=== PATIENT | male | born 1955 | race Caucasian/White ===

== ENCOUNTER 2023-06-18 13:38 | Outpatient (AMB) | payer BC, SELFPAY ==
--- NOTE | 2023-06-18 14:28 | A.SPINEOV_ITS ---
Intake Intake Visit Reasons: cervical myelopathy Intake Note: Mr. Carranza is here today c/o neck pain. MRI done @ [facility]/brought disc. Lamp Cleaner Required: No Assessment & Plan Assessment & Plan (1) Cervical myelopathy: Code(s): G95.9 - Disease of spinal cord, unspecified Plan Dear colleague, Thank you for referring Ciro to our office today. He is a pleasant 68-year-old male with a chief complaint of bilateral foot and ankle pain. He additionally reports numbness and paresthesia in his bilateral feet. He describes the pain as dull, 4/10, and constant. He states that this began 1 year ago and has worsened in the last few months. He states he has been to outpatient neurology, physical therapy, and has tried gabapentin and [id number] medications with minimal relief. He states that walking and moving exacerbate his symptoms, and sitting and resting alleviates his symptoms. PMH: Asthma, GERD, Right shoulder repair in 2019. Social hx: Nonsmoker, no disclosed substance use. Medications: Albuterol, gabapentin. Allergies: NKDA Physical exam: The patient was examined with Dr. Monroe. He presents as A&0X4, is in no acute distress. He has 5/5 strength in his bilateral lower extremities. He has reduced sensation in his bilateral feet, on both the dorsal and ventral surfaces. He has grade 0 patellar reflexes, grade 1+ Achilles reflexes, and has nonsustained clonus in bilateral ankles when engaging gastrocnemius. He has a weakly positive Babinski's bilaterally. Negative Odell's. Antalgic gait when ambulating. Imaging review: The patient's MRI imaging from [facility] was reviewed with Dr. Monroe. The patient has severe spinal cord stenosis worst at the levels of C3, C4, C5, C6, predominantly anterior. Impression: The patient is a 68-year-old male with 1 year bilateral foot and ankle pain. He reports numbness and paresthesias in his bilateral feet. 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 He is likely suffering from an upper motor neuron deficit, secondary to cervical spinal stenosis. This would explain his lower extremity symptoms, his weakly positive Babinski sign, and his non- sustained clonus. Thank you for allowing us to care for your patient. The total time spent with this visit with this patient was 65 minutes reviewing history, physical exam, MRI imaging review, and implementation of treatment plan or further diagnostic testing Aditya Monroe MD,PhD [facility] Orders: Orders CT cervical spine wo IV con Today G95.9 - Disease of spinal cord, unspecified Coding Level of Care Code New Pt Level 5 (26722) Diagnoses Cervical myelopathy G95.9 Time Spent (min) 65
== END 2023-06-18 15:31 | disposition home or self-care (01) ==
PROVIDERS: Referring Provider Psychiatry & Neurology Neurology; Visit Provider Physician Assistant
DX: G95.9 Disease of spinal cord, unspecified (principal)
CPT/HCPCS: 99205

== ENCOUNTER → 2023-06-18 13:38 | Outpatient (BNVA) | payer BC, SELFPAY | PROVIDERS: Visit Provider Physician Assistant ==

== ENCOUNTER 2023-07-02 13:09 | Outpatient (REF) | payer BC, SELFPAY ==
--- NOTE | ~2023-07-02 | CT_ITS ---
EXAMINATION: CT CERVICAL SPINE WITHOUT CONTRAST CLINICAL INFORMATION: Disease of the spinal cord. COMPARISON: No relevant prior imaging. TECHNIQUE: Grain Inspector images were obtained. CT imaging of the cervical spinal was performed without contrast. Data was reformatted into multiplanar images at the acquisition workstation. This CT examination was performed using dose optimization techniques as appropriate, including one or more of the following: Automated exposure control, iterative reconstruction, and adjustment of technique factors (mA and/or kVp) according to patient size (this includes techniques or standardized protocols for targeted exams where dose is matched to indication/reason for exam). Fleischner Society criteria for the followup of incidental pulmonary nodules was implemented if appropriate. DLP: 485 mGy-cm. FINDINGS: There is slight anterolisthesis of C2 on C3 that appears related to facet degenerative changes at this level. Alignment is otherwise normal. There are a few chronic Schmorl's nodes involving the upper and lower endplates at multiple levels within the cervical spine. Vertebral heights are grossly maintained. There is loss of intervertebral disc height with associated sclerotic degenerative endplate changes and hypertrophic disc osteophyte spurring at multiple levels. No patency is not well assessed on this examination due to inherent limitations of CT without intrathecal contrast. There is at least moderate canal stenosis at the levels of C4-C5 and C5-C6. Uncovertebral joint spurring and facet degenerative change causes moderate to severe neuroforaminal encroachment at multiple levels. Visualized soft tissues of the neck are normal. Lung apices are clear. Limited visualization of the posterior fossa reveals no abnormal finding. CT/CT cervical spine wo IV con IMPRESSION: There is multilevel degenerative spondylosis of the cervical spine with slight anterolisthesis of C2 on C3 related to facet degenerative changes at this level. There is at least moderate canal stenosis at levels of C4-C5 and C5-C6. If there are clinical symptoms of compressive myelopathy then a dedicated cervical spine MRI can be obtained for better anatomic characterization of the cord and canal. Uncovertebral joint spurring and facet degenerative change causes moderate to severe neuroforaminal encroachment at multiple levels.
== END 2023-07-02 13:10 | disposition home or self-care (01) ==
LOC: HO.CT 13:09
PROVIDERS: Visit Provider Physician Assistant
DX: G95.9 Disease of spinal cord, unspecified (principal)
CPT/HCPCS: 72125

== ENCOUNTER 2023-08-12 05:56 | Inpatient (IN) | payer BC, SELFPAY ==
--- NOTE | 2023-07-24 | ECG_ITS ---
Test Reason : PREOP Blood Pressure : / mmHG Vent. Rate : 065 BPM Atrial Rate : 065 BPM P-R Int : 162 ms QRS Dur : 092 ms QT Int : 404 ms P-R-T Axes : 072 040 010 degrees QTc Int : 420 ms Normal sinus rhythm Normal ECG No previous ECGs available Referred By: Atiya Cordero Electronically Signed By:FRANCO PETIT
[2023-07-24 13:38] VITALS: BP 166/88; PULSE 73; RESP 18; O2SAT 95; BMI 28.0
[2023-07-24 14:56] LABS: MANUAL DIFF FLAG NO
[2023-07-24 15:27] LABS: Basophils Absolute Auto 0.1 X10*3/uL (0.0-0.2); Basophils Percent Auto 0.9 % (0-2); Eosinophils Absolute Auto 0.2 X10*3/uL (0.0-0.4); Eosinophils Percent Auto 1.8 % (0-4); Hematocrit 48.7 % (42.0-52.0); Hemoglobin 16.3 g/dl (14.0-18.0); Imm Gran Abs Auto 0.02 X10*3/uL (0.00-0.03); Imm Gran Pct Auto 0.2 % (0.0-0.4); Lymphocytes Absolute Auto 1.5 X10*3/uL (1.2-4.9); Lymphocytes Percent Auto 18.1 % (20-40); Mean Corpuscular HGB Conc 33.5 g/dl (31.0-36.0); Mean Corpuscular Hemoglobin 30.6 pg (27.0-33.0); Mean Corpuscular Volume 91.4 fL (80.0-98.0); Monocytes Absolute Auto 0.6 X10*3/uL (0.1-1.2); Monocytes Percent Auto 7.5 % (2-11); Neutrophils Absolute Auto 6.1 x10*3/uL (2.0-8.3); Neutrophils Percent Auto 71.5 % (45-73); Platelet Count 189 X10*3/uL (160-400); Red Blood Count 5.33 X10*6/uL (4.60-5.80); Red Cell Distribution Width 13.3 % (11.0-16.0); White Blood Count 8.5 X10*3/uL (4.8-10.8)
[2023-07-24 15:28] LABS: Hematocrit 49.4 % (42.0-52.0); Hemoglobin 16.5 g/dl (14.0-18.0); Mean Corpuscular HGB Conc 33.4 g/dl (31.0-36.0); Mean Corpuscular Hemoglobin 30.1 pg (27.0-33.0); Mean Platelet Volume 9.8 fL (9.4-12.4); Platelet Count 189 X10*3/uL (160-400); Red Blood Count 5.49 X10*6/uL (4.60-5.80); Red Cell Distribution Width 13.3 % (11.0-16.0); White Blood Count 8.6 X10*3/uL (4.8-10.8)
[2023-07-24 16:04] LABS: Anion Gap 13 (12-20); Carbon Dioxide 23 mmol/L (22-29); Chloride 106 mmol/L (96-108); Potassium 3.8 mmol/L (3.3-5.1); Sodium 138 mmol/L (135-145)
[2023-07-24 16:11] LABS: Anion Gap 14 (12-20); Blood Urea Nitrogen 19 mg/dL (9-16); Calcium 9.6 mg/dL (8.4-10.2); Carbon Dioxide 22 mmol/L (22-29); Chloride 106 mmol/L (96-108); Creatinine Clr Calc Pharmacy 96.7; Estimated Glomerular Filt Rate > 60; Glucose Random 86 mg/dL (60-115); Potassium 3.8 mmol/L (3.3-5.1); Sodium 138 mmol/L (135-145)
--- NOTE | 2023-08-11 08:29 | HO.ANESPROP2 ---
Documented by User: Candi Landaverde NP 08/11/23 10:47 HPI - Anesthesia Eval Consult details Narrative: 68yo M for C 3-4,4-5,5-6 Ant Cerv Discectomy w/ fusion,poss Corpectomy, Seen in PAT 07/24/[address] Cordero [facility] Active Problems Active Problems: All Active Problems (Updated 07/24/23 @ 13:22 by Amy Todd RN) Cervical myelopathy (Acute) Past Medical History Medical History (Updated 07/24/23 @ 13:22 by Amy Todd RN) Dizziness Bursitis and tendinitis of shoulder region Numbness and tingling of both legs below knees Rotator cuff arthropathy Spinal stenosis Hyperlipidemia Inguinal hernia Sleep apnea GERD (gastroesophageal reflux disease) Asthma Surgical History Surgical History (Updated 07/24/23 @ 13:15 by Amy Todd RN) Hx of appendectomy Hx of repair of right rotator cuff Social History Social History Are you a primary urgent care nurse practitioner to a significant other at home: No Do you presently have visiting nurse or other home services: No Patient Tobacco Use Status: Never used Tobacco Use of substances other than those prescribed or required for medical reasons: No Have you been hit, kicked, punched, or otherwise hurt by someone within the past year? If so, by whom?: No Advance Directives: No Advance Directives Information Provided: No Advance Directives on File: No Recently lost weight without trying: No Eating poorly because of decreased appetite: No Nutrition Risks: No Nutritional Risk Poor oral hygiene: Yes (left upper bridge) Meds Allergies Allergy/AdvReac Type Severity Reaction Status Date / Time pseudoephedrine Allergy Shortness Verified 07/23/23 09:44 of Breath triprolidine Allergy Shortness Verified 07/23/23 09:43 of Breath Home Medications Medication Instructions Recorded Confirmed Last Taken Type albuterol sulfate 90 mcg/actuation 2 puff inhalation Q4-6H PRN 07/23/23 07/23/23 Unknown History aerosol inhaler Shortness Of Breath Or Wheezing fluorouracil 0.5 % topical cream 1 appl topical DAILY PRN Skin 07/23/23 07/23/23 Unknown History (Carac) Irritation fluticasone furoate 100 1 ea inhalation DAILY 07/23/23 07/23/23 Unknown History mcg-vilanterol 25 mcg/dose inhalation powder (Breo Ellipta) hydrocodone 5 mg-acetaminophen 325 1 tab PO TID PRN Pain 07/23/23 07/23/23 Unknown History mg tablet ibuprofen 600 mg tablet 600 mg PO BID PRN Pain 07/23/23 07/23/23 Unknown History metaxalone 800 mg tablet 800 mg PO BID PRN muscle spasm 07/23/23 07/23/23 Unknown History multivitamin 1 tab PO DAILY 07/23/23 07/23/23 Unknown History omega-3 acid ethyl esters 1 gram 1 cap PO DAILY 07/23/23 07/23/23 Unknown History capsule (Lovaza) ondansetron 4 mg disintegrating 4 mg PO Q6-8H PRN nausea/vomiting 07/23/23 07/23/23 Unknown History tablet triamcinolone acetonide 0.1 % 1 appl topical DAILY PRN Skin 07/23/23 07/23/23 Unknown History topical cream Irritation Exam Exam Date and Time: August 11, 2023 0829 Height,Weight and Vital Signs: Height 6 ft 3 in Weight 101.605 kg Last Vital Signs Pulse 73 07/24/23 13:38 Resp 18 07/24/23 13:38 BP 166/88 H 07/24/23 13:38 Pulse Ox 95 07/24/23 13:38 O2 Del Method Room Air 07/24/23 13:38 Pertinent Lab Results Pertinent Lab Results: Laboratory Tests 07/24/23 07/24/23 07/24/23 14:54 14:54 14:54 WBC 8.6 8.5 RBC 5.49 5.33 Hgb 16.5 Hct MCV MCH MCHC RDW Plt Count MPV Immature Gran % (Auto) Neut % (Auto) Lymph % (Auto) Mcmullen % (Auto) Eos % (Auto) Baso % (Auto) Lymph # (Auto) Mcmullen # (Auto) Eos # (Auto) Baso # (Auto) Abs Immat Gran (auto) Absolute Neuts (auto) Absolute Nucleated RBC Nucleated RBC % (auto) Sodium Potassium Chloride Carbon Dioxide Anion Gap BUN Creatinine Estim Creat Clear Calc Estimated GFR Random Glucose Calcium 07/24/23 07/24/23 07/24/23 14:54 14:54 14:54 WBC RBC Hgb 16.3 Hct 49.4 48.7 MCV 90.0 91.4 MCH 30.1 MCHC RDW Plt Count MPV Immature Gran % (Auto) Neut % (Auto) Lymph % (Auto) Mcmullen % (Auto) Eos % (Auto) Baso % (Auto) Lymph # (Auto) Mcmullen # (Auto) Eos # (Auto) Baso # (Auto) Abs Immat Gran (auto) Absolute Neuts (auto) Absolute Nucleated RBC Nucleated RBC % (auto) Sodium Potassium Chloride Carbon Dioxide Anion Gap BUN Creatinine Estim Creat Clear Calc Estimated GFR Random Glucose Calcium 07/24/23 07/24/23 07/24/23 14:54 14:54 14:54 WBC RBC Hgb Hct MCV MCH 30.6 MCHC 33.4 33.5 RDW 13.3 13.3 Plt Count 189 MPV Immature Gran % (Auto) Neut % (Auto) Lymph % (Auto) Mcmullen % (Auto) Eos % (Auto) Baso % (Auto) Lymph # (Auto) Mcmullen # (Auto) Eos # (Auto) Baso # (Auto) Abs Immat Gran (auto) Absolute Neuts (auto) Absolute Nucleated RBC Nucleated RBC % (auto) Sodium Potassium Chloride Carbon Dioxide Anion Gap BUN Creatinine Estim Creat Clear Calc Estimated GFR Random Glucose Calcium 07/24/23 07/24/23 07/24/23 14:54 14:54 14:54 WBC RBC Hgb Hct MCV MCH MCHC RDW Plt Count 189 MPV 9.8 10.0 Immature Gran % (Auto) 0.2 Neut % (Auto) 71.5 Lymph % (Auto) 18.1 L Mcmullen % (Auto) 7.5 Eos % (Auto) 1.8 Baso % (Auto) 0.9 Lymph # (Auto) 1.5 Mcmullen # (Auto) 0.6 Eos # (Auto) 0.2 Baso # (Auto) 0.1 Abs Immat Gran (auto) 0.02 Absolute Neuts (auto) 6.1 Absolute Nucleated RBC 0.000 0.000 Nucleated RBC % (auto) 0.0 Sodium Potassium Chloride Carbon Dioxide Anion Gap BUN Creatinine Estim Creat Clear Calc Estimated GFR Random Glucose Calcium 07/24/23 07/24/23 07/24/23 14:54 14:54 14:54 WBC RBC Hgb Hct MCV MCH MCHC RDW Plt Count MPV Immature Gran % (Auto) Neut % (Auto) Lymph % (Auto) Mcmullen % (Auto) Eos % (Auto) Baso % (Auto) Lymph # (Auto) Mcmullen # (Auto) Eos # (Auto) Baso # (Auto) Abs Immat Gran (auto) Absolute Neuts (auto) Absolute Nucleated RBC Nucleated RBC % (auto) 0.0 Sodium 138 138 Potassium 3.8 3.8 Chloride 106 Carbon Dioxide Anion Gap BUN Creatinine Estim Creat Clear Calc Estimated GFR Random Glucose Calcium 07/24/23 07/24/23 07/24/23 14:54 14:54 14:54 WBC RBC Hgb Hct MCV MCH MCHC RDW Plt Count MPV Immature Gran % (Auto) Neut % (Auto) Lymph % (Auto) Mcmullen % (Auto) Eos % (Auto) Baso % (Auto) Lymph # (Auto) Mcmullen # (Auto) Eos # (Auto) Baso # (Auto) Abs Immat Gran (auto) Absolute Neuts (auto) Absolute Nucleated RBC Nucleated RBC % (auto) Sodium Potassium Chloride 106 Carbon Dioxide 22 23 Anion Gap 14 13 BUN 19 H Creatinine 0.97 Estim Creat Clear Calc 96.7 Estimated GFR > 60 Random Glucose 86 Calcium 9.6 Narrative Narrative: EKG 06/2023 Vent. Rate : 065 BPM Atrial Rate : 065 BPM P-R Int : 162 ms QRS Dur : 092 ms QT Int : 404 ms P-R-T Axes : 072 040 010 degrees QTc Int : 420 ms Normal sinus rhythm Normal ECG No previous ECGs available Assessment and Plan Assessment Anesthesia Assessment: Chart Reviewed Documented by User: Greyson Baca MD 08/12/23 06:07 [facility] Past Medical History Medical History (Updated 07/24/23 @ 13:22 by Amy Todd RN) Dizziness Bursitis and tendinitis of shoulder region Numbness and tingling of both legs below knees Rotator cuff arthropathy Spinal stenosis Hyperlipidemia Inguinal hernia Sleep apnea GERD (gastroesophageal reflux disease) Asthma Family History Family history of problems with anesthesia: No Surgical History Surgical History (Updated 07/24/23 @ 13:15 by Amy Todd RN) Hx of appendectomy Hx of repair of right rotator cuff History of Problems with Anesthesia: No Social History Social History Are you a primary urgent care nurse practitioner to a significant other at home: No Do you presently have visiting nurse or other home services: No Patient Tobacco Use Status: Never used Tobacco Use of substances other than those prescribed or required for medical reasons: No Have you been hit, kicked, punched, or otherwise hurt by someone within the past year? If so, by whom?: No Advance Directives: No Advance Directives Information Provided: No Advance Directives on File: No Recently lost weight without trying: No Eating poorly because of decreased appetite: No Nutrition Risks: No Nutritional Risk Poor oral hygiene: Yes (left upper bridge) Meds Allergies Allergy/AdvReac Type Severity Reaction Status Date / Time pseudoephedrine Allergy Shortness Verified 07/23/23 09:44 of Breath triprolidine Allergy Shortness Verified 07/23/23 09:43 of Breath Home Medications Medication Instructions Recorded Confirmed Last Taken Type albuterol sulfate 90 mcg/actuation 2 puff inhalation Q4-6H PRN 07/23/23 07/23/23 Unknown History aerosol inhaler Shortness Of Breath Or Wheezing fluorouracil 0.5 % topical cream 1 appl topical DAILY PRN Skin 07/23/23 07/23/23 Unknown History (Carac) Irritation fluticasone furoate 100 1 ea inhalation DAILY 07/23/23 07/23/23 Unknown History mcg-vilanterol 25 mcg/dose inhalation powder (Breo Ellipta) hydrocodone 5 mg-acetaminophen 325 1 tab PO TID PRN Pain 07/23/23 07/23/23 Unknown History mg tablet ibuprofen 600 mg tablet 600 mg PO BID PRN Pain 07/23/23 07/23/23 Unknown History metaxalone 800 mg tablet 800 mg PO BID PRN muscle spasm 07/23/23 07/23/23 Unknown History multivitamin 1 tab PO DAILY 07/23/23 07/23/23 Unknown History omega-3 acid ethyl esters 1 gram 1 cap PO DAILY 07/23/23 07/23/23 Unknown History capsule (Lovaza) ondansetron 4 mg disintegrating 4 mg PO Q6-8H PRN nausea/vomiting 07/23/23 07/23/23 Unknown History tablet triamcinolone acetonide 0.1 % 1 appl topical DAILY PRN Skin 07/23/23 07/23/23 Unknown History topical cream Irritation Exam Airway Mallampati Class: III TM Dist: >3cm Neck ROM: Limited Heart: rrr Lungs: cta Assessment and Plan Final Anesthetic Review Family History of Problems with Anesthesia: No History of Problems with Anesthesia: No NPO: Yes ASA Class: II Final Preanesthetic Review: Meds/Allgs Chart Reviewed, Consent Obtained/Reviewed and Anes Risks/Benef Reviewed Patient Risk: Intermediate Procedure Risk: Intermediate Anesthetic Plan Anesthetic Plan: GA and Agree w/ Assess. and Plan
[2023-08-12] VITALS (27 sets, daily range): BP systolic 117–173; BP diastolic 62–99; PULSE 75–103; RESP 10–20; TEMP 36.5–37; O2SAT 90–97
--- NOTE | ~2023-08-12 | FL_ITS ---
EXAMINATION: XR FL WITH IMAGES CLINICAL INFORMATION: Anterior cervical discectomy and fusion. COMPARISON: Previous cervical spine CT 07/02/2023. TECHNIQUE: Fluoroscopy guidance with images provided to Dr. Monreo. DOSE: 1.78 mGy DAP: 0.300 Gycm2 FLUOROSCOPY TIME: 0.0 minute. IMAGES: 3 images. FINDINGS: Images demonstrate anterior cervical discectomy and fusion new hardware at C3-C4, C4-C5 and C5-C6. FL/FL guidance in OR IMPRESSION: Fluoroscopy guidance for cervical spine surgery.
[2023-08-12] MEDS: Lactated Ringers 1,000 ML 100 ML IVCONT (06:34)
[2023-08-12] MEDS: Gabapentin 300 MG CAPSULE PO (06:38)
[2023-08-12] MEDS: methocarbamoL 750 MG TABLET PO (06:38)
--- NOTE | 2023-08-12 07:01 | MHC.SHP ---
Pre-Procedural Eval Section A Date of Service: 08/12/23 Section B Chief Complaint: S/p 3 level ACDF Allergies: Allergies Allergy/AdvReac Type Severity Reaction Status Date / Time pseudoephedrine Allergy Shortness Verified 07/23/23 09:44 of Breath triprolidine Allergy Shortness Verified 07/23/23 09:43 of Breath Review of Systems Sugical H&P ROS: Negative: Constitution, Cardiovascular, Respiratory, Neurological, Psychiatric, Hem-Onc, Allergic/Immunologic, Gastrointestinal, Genitourinary, Musculoskeletal, Integumentary, Endocrine and Eyes/Ears/Nose/Throat Exam Surgical H&P Exam: Not Evaluated: HEENT, Not Evaluated: Heart, Not Evaluated: Lungs, Not Evaluated: Extremities, Not Evaluated: Abdomen, Not Evaluated: Skin and Not Evaluated: Neurological Plan Diagnosis/Plan: Unchanged I have reviewed the history and physical and performed a pertinent physical examination on my patient. No changes have occurred unless specified. Plan remains the same, C3-C6 ACDF with possible corpectomy Time Spent With Patient Time: Total time managing care of this patient today __10__ minutes.
[2023-08-12] MEDS: Acetaminophen 1,000 MG/100 ML PIGGYBACK 400 MG IV ×3 (10:30→23:13)
--- NOTE | 2023-08-12 10:33 | P.OP_ITS ---
Operative Note Operative Note Date of Service: 08/12/23 Narrative: Preoperative Diagnosis: Cervical myelopathy Procedure: C3-C4, C4-C5, C5-C6 Anterior discectomy, arthrodesis and implantation cage ; C3-C6 anterior instrumentation ; local autograft; microscope Informed Consent was obtained for this operation. I have explained the nature, purpose and benefits of the operation. I have discussed the risks and benefit of the operation including possible complications or adverse events with patient/family. Alternative(s) were discussed with the patient with their relative benefits and risks as well as the consequences of not accepting the operation were included in obtaining consent. Surgeon: EPHRAIM SMYTH MD, PHD Procedure Assisted By: jaya Sears Description of Procedure: at this 68-year-old male is suffer from progressive cervical myelopathy. An MRI and CT scan cervical spine shows severe degenerative disc disease C3-C4 C4- C5 C5-C6 with large osteophytes compressing the spinal cord. He was offered a decompression And fusionof the above-mentioned levels. The procedure and complications were explained. The patient was consented. The patient was brought to the operating room and endotracheally intubated. The patient was put in supine position with slight extension of the neck. Prep and drape was done followed by timeout. A mid cervical incision was made followed by opening of the platysma. The prevertebral fascia was reached following the natural planes while the physician assistant men's soccer coach provided manual retraction. The prevertebral fascia was opened to expose the C3-4, C4-5 and C5-C6 disc spaces. A spinal needle was placed in the C3-4 discspace and C5-C6 disc spaceto confirm the correct levels with xray. The longus colli muscles were released bilaterally and a self retaining retractor was inserted. and initial diskectomy was done of C4-5 and C5-C6 towards the posterior annulus.Two [place] pins were placed in the C3 and C4 vertebral bodies and distraction was give over the interspace. The discectomy was completed toward the posterior annulus of the disc. The microscope was brought in. The remainder of the discectomy was completed. The hypertrophied posterior longitudinal ligament was opened and resected to expose the underlying dura. large osteophytes were resected from the body of C3 and C4 to decompress the spinal cord and saved for autograft. Bilateral foraminotomies were done. The endplates were prepared after which a 6 mm cage filled with autograft was inserted into the disc space. A separate attached plate was locked down with 2 x 14 mm screws as anterior instrumentation. The steps were repeated for at the C4-5 and C5-C6 levels. At both levels severe spinal stenosis was encountered due to large posterior osteophytes which were resected. Two 6 mm cages were inserted in the C4-C5 and C5-6 levels, where again separate attached plates were locked down with a total 4 x 14 mm screws as anterior instrumentation. Final x-rays in AP and lateral projection showed a satisfactory position of the implants And anterior instrumentation. The physician assistant men's soccer coach took over. The [place] pin was removed. Hemostasis was done. He closed the incision in 2 layers with a 3-0 Vicryl. Steri-Strips used to approximate inc ision. An OpSite with Tegaderm was used to cover the incision. All sponge and needle counts were correct. Patient was extubated and transported in stable is to recovery room. Anesthesia: General Estimated Blood Loss (ml): 50 mL Duration of Surgery: 2 hours and 30 minutes Postoperative Plan: admit to inpatient for observation Complications: None
[2023-08-12] MEDS: HYDROmorphone HCl 0.5 MG/0.5 ML SYRINGE 0.25 MG IVPUSH ×4 (11:10→11:30)
[2023-08-12] MEDS: oxyCODONE HCl Immed Release 5 MG TABLET 10 MG PO (11:12)
--- NOTE | 2023-08-12 11:32 | PHA.MEDREC ---
Pharmacy Consult ? Medication Reconciliation Pharmacy has completed the medication reconciliation Reviewed med rec done by nursing.
[2023-08-12] MEDS: fentaNYL citrate/PF 100 MCG/2 ML VIAL 50 MCG IVPUSH (12:20)
[2023-08-12] MEDS: 0.9 % Sodium Chloride 1,000 ML 75 ML IVCONT (13:28)
[2023-08-12] MEDS: HYDROmorphone HCl 1 MG/ML SYRINGE IVPUSH ×3 (13:42→20:51)
[2023-08-12] MEDS: ceFAZolin Sodium/Dextrose,Iso 2 GM/50 ML PIGGYBACK IV ×2 (14:46→20:51)
--- NOTE | 2023-08-12 15:43 | PM.CCHP ---
History of Present Illness Date of Service: 08/12/23 Chief Complaint: Status post elective anterior diskectomy 68-year-old gentleman with underlying history of asthma and progressive cervical myelopathy, now postop day 0 after an elective anterior cervical multilevel diskectomy and cage placement being monitored in the intensive care unit in the postop period Review of Systems Constitutional: Constitutional: Denies daytime sleepiness, Denies excessive sweating, Denies fatigue, Denies fever(s), Denies lethargy, Denies malaise, Denies night sweats, Denies snoring and Denies weight loss Eyes: Eyes: Denies blurry vision and Denies itchy eyes ENT: Denies nasal congestion, Denies post nasal drip, Denies sinus pain, Denies sinus pressure and Denies other ( Thrush) Cardiovascular: Cardiovascular: Denies chest pain, Denies pedal edema, Denies dyspnea, Denies orthopnea and Denies paroxysmal nocturnal dyspnea Respiratory: Respiratory: Denies cough, Denies hemoptysis, Denies excessive phlegm production, Denies dyspnea, Denies snoring and Denies wheezing Gastrointestinal: Gastrointestinal: Denies abdominal pain and Denies heartburn Musculoskeletal: Musculoskeletal: Denies myalgias, Denies arthralgias and Denies joint swelling Integumentary/Breasts: Skin/Breast: Denies rash Neurologic: Denies memory loss and Denies seizure-like activity Psychiatric: Psychiatric: Denies abnormal sleep pattern, Denies anxiety and Denies memory loss Endocrine: Endocrine: Denies excessive sweating, Denies fatigue and Denies heat intolerance Hematologic/Lymphatic: Hematologic/Lymphatic: Denies easy bruising Allergic/Immunologic: Allergic/Immunologic: Denies itchy eyes, Denies seasonal rhinorrhea and Denies wheezing PMFSH Past Medical History Medical History (Updated 08/12/23 @ 15:45 by Ranjith Gomez MD) Dizziness Bursitis and tendinitis of shoulder region Numbness and tingling of both legs below knees Rotator cuff arthropathy Spinal stenosis Hyperlipidemia Inguinal hernia Sleep apnea GERD (gastroesophageal reflux disease) Asthma Surgical History Surgical History Hx of appendectomy Hx of repair of right rotator cuff Social History Social History Household Members: Spouse Housing: House Are you a primary care process manager to a significant other at home: No Do you presently have visiting nurse or other home services: No Patient Tobacco Use Status: Never used Tobacco Use of substances other than those prescribed or required for medical reasons: No Have you been hit, kicked, punched, or otherwise hurt by someone within the past year? If so, by whom?: No Do you feel safe in your current relationship?: Yes Is there a partner from a previous relationship who is making you feel unsafe now?: No Are you made to feel afraid or neglected: No Advance Directives: No Advance Directives Information Provided: No Advance Directives on File: No Do you have thoughts of harming others: None Do you have a plan to hurt others: No Plan Recently lost weight without trying: No Eating poorly because of decreased appetite: No Nutrition Risks: No Nutritional Risk Poor oral hygiene: No Meds Allergies Allergy/AdvReac Type Severity Reaction Status Date / Time pseudoephedrine Allergy Shortness Verified 08/12/23 13:47 of Breath triprolidine Allergy Shortness Verified 08/12/23 13:47 of Breath Active Medications: Current Medications Albuterol Sulfate (Albuterol Sulfate 90 Mcg 8 Gm Inhaler) 2 puff INHALE Q4H PRN PRN Reason: Shortness Of Breath Or Wheezing Carisoprodol (Carisoprodol 350 Mg Tablet) 350 mg PO BID PRN PRN Reason: muscle spasm Docusate Sodium (Docusate Sodium 100 Mg Capsule) 100 mg PO BID JANETTE Fluticasone/Vilanterol (Fluticasone/Vilanterol 100/25 Blst.W.Dev) 1 puff INHALE RDAILY [facility] Hydromorphone HCl (Hydromorphone Hcl 1 Mg/Ml Syringe) 1 mg IVPUSH Q3H PRN; Protocol PRN Reason: Pain, Severe (Pain Scale 7-10) Last Admin: 08/12/23 13:42 Dose: 1 mg Sodium Chloride (Ns) 1,000 mls @ 75 mls/hr IVCONT .[id number] [facility] Last Admin: 08/12/23 13:28 Dose: 75 mls/hr Cefazolin Sodium/Dextrose (Ancef) 2 gm in 50 mls @ 100 mls/hr IV Q6H [facility] Stop: 08/13/23 02:59 Last Admin: 08/12/23 14:46 Dose: 100 mls/hr Acetaminophen (Ofirmev) 1,000 mg in 100 mls @ 400 mls/hr IV Q6H JANETTE Last Infusion: 08/12/23 13:42 Dose: Infused Multivitamins/Vitamin C (Multivitamin Tablet) 1 tab PO DAILY JANETTE Ondansetron HCl (Ondansetron Hcl 4 Mg/2 Ml Vial) 4 mg IVPUSH Q6H PRN PRN Reason: Nausea and Vomiting Oxycodone HCl (Oxycodone Hcl Immed Release 5 Mg Tablet) 5 mg PO Q4H PRN PRN Reason: Pain, Moderate(Pain Scale 4-6) Oxycodone HCl (Oxycodone Hcl Immed Release 5 Mg Tablet) 10 mg PO Q4H PRN PRN Reason: Pain, Severe (Pain Scale 7-10) Last Admin: 08/12/23 11:12 Dose: 10 mg Home Medications Medication Instructions Recorded Confirmed Last Taken Type albuterol sulfate 90 mcg/actuation 2 puff inhalation Q4-6H PRN 07/23/23 07/23/23 08/12/23 History aerosol inhaler Shortness Of Breath Or Wheezing fluorouracil 0.5 % topical cream 1 appl topical DAILY PRN Skin 07/23/23 07/23/23 Unknown History (Carac) Irritation fluticasone furoate 100 1 ea inhalation DAILY 07/23/23 07/23/23 08/12/23 History mcg-vilanterol 25 mcg/dose inhalation powder (Breo Ellipta) hydrocodone 5 mg-acetaminophen 325 1 tab PO TID PRN Pain 07/23/23 07/23/23 08/05/23 History mg tablet ibuprofen 600 mg tablet 600 mg PO BID PRN Pain 07/23/23 07/23/23 08/05/23 History metaxalone 800 mg tablet 800 mg PO BID PRN muscle spasm 07/23/23 07/23/23 08/05/23 History multivitamin 1 tab PO DAILY 07/23/23 07/23/23 08/05/23 History ondansetron 4 mg disintegrating 4 mg PO Q6-8H PRN nausea/vomiting 07/23/23 07/23/23 Unknown History tablet Physical Exam Vital Signs: Vital Signs: Last Vital Signs Temp 98.3 F 08/12/23 12:40 Pulse 98 08/12/23 15:00 Resp 13 08/12/23 15:00 BP 142/81 H 08/12/23 15:00 Pulse Ox 92 08/12/23 15:00 O2 Del Method Nasal Cannula 08/12/23 15:00 O2 Flow Rate 3 08/12/23 15:00 BMI result Body Mass Index 28.0 Const: General: no acute distress and alert Nutritional Appearance: not obese Orientation/consciousness: Other orientation findings ( oriented) HEENT: Head: Yes atraumatic Eyes: General: appearance normal, both eyes and all related structures Sclerae: sclerae normal EOM: EOMs intact bilaterally Neck: Other: surgical access site with no hematoma Neck: Yes supple Lymphatic: no lymphadenopathy noted Resp: Effort & Inspection: normal respiratory effort and no use of accessory muscles Auscultation: clear to auscultation bilaterally Cardio: Rate: regular rate Rhythm: regular rhythm Heart sounds: no gallops, no murmurs and no rubs Skin: General skin exam: other ( warm) Extrem: General: No clubbing, No cyanosis and No edema Results Labs 07/24/23 14:54 07/24/23 14:54 Labs: Laboratory Results - last 24 hr 08/12/23 06:08 Blood Type A Positive Antibody Screen NEGATIVE Assessment and Plan (1) Cervical myelopathy: Status: Acute (2) Asthma: Status: Acute Plan Assessment: 68-year-old gentleman now postop day 0 after an elective anterior cervical multilevel diskectomy and cage placement being monitored postop in the intensive care unit Plan: Neuro: status post elective anterior multilevel cervical diskectomy. Continue routine postop care. Neurosurgery service care appreciated. Cardiac: No acute issues. Pulmonary: No acute issues. underlying history of asthma. Renal: No acute issues. Endo: No acute issues. GI: No acute issues. Underlying GERD. ID: No acute issues Heme/Onc: No acute issues. Psych: No acute issues. Miscellaneous: No acute issues. Prophylaxis: per neurosurgery Diet: per neurosurgery Time Spent With Patient Time: Total time managing care of this patient today ____ minutes.
[2023-08-12] MEDS: Docusate Sodium 100 MG CAPSULE PO (20:50)
[2023-08-12] MEDS: oxyCODONE HCl Immed Release 5 MG TABLET PO (23:43)
[2023-08-12] MEDS: carisoprodoL 350 MG TABLET PO (23:43)
[2023-08-13] VITALS (16 sets, daily range): BP systolic 116–167; BP diastolic 61–97; PULSE 65–100; RESP 11–19; TEMP 36.6–37; O2SAT 90–96
[2023-08-13] MEDS: ceFAZolin Sodium/Dextrose,Iso 2 GM/50 ML PIGGYBACK IV (02:28)
[2023-08-13] MEDS: HYDROmorphone HCl 1 MG/ML SYRINGE IVPUSH (03:23)
[2023-08-13 05:11] LABS: MANUAL DIFF FLAG NO
[2023-08-13 05:14] LABS: Basophils Percent Auto 0.2 % (0-2); Hematocrit 46.1 % (42.0-52.0); Hemoglobin 15.4 g/dl (14.0-18.0); Imm Gran Abs Auto 0.04 X10*3/uL (0.00-0.03); Imm Gran Pct Auto 0.3 % (0.0-0.4); Lymphocytes Percent Auto 8.2 % (20-40); Mean Corpuscular HGB Conc 33.4 g/dl (31.0-36.0); Mean Corpuscular Hemoglobin 30.8 pg (27.0-33.0); Mean Corpuscular Volume 92.2 fL (80.0-98.0); Mean Platelet Volume 9.9 fL (9.4-12.4); Monocytes Absolute Auto 1.3 X10*3/uL (0.1-1.2); Monocytes Percent Auto 11.1 % (2-11); Neutrophils Absolute Auto 9.5 x10*3/uL (2.0-8.3); Neutrophils Percent Auto 80.2 % (45-73); Platelet Count 189 X10*3/uL (160-400); Red Cell Distribution Width 13.3 % (11.0-16.0); White Blood Count 11.9 X10*3/uL (4.8-10.8)
[2023-08-13] MEDS: Acetaminophen 1,000 MG/100 ML PIGGYBACK 400 MG IV ×2 (05:33→11:09)
[2023-08-13 05:34] LABS: Anion Gap 15 (12-20); Blood Urea Nitrogen 13 mg/dL (9-16); Carbon Dioxide 21 mmol/L (22-29); Chloride 106 mmol/L (96-108); Creatinine Clr Calc Pharmacy 80.2; Estimated Glomerular Filt Rate > 60; Glucose Random 116 mg/dL (60-115); Magnesium 2.1 mg/dL (1.6-2.6); Sodium 137 mmol/L (135-145)
[2023-08-13] MEDS: oxyCODONE HCl Immed Release 5 MG TABLET 10 MG PO ×2 (07:41→12:03)
[2023-08-13] MEDS: Docusate Sodium 100 MG CAPSULE PO (08:46)
[2023-08-13] MEDS: Multivitamin TABLET 1 TAB PO (08:46)
--- NOTE | 2023-08-13 09:19 | HO.NEUROPN_ITS ---
Neurosurgery Operative Note Date of Service: 08/13/23 Narrative: POD: 1 Procedure: C3-6 ACDF Patient reports he is up walking around is otherwise doing well. He feels his symptoms are much better than pre-operatively. He still reports mild pain in the posterior neck, with good relief with pain medication. He is voiding well, tolerating diet, and is able to stand / ambulate. Afebrile, vital signs stable. Full strength 5/5 UE / LE. Neck dressings are C/D/I. No active sanguineous dr gamble. Area is dry. Plan: Patient meets criteria to be medically discharged home. He was also evaluated by Dr. Monroe. After discussion is was determined the patient can be discharged without PT evaluation. His medications will be sent to [facility] in [place], [place].
[2023-08-13] MEDS: Fluticasone/Vilanterol 100/25 BLST.W.DEV 1 PUFF INHALE (09:24)
--- NOTE | 2023-08-13 09:29 | P.DS_ITS ---
DS: Providers Provider Date of Service: 08/13/23 Date of admission: 08/12/23 05:56 Primary care physician: Norris Tidwell MD DS: Diagnosis Discharge Diagnosis (1) Cervical myelopathy: Status: Acute (2) Asthma: Status: Acute DS: Summary Time Spent with Patient Time attestation: Total time managing care of this patient today ____ minutes. Discharge coordination time: Less than 30 minutes Quality: Safe Use of Opioids Does Pt have an Active Cancer Diagnosis on the Problem List?: No Quality: Stroke Does the patient have a stroke diagnosis?: No Physical Exam Vital Signs: Vital Signs: Last Vital Signs Temp 97.8 F 08/13/23 08:00 Pulse 99 08/13/23 09:28 Resp 18 08/13/23 09:28 BP 156/92 H 08/13/23 09:00 Pulse Ox 90 L 08/13/23 09:00 O2 Del Method Nasal Cannula 08/13/23 09:00 O2 Flow Rate 3 08/13/23 09:00 BMI result Body Mass Index 28.0 DS: Data Data Completed and Pending Labs on day of discharge: Laboratory Results - last 24 hr 08/13/23 04:33 WBC 11.9 H RBC 5.00 Hgb 15.4 Hct 46.1 MCV 92.2 MCH 30.8 MCHC 33.4 RDW 13.3 Plt Count 189 MPV 9.9 Immature Gran % (Auto) 0.3 Neut % (Auto) 80.2 H Lymph % (Auto) 8.2 L [place] % (Auto) 11.1 H Eos % (Auto) 0.0 Baso % (Auto) 0.2 Lymph # (Auto) 1.0 L [place] # (Auto) 1.3 H Eos # (Auto) 0.0 Baso # (Auto) 0.0 Abs Immat Gran (auto) 0.04 H Absolute Neuts (auto) 9.5 H Absolute Nucleated RBC 0.000 Nucleated RBC % (auto) 0.0 Sodium 137 Potassium 5.0 D Chloride 106 Carbon Dioxide 21 L Anion Gap 15 BUN 13 Creatinine 1.17 Estim Creat Clear Calc 80.2 Estimated GFR > 60 Random Glucose 116 H Calcium 9.0 D Phosphorus 3.0 Magnesium 2.1 Discharge Plan Discharge Anticipated Discharge Date/Time: 08/13/23 09:30 Patient Disposition: Home, Self-Care Discharge Diagnosis: s/p c3-6 ACDF Referrals: Norris Tidwell MD [Primary Care Provider] - 1 Week Discharge Medications: New oxycodone 5 mg tablet 5 mg PO TID PRN (Reason: moderate-severe pain) Qty: 30 0RF Rx Instructions: Partial Fill upon patient request. acetaminophen 500 mg tablet 1,000 mg PO Q8H PRN (Reason: mild-moderate pain) Qty: 42 0RF docusate sodium 100 mg capsule 100 mg PO BID Qty: 28 0RF Continued fluorouracil [Carac] 0.5 % Cream 1 appl TOPICAL DAILY PRN (Reason: Skin Irritation) albuterol sulfate 90 mcg/actuation HFA aerosol inhaler 2 puff inhalation Q4-6H PRN (Reason: Shortness Of Breath Or Wheezing) multivitamin Tablet 1 tab PO DAILY ibuprofen 600 mg tablet 600 mg PO BID PRN (Reason: Pain) ondansetron 4 mg tablet,disintegrating 4 mg PO Q6-8H PRN (Reason: nausea/vomiting) metaxalone 800 mg tablet 800 mg PO BID PRN (Reason: muscle spasm) fluticasone furoate-vilanterol [Breo Ellipta] 100-25 mcg/dose blister with device 1 ea inhalation DAILY Held hydrocodone-acetaminophen 5-325 mg tablet 1 tab PO TID PRN (Reason: Pain) Hold Instructions: Resume on 08/20/23. Do not resume until Oxycodone Rx is complete Discharge Orders: Discharge Order (Routine); Ordered 08/13/23 Ordered By: Aditya Marie Diet: Advance to usual diet Activity on Discharge: As tolerated Stand Alone Forms: Patient Portal Discharge page Care Plan Goals: Return to activity as tolerated Health Concerns: None Plan of Treatment: Follow-up in clinic in 2 weeks Assessment: Stable
--- NOTE | 2023-08-13 09:40 | MHC.CM.PN ---
This junior technical writer met with patient for CM assessment. From home no services prior to surgery. Independent and currently working. No concerns surrounding SDOH. Plan for d/c home today no services. CM will attempt to arrange transport for pt after being seen by PT. Otherwise daughter will pick pt up @ 5PM.
--- NOTE | 2023-08-13 10:47 | HO.POSTANES ---
Post Anesthesia Evaluation Post Anesthesia Evaluation Date of Service: 08/13/23 Vital Signs: Vital Signs Temp Pulse Resp BP Pulse Ox O2 Del Method O2 Flow Rate 08/13/23 10:00 89 19 145/61 H 92 Nasal Cannula 3 08/13/23 09:28 99 18 08/13/23 09:00 96 16 156/92 H 90 L Nasal Cannula 3 08/13/23 08:00 97.8 F 70 13 149/96 H 96 Nasal Cannula 3 08/13/23 07:00 65 15 146/88 H 95 Nasal Cannula 3 08/13/23 06:00 72 11 L 135/75 94 Nasal Cannula 2 08/13/23 05:00 76 14 147/91 H 94 Nasal Cannula 2 08/13/23 04:00 98.5 F 74 13 149/89 H 93 Nasal Cannula 2 08/13/23 03:00 83 14 136/64 95 Nasal Cannula 08/13/23 02:00 91 13 116/70 93 Nasal Cannula 2 08/13/23 01:00 89 14 122/72 93 Nasal Cannula 2 08/13/23 00:00 98.6 F 84 13 124/75 94 Nasal Cannula 2 08/12/23 23:00 88 12 133/77 93 Nasal Cannula 2 Anesthesia: General Endotracheal-GETA Mental Status: Awake Pain Control: Satisfactory Nausea/Vomiting: None Hydration: Adequate Anesthesia-Related Issues: No Anes. Related Issues
== END 2023-08-13 15:14 | disposition home or self-care (01) | DRG 23 ==
LOC: HO.SSSA 05:59 → HO.ICU 11:31
PROVIDERS: Anesthesiology; Admitting Provider Neurological Surgery; PCP Radiology Vascular & Interventional Radiology; Visit Provider Internal Medicine Pulmonary Disease
PROC: 0RG20A0 Fusion of 2 or more Cervical Vertebral Joints with Interbody Fusion Device, Anterior Approach, Anterior Column, Open Approach (ICD-10-PCS; principal; 2023-08-12 07:30)
DX: G95.9 Disease of spinal cord, unspecified (principal); J45.909 Unspecified asthma, uncomplicated; K21.9 Gastro-esophageal reflux disease without esophagitis; Z79.51 Long term (current) use of inhaled steroids; Z79.899 Other long term (current) drug therapy
CPT/HCPCS: 36415; 80048; 80051; 83735; 84100; 85025; 85027; 86850; 86900; 86901; 93005; 94640; C1713; J0131; J0690; J1100; J1170; J2371; J2405; J3010

== ENCOUNTER → 2023-08-12 05:56 | Outpatient (BNV) | payer BC, SELFPAY | PROVIDERS: Admitting Provider Neurological Surgery; PCP Radiology Vascular & Interventional Radiology; Visit Provider Internal Medicine Pulmonary Disease | DX: G95.9 Disease of spinal cord, unspecified (principal); J45.909 Unspecified asthma, uncomplicated | CPT/HCPCS: 99232 ==

== ENCOUNTER → 2023-08-12 05:56 | Outpatient (BNV) | payer BC, SELFPAY | PROVIDERS: Admitting Provider Neurological Surgery; PCP Radiology Vascular & Interventional Radiology; Visit Provider Neurological Surgery | DX: G95.9 Disease of spinal cord, unspecified (principal); J45.909 Unspecified asthma, uncomplicated; Z48.89 Encounter for other specified surgical aftercare | CPT/HCPCS: 20936; 22551; 22552; 22842; 22853; 99499 ==

== ENCOUNTER 2023-09-02 13:12 | Outpatient (AMB) | payer BC, SELFPAY ==
--- NOTE | 2023-09-02 13:23 | HO.SPINEOV ---
Intake Intake Visit Reasons: 1st Post-op Intake Note: Mr. Carranza is here today for his 1st post-op visit. Food Scientist Required: No Allergies pseudoephedrine Allergy (Verified 08/12/23 13:47) Shortness of Breath triprolidine Allergy (Verified 08/12/23 13:47) Shortness of Breath Assessment & Plan Assessment & Plan (1) H/O cervical spine surgery: Code(s): Z98.890 - Other specified postprocedural states Plan Procedure: C3-5 ACDF 08/12/23 Ciro comes in today for his1st postoperative visit. Ciro reports that his bilateral leg weakness has persisted since surgery. He reports that his legs continue to feel heavy, and he feels as though he has continued difficulty with ambulation. He does state that his symptoms in his hands have resolved and does not feel that he has any hand numbness as he previously had mentioned. He has stopped taking his pain medication and has been only utilizing [id number]-plmzkcy remedies. He does also continue to endorse some posterior neck pain, but reports good relief of pain with qnsz-hpg-mpnwhty medications. We discussed the possibility of adding gabapentin to his medication regimen, which he denied at this time reporting that he does not want to take any unnecessary medications if he can avoid it. He inquired about activities to engage in order to strengthen his lower extremities, such as stationary biking and walking, both of which were strongly recommended to him. Strength remains the same as previous exams, full in upper and lower extremities. Mobility is intact. Sensation grossly intact. Patient is able to ambulate well, rises from a seated position with the assistance of his chair. Incision site is closed, well healing, with no signs of drainage. We will follow-up with the patient in 6 weeks for his 2nd postoperative visit. At that time we will get x-rays to review with the patient. Aditya Monroe MD,PhD [facility] Coding Level of Care Code Tele Est Pt Level 2 (39227) Global (38248) Diagnoses H/O cervical spine surgery Z98.890
== END 2023-09-02 13:55 | disposition home or self-care (01) ==
PROVIDERS: Visit Provider Physician Assistant
DX: Z98.890 Other specified postprocedural states (principal)
CPT/HCPCS: 99024

== ENCOUNTER 2023-09-02 13:12 | Outpatient (REF) | payer BC, SELFPAY | END 2023-09-02 13:13 | disposition home or self-care (01) | LOC: HO.HOSX 13:12 | PROVIDERS: Visit Provider Physician Assistant | DX: Z13.89 Encounter for screening for other disorder (principal) ==

== ENCOUNTER 2023-09-23 12:48 | Outpatient (AMB) | payer BC, SELFPAY ==
--- NOTE | 2023-09-23 13:07 | HO.SPINEOV ---
Intake Intake Visit Reasons: neck pain Intake Note: Mr. Carranza is here today c/o neck pain. Allergies pseudoephedrine Allergy (Verified 08/12/23 13:47) Shortness of Breath triprolidine Allergy (Verified 08/12/23 13:47) Shortness of Breath Assessment & Plan Assessment & Plan (1) H/O cervical spine surgery: Code(s): Z98.890 - Other specified postprocedural states Plan: Dear colleague, On 09/23/2023, I saw for early follow-up your patient Ciro Carranza. He status post C3 to C6 anterior cervical diskectomy and fusion for cervical myelopathy on 08 12 2023. He returns as he is experiencing left-sided neck pain that radiates to his left upper arm. These symptoms started several weeks postoperatively. Otherwise, he notices an improvement in his walking pattern and a decrease in left hip and thigh pains. He still has a concrete feeling from the knee down with paresthesias when he touches the area. On exam, the hyperreflexia and clonus have disappeared. Spurling test is negative. No motor deficits. An x-ray of the cervical spine shows stable hardware from C3-C6. In summary, is recovering slowly. He developed a left cervical radiculopathy several weeks postoperatively. I would like to monitor the symptoms. He will follow-up in 6 weeks. Sang Monroe MD, PhD Spine Fellowship Trained Neurosurgeon Director, [facility] Orders: Orders XR cervical spine 2V Today Z98.890 - Other specified postprocedural states Coding Level of Care Code Global (89374) Diagnoses H/O cervical spine surgery Z98.890
== END 2023-09-23 13:42 | disposition home or self-care (01) ==
PROVIDERS: Visit Provider Neurological Surgery
DX: Z98.890 Other specified postprocedural states (principal)
CPT/HCPCS: 99024

== ENCOUNTER 2023-09-23 12:48 | Outpatient (REF) | payer BC, SELFPAY ==
--- NOTE | ~2023-09-23 | XR_ITS ---
EXAMINATION: XR CERVICAL SPINE CLINICAL INFORMATION: Postprocedural COMPARISON: CT cervical spine from 07/02/2023 TECHNIQUE: 2 views of the cervical spine were obtained. FINDINGS: Status post anterior cervical fusion of C3-C4 C4-C5 C5-C6. Spinal hardware grossly intact. No acute visible fracture or dislocation. Straightening of normal cervical curvature which may be secondary to patient positioning versus muscle spasm. Mild multilevel degenerative changes. Vertebral bodies and spaces are otherwise maintained. Prevertebral soft tissue prominence anterior to fusion sites. Posterior elements are intact. Paraspinal soft tissues are unremarkable. Visualized portions of the upper chest are unremarkable. XR/XR cervical spine 2V IMPRESSION: 1. Status post anterior cervical fusion of C3-C4 C4-C5 C5-C6. Spinal hardware grossly intact. 2. No acute visible fracture or dislocation. 3. Straightening of normal cervical curvature which may be secondary to patient positioning versus muscle spasm. 4. Mild multilevel degenerative changes. 5. Prevertebral soft tissue prominence anterior to fusion sites.
== END 2023-09-23 12:49 | disposition home or self-care (01) ==
LOC: HO.HOSX 12:48
PROVIDERS: Visit Provider Neurological Surgery
DX: Z98.890 Other specified postprocedural states (principal)
CPT/HCPCS: 72040

== ENCOUNTER 2023-10-15 13:47 | Outpatient (AMB) | payer BC, SELFPAY ==
--- NOTE | 2023-10-15 13:59 | HO.SPINEOV ---
Intake Intake Visit Reasons: discuss FMLA papers Intake Note: Mr. Carranza is here today to discuss FMLA paperwork. Commercial Maintenance Technician Required: No Allergies pseudoephedrine Allergy (Verified 08/12/23 13:47) Shortness of Breath triprolidine Allergy (Verified 08/12/23 13:47) Shortness of Breath Assessment & Plan Assessment & Plan (1) H/O cervical spine surgery: Code(s): Z98.890 - Other specified postprocedural states Plan Procedure: C3-5 ACDF 08/12/23 Mr. Carranza comes in today for another follow-up postoperative visit. He wished to discuss his FMLA paperwork and further inquire about the symptoms he has been having. He remains out of work due to weakness and spasticity. Unfortunately Mr. Carranza continues to have some posterior neck pain and some bilateral arm weakness, however his most concerning symptom is his continued spastic gait, which he reports is significantly affecting his ability to walk and be productive in a work type setting. He states that the symptoms are constant, and are not improving, despite attempts to do at-home stretching/exercise and the utilization of ifjk-sos-ofctkmf pain medications/remedies including Tylenol, ibuprofen, ice, heat, rest, dcgv-xps-efklpxa pain patches. Of note he continues to have a (-) Odell's and (-) clonus on exam. Mr. Mcdonnell was encouraged to continue walking/practicing light exercise and would keep himself mobile. He was encouraged to refrain from weightlifting and other weight-bearing exercise for the time being until his condition becomes more stable. Due to his continued myelopathic symptoms it is reasonable to have her repeat MRI completed to ensure no continued or recurrent central cord impingement despite his lack of myelopathic reflexes at this time. I have placed the order for his MRI which can be completed at [facility] in [place]. Our surgical coordinator will be faxing his MRI order over to [facility]. He will be scheduled for another follow-up appointment after his MRI is reviewed by Dr. Monroe. Aditya Monroe MD,PhD [facility] Orders: Orders MR cervical spine wo con Today Z98.890 - Other specified postprocedural states Coding Level of Care Code Global (46194) Diagnoses H/O cervical spine surgery Z98.890
== END 2023-10-15 14:11 | disposition home or self-care (01) ==
PROVIDERS: Visit Provider Physician Assistant
DX: Z98.890 Other specified postprocedural states (principal)
CPT/HCPCS: 99024

== ENCOUNTER → 2023-10-15 13:47 | Outpatient (BNVA) | payer BC, SELFPAY | PROVIDERS: Visit Provider Physician Assistant ==

== ENCOUNTER 2023-10-30 12:59 | Outpatient (AMB) | payer BC, SELFPAY ==
--- NOTE | 2023-10-30 13:30 | HO.SPINEOV ---
Intake Intake Visit Reasons: 2nd post op with xrays Intake Note: Mr. Carranza is here today for his 2nd post-visit. Stripper Apprentice Required: No Allergies pseudoephedrine Allergy (Verified 08/12/23 13:47) Shortness of Breath triprolidine Allergy (Verified 08/12/23 13:47) Shortness of Breath Assessment & Plan Assessment & Plan (1) Thoracic myelopathy: Code(s): M47.14 - Other spondylosis with myelopathy, thoracic region Plan Mr Carranza the office today for follow-up. He underwent a 3 level anterior cervical fusion for progressive weakness, gait imbalance and numbness of his legs. Unfortunately he has not seen any significant improvement in his symptoms since surgery, in fact he has only progressed and continued to get worse. He is very off balance, spastic and has started to fall more frequently. He is worried that the surgery did not have any desired effect. I re-examined him again today, he has full strength of bilateral upper extremities with normal reflexes. In his lower extremities however he continues to have spasticity with proximal leg weakness, left greater than right. He has sensory changes from about the L1 level down. I reviewed his MRIs at length again. He has imaging done at [facility] of his cervical thoracic and lumbar. It was clear at the time of the initial office visit that he has enough cervical stenosis to warrant surgery in the setting of myelopathic symptoms. The thoracic MRI radiology interpretation did not reflect any significant spinal cord abnormalities, however Dr. Monroe and I reviewed it, and it clearly shows that there is a severe stenosis at T11-12 with significant cord signal change. We believe that this could definitely be the source of his symptoms, so we have booked him urgently for a T11-12 midline sparing decompression. The patient understands that he has had significant spinal cord compression now for least 6 months in the lower thoracic region and that there is no guarantees that he will improve after surgery, so the goal of the surgery is going to be to arrest his symptoms. Pt was given risk and benefits of surgery including but not limited to infection, hematoma , nerve injury,durotomy, weakness,bowel/bladder injury, persistent pain, failure to improve neurological function as well as the option to continue with conservative treatment and patient wishes to proceed with surgery. Pt is aware they should stop their motrin, aspirin 7 days prior to surgery. All questions were answered to the best of our ability. If there is anything about this patients medical history that we have overlooked or concerns you have about us proceeding with surgery we would appreciate any input you can offer. Total amount of time spent in this visit was 20 minutes in discussion of symptoms, thoracic imaging results and subsequent plan of care Tony Monroe MD,PhD [facility] Coding Level of Care Code Est Pt Level 3 (71169) Diagnoses Thoracic myelopathy M47.14
== END 2023-10-30 14:12 | disposition home or self-care (01) ==
PROVIDERS: Visit Provider Physician Assistant
DX: M47.14 Other spondylosis with myelopathy, thoracic region (principal)
CPT/HCPCS: 99213

== ENCOUNTER → 2023-10-30 12:59 | Outpatient (BNVA) | payer BC, SELFPAY | PROVIDERS: Visit Provider Physician Assistant ==

== ENCOUNTER 2023-10-30 13:01 | Outpatient (REF) | payer BC, SELFPAY ==
--- NOTE | ~2023-10-30 | XR_ITS ---
EXAMINATION: XR CERVICAL SPINE CLINICAL INFORMATION: Post procedure status. COMPARISON: Previous cervical spine x-ray August [address] of the cervical spine June 2023 TECHNIQUE: 4 views of the cervical spine including flexion and extension were obtained. FINDINGS: Postsurgical change from ACDF at C3-4, C4-5 and C5-6. Surgical hardware appears unchanged. No fracture or dislocation. No evidence of instability on flexion-extension views. Degenerative spondylosis at C3-4 C4-5 and C5-6. Degenerative spondylosis and degenerative disc disease at C6-7. Prevertebral soft tissues are normal. XR/XR cervical spine 4V IMPRESSION: Stable postsurgical changes. No instability on flexion-extension views.
== END 2023-10-30 13:02 | disposition home or self-care (01) ==
LOC: HO.HOSX 13:01
PROVIDERS: Visit Provider Physician Assistant
DX: M47.14 Other spondylosis with myelopathy, thoracic region (principal); Z98.890 Other specified postprocedural states
CPT/HCPCS: 72050

== ENCOUNTER 2023-11-06 11:18 | Day surgery (SDC) | payer BC, SELFPAY ==
[2023-11-04 10:57] VITALS: BMI 27.9
--- NOTE | 2023-11-05 08:24 | P.CONAN_ITS ---
Documented by User: Candi Landaverde NP 11/05/23 08:26 HPI - Anesthesia Eval Consult details Narrative: 68yo M for T11-T12 Midline Sparing Thoracic Spine Decompression s/p C 3-4,4-5,5-6 Ant Cerv Discectomy w/ fusion,poss Corpectomy, 07/2023 with GA- ETT 7.5 PMFSH Active Problems Active Problems: All Active Problems (Updated 10/30/23 @ 14:15 by LITZY Buck) Thoracic myelopathy (Acute) H/O cervical spine surgery (Acute) Cervical myelopathy (Acute) Asthma (Acute) Past Medical History Medical History Dizziness Bursitis and tendinitis of shoulder region Numbness and tingling of both legs below knees Rotator cuff arthropathy Spinal stenosis Hyperlipidemia Inguinal hernia Sleep apnea GERD (gastroesophageal reflux disease) Asthma Family History Family history of problems with anesthesia: No Surgical History Surgical History (Updated 11/04/23 @ 10:37 by Amy Todd RN) Hx of neck surgery Hx of appendectomy Hx of repair of right rotator cuff History of Problems with Anesthesia: No Social History Social History Household Members: Spouse Housing: House Are you a primary intensive care anaesthetist to a significant other at home: No Do you presently have visiting nurse or other home services: No Patient Tobacco Use Status: Never used Tobacco Use of substances other than those prescribed or required for medical reasons: No Have you been hit, kicked, punched, or otherwise hurt by someone within the past year? If so, by whom?: No Advance Directives: No Advance Directives Information Provided: Yes Advance Directives on File: No Recently lost weight without trying: No Eating poorly because of decreased appetite: No Nutrition Risks: No Nutritional Risk Poor oral hygiene: Yes (missing teeth) service: No Meds Allergies Allergy/AdvReac Type Severity Reaction Status Date / Time pseudoephedrine Allergy Shortness Verified 08/12/23 13:47 of Breath triprolidine Allergy Shortness Verified 08/12/23 13:47 of Breath Home Medications Medication Instructions Recorded Confirmed Last Taken Type albuterol sulfate 90 mcg/actuation 2 puff inhalation Q4-6H PRN 07/23/23 11/04/23 08/12/23 History aerosol inhaler Shortness Of Breath Or Wheezing fluorouracil 0.5 % topical cream 1 appl topical DAILY PRN Skin 07/23/23 11/04/23 Unknown History (Carac) Irritation fluticasone furoate 100 1 ea inhalation DAILY 07/23/23 11/04/23 08/12/23 History mcg-vilanterol 25 mcg/dose inhalation powder (Breo Ellipta) hydrocodone 5 mg-acetaminophen 325 1 tab PO TID PRN Pain 07/23/23 11/04/23 08/05/23 History mg tablet ondansetron 4 mg disintegrating 4 mg PO Q6-8H PRN nausea/vomiting 07/23/23 11/04/23 Unknown History tablet Exam Height,Weight and Vital Signs: Height 6 ft 3 in Weight 101.151 kg Pertinent Lab Results Pertinent Lab Results: Laboratory Tests 07/24/23 07/24/23 07/24/23 14:54 14:54 14:54 WBC 8.6 8.5 RBC 5.49 5.33 Hgb 16.5 Hct MCV MCH MCHC RDW Plt Count MPV Immature Gran % (Auto) Neut % (Auto) Lymph % (Auto) [place] % (Auto) Eos % (Auto) Baso % (Auto) Lymph # (Auto) [place] # (Auto) Eos # (Auto) Baso # (Auto) Abs Immat Gran (auto) Absolute Neuts (auto) Absolute Nucleated RBC Nucleated RBC % (auto) Sodium Potassium Chloride Carbon Dioxide Anion Gap BUN Creatinine Estim Creat Clear Calc Estimated GFR Random Glucose Calcium 07/24/23 07/24/23 07/24/23 14:54 14:54 14:54 WBC RBC Hgb 16.3 Hct 49.4 48.7 MCV 90.0 91.4 MCH 30.1 MCHC RDW Plt Count MPV Immature Gran % (Auto) Neut % (Auto) Lymph % (Auto) [place] % (Auto) Eos % (Auto) Baso % (Auto) Lymph # (Auto) [place] # (Auto) Eos # (Auto) Baso # (Auto) Abs Immat Gran (auto) Absolute Neuts (auto) Absolute Nucleated RBC Nucleated RBC % (auto) Sodium Potassium Chloride Carbon Dioxide Anion Gap BUN Creatinine Estim Creat Clear Calc Estimated GFR Random Glucose Calcium 07/24/23 07/24/23 07/24/23 14:54 14:54 14:54 WBC RBC Hgb Hct MCV MCH 30.6 MCHC 33.4 33.5 RDW 13.3 13.3 Plt Count 189 MPV Immature Gran % (Auto) Neut % (Auto) Lymph % (Auto) [place] % (Auto) Eos % (Auto) Baso % (Auto) Lymph # (Auto) [place] # (Auto) Eos # (Auto) Baso # (Auto) Abs Immat Gran (auto) Absolute Neuts (auto) Absolute Nucleated RBC Nucleated RBC % (auto) Sodium Potassium Chloride Carbon Dioxide Anion Gap BUN Creatinine Estim Creat Clear Calc Estimated GFR Random Glucose Calcium 07/24/23 07/24/23 07/24/23 14:54 14:54 14:54 WBC RBC Hgb Hct MCV MCH MCHC RDW Plt Count 189 MPV 9.8 10.0 Immature Gran % (Auto) 0.2 Neut % (Auto) 71.5 Lymph % (Auto) 18.1 L [place] % (Auto) 7.5 Eos % (Auto) 1.8 Baso % (Auto) 0.9 Lymph # (Auto) 1.5 [place] # (Auto) 0.6 Eos # (Auto) 0.2 Baso # (Auto) 0.1 Abs Immat Gran (auto) 0.02 Absolute Neuts (auto) 6.1 Absolute Nucleated RBC 0.000 0.000 Nucleated RBC % (auto) 0.0 Sodium Potassium Chloride Carbon Dioxide Anion Gap BUN Creatinine Estim Creat Clear Calc Estimated GFR Random Glucose Calcium 07/24/23 07/24/23 07/24/23 14:54 14:54 14:54 WBC RBC Hgb Hct MCV MCH MCHC RDW Plt Count MPV Immature Gran % (Auto) Neut % (Auto) Lymph % (Auto) [place] % (Auto) Eos % (Auto) Baso % (Auto) Lymph # (Auto) [place] # (Auto) Eos # (Auto) Baso # (Auto) Abs Immat Gran (auto) Absolute Neuts (auto) Absolute Nucleated RBC Nucleated RBC % (auto) 0.0 Sodium 138 138 Potassium 3.8 3.8 Chloride 106 Carbon Dioxide Anion Gap BUN Creatinine Estim Creat Clear Calc Estimated GFR Random Glucose Calcium 07/24/23 07/24/23 07/24/23 14:54 14:54 14:54 WBC RBC Hgb Hct MCV MCH MCHC RDW Plt Count MPV Immature Gran % (Auto) Neut % (Auto) Lymph % (Auto) [place] % (Auto) Eos % (Auto) Baso % (Auto) Lymph # (Auto) [place] # (Auto) Eos # (Auto) Baso # (Auto) Abs Immat Gran (auto) Absolute Neuts (auto) Absolute Nucleated RBC Nucleated RBC % (auto) Sodium Potassium Chloride 106 Carbon Dioxide 22 23 Anion Gap 14 13 BUN 19 H Creatinine 0.97 Estim Creat Clear Calc 96.7 Estimated GFR > 60 Random Glucose 86 Calcium 9.6 Narrative Narrative: EKG 06/2023 Vent. Rate : 065 BPM Atrial Rate : 065 BPM P-R Int : 162 ms QRS Dur : 092 ms QT Int : 404 ms P-R-T Axes : 072 040 010 degrees QTc Int : 420 ms Normal sinus rhythm Normal ECG No previous ECGs available Assessment and Plan Assessment Anesthesia Assessment: Chart Reviewed Final Anesthetic Review Family History of Problems with Anesthesia: No History of Problems with Anesthesia: No Documented by User: Garfield Snowden MD 11/06/23 15:07 [facility] Past Medical History Medical History Dizziness Bursitis and tendinitis of shoulder region Numbness and tingling of both legs below knees Rotator cuff arthropathy Spinal stenosis Hyperlipidemia Inguinal hernia Sleep apnea GERD (gastroesophageal reflux disease) Asthma Surgical History Surgical History (Updated 11/04/23 @ 10:37 by Amy Todd RN) Hx of neck surgery Hx of appendectomy Hx of repair of right rotator cuff Social History Social History Household Members: Spouse Housing: House Are you a primary intensive care anaesthetist to a significant other at home: No Do you presently have visiting nurse or other home services: No Patient Tobacco Use Status: Never used Tobacco Use of substances other than those prescribed or required for medical reasons: No Have you been hit, kicked, punched, or otherwise hurt by someone within the past year? If so, by whom?: No Advance Directives: No Advance Directives Information Provided: Yes Advance Directives on File: No Recently lost weight without trying: No Eating poorly because of decreased appetite: No Nutrition Risks: No Nutritional Risk Poor oral hygiene: Yes (missing teeth) service: No Meds Allergies Allergy/AdvReac Type Severity Reaction Status Date / Time pseudoephedrine Allergy Shortness Verified 08/12/23 13:47 of Breath triprolidine Allergy Shortness Verified 08/12/23 13:47 of Breath Home Medications Medication Instructions Recorded Confirmed Last Taken Type albuterol sulfate 90 mcg/actuation 2 puff inhalation Q4-6H PRN 07/23/23 11/04/23 08/12/23 History aerosol inhaler Shortness Of Breath Or Wheezing fluorouracil 0.5 % topical cream 1 appl topical DAILY PRN Skin 07/23/23 11/04/23 Unknown History (Carac) Irritation fluticasone furoate 100 1 ea inhalation DAILY 07/23/23 11/04/23 08/12/23 History mcg-vilanterol 25 mcg/dose inhalation powder (Breo Ellipta) hydrocodone 5 mg-acetaminophen 325 1 tab PO TID PRN Pain 07/23/23 11/04/23 08/05/23 History mg tablet ondansetron 4 mg disintegrating 4 mg PO Q6-8H PRN nausea/vomiting 07/23/23 11/04/23 Unknown History tablet Exam Airway Mallampati Class: II TM Dist: >3cm Neck ROM: Full Loose/Missing/Broken Teeth: No Assessment and Plan Assessment Anesthesia Assessment: Anesthesia Plan Discussed Final Anesthetic Review NPO: Yes ASA Class: II Final Preanesthetic Review: No Changes in Pt Med Stat, Meds/Allgs Chart Reviewed, Consent Obtained/Reviewed and Anes Risks/Benef Reviewed Patient Risk: Low Procedure Risk: Intermediate Anesthetic Plan Anesthetic Plan: GA Disposition: Standard PACU
[2023-11-06] VITALS (8 sets, daily range): BP systolic 135–155; BP diastolic 76–91; PULSE 70–84; RESP 16–18; TEMP 36.3–36.8; O2SAT 93–97
--- NOTE | ~2023-11-06 | FL_ITS ---
EXAMINATION: XR FLUOROSCOPY WITH IMAGES CLINICAL INFORMATION: T11-T12 decompression. COMPARISON: None available. TECHNIQUE: Fluoroscopy Supervised By: Dr. Sang Monroe. Fluoroscopy Time: 0.2 minutes. Cumulative Dose: 15.0 mGy. DAP: 3.67 Gycm2. Images: 4. FINDINGS: Lateral images demonstrate surgical instruments projecting posterior to the spine FL/FL guidance in OR IMPRESSION: Fluoroscopic guidance for spinal surgery.
--- NOTE | 2023-11-06 10:03 | MHC.SHP ---
Pre-Procedural Eval Section A Date of Service: 11/06/23 The patient is an INPATIENT: No Changes since office visit: No Cold of Flu in the past 2 weeks, No New Medical Problems, No Changes in Medication and No Patient answered all questions The History & Physical has been completed within 30 days and I have reviewed it.: No Section B Chief Complaint: Other spondylosis with myelopathy, thoracic region Allergies: Allergies Allergy/AdvReac Type Severity Reaction Status Date / Time pseudoephedrine Allergy Shortness Verified 08/12/23 13:47 of Breath triprolidine Allergy Shortness Verified 08/12/23 13:47 of Breath Review of Systems Sugical H&P ROS: Negative: Constitution, Cardiovascular, Respiratory, Neurological, Psychiatric, Hem-Onc, Allergic/Immunologic, Gastrointestinal, Genitourinary, Musculoskeletal, Integumentary, Endocrine and Eyes/Ears/Nose/Throat Exam Surgical H&P Exam: Not Evaluated: HEENT, Not Evaluated: Heart, Not Evaluated: Lungs, Not Evaluated: Extremities, Not Evaluated: Abdomen, Not Evaluated: Skin and Not Evaluated: Neurological Plan Diagnosis/Plan: Unchanged I have reviewed the history and physical and performed a pertinent physical examination on my patient. No changes have occurred unless specified. T11-12 midline sparing bilat decompression Time Spent With Patient Time: Total time managing care of this patient today __11__ minutes.
[2023-11-06] MEDS: Lactated Ringers 1,000 ML 100 ML IVCONT (12:41)
[2023-11-06] MEDS: Gabapentin 300 MG CAPSULE PO (12:41)
[2023-11-06] MEDS: methocarbamoL 750 MG TABLET PO (12:42)
--- NOTE | 2023-11-06 16:22 | W.PM.OPN ---
Operative Note Operative Note Date of Service: 11/06/23 Narrative: Preop diagnosis: thoracic myelopathy due to T11 T12 spinal cord compression Postop diagnosis: thoracic spinal cord compression due to scar tissue Procedure: T11-T12 laminotomy, partial facetectomy to decompress the spinal cord with microscope Surgeon: Sang Monroe MD Assist: LITZY Calderon Description of procedure: This 68-year-old male previously underwent a 3 level anterior cervical diskectomy and fusion for cervical myelopathy. He continued to complain of spastic gait and balance problems. A review of the previous imaging showed spinal cord compression at T11-T12 with myelomalacia, which was not previously seen. He was offered a decompression of this area. The procedure complications were explained. He was consented. He was brought to the operating room and endotracheally intubated. He was turned in a prone position the Wilfr[place] spine table. Prepping and draping was done followed by time-out. Level 3 localizing needles were placed and with lateral imaging we localized the correct levels from the sacral area to thoracic area and vice versa. A midthoracic incision was made at the marked level. The lamina of T11-T12 were exposed on the left side. Another intraoperative x-ray was obtained to confirm the correct level. The microscope was brought in. A left T11-T12 laminotomy was done and partial facetectomy. The flavum ligament was opened and resected. To my surprise I was unable to find the dura. Therefore I extended the laminotomy caudally away from the diseased area in attempt to find normal dura. I was successful and then worked my way back. We found that the dura was completely scarred in with fibrous tissue. I gently try to create plane between the dura and the scar tissue and was successful in peeling away several layers but the spinal cord remained compressed as it was unable to fully release the dura from scar tissue. In my opinion this patient had a previous injury at this level that caused the scar tissue formation with compression of the spinal cord. I removed as much as the scar tissue that I thought was safe and decided to not further pursue as I put the patient at significant risk of additional spinal cord injury. Hemostasis was done. Incision was closed by the physician construction administrative assistant. Steri-Strips were used to approximate the incision. A tegaderm was used to cover the incision. all sponge and needle counts were correct. The patient was extubated and transported in a stable condition to recovery room. Anesthesia: general Estimated blood loss: 20 mL Specimen: none Disposition: Home
--- NOTE | 2023-11-06 16:32 | P.DS_ITS ---
DS: Providers Provider Date of Service: 11/06/23 Primary care physician: Norris Tidwell MD DS: Summary Time Attestation Discharge coordination time: Less than 30 minutes Quality: Safe Use of Opioids Does Pt have an Active Cancer Diagnosis on the Problem List?: No Quality: Stroke Does the patient have a stroke diagnosis?: No Physical Exam Vital Signs: Vital Signs: Last Vital Signs Temp 98.2 F 11/06/23 12:32 Pulse 70 11/06/23 12:32 Resp 16 11/06/23 12:32 BP 135/91 H 11/06/23 12:32 Pulse Ox 94 11/06/23 12:32 O2 Del Method Room Air 11/06/23 12:32 BMI result Body Mass Index 27.9 DS: Data Data Completed and Pending Completed studies during hospitalization [Text1]: Procedures Fusion of 2 or more Cervical Vertebral Joints with Interbody Fusion Device, Anterior Approach, Anterior Column, Open Approach (08/12/23) Insertion of Interspinous Process Spinal Stabilization Device into Cervical Vertebral Joint, Open Approach (08/12/23) Resection of Cervical Vertebral Disc, Open Approach (08/12/23) Discharge Plan Discharge Patient Disposition: Home, Self-Care Referrals: Norris Tidwell MD [Primary Care Provider] - 1 Week Discharge Medications: New oxycodone 5 mg tablet 5 mg PO Q6H PRN (Reason: severe pain (scale score 7-10)) Qty: 21 0RF Rx Instructions: Partial Fill upon patient request. Continued fluorouracil [Carac] 0.5 % Cream 1 appl TOPICAL DAILY PRN (Reason: Skin Irritation) albuterol sulfate 90 mcg/actuation HFA aerosol inhaler 2 puff inhalation Q4-6H PRN (Reason: Shortness Of Breath Or Wheezing) hydrocodone-acetaminophen 5-325 mg tablet 1 tab PO TID PRN (Reason: Pain) Hold Instructions: Resume on 08/20/23. Do not resume until Oxycodone Rx is complete ondansetron 4 mg tablet,disintegrating 4 mg PO Q6-8H PRN (Reason: nausea/vomiting) fluticasone furoate-vilanterol [Breo Ellipta] 100-25 mcg/dose blister with device 1 ea inhalation DAILY Discharge Orders: Discharge Order (Routine); Ordered 11/06/23 Ordered By: Aditya Marie Diet: Advance to usual diet Activity on Discharge: As tolerated Activity Restrictions/Additional Instructions: After your spinal surgery we ask you to observe the following restrictions/guidelines: Activity: It is normal to feel some discomfort as you increase your activity, but that will improve with time. We ask you avoid heavy lifting or acitivities that cause pain. As a general rule, 8lbs is a safe limit for lifting right after surgery. Walk as much as you feel comfortable but not to exhaustion. You will feel extra tired the first few days after surgery. Stay well hydrated. It is OK to walk up and down stairs You may return to driving when you are off narcotics (such as vicodin, oxycodone, dilaudid, etc), and you are back to normal functional capacity. If you have any concerns please check with office before driving. Return to work is specific to each patient and each surgery, so please speak with your doctor/PA at first follow up. Please bring paperwork such as FMLA at that time if you need it filled out. Medications: We will give you a short supply of narcotics after surgery (usually one weeks worth). If you need more please call the office but do not use more than prescribed. You will need to give our office 48 hours notice if you need narcotics refilled and we do not fill narcotics on weekends or evenings. If you are on a narcotic, it is a good idea to take a stool softener such as colace or senna to avoid constipation If you take blood thinner such as aspirin, Plavix, Coumadin, Effient, Eliquis etc for conditions such as Afib, DVT, Pulmonary embolus, coronary disease, stent s etc please speak with your surgeon about specific details as to when you can resume these medications. You can resume NSAIDs on post op day 1 (eg: Motrin, Naproxen, etc). Follow up: Please call the office, , after surgery to arrange a 3 week follow up for wound check. Wound Care: You may remove your dressing on the first day after surgery. You may leave open to air. Please do not remove the steri strips underneath. they will fall off on their own in one week. IT IS NORMAL FOR THE WOUND TO OOZE OR BE BLOODY FOR A FEW DAYS AFTER SURGERY. IF THIS HAPPENS JUST PLACE NEW DRESSING OVER IT TO AVOID STAINING CLOTHES. You may shower on post op day # 1 We ask that you do not let the water soak the wound. If it does get wet, just towel dry lightly. Please do not scrub your incision or place any type of chemical/ointment on the wound. No tub baths, pools or jacuzzis for one month. If you have any leaking or redness from your wound, or fevers, please call the office.
--- NOTE | 2023-11-06 16:56 | PC.NURSE ---
spine pa, dayne chapin, at bedside evaluating patient. no new numbness/tinglin, conley. meeting with patient to review procedure plan of care.
[2023-11-06] MEDS: oxyCODONE HCl Immed Release 5 MG TABLET PO (17:10)
== END 2023-11-06 18:03 | disposition home or self-care (01) ==
PROVIDERS: PCP Radiology Vascular & Interventional Radiology; Visit Provider Neurological Surgery
PROC: (CPT 63046; principal; 2023-11-06 15:10)
DX: M47.14 Other spondylosis with myelopathy, thoracic region (principal); M48.04 Spinal stenosis, thoracic region; R26.89 Other abnormalities of gait and mobility; R26.1 Paralytic gait; R29.6 Repeated falls; Z98.1 Arthrodesis status; Z88.8 Allergy status to other drugs, medicaments and biological substances
CPT/HCPCS: 63046; J0131; J0690; J1100; J1170; J2405; J2704; J3010

== ENCOUNTER → 2023-11-06 11:18 | Outpatient (BNV) | payer BC, SELFPAY | PROVIDERS: PCP Radiology Vascular & Interventional Radiology; Visit Provider Neurological Surgery | DX: M47.14 Other spondylosis with myelopathy, thoracic region (principal) | CPT/HCPCS: 63046; 99499 ==

== ENCOUNTER 2023-11-27 10:47 | Outpatient (AMB) | payer BC, SELFPAY ==
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
== END 2023-11-27 11:14 | disposition home or self-care (01) ==
PROVIDERS: PCP Radiology Vascular & Interventional Radiology; Visit Provider Physician Assistant
DX: M47.14 Other spondylosis with myelopathy, thoracic region (principal)
CPT/HCPCS: 99024

== ENCOUNTER → 2023-11-27 10:47 | Outpatient (BNVA) | payer BC, SELFPAY | PROVIDERS: PCP Radiology Vascular & Interventional Radiology; Visit Provider Physician Assistant ==

== ENCOUNTER 2023-12-10 14:53 | Outpatient (AMB) | payer BC, SELFPAY ==
--- NOTE | 2023-12-10 14:54 | A.OFFVIS_ITS ---
Intake Intake Visit Reasons: fill out FMLA paperwork Intake Note: Pt here to fill out a form Claims Service Adjustor Required: No Allergies pseudoephedrine Allergy (Verified 08/12/23 13:47) Shortness of Breath triprolidine Allergy (Verified 08/12/23 13:47) Shortness of Breath PFSH Medical History Dizziness Bursitis and tendinitis of shoulder region Numbness and tingling of both legs below knees Rotator cuff arthropathy Spinal stenosis Hyperlipidemia Inguinal hernia Sleep apnea GERD (gastroesophageal reflux disease) Asthma Surgical History (Updated 11/04/23 @ 10:37 by Amy Todd RN) Hx of neck surgery Hx of appendectomy Hx of repair of right rotator cuff Social History Household Members: Spouse Housing: House Are you a primary career services officer to a significant other at home: No Do you presently have visiting nurse or other home services: No Patient Tobacco Use Status: Never used Tobacco service: No Assessment & Plan Assessment & Plan (1) Thoracic myelopathy: Code(s): M47.14 - Other spondylosis with myelopathy, thoracic region Plan Plan Procedure: T11-T12 laminotomy, partial facetectomy Ciro comes in today for a subsequent post-surgical follow up. He reports that his symptoms remain the same as his previous [facility] the [facility]. Please refer back to my previous note for further details. He brought in care home disability paperwork to be filled out. I completed this paperwork to the best of my ability given Ciro's current condition. He is suffering from severe spinal cord compression that has likely been longstanding for decades given the amount of scarification I directly observed on his spinal cord when assisting Dr. Monroe during his last surgery. He is likely to have a complicated and protracted healing course. I would not reccomend he return to work at this time. We will continue to follow-up with Ciro as needed. Aditya Monroe MD,PhD [facility] Coding Level of Care Code Global (02793) Diagnoses Thoracic myelopathy M47.14
== END 2023-12-10 15:06 | disposition home or self-care (01) ==
PROVIDERS: PCP Radiology Vascular & Interventional Radiology; Visit Provider Physician Assistant
DX: M47.14 Other spondylosis with myelopathy, thoracic region (principal)
CPT/HCPCS: 99024

== ENCOUNTER → 2023-12-10 14:53 | Outpatient (BNVA) | payer BC, SELFPAY | PROVIDERS: PCP Radiology Vascular & Interventional Radiology; Visit Provider Physician Assistant ==

== ENCOUNTER 2024-01-14 08:49 | Outpatient (AMB) | payer BC, SELFPAY ==
--- NOTE | 2024-01-14 09:13 | A.SPINEOV_ITS ---
Intake Intake Visit Reasons: 2nd post op Intake Note: Mr. Carranza is here today for his 2nd post-op visit. Career Coordinator Required: No Allergies pseudoephedrine Allergy (Verified 08/12/23 13:47) Shortness of Breath triprolidine Allergy (Verified 08/12/23 13:47) Shortness of Breath Assessment & Plan Assessment & Plan (1) Thoracic myelopathy: Code(s): M47.14 - Other spondylosis with myelopathy, thoracic region Plan Ciro comes in today as a follow-up after his T11-T12 laminotomy /partial fa cetectomy to decompress the spinal cord completed in 10/2023. He reports he does feel as though he is getting somewhat better, but reports his progress is very slow. He still gets episodes of dizziness during ambulation and still feels as though his walking is somewhat spastic. He also reports some continued tingling in his bilateral knees. He reports that he has been looking into alternative therapies for postoperative healing, and had many questions regarding clinical trials, stem cells, and hormone supplementation. I answered his questions to the best of my ability, but recommended he discuss this further with Dr. Monroe if he has sincere interest in pursuing clinical trials. On examination today, Ciro has what appears to be an improved gait. He is able to rise from a seated position without difficulty. He continues to have 3- 4 beats of clonus bilaterally. Odell's is negative bilaterally. His reflexes remain hyperactive. Ciro requested a repeat thoracic MRI to compared to his preoperative MRI to evaluate for any improvement. I think this is reasonable given his extensive spinal cord compression and residual post-operative symptoms. I did have a long conversation with Ciro about the scar tissue found when attempting to decompress his thoracic spine, informed him that the MRI will likely still show compression at the surgical site. He would still like to continue forward with additional imaging. Aditya Monroe MD,PhD [facility] Coding Level of Care Code Global (01770) Diagnoses Thoracic myelopathy M47.14
== END 2024-01-14 09:40 | disposition home or self-care (01) ==
PROVIDERS: PCP Radiology Vascular & Interventional Radiology; Visit Provider Physician Assistant
DX: M47.14 Other spondylosis with myelopathy, thoracic region (principal)
CPT/HCPCS: 99024

== ENCOUNTER → 2024-01-14 08:49 | Outpatient (BNVA) | payer BC, SELFPAY | PROVIDERS: PCP Radiology Vascular & Interventional Radiology; Visit Provider Physician Assistant ==

== ENCOUNTER 2024-02-25 15:00 | Outpatient (AMB) | payer BC, SELFPAY ==
--- NOTE | 2024-02-25 15:10 | HO.SPINEOV ---
Intake Intake Visit Reasons: MRI f/u Intake Note: Mr. Carranza is here to F/u MRI Report Straw Hat Plunger Operator Required: No Allergies pseudoephedrine Allergy (Verified 08/12/23 13:47) Shortness of Breath triprolidine Allergy (Verified 08/12/23 13:47) Shortness of Breath Assessment & Plan Assessment & Plan (1) Thoracic myelopathy: Code(s): M47.14 - Other spondylosis with myelopathy, thoracic region Plan Dear colleague, On 02/25/2024, I saw for follow-up Ciro Carranza. As you know he underwent a cervical spinal cord decompression followed by a thoracic spinal cord decompression after no improvement in his spastic gait was observed. His neurological symptoms have stabilized. He still has a mild spastic gait. The main problem is dizziness where the world spinning. The vertigo can be of such an intensity that he falls to the ground. He feels like he is losing consciousness. He has not been evaluated for this symptom. Going to see Dr. Selby neurologist tomorrow and I advised him to mentioned this symptom and hopefully the symptoms will be further investigated. I will follow-up with him in the beginning of April to assess if he is able to return to work. We compared the preoperative MRI with the postoperative MRI of the thoracic spine and imaging shows a significant increase in diameter for the spinal cord at the thoracic level with ongoing myelomalacia. In other words there is permanent damage to the spinal cord. I hope that he will continue to recover neurologically. Thank you for letting me take care of your patient. Sang Monroe MD, PhD Spine Fellowship Trained Neurosurgeon Director, [facility] [place] [facility] Coding Level of Care Code Est Pt Level 3 (25393) Diagnoses Thoracic myelopathy M47.14
== END 2024-02-25 15:41 | disposition home or self-care (01) ==
PROVIDERS: PCP Radiology Vascular & Interventional Radiology; Visit Provider Neurological Surgery
DX: M47.14 Other spondylosis with myelopathy, thoracic region (principal)
CPT/HCPCS: 99213

== ENCOUNTER → 2024-02-25 15:00 | Outpatient (BNVA) | payer BC, SELFPAY | PROVIDERS: PCP Radiology Vascular & Interventional Radiology; Visit Provider Neurological Surgery ==

== ENCOUNTER 2024-04-28 14:22 | Outpatient (AMB) | payer BC, SELFPAY ==
--- NOTE | 2024-04-28 14:35 | A.SPINEOV_ITS ---
Intake Visit Reasons: follow up Intake Note: Mr. Carranza is here for a f/u. Hydrostatic Tester Required: No Allergies pseudoephedrine Allergy (Verified 08/12/23 13:47) Shortness of Breath triprolidine Allergy (Verified 08/12/23 13:47) Shortness of Breath Assessment & Plan Assessment & Plan (1) Thoracic myelopathy: Code(s): M47.14 - Other spondylosis with myelopathy, thoracic region Category: Medical (2) Cervical myelopathy: Code(s): G95.9 - Disease of spinal cord, unspecified Category: Medical (3) H/O cervical spine surgery: Code(s): Z98.890 - Other specified postprocedural states Category: Surgical Plan Dear colleague, On 04/28/2024 I saw for follow-up Ciro Carranza to discuss his neurological status and possibility for returning to work. As you know, he underwent a cervical and thoracic decompression for spinal cord compression. Unfortunately, there is permanent damage of the spinal cord at the thoracic level. He is still suffering from neurological deficits in the form of spasticity and balance balance issues. To best describe his last symptom is that going forward down the stairs is impossible but backwards goes better with better visual control. He is currently in physical therapy that has improved his neurological status. The plan will be to continue physical therapy till the end of May and then make a final decision about return to work. Currently, he is not able to exercise his job duties. We will re-evaluate him in the beginning of June. Sang Monroe MD, PhD Spine Fellowship Trained Neurosurgeon Director, [facility] [place] [facility] Coding Level of Care Code Est Pt Level 2 (16704) Diagnoses Thoracic myelopathy M47.14 Cervical myelopathy G95.9 H/O cervical spine surgery Z98.890
== END 2024-04-28 14:47 | disposition home or self-care (01) ==
PROVIDERS: PCP Radiology Vascular & Interventional Radiology; Visit Provider Neurological Surgery
DX: M47.14 Other spondylosis with myelopathy, thoracic region (principal); G95.9 Disease of spinal cord, unspecified; Z98.890 Other specified postprocedural states
CPT/HCPCS: 99212

== ENCOUNTER → 2024-04-28 14:22 | Outpatient (BNVA) | payer BC, SELFPAY | PROVIDERS: PCP Radiology Vascular & Interventional Radiology; Visit Provider Neurological Surgery ==

== ENCOUNTER 2024-06-23 13:48 | Outpatient (AMB) | payer BC, SELFPAY ==
--- NOTE | 2024-06-23 14:24 | A.SPINEOV_ITS ---
Intake Visit Reasons: follow up Intake Note: Mr. Carranza is here today for a F/u. Fly Rail Operator Required: No Allergies pseudoephedrine Allergy (Verified 08/12/23 13:47) Shortness of Breath triprolidine Allergy (Verified 08/12/23 13:47) Shortness of Breath Assessment & Plan Assessment & Plan (1) Thoracic myelopathy: Code(s): M47.14 - Other spondylosis with myelopathy, thoracic region Category: Medical (2) H/O cervical spine surgery: Code(s): Z98.890 - Other specified postprocedural states Category: Medical Plan Dear colleague, On 06/23/2024, I saw for final follow-up Ciro Carranza. As you know, he suffering from thoracic myelopathy originating from the thoracic and cervical spine due to permanent spinal cord damage. The last time I saw him he had a significant spastic gait and could only go down the stairs backwards. He still an intensive physical therapy and went back to the gym. His balance have much improved and is able to walk down the stairs forward without falling. He wants to return to work. On exam, the spastic gait is still present but much improved compared to the last visit. He still is hyperreflexia. I agree with the patient that he should at least try to return to work and based on what I am seeing today I am optimistic that this will actually happened. I wrote him a return to work note to start part-time initially and then advanced to full-time employment in 4 weeks. He will visit me on a p.r.n. basis. Thank you for letting me take care of your patient. Sang Monroe MD, PhD Spine Fellowship Trained Neurosurgeon Director, [facility] [place] [facility]ally Invasive Sp[facility] Coding Level of Care Code Est Pt Level 3 (80363) Diagnoses Thoracic myelopathy M47.14 H/O cervical spine surgery Z98.890
== END 2024-06-23 15:04 | disposition home or self-care (01) ==
PROVIDERS: PCP Radiology Vascular & Interventional Radiology; Visit Provider Neurological Surgery
DX: M47.14 Other spondylosis with myelopathy, thoracic region (principal); Z98.890 Other specified postprocedural states
CPT/HCPCS: 99213

== ENCOUNTER → 2024-06-23 13:48 | Outpatient (BNVA) | payer BC, SELFPAY | PROVIDERS: PCP Radiology Vascular & Interventional Radiology; Visit Provider Neurological Surgery ==

== ENCOUNTER 2025-03-11 13:13 | Outpatient (AMB) | payer MEDICARE, SELFPAY ==
--- NOTE | 2025-03-11 13:36 | A.SPINEOV_ITS ---
Intake Visit Reasons: MRI F/U possible sx discussion Intake Note: Mr. Carranza is here today to F/u on the results of his MRI and to Discuss surgery. A R Collections Rep Required: No Allergies pseudoephedrine Allergy (Verified 03/11/25 13:40) Shortness of Breath triprolidine Allergy (Verified 03/11/25 13:40) Shortness of Breath Assessment & Plan Assessment & Plan (1) Thoracic myelopathy: Code(s): M47.14 - Other spondylosis with myelopathy, thoracic region Category: Medical Plan Dear colleague, On 03/11/2025 I saw for re-evaluation Ciro Carranza. He continues to significant disability due to thoracic myelopathy. He describes his symptoms as dizziness but on further questioning it is more that he has no control over his legs that makes him feel unsteady. The symptoms are stable. He ambulates with a slightly wide-based gait. Mild ankle clonus bilaterally. Motor exam is 5/5 throughout. He has mild paresthesias of the feet.Propicepsis is intact. We reviewed the latest MRI of the thoracic spine in [place]. It continues to show the myelomalacia at T11-12 with moderate spinal cord compression. The overall diameter of the spinal canal has significant improved compared to preoperatively. This patient is stable symptoms of thoracic myelopathy. Perioperatively, I ran into epidural scar tissue limiting my ability to further decompress the spinal cord. The patient has a history of severe trauma in that area from football. I would not recommend another intervention unless his symptoms are deteriorating based on the fact that his symptoms have improved postoperatively and are currently stable. In addition, the chance that that further neurological improvement occurs from another surgery are slim in my opinion. I spent 30 minutes in his consult to review imaging and discussing plan of care. Sang Monroe MD, PhD Spine Fellowship Trained Neurosurgeon Director, [facility] [place] [facility] Coding Level of Care Code Est Pt Level 4 (60188) Diagnoses Thoracic myelopathy M47.14
--- OUTSIDE RECORDS SUMMARY | 2025-03-11 13:41 | XMS_ITS | Encounter Summary ---
Author Organization [facility] Address [address] [place] [address] Care Team Providers Care Film Cleaner Name Role Phone Ludwig Tidwell MD Primary Care Provider [phone] Encounter Details Date Type Department Care Team (Late st Contact Info) Description 01/31/2025 Orders Only [facility] [address] [place] [phone] Ludwig Tidwell MD [address] [place] [address] Social History Tobacco Use Types Packs/Day Years Used Date Smoking Tobacco: Never Smokeless Tobacco: Never Alcohol Use Standard Drinks/Week Comments No 0 (1 standard drink = 0.6 oz pur e alcohol) PHQ-2 Answer Date Recorded Patient Health Questionnaire-2 Score 0 08/25/2024 PHQ-9 Answer Date Recorded [facility] PHQ-9 SEVERITY SCORE (Range 0-27) 0 08/25/2023 Intimate Partner Violence Answer Date R ecorded Fear of Current or Ex-Partner Not on file Emotionally Abused Not on file 07/03/2023 Physically Abused Not on file 07/03/2023 Sexually Abused Not on file 07/03/2023 Feel Safe at Home Not on file 07/03/2023 Sex and Gender Information Value Date Recorded Sex Assigned at Not on file Legal Sex Male 2:13 PM EDT Gender Identity Not on file Sexual Orientation Not on file 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 [address] [place] [address] Filiberto Leos MD [address] [place] [address] Return in about 6 months (around 08/11/2025) for labs prior. 09/22/2025 12:45 PM EDT CPE - Comprehensive Physical Exam [address] [phone] Ludwig Tidwell MD [address] [place] [id number] documented as of this encounter Visit Diagnoses Diagnosis Stage 3a chronic kidney disease (HCC) documented in this encounter Care Teams Film Cleaner Relationship Specialty Start Date End Date Ludwig Tidwell MD [address] [place] [id number] PCP - General Internal Medicine 11/12/22 documented as of this encounter
--- OUTSIDE RECORDS SUMMARY | 2025-03-11 13:41 | XMS_ITS | Encounter Summary ---
Author Organization [facility] Address [address] [place] [address] Care Team Providers Care Contribution Solicitor Name Role Phone Gabriella Mackenzie MD Primary Care Provider [phone] Reason for Visit * Reason Onset Date Comments Refill Request 03/08/2025 Encounter Details Date Type Department Care Team (Late st Contact Info) Description 03/08/2025 Refill [facility] [address] [place] [phone] Gabriella Mackenzie MD [address] [place] [address] Refill Request Social History Tobacco Use Types Packs/Day Years Used Date Smoking Tobacco: Never Smokeless Tobacco: Never Alcohol Use Standard Drinks/Week Comments No 0 (1 standard drink = 0.6 oz pur e alcohol) PHQ-2 Answer Date Recorded Patient Health Questionnaire-2 Score 0 08/25/2024 PHQ-9 Answer Date Recorded [facility] PHQ-9 SEVERITY SCORE (Range 0-27) 0 08/25/2023 [...] on file documented as of this encounter Miscellaneous Notes * Telephone Encounter - Kiana Rawls, Pharmacy Navigator - 03/08/2025 9:47 AM EDT -CONCERN FOR PROVIDER REVIEW- ADVICE NURSE/MassPAT review was completed and the following concerns were found. Please review ADVICE NURSE/MassPAT data to determine if refill pattern is acceptable before signing. Testosterone Cyp 200 Mg/ml sold date 02/26/2025 Filiberto Leos MD [address] [place] [address] [facility] Lorazepam 1 Mg Tablet sold date 01/24/2025 Last Sold Date 02/08/2025 Provider Adjust prescription start date if desired. If pill count or other monitoring is indicated, please route to your Care Team Pharmacy Confirmed? The most recent pharmacy on file was used. When is the medication needed? within 48 hours, will send routine message Past and Future Appointments: Recent Visits Date Type Provider Dept 01/21/25 Office Visit Gabriella Mackenzie MD [facility] Adult Medicine 12/24/24 Office Visit Gabriella Mackenzie MD [facility] 09/22/24 Office Visit Gabriella Mackenzie MD [facility] 08/26/24 CPE - Comprehensive Physical Exam Gabriella Mackenzie MD [facility] 05/28/24 Office Visit Gabriella Mackenzie MD [facility] 08/25/23 CPE - Comprehensive Physical Exam Gabriella Mackenzie MD [facility] 08/18/23 Office Visit Gabriella Mackenzie MD [facility] 07/08/23 Office Visit Gabriella Mackenzie MD [facility] 04/25/23 Office Visit Gabriella Mackenzie MD [facility] Adult [facility] Showing recent visits within past 720 days in an active department and meeting all other requirements Future Appointments Date Type Provider Dept 09/22/25 Appointment Gabriella Mackenzie MD [facility] Adult [facility] Showing future appointments within next 450 days in an active department and meeting all other requirements Last Visit in Primary Care: Date: 01/21/2025 Department: [facility] Provider: GABRIELLA MACKENZIE Visit Type: Office Visit Next Scheduled Visit in Primary Care Date: 09/22/2025 Department: [facility] Provider: GABRIELLA MACKENZIE Visit Type: Physical Exam Requested Medication Details Requested Opioids: HYDROcodone-Acetaminophen (NORCO) 5-325 MG per tablet, Take one tablet by mouth 2 (two) times a dayif needed for moderate pain or severe pain. ADVICE NURSE: [facility] website checked this encounter? Yes Pain Contract: Patient has an up to date pain contract on file. Date of Last Pain Contract: 01/21/2025 Daily Morphine Equivalents: (Active on Med List ONLY, excludes pending or meds) Prescribed MEDD: 10 Link to Morphine Equivalent Calculator Fill Guidance: PRN Medications: Prescription should be prepared as previously filled (No Changes). Scheduled Medications: Prescription should be prepared for 28 Days. Visit Needs: None CPE Needs: None. Patient is not overdue for CPE based on age group or has a upcoming, scheduled CPE. Last Billed CPE Details: Date: 08/26/2024 Department: [facility] Provider: GABRIELLA MACKENZIE Visit Type: Physical Exam Next Scheduled CPE Details: Date: 09/22/2025 Department: [facility] Provider: GABRIELLA MACKENZIE Visit Type: Physical Exam Lab Needs: None Pertinent Lab Results and Recommendations Pended medication order(s) and sent to provider. Patient expects medication renewal unless notifiedotherwise. documented in this encounter Plan of Treatment Upcoming Encounters Date Type Department Care Team (Latest Contact Info) Description 08/12/2025 8:30 AM EDT Office Visit [facility] Urology [address] [facility] [address] [place] [address] Filiberto Leos MD [address] [place] [address] Return in about 6 months (around 08/11/2025) for labs prior. 09/22/2025 12:45 PM EDT CPE - Comprehensive Physical Exam [address] [phone] Gabriella Mackenzie MD [address] [place] [phone] documented as of this encounter Visit Diagnoses Diagnosis Chronic right shoulder pain Pain in joint, shoulder region documented in this encounter Care Teams Contribution Solicitor Relationship Specialty Start Date End Date Gabriella Mackenzie MD [address] [place] [id number] PCP - General Internal Medicine 11/12/22 documented as of this encounter
--- OUTSIDE RECORDS SUMMARY | 2025-03-11 13:41 | XMS_ITS | Referral Summary ---
Author Organization [facility] Address [address] [place] [address] Care Team Providers Care Cash Manager Name Role Phone Ludwig Tidwell MD Primary Care Provider [phone] Encounters Date Type Department Care Team Description 02/21/2025 Results Follow-Up [facility] [address] [place] [phone] Shy Selby MD 02/20/2025 Orders Only [facility] [address] [address] Shy Selby MD Disease of spinal cord, unspecified 2025 myChart Message [facility] [address] [place] [phone] Shy Selby MD MRI study 2025 Telephone [facility] [address] [place] [phone] Shy Selby MD 01/06/2025 10:00 AM EST Office Visit [facility] [address] [place] [phone] Shy Selby MD Myelopathy (Primary Dx) 12/14/2024 Documentation [facility] at [address] [place] [phone] Small Parts Assembler: Cale Brooks, PT PT Discharge from Last 3 Months Allergies Active Allergy Reactions Criticality Noted Date Comments Other Swelling High 05/25/2021 Any fruit with the skin . Can eat without the skin Triprolidine-Pseudoephedri ne Dyspnea High 04/24/2023 Medications omeprazole (PriLOSEC) 20 mg capsule TAKE 1 CAPSULE DAILY 30 capsule 5 8 1:22 PM EST 02/19/20 18 Active albuterol (PROAIR HFA,VENTOLIN HFA) 90 mcg inhaler Inhale 2 puffs every 4-6 hours as needed for wheezing or shortness of breath 8.5 g 3 8 6:33 PM EDT 04/22/20 18 Active omeprazole (PriLOSEC) 20 mg capsule Take 1 capsule by mouth 2 times a day. 84 capsule 11 8 1:57 PM EDT 08/24/20 18 Active Additional Information Patient not taking.Reported on 02/27/2023 methylPREDNISolone (MEDROL DOSEPACK) 4 mg tablet Use as directed 21 tablet 9 4:13 PM EST 01/30/20 19 Active Additional Information Patient not taking.Reported on 02/27/2023 predniSONE (DELTASONE) 20 mg tablet Take 2 tablet days 1 thru 3, Then take 1 tablet days 4 thru 6, Then take 1/2 tablet days 7 thru 10. 11 tablet 9 5:00 PM EDT 04/20/20 19 Active Additional Information Patient not taking.Reported on 04/24/2023 rOPINIRole (REQUIP) 1 mg tablet Take 1 tablet (1 mg total) by mouth at bedtime for leg cramps 90 tablet 2 9 1:31 PM EDT 05/10/20 19 Active albuterol (PROAIR HFA,VENTOLIN HFA) 90 mcg inhalerIndications :Mild intermittent asthma, uncomplicated (HCC) Inhale 2 puffs by mouth every 4-6 hours as needed for wheezing or shortness of breath 8.5 g 3 9 1:27 PM EDT 09/14/20 19 Active ibuprofen (MOTRIN) 600 mg tablet Take 1 tablet (600 mg total) by mouth every 12 hours as needed for mild pain or moderate pain (shoulder pain). 60 tablet 2 1 11:20 AM EDT 03/30/20 21 Active ibuprofen (MOTRIN) 600 mg tablet Take one tablet (600 mg total) by mouth every 12 (twelve) hours if needed for mild pain or moderate pain (shoulder pain) 60 tablet 2 1 3:26 PM EDT 06/26/20 21 Active HYDROcodone-acetam inophen (NORCO) 5-325 mg tablet Take 1 - 2 tablets by mouth every 6 (six) hours if needed for moderate or severe Shoulder pain 50 tablet 2 6:22 PM EDT 03/25/20 22 Active ondansetron (ZOFRAN ODT) 4 mg disintegrating tablet Dissolve 1 tablet (4 mg total) in the mouth every 8 hours as needed for nausea or vomiting 30 tablet 2 6:26 PM EDT 03/25/20 22 Active HYDROcodone-acetam inophen (NORCO) 5-325 mg tablet Take 1-2 tablets by mouth every 6 hours as needed for moderate pain or severe pain in the shoulder. 50 tablet 3 9:38 AM EST 12/24/19 23 Active ibuprofen (MOTRIN) 600 mg tablet Take 1 tablet (600 mg total) by mouth every 12 hours as needed for mild or moderate pain (shoulder pain), take with food. 180 tablet 3 3 9:38 AM EST 12/24/19 23 Active Additional Information Patient not taking.Reported on 01/06/2025 metaxalone (SKELAXIN) 800 mg tablet Take 1 tablet (800 mg total) by mouth 2 times a day as needed for muscle spasms. 30 tablet 1 12/24/19 23 Active Additional Information Patient not taking.Reported on 01/06/2025 multivitamin (THERAGRAN) tablet Multi-Vitamin Oral Tablet TAKE 1 TABLET DAILY. Refills: 0 Started 26-Oct-2013 Active 10/26/20 13 Active fluoruracil (CARAC) 0.5 % cream as needed 01/16/20 23 Active omega-3 acid ethyl esters (LOVAZA) 1 gram capsule Fish Oil 1000 MG Oral Capsule TAKE 1 CAPSULE DAILY. Refills: 0 Started 26-Oct-2013 Active 10/26/20 13 Active triamcinolone acetonide (KENALOG) 0.1% cream SMARTSIG:Topica l PRN 01/16/20 23 Active gabapentin (NEURONTIN) 100 mg capsuleIndications :Neuropathic pain Take 1 capsule (100 mg total) by mouth 3 times a day. 90 capsule 5 04/24/20 23 Active LORazepam (ATIVAN) 0.5 mg tablet Take 1 to 2 tablets (0.5-1 mg total) by mouth daily as needed for anxiety (for MRI/CT scan). 4 tablet 3 9:26 AM EDT 04/25/20 23 Active albuterol (PROAIR HFA,VENTOLIN HFA) 90 mcg inhaler Inhale 2 puffs (180 mcg total) by mouth every 4 to 6 hours as needed for wheezing or shortness of breath. 8.5 g 3 5:16 PM EDT 07/07/20 23 Active HYDROcodone-acetam inophen (NORCO) 5-325 mg tablet Take 1 tablet by mouth every 8 hours as needed for moderate or severe pain. 30 tablet 3 5:16 PM EDT 07/07/20 23 Active fluticasone furoate-vilanteroL (BREO ELLIPTA) 100-25 mcg/dose blister with device Inhale 1 puff by mouth once a day. 180 each 1 4 9:57 AM EST 01/05/20 24 Active fluticasone furoate-vilanteroL (BREO ELLIPTA) 100-25 mcg/dose blister with device Inhale 1 puff by mouth once a day. 180 each 1 4 9:56 AM EDT 04/28/20 24 Active HYDROcodone-acetam inophen (NORCO) 5-325 mg tablet Take 1 tablet by mouth 2 times a day as needed for moderate or severe pain. okay to refill on 07/10/24 60 tablet 4 8:02 AM EDT 07/08/20 24 Active aspirin 81 mg EC tablet Take 81 mg by mouth daily. 09/22/20 24 026 Active furosemide (LASIX) 20 mg tabletIndications: Localized edema Take 1 tablet (20 mg total) by mouth daily as needed for edema. 20 tablet 1 9:21 AM EST 10/02/20 21 021 Discontin ued(Exter nal source cancellat ion) Active Problems Problem Noted Date Diagnosed Date Thoracic myelopathy 12/05/2023 Lumbar radiculopathy 12/05/2023 Neuropathy 12/05/2023 Cervical stenosis of spinal canal 04/24/2023 Myelopathy 04/24/2023 Numbness 03/04/2023 Lumbosacral radiculopathy 03/04/2023 Varicose Veins With Pain 10/26/2013 Social History Tobacco Use Types Packs/Day Years Used Date Smoking Tobacco: Never Smokeless Tobacco: Never Tobacco Cessation:Counseling Given: Not Answered Comments:: Alcohol Use Standard Drinks/Week Comments Not Currently 0 (1 standard drink = 0.6 oz pur e alcohol) Sex and Gender Information Value Date Recorded Sex Assigned at Male 02/27/2023 9:17 AM EDT Legal Sex Male 7:03 AM EDT Gender Identity Male 02/27/2023 9:17 AM EDT Sexual Orientation Straight 02/27/2023 9: 17 AM EDT Last Filed Vital Signs Vital Sign Reading Time Taken Comments Blood Pressure 150/95 01/06/2025 11:23 AM EST Pulse 88 01/06/2025 11:23 AM EST Temperature 36.9 ??C (98.4 ??F) 01/06/2025 9:30 AM ES T Respiratory Rate 18 01/06/2025 9:30 AM EST Oxygen Saturation 96% 01/06/2025 9:30 AM EST Inhaled Oxygen Concentration - - Weight 101.2 kg (223 lb) 01/06/2025 9:30 AM EST Height 190.5 cm (6' 3 ) 01/06/2025 9:30 AM EST Body Mass Index 27.87 01/06/2025 9:30 AM EST Plan of Treatment Not on file Procedures * Due to [place] state law, this organization might not be sharing negative HIV tests. Procedure Name Priority Date/Time Associated Diagnosis Comments MRI THORACIC SPINE W WO CONTRAST Routine 02/20/2025 11:30 AM EDT Disease of spinal cord, unspecified (HCC) MRI CERVICAL SPINE W WO CONTRAST Routine 02/18/2025 12:30 PM EDT Myelopathy COMPREHENSIVE METABOLIC PANEL Routine 01/06/2025 11:34 AM EST Myelopathy from Last 3 Months Results * Due to [place] state law, this organization might not be sharing negative HIV tests. * MRI Thoracic Spine W WO Contrast (02/20/2025 11:30 AM EDT) Anatomical Region Laterality Modality Spine, T-spine Magnetic Resonan ce 02/21/2025 1:16 PM EDT Impressions 02/21/2025 1:42 PM EDT Spondylosis/degenerative listhesis with severe T11-T12 thoracic canal/foraminal stenosis with cord compression/edema and likely faint cord enhancement, recommend neurosurgical evaluation ([place] alert). Dorsal column T2 hyperintensities extending from T11 T12 cranially towards T6 level; chronic cord compression/myelopathy changes at T11-T12 level with developing Wallerian degeneration, posttraumatic changes, vitamin B12 deficiency, sequela of prior inflammation/infection, exposure to unusual chemicals to be considered, advise appropriate clinical/laboratory correlation and attention to these findings in the follow-up imaging (yellow alert). Additional areas of thoracic canal and foraminal stenosis detailed above. Likely prior laminectomy changes at T11-T12 level, please correlate clinically. Known, 17 mm in T6 vertebral body hemangioma. Appropriate clinical, laboratory, imaging correlation and follow-up advised. COMMUNICATION: A(n) [place] actionable finding has been communicated to the ordering or responsible provider via the [facility] system on 02/21/2025 1:42 PM. ??Receipt of this communication by the responsible provider will be documented in [facility]) Findings upon receiving acknowledgement if applicable, Message ID [id number]. A(n) [place] actionable finding has been communicated to the ordering or responsible provider via the [facility] system on 02/21/2025 1:42 PM. ??Receipt of this communication by the responsible provider will be documented in [facility]) Findings upon receiving acknowledgement if applicable, Message ID [id number]. If this radiology report contains a blank impression section, it is an incomplete radiology report. ??Please contact the interpreting radiologist or applicable radiology division as soon as possible to obtain the completed interpretation. ? Workstation ID: [id number] Narrative 02/21/2025 1:42 PM EDT EXAMINATION: THORACIC SPINE MRI WITHOUT AND WITH IV CONTRAST PHARMACEUTICAL: 0.1 mmol/kg Doteram administered intravenously after obtaining precontrast images. TECHNIQUE: Multiplanar and multisequence MR imaging of thoracic spine performed without and with intravenous contrast administration. COMPARISON: Prior comparable studies most recent of which is a thoracic spine MRI dated 02/21/2024. CLINICAL INFORMATION: Chronic myelopathy, FINDINGS: Multilevel degenerative listhesis is again visualized, most conspicuously involving T11-T12 level. There is no compression deformity, obvious prevertebral edema or swelling. ??Subtle bony/laminectomy defects are again suggested at T11-T12 level. ??17 mm T6 vertebral body hemangioma is again noted. ??Multilevel degenerative vertebral endplate changes and developing Schmorl's nodes are noted. Multilevel degenerative disc disease and accompanying asymmetric disc bulges are present. ??Flaval thickening and facet arthrosis are present. ??Dorsal epidural lipomatosis is noted at T9-10 and T10-11 levels. ??T11 anterolisthesis and diffuse uncovering of T11-T12 disc with superimposed left paracentral disc herniation are again noted. ??There is mild T1-2, mild to moderate T2-3, T3-4, moderate T7-8, T9, T10-11 and severe T11-T12 central canal/foraminal stenosis. ??There is persistent cord compression at T11-T12 level. T2-T3 central disc herniation is gently remodeling the ventral cord margin. ??Left paracentral T3-4 disc protrusion is noted in the lateral recess. The thoracic cord again has intramedullary T2 hyperintensity at T11-T12 level which can be related to chronic cord compression with developing myelomalacia and/or residual edema. ??Faint enhancement is suggested in this area. ??Neurosurgical evaluation is recommended. ??Linear, intramedullary T2 hyperintensities are extending from this region cranially to T6 level as in the last study. ??These can be related to chronic cord compression/myelopathic changes at T11-T12 level with associated Wallerian degeneration although posttraumatic changes, vitamin B12 deficiency, sequela of prior inflammation/infection, exposure to unusual chemicals may also contribute to this finding. ??Appropriate clinical and laboratory correlation can therefore be helpful. ?? Heterogeneous posterior paraspinal signal is again visualized at the thoracolumbar junction, please correlate with prior posttreatment changes. ??There is no large paraspinal/epidural drainable collection. ?? Resulting Agency Comment [id number] Shy Selby MD IMG MRI PROCEDURES Edited Result - Final * MRI Cervical Spine with and without Contrast (02/18/2025 12:30 PM EDT) Anatomical Region Laterality Modality Spine, C-spine Magnetic Resonan ce 02/18/2025 11:4 0 AM EDT Impressions 02/21/2025 1:15 PM EDT No compression deformity, abnormal enhancement or large paraspinal/epidural collection in the cervical spine. Interval, remote C3-4, C4-5 and C5-6 interbody fusion changes. Degenerative changes above and below the fulcrum. Moderate to severe left C6 foraminal stenosis. Chronic C5-6 central disc protrusion gently remodeling the cord. Appropriate clinical, imaging correlation and follow-up advised. If this radiology report contains a blank impression section, it is an incomplete radiology report. ??Please contact the interpreting radiologist or applicable radiology division as soon as possible to obtain the completed interpretation. ? Workstation ID: [id number] Narrative 02/21/2025 1:15 PM EDT EXAMINATION: CERVICAL SPINE MRI WITHOUT AND WITH IV CONTRAST PHARMACEUTICAL: 0.1 mmol/kg of Dotarem administered intravenously. TECHNIQUE: Multiplanar and multisequence MR imaging of cervical spine performed prior to and following intravenous administration of Dotarem. COMPARISON: Cervical spine MRI dated 04/22/2023. CLINICAL INFORMATION: Chronic myelopathy, prior surgery, FINDINGS: Straightening of cervical lordosis is noted. There is interval, remote C3-4 through C5-6 interbody fusion changes. Metallic artifact is slightly obscuring adjacent tissues. ??Degenerative changes are visualized above and below the fulcrum. ?? Individual levels: C2-C3: Degenerative disc disease, asymmetric disc osteophyte complex and facet arthrosis are again contributing to moderate left foraminal stenosis. ??Central canal and right neural foramina remain better preserved C3-C4: Posttreatment changes, residual, asymmetric disc osteophyte complex and facet arthrosis are crowding left neural foramina. ??Central canal and right neural foramina are normally visualized. C4-C5: Posttreatment changes, small disc osteophyte and facet arthrosis are noted. ??Canal components are otherwise preserved. C5-C6: Posttreatment changes, residual disc osteophyte complex and facet arthrosis are noted. ??Chronic central disc protrusion is again gently remodeling the cord. ??Canal components are otherwise preserved. C6-C7: Severe degenerative disc space narrowing, asymmetric disc osteophyte complex and facet arthrosis are and contributing to moderate to severe left foraminal stenosis. ??Central canal and right neural foramina remain better preserved. C7-T1: Intervertebral disc space and canal components are normally visualized. ??Facet arthrosis is noted. The cervical cord maintains normal signal. No abnormal enhancement is seen in the cervical canal. There is no large paraspinal/epidural drainable collection. ?? The craniocervical junction is normal. ?? Resulting Agency Comment [id number] Procedure Note Brent Fuentes MD - 02/21/2025 EXAMINATION: CERVICAL SPINE MRI WITHOUT AND WITH IV CONTRAST PHARMACEUTICAL: 0.1 mmol/kg of Dotarem administered intravenously. TECHNIQUE: Multiplanar and multisequence MR imaging of cervical spine performed priorto and following intravenous administration of Dotarem. COMPARISON: Cervical spine MRI dated 04/22/2023. CLINICAL INFORMATION: Chronic myelopathy, prior surgery, FINDINGS: Straightening of cervical lordosis is noted. There is interval, remote C3-4 through C5-6 interbody fusion changes.Metallic artifact is slightly obscuring adjacent tissues. Degenerativechanges are visualized above and below the fulcrum. Individual levels: C2-C3: Degenerative disc disease, asymmetric disc osteophyte complex andfacet arthrosis are again contributing to moderate left foraminalstenosis. Central canal and right neural foramina remain betterpreserved C3-C4: Posttreatment changes, residual, asymmetric disc osteophyte complexand facet arthrosis are crowding left neural foramina. Central canal andright neural foramina are normally visualized. C4-C5: Posttreatment changes, small disc osteophyte and facet arthrosisare noted. Canal components are otherwise preserved. C5-C6: Posttreatment changes, residual disc osteophyte complex and facetarthrosis are noted. Chronic central disc protrusion is again gentlyremodeling the cord. Canal components are otherwise preserved. C6-C7: Severe degenerative disc space narrowing, asymmetric discosteophyte complex and facet arthrosis are and contributing to moderate tosevere left foraminal stenosis. Central canal and right neural foraminaremain better preserved. C7-T1: Intervertebral disc space and canal components are normallyvisualized. Facet arthrosis is noted. The cervical cord maintains normal signal. No abnormal enhancement is seenin the cervical canal. There is no large paraspinal/epidural drainable collection. The craniocervical junction is normal. IMPRESSION: No compression deformity, abnormal enhancement or largeparaspinal/epidural collection in the cervical spine. Interval, remote C3-4, C4-5 and C5-6 interbody fusion changes. Degenerative changes above and below the fulcrum. Moderate to severe left C6 foraminal stenosis. Chronic C5-6 central disc protrusion gently remodeling the cord. Appropriate clinical, imaging correlation and follow-up advised. If this radiology report contains a blank impression section, it is anincomplete radiology report. Please contact the interpreting radiologistor applicable radiology division as soon as possible to obtain thecompleted interpretation. Workstation ID: [id number] Shy Selby MD IMG MRI PROCEDURES Final R esult * (ABNORMAL) Comprehensive Metabolic Panel (01/06/2025 11:34 AM EST) NA 142 135 - 145 mmol/L 01/06/2025 12:36 PM EST [facility] K 4.4 3.5 - 5.3 mmol/L 01/06/2025 12:36 PM EST [facility] Cl 104 98 - 107 mmol/L 01/06/2025 12:36 PM EST [facility] CO2 27 22 - 32 mmol/L 01/06/2025 12:36 PM EST [facility] Anion Gap 11 5 - 15 01/06/2025 12:36 PM EST [facility] Glucose 87 65 - 99 mg/dL 01/06/2025 12:36 PM EST [facility] Creatinine 1.48(H) 0.60 - 1.30 mg/dL 01/06/2025 12:36 PM EST [facility] Calcium 10.1 8.6 - 10.5 mg/dL 01/06/2025 12:36 PM EST [facility] Total Protein 7.0 6.0 - 8.0 g/dL 01/06/2025 12:36 PM EST [facility] Albumin 4.3 3.5 - 5.2 g/dL 01/06/2025 12:36 PM EST [facility] Bilirubin, Total 0.5 0.2 - 1.2 mg/dL 01/06/2025 12:36 PM EST [facility] Alkaline Phosphatase 62 35 - 129 U/L 01/06/2025 12:36 PM EST [facility] AST 42(H) 10 - 40 U/L 01/06/2025 12:36 PM EST [facility] ALT 39 10 - 40 U/L 01/06/2025 12:36 PM EST [facility] BUN 21 7 - 23 mg/dL 01/06/2025 12:36 PM EST [facility] eGFR 52(L) >=60 mL/min/1 .73m2 01/06/2025 12:36 PM EST [facility] Comment:The estimated glomer ular filtration rate (eGFR) is calculated using a new formula developed by the NKF-ASN task force to eliminate race-based correction factors. The new formula uses serum/plasma creatinine, age, and gender to determine eGFR. A value below 60mls/min might indicate kidney disease and will be flagged. For additional information, see Sharif austin al, Am J Kidney Dis. 2021;79(2):268- 288, A Unifying Approach for GFR estimation: Recommendations of the NKF-ASN Task Force on Reassessing the Inclusion of Race in Diagnosing Kidney Disease . Globulin, Total 2.7 2.1 - 4.2 g/dL 01/06/2025 12:36 PM EST [facility] A/G Ratio 1.6 1.5 - 3.0 01/06/2025 12:36 PM EST [facility] Blood Structure of peripheral vein / Unknown Venipuncture / Unknown 01/06/2025 11:34 AM EST 01/06/2025 12:05 PM EST us Shy Selby MD LAB BLOOD ORDERABLES Final Result [facility] [address] [place] [address], from Last 3 Months Insurance BS MCR REPLACE PPO Care Teams Cash Manager Relationship Specialty Start Date End Date Ludwig Tidwell MD PCP - General Internal Medicine 01/28/23
--- OUTSIDE RECORDS SUMMARY | 2025-03-11 13:41 | XMS_ITS | Encounter Summary ---
Author Organization [facility] Address [address] [place] [address] Care Team Providers Care Walnut Dehydrator Operator Name Role Phone Ludwig Tidwell MD Primary Care Provider [phone] Encounter Details Date Type Department Care Team ([facility] st Contact Info) Description 08/02/2024 Orders Only [facility] [address] [facility] [address] [place] [address] Filiberto Leos MD [address] [place] [address] Social History Tobacco Use Types Packs/Day Years Used Date Smoking Tobacco: Never Smokeless Tobacco: Never Alcohol Use Standard Drinks/Week Comments No 0 (1 standard drink = 0.6 oz pur e alcohol) PHQ-2 Answer Date Recorded PHQ-2 Score 0 08/25/2023 PHQ-9 Answer Date [facility] (Range 0-27) 0 08/25/2023 [...] Description 08/12/2025 8:30 AM EDT Office Visit [facility] [address] [facility] [address] [place] [address] Filiberto Leos MD [address] [place] [address] Return in about 6 months (around 08/11/2025) for labs prior. 09/22/2025 12:45 PM EDT CPE - Comprehensive Physical Exam [facility] [address] [place] [phone] Ludwig Tidwell MD [address] [place] [phone] documented as of this encounter Procedures * Due to [place] RVX law, this organization might not be sharing negative HIV tests. Procedure Name Priority Date/Time Associated Diagnosis Comments TESTOSTERONE, TOTAL,(ADULT MALE) IMMUNOASSAY Routine 08/02/2024 6:48 AM EDT Low testosterone in male documented in this encounter Results * Due to [place] RVX law, this organization might not be sharing negative HIV tests. * (ABNORMAL) TESTOSTERONE, TOTAL,(ADULT MALE) IMMUNOASSAY (08/02/2024 6:48 AM EDT) Testosterone 1251(H) 250 - 827 ng/dL [facility] 08/02/2024 6:48 AM EDT 08/03/2024 1:29 AM EDT Narrative Resulting Agency Comment [id number] Filiberto Leos MD LABORATORY Final Result [facility] [address] [place] [address] documented in this encounter Visit Diagnoses Diagnosis Low testosterone in male documented in this encounter Care Teams Walnut Dehydrator Operator Relationship Specialty Start Date End Date Ludwig Tidwell MD [address] [place] [phone] PCP - General Internal Medicine 11/12/22 documented as of this encounter
--- OUTSIDE RECORDS SUMMARY | 2025-03-11 13:41 | XMS_ITS | Encounter Summary ---
Author Organization [facility] Address [address] [place] [address] Care Team Providers Care Engineering Research Manager Name Role Phone Ludwig Tidwell MD Primary Care Provider [phone] Encounter Details Date Type Department Care Team ([facility] st Contact Info) Description 08/24/2024 Orders Only [facility] Urology [address] [facility] [address] [place] [address] Filiberto Leos MD [address] [place] [address] Social History Tobacco Use Types Packs/Day Years Used Date Smoking Tobacco: Never Smokeless Tobacco: Never Alcohol Use Standard Drinks/Week Comments No 0 (1 standard drink = 0.6 oz pur e alcohol) PHQ-2 Answer Date Recorded Patient Health Questionnaire-2 Score 0 08/25/2024 PHQ-9 Answer Date Recorded [facility]9 SEVERITY SCORE (Range 0-27) [...] Description 08/12/2025 8:30 AM EDT Office Visit [facility] Urology [address] [facility] [address] [place] [address] Filiberto Leos MD [address] [place] [address] Return in about 6 months (around 08/11/2025) for labs prior. 09/22/2025 12:45 PM EDT CPE - Comprehensive Physical Exam [facility] Medicine [address] [place] [phone] Ludwgi Tidwell MD [address] [place] [address] documented as of this encounter Procedures * Due to [place] [employer] law, this organization might not be sharing negative HIV tests. Procedure Name Priority Date/Time Associated Diagnosis Comments HEMATOCRIT, BLOOD Routine 08/24/2024 6:4 9 AM EDT Low testosterone in male documented in this encounter Results * Due to [place] [employer] law, this organization might not be sharing negative HIV tests. * (ABNORMAL) HEMATOCRIT, BLOOD (08/24/2024 6:49 AM EDT) Hematocrit 52.7(H) 38.5 - 50.0 % [facility] 08/24/2024 6:49 AM EDT 08/25/2024 1:17 AM EDT Narrative Resulting Agency Comment [id number] Filiberto Leos MD LAB SAME DAY RESULT Final Resul t [facility] [address] [place] [address] documented in this encounter Visit Diagnoses Diagnosis Low testosterone in male documented in this encounter Care Teams Engineering Research Manager Relationship Specialty Start Date End Date Ludwig Tidwell MD [address] [place] [address] PCP - General Internal Medicine 11/12/22 documented as of this encounter
--- OUTSIDE RECORDS SUMMARY | 2025-03-11 13:41 | XMS_ITS | Encounter Summary ---
Author Organization [facility] Address [address] [place] [address] Care Team Providers Care Manager Of Global Name Role Phone Gabriella Mackenzie MD Primary Care Provider [phone] Reason for Visit * Reason Comments Endoscopy Request (lower And/or Upper) Encounter Details Date Type Department Care Team (Late st Contact Info) Description 08/30/2024 Telephone [facility] [address] [place] [phone] Tony Harris MD [address] [place] [address] Endoscopy Request (lower And/or Upper) Social History Tobacco Use Types Packs/Day Years Used Date Smoking Tobacco: Never Smokeless Tobacco: Never Alcohol Use Standard Drinks/Week Comments No 0 (1 standard drink = 0.6 oz pur e alcohol) PHQ-2 Answer Date Recorded Patient Health Questionnaire-2 Score 0 08/25/2024 PHQ-9 Answer Date [facility]ed [facility] PHQ-9 SEVERITY SCORE (Range 0-27) 0 08/25/2023 [...] encounter Miscellaneous Notes * Telephone Encounter - Elmira Das - 12/06/2024 6:07 PM EST 12/06/2023 procedure was completed 10/31/2021. With 5 your procedure time frame it is too soon to book next procedure. dew * Telephone Encounter - Alfredo Elkins - 08/30/2024 4:27 PM EDT Priority: Routine Class: Internal Scheduling Instructions: Colon Cancer Screening due date listed in Health Maintenance: 10/31/2026 Associated Diagnoses Z12.11 Screen for colon cancer Track Order? -> Yes Is an anticoagulant/antiplatelet on the medication list? -> No Timeframe for procedure? -> L3 (3 YEARS FROM LAST) Cmt: patient prefers to have it done q3 years Patient: FRANCO WELLS ([id number]) Sex: Male : 1955 Address: [address] [place], [place] [id number] Payor:[facility] FEE FOR SERVICE MEDICARE Group Number:[id number] Plan:[facility] CAP MEDICARE ADVANTAGE PPO Plan Number:[id number] Patient Order Date:08/26/2024 Ordering User:GABRIELLA MACKENZIE [[id number]] Encounter Provider:Gabriella Mackenzie MD [[id number]] Authorizing Provider: Gabriella Mackenzie MD [[id number]] Department:[facility][[id number]] Primary Care Physician: GABRIELLA MACKENZIE Department: [facility] documented in this encounter Plan of Treatment Upcoming Encounters Date Type Department Care Team (Latest Contact Info) Description 08/12/2025 8:30 AM EDT Office Visit [facility] Urology [address] [place] [phone] Filiberto Leos MD [address] [place] [address] Return in about 6 months (around 08/11/2025) for labs prior. 09/22/2025 12:45 PM EDT CPE - Comprehensive Physical Exam [address] [phone] Gabriella Mackenzie MD [address] [place] [phone] documented as of this encounter Visit Diagnoses Not on filedocumented in this encounter Care Teams Manager Of Global Relationship Specialty Start Date End Date Gabriella Mackenzie MD [address] [place] [address] PCP - General Internal Medicine 11/12/22 documented as of this encounter
--- OUTSIDE RECORDS SUMMARY | 2025-03-11 13:41 | XMS_ITS | Encounter Summary ---
Author Organization [facility] Address [address] [place] [address] Care Team Providers Care Uniform Force Captain Name Role Phone Ludwig Tidwell MD Primary Care Provider [phone] Encounter Details Date Type Department Care Team ([facility] st Contact Info) Description 06/03/2024 Orders Only [facility] Urology [address] [facility] [address] [place] [address] Filiberto Leos MD [address] [place] [address] Social History Tobacco Use Types Packs/Day Years Used Date Smoking Tobacco: Never Smokeless Tobacco: Never Alcohol Use Standard Drinks/Week Comments No 0 (1 standard drink = 0.6 oz pur e alcohol) PHQ-2 Answer Date Recorded PHQ-2 Score 0 08/25/2023 PHQ-9 Answer Date Recorded [facility] PHQ-9 SEVERITY SCORE (Range 0-27) [...] Description 08/12/2025 8:30 AM EDT Office Visit [facility] Urology [address] [facility] [address] [place] [address] Filiberto Leos MD [address] [place] [address] Return in about 6 months (around 08/11/2025) for labs prior. 09/22/2025 12:45 PM EDT CPE - Comprehensive Physical Exam [facility] [address] [place] [phone] Ludwig Tidwell MD [address] [place] [address] documented as of this encounter Procedures * Due to [facility] law, this organization might not be sharing negative HIV tests. Procedure Name Priority Date/Time Associated Diagnosis Comments ESTRADIOL, RAPID Routine 06/03/2024 6:47 AM EDT Low testosterone in male documented in this encounter Results * Due to [place] [employer] law, this organization might not be sharing negative HIV tests. * (ABNORMAL) ESTRADIOL, RAPID (06/03/2024 6:47 AM EDT) Estradiol 49(H) < OR = 39 pg/mL [facility] Comment: Reference range established on post-pubertal patient population. No pre-pubertal reference range established using this assay. For any patients for whom low Estradiol levels are anticipated (e.g. males, pre-pubertal children and hypogonadal/post-menopausal females), the [facility] Estradiol, Ultrasensitive, LCMSMS assay is recommended (order code [id number]). Please note: patients being treated with the drug fulvestrant (Faslodex(R)) have demonstrated significant interference in immunoassay methods for estradiol measurement. The cross reactivity could lead to falsely elevated estradiol test results leading to an inappropriate clinical assessment of estrogen status. [employer] order code [id number], Ultrasensitive LC/MS/MS demonstrates negligible cross reactivity with fulvestrant. 06/03/2024 6:47 AM EDT 06/04/2024 12:43 AM EDT Narrative Resulting Agency Comment [id number] us Filiberto Leos MD LAB SAME DAY RESULT Final Resul t [facility] [address] [place] [address] documented in this encounter Visit Diagnoses Diagnosis Low testosterone in male documented in this encounter Care Teams Uniform Force Captain Relationship Specialty Start Date End Date Ludwig Tidwell MD [address] [place] [address] PCP - General Internal Medicine 11/12/22 documented as of this encounter
--- OUTSIDE RECORDS SUMMARY | 2025-03-11 13:41 | XMS_ITS | Encounter Summary ---
Author Organization [facility] Address [address] [place] [address] Care Team Providers Care Staff Forester Name Role Phone Ludwig Tidwell MD Primary Care Provider [phone] Encounter Details Date Type Department Care Team (Late st Contact Info) Description 08/24/2024 Orders Only [facility] [address] [place] [phone] Ludwig Tidwell MD [address] [place] [address] Social History Tobacco Use Types Packs/Day Years Used Date Smoking Tobacco: Never Smokeless Tobacco: Never Alcohol Use Standard Drinks/Week Comments No 0 (1 standard drink = 0.6 oz pur e alcohol) PHQ-2 Answer Date Recorded Patient Health Questionnaire-2 Score 0 08/25/2024 PHQ-9 Answer Date Recorded [facility] PHQ-9 SEVERITY SCORE (Range 0-27) 0 [...] as of this encounter Miscellaneous Notes * Result Encounter Note - Ludwig Tidwell MD - 08/24/2024 6:49 AM EDT Please see [employer] message. documented in this encounter Plan of Treatment Upcoming Encounters Date Type Department Care Team (Latest Contact Info) Description 08/12/2025 8:30 AM EDT Office Visit [facility] Urology [address] [facility] [address] [place] [address] Filiberto Leos MD [address] [place] [address] Return in about 6 months (around 08/11/2025) for labs prior. 09/22/2025 12:45 PM EDT CPE - Comprehensive Physical Exam [facility] [address] [place] [address] Ludwig Tidwell MD [address] [place] [address] documented as of this encounter Procedures * Due to [place] [employer] law, this organization might not be sharing negative HIV tests. Procedure Name Priority Date/Time Associated Diagnosis Comments HEMOGLOBIN A1C Routine 08/24/2024 6:49 AM EDT Screening for endocrine disorder LIPID PANEL WITH REFLEX TO DIRECT LDL Routine 08/24/2024 6:49 AM EDT Screening, lipid documented in this encounter Results * Due to [place] [employer] law, this organization might not be sharing negative HIV tests. * (ABNORMAL) LIPID PANEL WITH REFLEX TO DIRECT LDL (08/24/2024 6:49 AM EDT) Cholesterol 203(H) <200 mg/dL [facility] HDL Cholesterol 56 > OR = 40 mg/dL [facility] Triglyceride 90 <150 mg/dL [facility] LDL Cholesterol 128(H) mg/dL (calc) [facility] Comment: Reference range: <100 Desirable range <100 mg/dL for primary prevention; ?? <70 mg/dL for patients with CHD or diabetic patients with > or = 2 CHD risk factors. LDL-C is now calculated using the Tamica calculation, which is a validated novel method providing better accuracy than the Friedewald equation in the estimation of LDL-C. Naveen LUCAS et al. JOHN. 2013;310(19): 7672-1732 (http://education.Shared Spectrum/faq/DJJ250) CHOL/HDL Ratio 3.6 <5.0 (calc) [facility] Cholesterol Non-HDL 147(H) <130 mg/dL (calc) [facility] Comment: For patients with diabetes plus 1 major ASCVD risk factor, treating to a non-HDL-C goal of <100 mg/dL (LDL-C of <70 mg/dL) is considered a therapeutic option. 08/24/2024 6:49 AM EDT 08/25/2024 1:17 AM EDT Narrative Resulting Agency Comment [id number] Luwdig Tidwell MD LABORATORY Final Result [facility] [address] [place] [address] * (ABNORMAL) HEMOGLOBIN A1C (08/24/2024 6:49 AM EDT) Hemoglobin A1C 5.7(H) <5.7 % of total Hgb [facility] Comment: For someone without known diabetes, a hemoglobin A1c value between 5.7% and 6.4% is consistent with prediabetes and should be confirmed with a follow-up test. For someone with known diabetes, a value <7% indicates that their diabetes is well controlled. A1c targets should be individualized based on duration of diabetes, age, comorbid conditions, and other considerations. This assay result is consistent with an increased risk of diabetes. Currently, no consensus exists regarding use of hemoglobin A1c for diagnosis of diabetes for children. Estimated Average Glucose 126 mg/dL (calc) [facility] 08/24/2024 6:49 AM EDT 08/25/2024 1:17 AM EDT Narrative Resulting Agency Comment [id number] us Ludwig Tidwell MD LABORATORY Final Result [facility] [address] [place] [address] documented in this encounter Visit Diagnoses Diagnosis Screening for endocrine disorder Screening, lipid Screening for lipoid disorders documented in this encounter Care Teams Staff Forester Relationship Specialty Start Date End Date Ludwig Tidwell MD [address] [place] [address] PCP - General Internal Medicine 11/12/22 documented as of this encounter
--- OUTSIDE RECORDS SUMMARY | 2025-03-11 13:41 | XMS_ITS | Encounter Summary ---
Author Organization [facility] Address [address] [place] [address] Care Team Providers Care Fire Prevention Forester Name Role Phone Ludwig Tidwell MD Primary Care Provider [phone] Encounter Details Date Type Department Care Team (Late st Contact Info) Description 06/03/2024 Orders Only [facility] [address] [place] [address] Ludwig Tidwell MD [address] [place] [address] Social History Tobacco Use Types Packs/Day Years [...] Miscellaneous Notes * Result Encounter Note - Megha Thomas NP - 06/03/2024 6:47 AM EDT C/w meds documented in this encounter Plan of Treatment Upcoming Encounters Date Type Department Care Team (Latest Contact Info) Description 08/12/2025 8:30 AM EDT Office Visit [facility] [address] [facility] [address] [place] [address] Filiberto Leos MD [address] [place] [address] Return in about 6 months (around 08/11/2025) for labs prior. 09/22/2025 12:45 PM EDT CPE - Comprehensive Physical Exam [facility] [address] [place] [address] Ludwig Tidwell MD [address] [place] [address] documented as of this encounter Procedures * Due to [place] [employer] law, this organization might not be sharing negative HIV tests. Procedure Name Priority Date/Time Associated Diagnosis Comments PAIN MANAGEMENT PROFILE WITH FENTANYL, URINE (PAINM2+) Routine 06/03/2024 6:47 AM EDT Encounter for drug therapy Chronic right shoulder pain BASIC METABOLIC PANEL WITH (GFR) Routine 06/03/2024 6:47 AM EDT Stage 3a chronic kidney disease documented in this encounter Results * Due to [place] [employer] law, this organization might not be sharing negative HIV tests. * (ABNORMAL) BASIC METABOLIC PANEL WITH (GFR) (06/03/2024 6:47 AM EDT) Glucose 93 65 - 99 mg/dL [facility] Comment:Fasting reference in terval Urea Nitrogen Blood (BUN) 20 7 - 25 mg/dL [facility] Creatinine 1.32 0.70 - 1.35 mg/dL [facility] EGFR 59(L) > OR = 60 mL/min/1. 73m2 [facility] BUN/Creatinine Ratio SEE NOTE: 6 - 22 (calc) [facility] Comment: ?? Not Reported: BUN and Creatinine are within ?? reference range. Sodium 137 135 - 146 mmol/L [facility] Potassium 4.1 3.5 - 5.3 mmol/L [facility] Chloride 104 98 - 110 mmol/L [facility] Carbon dioxide 26 20 - 32 mmol/L [facility] Calcium 9.7 8.6 - 10.3 mg/dL [facility] 06/03/2024 6:47 AM EDT 06/03/2024 10:28 PM EDT Narrative [facility] - 06/04/2024 4:04 AM EDT Please note that this estimated GFR does not include an adjustment for the patient's height or weight, and can therefore, be viewed as reliable only for patients with heights between 60 and 72 . More precise quantification using a 24-hour urine sample or height-based algorithm is recommended for patients outside of this range of height and for those individuals with more precise needs for GFR calculation. Resulting Agency Comment [id number] Ludwig Tidwell MD LABORATORY Final Result Performing Organization Address City/State/[facility] Co de Phone Number [facility] [address] [place] [address] * (ABNORMAL) PAIN MANAGEMENT PROFILE WITH FENTANYL, URINE (PAINM2+) (06/03/2024 6:47 AM EDT) Fentanyl Screen (Urine) NEGATIVE <0.5 ng/mL [facility] Comment:See Note 1 COMMENT SEE NOTE [facility] Comment:See Note 2 Creatinine (Urine) 258.6 > or = 20.0 mg/dL [facility] pH (Urine) 5.3 4.5 - 9.0 [facility] OXIDANT NEGATIVE <200 mcg/mL [facility] Amphetamines (Screen) NEGATIVE <500 ng/mL [facility] Barbiturates (Urine) NEGATIVE <300 ng/mL [facility] Benzodiazepine And Metabolites, Urine NEGATIVE <100 ng/mL [facility] Buprenorphine (Suboxone) (Urine) NEGATIVE <5 ng/mL [facility] Benzoylecgonine (Cocaine Metabolite) (Urine) NEGATIVE <150 ng/mL [facility] 6-Monoacetylmorphine (Heroin Metabolite) (Urine) NEGATIVE <10 ng/mL [facility] Tetrahydrocannabinol (Urine) NEGATIVE <20 ng/mL [facility] MDMA/MDA NEGATIVE <500 ng/mL [facility] EDDP ( Methadone Metabolite) NEGATIVE <100 ng/mL [facility] Opiates (Urine) POSITIVE(A) <100 ng/mL [facility] Codeine (Urine) NEGATIVE <50 ng/mL [facility] Comment:See Note 1 Hydrocodone (Urine) 1633(H) <50 ng/mL [facility] Comment:See Note 1 Hydromorphone (Urine) 418(H) <50 ng/mL [facility] Comment:See Note 1 Morphine (Urine) NEGATIVE <50 ng/mL [facility] Comment:See Note 1 Norhydrocodone (Urine) 1262(H) <50 ng/mL [facility] Comment:See Note 1 Oxycodone (Urine) NEGATIVE <100 ng/mL [facility] Phencyclidine (Urine) NEGATIVE <25 ng/mL [facility] COMMENT SEE NOTE [facility] Comment: See Note 2 Note 1 This test was developed and its analytical performance characteristics have been determined by [facility]. It has not been cleared or approved by the FDA. This assay has been validated pursuant to the CLIA regulations and is used for clinical purposes. Note 2 This drug testing is for medical treatment only. ?? Analysis was performed as non-forensic testing and these results should be used only by healthcare providers to render diagnosis or treatment, or to monitor progress of medical conditions. For assistance with interpreting these drug results, please contact a [facility] Toxicology Specialist: [phone] ( ), M-F, 8am-6pm EST. 06/03/2024 6:4 7 AM EDT 06/03/2024 10:28 PM EDT Narrative Resulting Agency Comment [id number] Ludwig Tidwell MD LABORATORY Final Result [facility] [address] [place] [address] documented in this encounter Visit Diagnoses Diagnosis Encounter for drug therapy Encounter for long-term (current) use of other medications Chronic right shoulder pain Pain in joint, shoulder region Stage 3a chronic kidney disease (HCC) documented in this encounter Care Teams Fire Prevention Forester Relationship Specialty Start Date End Date Ludwig Tidwell MD [address] [place] [address] PCP - General Internal Medicine 11/12/22 documented as of this encounter
--- OUTSIDE RECORDS SUMMARY | 2025-03-11 13:42 | XMS_ITS | Continuity of Care Document ---
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 Name Role Phone Ludwig Tidwell MD Primary Care Provider [phone] Encounters Date Type Department Care Team Description 02/21/2025 Results Follow-Up [facility] [address] [place] [address] [id number] Shy Selby MD 02/20/2025 Orders Only [facility] [address] [address] Shy Selby MD Disease of spinal cord, unspecified 2025 myChart Message [facility] [address] [place] [address] 10083 Shy Selby MD MRI study 2025 Telephone [facility] [address] [place] [address] 59238 Shy Selby MD 01/06/2025 10:00 AM EST Office Visit [facility] [address] [place] [address] 08051 Shy Selby MD Myelopathy (Primary Dx) 12/14/2024 Documentation [facility] at [address] [place] [address] [phone] Rod Straightener: Cale Brooks, PT PT Discharge 11/10/2024 4:30 PM EST Evaluation [facility] at [address] [place] [address] [phone] Rod Straightener: Cale Brooks, PT Benign paroxysmal positional vertigo of left ear (Primary Dx) 11/03/2024 4:30 PM EST Evaluation [facility] at [address] [place] [address] [phone] Rod Straightener: Cale Brooks, PT Benign paroxysmal positional vertigo of left ear (Primary Dx) 10/14/2024 4:00 PM EST Evaluation [facility] at [address] [place] [address] 10210 Rod Straightener: Cale Brooks, PT Benign paroxysmal positional vertigo of left ear (Primary Dx) 10/07/2024 4:30 PM EST Evaluation [facility] at [address] [place] [address] 50413 Rod Straightener: Cale Brooks, PT Benign paroxysmal positional vertigo of left ear (Primary Dx) 09/30/2024 4:00 PM EST Evaluation [facility] at [address] [place] [address] [phone] Rod Straightener: Cale Brooks, PT Benign paroxysmal positional vertigo of left ear (Primary Dx) 09/12/2024 Orders Only [facility] [address] [address] Provider, Bower Dizziness and giddiness 07/22/2024 9:00 AM EDT Evaluation [facility] at [address] [place] [address] [place] [address] Rod Straightener: Cale Brooks, PT Gait difficulty (Primary Dx); Balance problem 07/20/2024 12:00 PM EDT Treatment [facility] at [address] [place] [address] [phone] Rod Straightener: Cale Brooks, PT Gait difficulty (Primary Dx); Balance problem; Thoracic myelopathy 07/16/2024 9:30 AM EDT Treatment [facility] at [address] [place] [address] [phone] Rod Straightener: Ludwig Perez LICENSED ACUPUNCTURIST Gait difficulty (Primary Dx) 07/14/2024 9:00 AM EDT Treatment [facility] at [address] [place] [address] [phone] Rod Straightener: Ludwig Perez LICENSED ACUPUNCTURIST Gait difficulty (Primary Dx) 07/07/2024 9:30 AM EDT Treatment [facility] at [address] [place] [address] [phone] Rod Straightener: Ludwig Perez LICENSED ACUPUNCTURIST Gait difficulty (Primary Dx) 07/02/2024 9:30 AM EDT Treatment [facility] at [address] [place] [address] 31057 Rod Straightener: Ludwig Perez LICENSED ACUPUNCTURIST Gait difficulty (Primary Dx) 06/30/2024 10:00 AM EDT Treatment [facility] at [address] [place] [address] [phone] Rod Straightener: Ludwig Perez LICENSED ACUPUNCTURIST Gait difficulty (Primary Dx) 06/24/2024 10:00 AM EDT Office Visit [facility] [place] [phone] Shy Selby MD Myelopathy (Primary Dx) 06/22/2024 10:30 AM EDT Evaluation [facility] at [address] [place] [address] [phone] Rod Straightener: Cale Brooks, PT Gait difficulty (Primary Dx); Balance problem 06/17/2024 9:00 AM EDT Treatment [facility] at [address] [place] [address] [phone] Rod Straightener: Ludwig Perez PTA Gait difficulty (Primary Dx) 06/15/2024 11:00 AM EDT Treatment [facility] at [address] [place] [address] 18997 Rod Straightener: Ludwig Perez PTA Gait difficulty (Primary Dx) 06/10/2024 9:00 AM EDT Treatment [facility] at [address] [place] [address] [phone] Rod Straightener: Cale Brooks, PT Gait difficulty (Primary Dx); Balance problem; Thoracic myelopathy 06/03/2024 9:30 AM EDT Treatment [facility] at [address] [place] [address] [phone] Rod Straightener: Ludwig Perez LICENSED ACUPUNCTURIST Gait difficulty (Primary Dx) 06/01/2024 1:00 PM EDT Treatment [facility] at [address] [place] [address] [phone] Rod Straightener: Ludwig Perez PTA Gait difficulty (Primary Dx) 05/28/2024 9:00 AM EDT Treatment [facility] at [address] [place] [address] [phone] Rod Straightener: Ludwig Perez PTA Balance problem (Primary Dx) 05/25/2024 10:30 AM EDT Evaluation [facility] at [address] [place] [address] 14535 Rod Straightener: Cale Brooks PT Gait difficulty (Primary Dx); Balance problem; Thoracic myelopathy 05/20/2024 9:00 AM EDT Treatment [facility] at [address] [place] [address] [phone] Rod Straightener: Ludwig Perez PTA Gait difficulty (Primary Dx) 05/13/2024 9:00 AM EDT Treatment [facility] at [address] [place] [address] [phone] Rod Straightener: Ludwig Perez PTA Gait difficulty (Primary Dx) 05/10/2024 11:00 AM EDT Treatment [facility] at [address] [place] [address] [phone] Rod Straightener: Ludwig Perez PTA Gait difficulty (Primary Dx) 05/06/2024 11:30 AM EDT Treatment [facility] at [address] [place] [address] 14395 Rod Straightener: Ludwig Perez PTA Gait difficulty (Primary Dx) 05/03/2024 9:00 AM EDT Treatment [facility] at [address] [place] [address] [phone] Rod Straightener: Ludwig Perez PTA Balance problem (Primary Dx) 04/29/2024 10:30 AM EDT Treatment [facility] at [address] [place] [address] [phone] Rod Straightener: Abelardo Terrell, LICENSED ACUPUNCTURIST Gait difficulty (Primary Dx) 04/27/2024 11:00 AM EDT Evaluation [facility] at [address] [place] [address] [phone] Rod Straightener: Cale Brooks, PT Gait difficulty (Primary Dx); Balance problem; Thoracic myelopathy 04/22/2024 11:30 AM EDT Treatment [facility] at [address] [place] [address] [phone] Rod Straightener: Cristela Murray, TRINITY Gait difficulty (Primary Dx); Balance problem 04/21/2024 Telephone [facility] - Actionable Findings [address] [facility] [address] [place] [address] Joe Marquis RN Actionable Finding 04/20/2024 12:30 PM EDT Treatment [facility] at [address] [place] [address] 03240 Rod Straightener: Ludwig Perez PTA Gait difficulty (Primary Dx) 04/16/2024 11:00 AM EDT Treatment [facility] at [address] [place] [address] [phone] Rod Straightener: Ludwig Perez PTA Gait difficulty (Primary Dx) 04/14/2024 12:00 PM EDT Treatment [facility] at [address] [place] [address] 15185 Rod Straightener: Cale Brooks, PT Gait difficulty (Primary Dx); Balance problem; Thoracic myelopathy 04/07/2024 11:00 AM EDT Treatment [facility] at [address] [place] [address] [phone] Rod Straightener: Abelardo Terrell PTA Gait difficulty (Primary Dx) 04/05/2024 11:00 AM EDT Treatment [facility] Physical [facility] at [address] [place] [address] [phone] Rod Straightener: Ludwig Perez PTA Gait difficulty (Primary Dx) 04/01/2024 10:00 AM EDT Treatment [facility] at [address] [place] [address] [phone] Rod Straightener: Ludwig Perez PTA Gait difficulty (Primary Dx) 03/30/2024 12:00 PM EDT Evaluation [facility] [place] [facility] at [address] [place] [address] [phone] Rod Straightener: Cale Brooks, PT Balance problem (Primary Dx); Gait difficulty; Thoracic myelopathy 02/26/2024 Orders Only [facility] [address] [place] [address] 16610 ProviderLisette MD 02/26/2024 10:30 AM EDT Office Visit [facility] [address] [place] [address] 76931 Shy Selby MD Myelopathy (Primary Dx) 02/21/2024 Orders Only [facility] [address] [address] Sang Monroe MD Other spondylosis with myelopathy, thoracic region 12/16/2023 Orders Only [facility] [address] [place] [address] 17908 Shy Selby MD Neuropathy (Primary Dx) 12/04/2023 10:00 AM EST Office Visit [facility] [address] [place] [address] 41011 Shy Selby MD Neuropathy (Primary Dx); Cervical myelopathy; Thoracic myelopathy; Lumbar radiculopathy 11/22/2023 Orders Only [facility] [address] [address] Sang Monroe MD 07/31/2023 11:30 AM EDT Office Visit [facility] [address] [place] [address] 83783 Shy Selby MD Cervical myelopathy (Primary Dx); Lumbosacral radiculopathy 07/01/2023 Telephone [facility] [address] [place] [address] 92309 Shy Selby MD 06/23/2023 Telephone [facility] [address] [place] [address] 21982 Sherine العلي, CHIKIS 06/20/2023 Telephone [facility] [address] [place] [address] 74254 Telephone Intake, Staff questioning mri 06/03/2023 Telephone [facility] [address] [place] [address] 14350 Shy Selby MD 06/03/2023 myChart Message [facility] [address] [place] [address] thoracic spine results 05/26/2023 4:37 PM EDT - 05/26/2023 11:59 PM EDT Hospital Encounter [facility] CT Scan [address] [place] [address] Shy Selby MD Lesion of bone of thoracic spine Discharge Disposition: Home or Self Care () 05/01/2023 Orders Only [facility] [address] [place] [address] Shy Selby MD Cervical myelopathy (Primary Dx) 04/28/2023 Telephone [facility] [address] [place] [address] 68601 Telephone Intake, Staff 04/24/2023 10:00 AM EDT Office Visit [facility] [address] [place] [address] Shy Selby MD Neuroforaminal stenosis of spine (Primary Dx); Cervical stenosis of spinal canal; Neuroforaminal stenosis of lumbar spine; Lesion of bone of thoracic spine; Neuropathic pain; Cervical myelopathy; Lumbosacral radiculopathy; Numbness 03/17/2023 Orders Only [facility] [address] [place] [address] 55782 Cody Galloway MD Claustrophobia (Primary Dx); Pre-procedure lab exam 03/17/2023 Telephone [facility] [address] [place] [address] 29653 Sarkis Gonzales LPN medication prior to MRI's 03/13/2023 Telephone [facility] [address] [place] [address] 71540 Sherine العلي, CHIKIS 03/11/2023 Orders Only [facility] [address] [place] [address] 12885 Cody Galloway MD Lumbar polyradiculopathy (Primary Dx); Pre-procedure lab exam; Pre-diabetes; Gait disorder; Transverse myelopathy syndrome 03/07/2023 Telephone [facility] [address] [place] [address] 90189 Telephone Intake, Staff Would like to change providers 03/06/2023 Orders Only [facility] [address] [place] [address] 87321 Laura Cheney MD 03/05/2023 Telephone [facility] [address] [place] [address] 82295 Telephone Intake, Staff Return call for test results; Return call for testing 03/04/2023 12:48 PM EDT - 03/04/2023 11:59 PM EDT Hospital Encounter [facility] [address] [place] [address] 10989 Cody Galloway MD Bella, Isabelita R., MD Kurtishaj, Zen Numbness Discharge Disposition: Home or Self Care (01) 03/03/2023 Telephone [facility] [address] [place] [address] 18579 Telephone Intake, Staff Medication 02/27/2023 1:45 PM EDT Office Visit [facility] [address] [place] [address] 01305 Laura Cheney MD Gait disorder (Primary Dx); Numbness 01/16/2023 Orders Only [address] [address] Mateo Andrade MD Diabetic polyneuropathy associated with type 2 diabetes mellitus (Primary Dx) 02/23/2019 12:04 PM EDT - 02/23/2019 11:59 PM EDT Hospital Encounter [facility] [address] [place] [address] Other synovitis and tenosynovitis, left ankle and foot Discharge Disposition: Home or Self Care (01) 08/15/2017 Orders Only [facility] [address] [place] [address] Lupoli, Fran 03/19/2017 Orders Only [facility] [address] [place] [address] Lupoli, Fran 02/06/2017 Orders Only [facility] [address] [place] [address] Alyssia Layne Allergies Active Allergy Reactions Criticality Noted Date [...] daily as needed for edema. 20 tablet 9:21 AM EST 10/02/20 21 021 Discontin ued(Exter nal source cancellat ion) Active Problems Problem Noted Date Diagnosed Date Thoracic myelopathy 12/05/2023 Lumbar radiculopathy 12/05/2023 Neuropathy 12/05/2023 Cervical stenosis of spinal canal 04/24/2023 Myelopathy 04/24/2023 Numbness 03/04/2023 Lumbosacral radiculopathy 03/04/2023 Varicose Veins With Pain 10/26/2013 Social History Smoking Status as of 03/11/2025 Tobacco Use Types Packs/Day Years Used Date Smoking Tobacco: Never Assessed Sex and Gender Information Value Date Recorded [...] Not on file Procedures * Due to [place] state law, this organization might not be sharing negative HIV tests. Procedure Name Priority Date/Time Associated Diagnosis Comments MRI THORACIC SPINE W WO CONTRAST Routine 02/20/2025 11:30 AM EDT Disease of spinal cord, unspecified (HCC) MRI CERVICAL SPINE W WO CONTRAST Routine 02/18/2025 12:30 PM EDT Myelopathy COMPREHENSIVE METABOLIC PANEL Routine 01/06/2025 11:34 AM EST Myelopathy MRI BRAIN WO CONTRAST Routine 09/12/2024 7:55 PM EDT Dizziness and giddiness AMB EXTERNAL MRI THORACIC AND LUMBAR SPINE, OUTSIDE RESULT Routine 02/23/2024 10:58 AM EDT MRI THORACIC SPINE WO CONTRAST Routine 02/21/2024 8:50 PM EDT Other spondylosis with myelopathy, thoracic region IMMUNOFIXATION, URINE Routine 12/30/2023 1:20 PM EST Neuropathy IMMUNOFIXATION, SERUM Routine 12/30/2023 1:13 PM EST Neuropathy KAPPA & LAMBDA, FREE W/RATIO Routine 12/30/2023 1:13 PM EST Neuropathy PROTEIN ELECTROPHORESIS W/REFLEX TO IMMUNOFIXATION, SERUM Routine 12/11/2023 7:43 AM EST Neuropathy PROTEIN ELECTROPHORESIS W/REFLEX TO IMMUNOFIXATION, RANDOM URINE Routine 12/11/2023 7:[address] THORACIC SPINE WO CONTRAST Routine 05/26/2023 4:49 PM EDT Lesion of bone of thoracic spine VITAMIN B12 Routine 04/24/2023 12:24 PM EDT Neuropathic pain METHYLMALONIC ACID, SERUM Routine 04/24/2023 12:24 PM EDT Neuropathic pain COPPER, SERUM Routine 04/24/2023 12:24 PM EDT Neuropathic pain ZINC, [id number] Routine 04/24/2023 12:24 PM EDT Neuropathic pain VITAMIN E (TOCOPHEROL) Routine 12:24 PM EDT Neuropathic pain TSH REFLEX FREE T4 Routine 04/24/2023 12 :24 PM EDT Neuropathic pain HTLV I/II ANTIBODIES W/REFLEX CONFIRMATION Routine 04/24/2023 12:24 PM EDT Neuropathic pain MRI THORACIC SPINE W WO CONTRAST Routine 04/22/2023 4:10 PM EDT Gait disorder Transverse myelopathy syndrome MRI LUMBAR SPINE W WO CONTRAST Routine 04/22/2023 2:30 PM EDT Lumbar polyradiculopathy Pre-diabetes Gait disorder MRI CERVICAL SPINE W WO CONTRAST Routine 04/22/2023 2:30 PM EDT Gait disorder Transverse myelopathy syndrome BUN Routine 04/17/2023 3:28 PM EDT Pre-procedure lab exam CREATININE Routine 04/17/2023 3:28 PM EDT Pre-procedure lab exam EMG/ NCS/ NEUROMUSCULAR ULTRASOUND Routine 03/04/2023 12:48 PM EDT Numbness LYME ANTIBODY SCREEN W/REFLEX TO BLOT Routine 02/27/2023 2:44 PM EDT Numbness RPR (MONITOR) W/REFLEX TO TITER Routine 02/27/2023 2:44 PM EDT Numbness SEDIMENTATION RATE, AUTOMATED Routine 02/27/2023 2:44 PM EDT Numbness XR TIBIA FIBULA 2 VW LEFT Routine 02/23/2019 1:35 PM EDT Other synovitis and tenosynovitis, left ankle and foot XR SHOULDERS Routine 02/10/2015 9:03 AM EDT LOWER LIMB VENOUS DUPLEX: UNILATERAL, LEFT Routine 10/26/2013 7:55 AM EST US DUPLEX SCAN Routine 08/27/2013 1:23 PM EDT US DUPLEX SCAN Routine 07/31/2012 4:38 PM EDT MRI CERVICAL SPINE WO CONTRAST Routine 10/10/2011 8:56 AM EST MRI UPPER EXTREMITY JOINT WO CONTRAST Routine 10/10/2011 8:56 AM EST Results * Due to [place] state law, this organization might not be sharing negative HIV tests. * MRI Thoracic Spine W WO Contrast (02/20/2025 11:30 AM EDT) Only the most recent of2 resultswithin the time period is included. Anatomical Region Laterality Modality Spine, T-spine Magnetic Resonan ce 02/21/2025 1:16 PM EDT Impressions 02/21/2025 1:42 PM EDT Spondylosis/degenerative listhesis with severe T11-T12 thoracic canal/foraminal stenosis with cord compression/edema and likely faint cord enhancement, recommend neurosurgical evaluation ([place] alert). Dorsal column T2 hyperintensities extending from [...] imaging correlation and follow-up advised. COMMUNICATION: A(n) [place] actionable finding has been communicated to the ordering or responsible provider via the [employer] system on 02/21/2025 1:42 PM. ??Receipt of this communication by the responsible provider will be documented in [employer] Findings upon receiving acknowledgement if applicable, Message ID [id number]. A(n) Yellow actionable finding has been communicated to the ordering or responsible provider via the [employer] system on 02/21/2025 1:42 PM. ??Receipt of this communication by the responsible provider will be documented in [employer] Findings upon receiving acknowledgement if applicable, Message ID [id number]. If this radiology report contains a blank impression section, it is an incomplete radiology report. ??Please contact the interpreting radiologist or applicable radiology division as soon as possible to obtain the completed interpretation. ? Workstation ID: [id number] Narrative 02/21/2025 1:42 PM EDT EXAMINATION: THORACIC [...] paraspinal/epidural drainable collection. ?? Resulting Agency Comment [id number] Shy Selby MD IMG MRI PROCEDURES Edited Result - Final * MRI Cervical Spine with and without Contrast (02/18/2025 12:30 PM EDT) Only the most recent of2 resultswithin the time period is included. Anatomical Region Laterality Modality Spine, C-spine Magnetic [...] obtain the completed interpretation. ? Workstation ID: [id number] Narrative 02/21/2025 1:15 PM EDT EXAMINATION: CERVICAL [...] junction is normal. ?? Resulting Agency Comment [id number] Procedure Note Brent Fuentes MD - 02/21/2025 [...] possible to obtain thecompleted interpretation. Workstation ID: [id number] Shy Selby MD IMG MRI PROCEDURES Final R esult * (ABNORMAL) Comprehensive Metabolic Panel (01/06/2025 11:34 AM EST) NA 142 135 - 145 mmol/L 01/06/2025 12:36 PM EST [facility] K 4.4 3.5 - 5.3 mmol/L 01/06/2025 12:36 PM EST [facility] Cl 104 98 - 107 mmol/L 01/06/2025 12:36 PM EST [facility] CO2 27 22 - 32 mmol/L 01/06/2025 12:36 PM EST [facility] Anion Gap 11 5 - 15 01/06/2025 12:36 PM EST [facility] Glucose 87 65 - 99 mg/dL 01/06/2025 12:36 PM EST [facility] Creatinine 1.48(H) 0.60 - 1.30 mg/dL 01/06/2025 12:36 PM EST [facility] Calcium 10.1 8.6 - 10.5 mg/dL 01/06/2025 12:36 PM EST [facility] Total Protein 7.0 6.0 - 8.0 g/dL 01/06/2025 12:36 PM EST [facility] Albumin 4.3 3.5 - 5.2 g/dL 01/06/2025 12:36 PM EST [facility] Bilirubin, Total 0.5 0.2 - 1.2 mg/dL 01/06/2025 12:36 PM EST [facility] Alkaline Phosphatase 62 35 - 129 U/L 01/06/2025 12:36 PM EST [facility] AST 42(H) 10 - 40 U/L 01/06/2025 12:36 PM EST [facility] ALT 39 10 - 40 U/L 01/06/2025 12:36 PM EST [facility] BUN 21 7 - 23 mg/dL 01/06/2025 12:36 PM EST [facility] eGFR 52(L) >=60 mL/min/1 .73m2 01/06/2025 12:36 PM EST [facility] Comment:The estimated glomer ular filtration rate (eGFR) is calculated using a new formula developed by the NKF-ASN task force to eliminate race-based correction factors. The new formula uses serum/plasma creatinine, age, and gender to determine eGFR. A value below 60mls/min might indicate kidney disease and will be flagged. For additional information, see Olguin et al, Am J Kidney Dis. 2021;79(2):268- 288, A Unifying Approach for GFR estimation: Recommendations of the NKF-ASN Task Force on Reassessing the Inclusion of Race in Diagnosing Kidney Disease . Globulin, Total 2.7 2.1 - 4.2 g/dL 01/06/2025 12:36 PM EST [facility] A/G Ratio 1.6 1.5 - 3.0 01/06/2025 12:36 PM EST [facility] Blood Structure of peripheral vein / Unknown Venipuncture / Unknown 01/06/2025 11:34 AM EST 01/06/2025 12:05 PM EST us Shy Selby MD LAB BLOOD ORDERABLES Final Result [facility] [address] [place] [address], [place] * MRI Brain WO Contrast (09/12/2024 7:55 PM EDT) Anatomical Region Laterality Modality Head and Neck Magnetic Resonan ce 09/16/2024 12:3 6 PM EDT Impressions 09/17/2024 9:58 AM EDT Normal bilateral internal auditory canals. Subtle nonspecific white matter change. This may be compatible with mild chronic small vessel ischemic change. Tiny old lacunar infarct or prominent perivascular space along the left cerebral peduncle. If this radiology report contains a blank impression section, it is an incomplete radiology report. ??Please contact the interpreting radiologist or applicable radiology division as soon as possible to obtain the completed interpretation. ? Workstation ID: [id number] Narrative 09/17/2024 9:58 AM EDT EXAMINATION: MRI brain without contrast TECHNIQUE: Multiplanar multisequence MR imaging of brain performed without intravenous contrast administration. Sequences obtained include - Axial: T2 with fat suppression, FLAIR, DWI with ADC mapping, T1 and GRE/susceptibility images. Sagittal: T1 3-D steady state sequence through IAC region CLINICAL INFORMATION: Dizziness and giddiness. COMPARISON: None. FINDINGS: The bilateral 7th and 8th cranial nerve complexes are maintained within the IACs and cerebellar pontine angle cisterns. Configuration of the inner ear structures and their signal characteristics are maintained A tiny old lacunar infarct or prominent perivascular space is present along the anterior aspect of the left cerebral peduncle. No acute infarct is identified. A few small scattered patchy and punctate foci of increased T2/FLAIR hyperintense are present in white matter of both cerebral hemispheres and within the kika. These are in a nonspecific distribution. Given the patient's age, this may be compatible with mild chronic small vessel ischemic change. There is no intracranial mass lesion. No intracranial hemorrhage. No shift of midline structures. The ventricles and extra-axial CSF spaces are normal for age. No hydrocephalus. The cerebellar tonsils are normal in position. The major intracranial vascular flow voids are maintained. The orbits, sellar/parasellar structures, and craniocervical junction are maintained. Resulting Agency Comment [id number] Procedure Note Delio Griffin MD - 09/17/2024 EXAMINATION: MRI brain without contrast TECHNIQUE: Multiplanar multisequence MR imaging of brain performed withoutintravenous contrast administration. Sequences obtained include - Axial: T2 with fat suppression, FLAIR, DWI with ADC mapping, T1 andGRE/susceptibility images. Sagittal: T1 3-D steady state sequence through IAC region CLINICAL INFORMATION: Dizziness and giddiness. COMPARISON: None. FINDINGS: The bilateral 7th and 8th cranial nerve complexes are maintained withinthe IACs and cerebellar pontine angle cisterns. Configuration of the innerear structures and their signal characteristics are maintained A tiny old lacunar infarct or prominent perivascular space is presentalong the anterior aspect of the left cerebral peduncle. No acute infarctis identified. A few small scattered patchy and punctate foci of increasedT2/FLAIR hyperintense are present in white matter of both cerebralhemispheres and within the kika. These are in a nonspecific distribution.Given the patient's age, this may be compatible with mild chronic smallvessel ischemic change. There is no intracranial mass lesion. No intracranial hemorrhage. No shiftof midline structures. The ventricles and extra-axial CSF spaces arenormal for age. No hydrocephalus. The cerebellar tonsils are normal inposition. The major intracranial vascular flow voids are maintained. Theorbits, sellar/parasellar structures, and craniocervical junction aremaintained. IMPRESSION: Normal bilateral internal auditory canals. Subtle nonspecific white matter change. This may be compatible with mildchronic small vessel ischemic change. Tiny old lacunar infarct or prominent perivascular space along the leftcerebral peduncle. If this radiology report contains a blank impression section, it is anincomplete radiology report. Please contact the interpreting radiologistor applicable radiology division as soon as possible to obtain thecompleted interpretation. Workstation ID: [id number] us Bower Provider IMG MRI PROCEDURES Final Result * MRI Thoracic and Lumbar Spine, Outside Result (02/23/2024 10:58 AM EDT) Anatomical Region Laterality Modality Other us Unknown Provider MD VILLAGRAN EXTERNAL RESULT PROCEDUR ES Final Result * MRI Thoracic Spine WO Contrast (02/21/2024 8:50 PM EDT) Anatomical Region Laterality Modality Spine, T-spine Magnetic Resonan ce 02/23/2024 10:4 6 AM EDT Impressions 02/23/2024 11:15 AM EDT Spondylosis and degenerative listhesis with; Severe to T11-T12 central canal/bilateral foraminal stenosis with cord compression and possible cord edema ([place] alert), advise neurosurgical evaluation. Overlying lower thoracic heterogeneous posterior paraspinal signal with possible left-sided T11-T12 bony defect, please correlate for recent trauma, prior surgical manipulation, superimposed inflammation/infection, advise appropriate clinical/laboratory correlation and additional/follow-up imaging (yellow alert). Mild to moderate, additional multilevel central canal/foraminal stenosis as detailed above. 2.1 cm T6 vertebral body hemangioma, as before. Partially visualized, remote, C3-6 ACDF. Appropriate clinical, laboratory, imaging correlation and follow-up advised. COMMUNICATION: A(n) [place] actionable finding has been communicated to the ordering or responsible provider via the [employer] system on 02/23/2024 11:15 AM. ??Receipt of this communication by the responsible provider will be documented in IPWireless Findings upon receiving acknowledgement if applicable, Message ID [id number]. A(n) Yellow actionable finding has been communicated to the ordering or responsible provider via the [employer] system on 02/23/2024 11:15 AM. ??Receipt of this communication by the responsible provider will be documented in [employer] upon receiving acknowledgement if applicable, Message ID [id number]. If this radiology report contains a blank impression section, it is an incomplete radiology report. ??Please contact the interpreting radiologist or applicable radiology division as soon as possible to obtain the completed interpretation. ? Workstation ID: [id number] Narrative 02/23/2024 11:15 AM EDT EXAMINATION: THORACIC SPINE MRI WITHOUT IV CONTRAST TECHNIQUE: Multiplanar and multisequence MR imaging of thoracic spine performed without intravenous contrast administration. Sequences obtained include, Sagittal plane: T1, T2 and STIR Axial plane: T2. COMPARISON: Prior comparable studies most recent of which is a CT thoracic spine dated 05/26/2023. CLINICAL INFORMATION: Spondylosis, myelopathy, thoracic region, FINDINGS: Mild degenerative listhesis and accompanying degenerative vertebral endplate changes/developing Schmorl's nodes are present. Remote C3-6 ACDF is noted in the forestry extension specialist images. ??Metallic artifact is obscuring lower cervical spine. ??There is no compression deformity, obvious prevertebral edema or swelling. ??2.1 cm T6 vertebral body hemangioma is comparable to prior studies. Multilevel degenerative disc and facet disease is again noted. ??Asymmetric disc bulges are superimposed on posterior hypertrophic buildup. ??There is mild to moderate C3-4 central canal, mild left and moderate right foraminal stenosis. ??Central disc protrusion of T2-3 level is gently indenting the thoracic cord. Flaval thickening and facet arthrosis are more conspicuous in the lower thoracic spine. ??There is mild to moderate T9-T10 and moderate T10-11 central canal/bilateral foraminal stenosis. ??Severe degenerative disc space narrowing, anterolisthesis, diffuse disc uncovering, superimposed left paracentral disc herniation, flaval thickening and facet arthrosis are contributing to severe central canal and bilateral foraminal stenosis. ??There is effacement of thecal sac and CSF signal. ??Associated cord compression is noted at this level. ??There is intramedullary T2 hyperintensities concerning for cord edema. ??Neurosurgical evaluation is therefore recommended. Overlying, lower thoracic heterogeneous posterior paraspinal signal is extending towards the skin margin. ??There may be subtle bony defect at T11-T12 level on the left side. ??Please correlate with recent trauma, surgical manipulation. ??Superimposed inflammation/infection is possible in the appropriate clinical and laboratory setting. ??There is no large epidural/paraspinal drainable collection. ??Short-term follow-up MRI with contrast can be helpful to assess interval changes if there are no known contraindications. ??CT can be helpful to better delineate fine bone detail. Resulting Agency Comment [id number] Procedure Note Brent Fuentes MD - 02/23/2024 EXAMINATION: THORACIC SPINE MRI WITHOUT IV CONTRAST TECHNIQUE: Multiplanar and multisequence MR imaging of thoracic spine performedwithout intravenous contrast administration. Sequences obtained include, Sagittal plane: T1, T2 and STIR Axial plane: T2. COMPARISON: Prior comparable studies most recent of which is a CT thoracic spine dated05/26/2023. CLINICAL INFORMATION: Spondylosis, myelopathy, thoracic region, FINDINGS: Mild degenerative listhesis and accompanying degenerative vertebralendplate changes/developing Schmorl's nodes are present. Remote C3-6 ACDF is noted in the forestry extension specialist images. Metallic artifact isobscuring lower cervical spine. There is no compression deformity,obvious prevertebral edema or swelling. 2.1 cm T6 vertebral bodyhemangioma is comparable to prior studies. Multilevel degenerative disc and facet disease is again noted. Asymmetricdisc bulges are superimposed on posterior hypertrophic buildup. There ismild to moderate C3- 4 central canal, mild left and moderate rightforaminal stenosis. Central disc protrusion of T2-3 level is gentlyindenting the thoracic cord. Flaval thickening and facet arthrosis aremore conspicuous in the lower thoracic spine. There is mild to moderateT9-T10 and moderate T10-11 central canal/bilateral foraminal stenosis.Severe degenerative disc space narrowing, anterolisthesis, diffuse discuncovering, superimposed left paracentral disc herniation, flavalthickening and facet arthrosis are contributing to severe central [place] bilateral foraminal stenosis. There is effacement of thecal sac andCSF signal. Associated cord compression is noted at this level. There isintramedullary T2 hyperintensities concerning for cord edema.Neurosurgical evaluation is therefore recommended. Overlying, lower thoracic heterogeneous posterior paraspinal signal isextending towards the skin margin. There may be subtle bony defect [id number] level on the left side. Please correlate with recent trauma,surgical manipulation. Superimposed inflammation/infection is possible inthe appropriate clinical and laboratory setting. There is no largeepidural/paraspinal drainable collection. Short-term follow-up MRI withcontrast can be helpful to assess interval changes if there are no knowncontraindications. CT can be helpful to better delineate fine bonedetail. IMPRESSION: Spondylosis and degenerative listhesis with; Severe to T11-T12 central canal/bilateral foraminal stenosis with cordcompression and possible cord edema ([place] alert), advise neurosurgicalevaluation. Overlying lower thoracic heterogeneous posterior paraspinal signal withpossible left-sided T11-T12 bony defect, please correlate for recenttrauma, prior surgical manipulation, superimposed inflammation/infection,advise appropriate clinical/laboratory correlation andadditional/follow-up imaging (yellow alert). Mild to moderate, additional multilevel central canal/foraminal stenosisas detailed above. 2.1 cm T6 vertebral body hemangioma, as before. Partially visualized, remote, C3-6 ACDF. Appropriate clinical, laboratory, imaging correlation and follow-upadvised. COMMUNICATION: A(n) [place] actionable finding has been communicated to the ordering orresponsible provider via the [employer] system on02/23/2024 11:15 AM. Receipt of this communication by the responsibleprovider will be documented in [employer] Actionable Findings uponreceiving acknowledgement if applicable, Message ID [id number]. A(n) Yellow actionable finding has been communicated to the ordering orresponsible provider via the [employer] Findings system on02/23/2024 11:15 AM. Receipt of this communication by the responsibleprovider will be documented in [employer] Actionable Findings uponreceiving acknowledgement if applicable, Message ID [id number]. If this radiology report contains a blank impression section, it is anincomplete radiology report. Please contact the interpreting radiologistor applicable radiology division as soon as possible to obtain thecompleted interpretation. Workstation ID: [id number] Sang Monroe MD IMG MRI PROCEDURES Final Result * Immunofixation, Urine (12/30/2023 1:20 PM EST) Immunofixation, Urine, Interpretation See Comments 01/01/2024 2:22 PM EST [facility] Comment: Normal pattern. No monoclonal proteins detected. Urine Voided urine specimen / Unknown Non-Blood Collection / Unknown 12/30/2023 1:20 PM EST 12/30/2023 3:01 PM EST Narrative [facility] - 01/01/2024 2:22 PM EST [facility] Received Date: Shy Selby MD LAB URINE ORDERABLES Final Result DANE RM [address] [place] [address] [address]rd Floor, [place] [address], [place] [phone] * Immunofixation, Serum (12/30/2023 1:13 PM EST) Pathologist [facility] Immunofixation, Serum, Interpretation See Comments 01/02/2024 8:42 AM EST [facility] Comment: Normal pattern. No monoclonal proteins detected. Blood Structure of peripheral vein / Unknown Venipuncture / Unknown 12/30/2023 1:13 PM EST 12/30/2023 3:01 PM EST Narrative DANE RM - 01/02/2024 8:42 AM EST [facility] Received Date: Shy Selby MD LAB BLOOD ORDERABLES Final Result DANE [facility] [address], [place] [address], [place] [phone] * [place] & Lambda, Free w/Ratio (12/30/2023 1:13 PM EST) Pathologist [facility] [place] Light Chain, Free, Serum 11.1 3.3 - 19.4 mg/L 01/01/2024 5:29 PM EST [facility] Lambda Light Chain, Free, Serum 9.4 5.7 - 26.3 mg/L 01/01/2024 5:29 PM EST [facility] [place]/Lambda Light Chains Free With Ratio 1.18 0.26 - 1.65 01/01/2024 5:29 PM EST [facility] Comment: Free kappa/lambda ratio in serum of normal individuals is 0.26-1.65. Excess production of free kappa or lambda chains can alter this ratio. Monoclonal free light chains are found in serum of patients with multiple myeloma, Waldenstrom's macroglobulinemia, mu-heavy chain disease, primary amyloidosis, light chain deposition disease, monoclonal gammopathy of undetermined significance, and lymphoproliferative disorders. Measurement of free light chain concentration in serum is useful for diagnosis, prognosis, monitoring disease activity and following response to therapy of these disorders. Blood Structure of peripheral vein / Unknown Venipuncture / Unknown 12/30/2023 1:13 PM EST 12/30/2023 3:01 PM EST Narrative [facility]ANE [facility] - 01/01/2024 5:29 PM EST [facility] Received Date: Shy Selby MD LAB BLOOD ORDERABLES Final Result Performing Organization Address City/[facility]/ZIP Co de Phone Number DANE RM [address] [facility] [address], [place] [address], * Protein Electrophoresis w/Reflex to Immunofixation, Random Urine (12/11/2023 7:43 AM EST) Creatinine, Random Urine 196 20 - 320 mg/dL 12/16/2023 9:40 AM EST [employer] [facility] Protein/Creatinin e Ratio, Random Urine 92 25 - 148 mg/g creat 12/16/2023 9:40 AM EST [employer] [facility] Protein/Creatinin e Ratio, mg/mg 0.092 0.025 - 0.148 mg/mg creat 12/16/2023 9:40 AM EST [employer] [facility] Protein, Total, Random Ur 18 5 - 25 mg/dL 12/16/2023 9:40 AM EST [employer] [facility] Albumin, Urine 100 % 12/16/2023 9:40 AM EST [employer] [facility] [id number] 0 % 024 9:40 AM EST [employer] [facility] Dyszj-[id number]-Fjkclytlq 0 % 024 9:40 AM EST [employer] [facility] Beta Globulins 0 % 12/16/2023 9:40 AM EST [employer] [facility] Gamma Globulins 0 % 9:40 AM EST [employer] [facility] Interpretation See Comments 12/16/2023 9:40 AM EST [employer] [facility] Comment: Normal Pattern Urine Voided urine specimen / Unknown Non-Blood Collection / Unknown 12/11/2023 7:43 AM EST 12/11/2023 8:46 AM EST [facility] [place] - 12/16/2023 9:40 AM EST [facility] Received Date: us Shy Selby MD LAB URINE ORDERABLES Final Result DANE RM [address] [facility] 3rd Floor, [place] [address], [place] [phone] [employer] [facility] [address] [facility] 3rd Floor, [place] [address], [place] [phone] * (ABNORMAL) Protein Electrophoresis w/Reflex to Immunofixation, Serum (12/11/2023 7:43 AM EST) Protein, Total 6.6 6.1 - 8.1 g/dL 12/12/2023 11:12 AM EST [employer] [facility] Albumin 4.2 3.8 - 4.8 g/dL 12/12/2023 11:12 AM EST [employer] [facility] Alpha 1 Globulin 0.3 0.2 - 0.3 g/dL 12/12/2023 11:12 AM EST [employer] [facility] Alpha 2 Globulin 0.7 0.5 - 0.9 g/dL 12/12/2023 11:12 AM EST [employer] [email or web address] [email or web address] Beta 1 Globulin 0.4 0.4 - 0.6 g/dL 12/12/2023 11:12 AM EST [employer] [facility] Beta 2 Globulin 0.4 0.2 - 0.5 g/dL 12/12/2023 11:12 AM EST [employer] [facility] Gamma Globulin 0.7(L) 0.8 - 1.7 g/dL 12/12/2023 11:12 AM EST [employer] [facility] Interpretation See Comments 12/12/2023 11:12 AM EST [employer] [facility] Comment: Consistent with hypogammaglobulinemia. Serum free light chains or urine immunofixation should be considered if plasma cell dyscrasias are a possible clinical diagnosis. Blood Structure of peripheral vein / Unknown Venipuncture / Unknown 12/11/2023 7:43 AM EST 12/11/2023 8:44 AM EST [facility] [place] - 12/12/2023 11:12 AM EST [facility] Received Date: us Shy Selby MD LAB BLOOD ORDERABLES Final Result DANE [facility] [address] [facility] 3rd Floor, [place] [address], [place] [phone] [facility] [employer] [facility] [address], [place] [address], [place] [phone] * CT Thoracic Spine WO Contrast (05/26/2023 4:49 PM EDT) Anatomical Region Laterality Modality Spine, T-spine Computed Tomogra phy 05/26/2023 5:51 PM EDT Impressions 05/28/2023 9:09 AM EDT T6 vertebral body hemangioma corresponding to lesion described on recent MRI thoracic spine 04/22/2023. ??No suspicious lesion by CT. If this radiology report contains a blank impression section, it is an incomplete radiology report. ??Please contact the interpreting radiologist or applicable radiology division as soon as possible to obtain the completed interpretation. ? Workstation ID: [id number] Up-to-date CT equipment and radiation dose reduction techniques were employed. CTDIvol: 25.8 mGy. DLP: 939 mGy-cm. Narrative 05/28/2023 9:09 AM EDT INDICATION: Bone mass or bone pain, thoracic spine, aggressive features on xray M89.9 - I10 - Disorder of bone, unspecified - Abnormal MRI T spine T6 vertebral body - metastasis vs hemangioma TECHNIQUE: Volumetrically acquired CT images of the thoracic spine were obtained on 05/26/2023 4:42 PM ??without contrast.. Axial reformatted images utilizing bone and soft tissue reconstruction algorithm were obtained. Coronal and sagittal reformatted images utilizing bone reconstruction algorithm were obtained. COMPARISON: ??04/22/2023 MRI thoracic spine ?? FINDINGS: ?? Diffuse osteopenia. ??Mild dextroscoliosis of the thoracic spine apex at T7. ??No evidence of acute fracture. ??There is mild anterior wedging T7 and T8 vertebral bodies. ??T6-T12 Schmorl's nodes. ??Multilevel vertebral osteophytosis throughout the lumbar spine consistent with underlying degenerative disc disease as detailed on previous recent MRI. ??Mild osseous narrowing of the lower thoracic neuroforamina right greater than left. ??Lower lumbar facet degenerative arthropathy. 1.8 cm T6 vertebral body lesion with focal fat and corduroy appearance internally consistent with hemangioma. ??No osseous destruction or soft tissue mass. Resulting Agency Comment [id number] Procedure Note Kang Klein, DO - 05/28/2023 INDICATION: Bone mass or bone pain, thoracic spine, aggressive features onxray M89.9 - I10 - Disorder of bone, unspecified - Abnormal MRI T spine [id number] body - metastasis vs hemangioma TECHNIQUE: Volumetrically acquired CT images of the thoracic spine wereobtained on 05/26/2023 4:42 PM without contrast.. Axial reformatted imagesutilizing bone and soft tissue reconstruction algorithm were obtained.Coronal and sagittal reformatted images utilizing bone reconstructionalgorithm were obtained. COMPARISON: 04/22/2023 MRI thoracic spine FINDINGS: Diffuse osteopenia. Mild dextroscoliosis of the thoracic spine apex atT7. No evidence of acute fracture. There is mild anterior wedging T7 andT8 vertebral bodies. T6- T12 Schmorl's nodes. Multilevel vertebralosteophytosis throughout the lumbar spine consistent with underlyingdegenerative disc disease as detailed on previous recent MRI. Mildosseous narrowing of the lower thoracic neuroforamina right greater thanleft. Lower lumbar facet degenerative arthropathy. 1.8 cm T6 vertebral body lesion with focal fat and corduroy appearanceinternally consistent with hemangioma. No osseous destruction or softtissue mass. IMPRESSION: T6 vertebral body hemangioma corresponding to lesion described on recentMRI thoracic spine 04/22/2023. No suspicious lesion by CT. If this radiology report contains a blank impression section, it is anincomplete radiology report. Please contact the interpreting radiologistor applicable radiology division as soon as possible to obtain thecompleted interpretation. Workstation ID: [id number] Up-to-date CT equipment and radiation dose reduction techniques wereemployed. CTDIvol: 25.8 mGy. DLP: 939 mGy-cm. us Shy Selby MD IM CT PROCEDURES Final Re sult * HTLV I/II Antibodies w/Reflex Confirmation (04/24/2023 12:24 PM EDT) HTLV I/II Antibody Nonreactive Nonreactive 04/27/2023 5:56 PM EDT [facility] Blood Structure of peripheral vein / Unknown Venipuncture / Unknown 04/24/2023 12:24 PM EDT 04/24/2023 12:51 PM EDT Narrative DANE ESQUIVEL) - 04/27/2023 5:56 PM EDT [facility] Received Date: Shy Selby MD LAB BLOOD ORDERABLES Final Result DANE NATHALYINDU (DAIANA) [id number] [place], [place] , [place] * TSH Reflex Free T4 (04/24/2023 12:24 PM EDT) TSH 1.776 0.280 - 3.890 uIU/mL MARTIN DXI 04/24/2023 1:46 PM EDT [facility] Blood Structure of peripheral vein / Unknown Venipuncture / Unknown 04/24/2023 12:24 PM EDT 04/24/2023 12:50 PM EDT Shy Selby MD LAB BLOOD ORDERABLES Final Result Performing Organization Address City/[facility]/ZIP Co de Phone Number [facility] [address] [place] [address], * Methylmalonic Acid, Serum (04/24/2023 12:24 PM EDT) Methylmalonic Acid 120 87 - 318 nmol/L 04/27/2023 11:33 PM EDT DANE ESQUIVEL) Comment: This test was developed and its analytical performance characteristics have been determined by [facility] [place]. It has not been cleared or approved by the U.S. Food and Drug Administration. This assay has been validated pursuant to the CLIA regulations and is used for clinical purposes. Blood Structure of peripheral vein / Unknown Venipuncture / Unknown 04/24/2023 12:24 PM EDT 04/24/2023 12:49 PM EDT Narrative DANE AVALOSOUGH - 04/27/2023 11:33 PM EDT [facility] Received Date:[id number] Shy Selby MD LAB BLOOD ORDERABLES Final Result DANE [facility] [address] [place] [address] [address]rd Floor, [place] [address], [place] [phone] DANE JACKSON ([place]) [address] [place], [place] , [place] * Copper, serum (04/24/2023 12:24 PM EDT) Copper 101 70 - 175 mcg/dL 04/27/2023 4:24 PM EDT DANE KARINACarlos ([place]) Comment: This test was developed and its analytical performance characteristics have been determined by [employer] [place], [place]. It has not been cleared or approved by the U.S. Food and Drug Administration. This assay has been validated pursuant to the CLIA regulations and is used for clinical purposes. Blood Structure of peripheral vein / Unknown Venipuncture / Unknown 04/24/2023 12:24 PM EDT 04/24/2023 12:49 PM EDT Narrative DANE JACKSON ([place]) - 04/27/2023 4:24 PM EDT [facility] Received Date:[id number] Shy Selby MD LAB BLOOD ORDERABLES Final Result Performing Organization Address City/[facility]/ZIP Co de Phone Number DANE JACKSON ([place]) [id number] [place], [place] , [place] * Zinc (04/24/2023 12:24 PM EDT) Zinc 60 60 - 130 mcg/dL 04/27/2023 4:24 PM EDT DANE JACKSON (DAIANA) Comment: This test was developed and its analytical performance characteristics have been determined by [employer] [place], [place]. It has not been cleared or approved by the U.S. Food and Drug Administration. This assay has been validated pursuant to the CLIA regulations and is used for clinical purposes. Blood Structure of peripheral vein / Unknown Venipuncture / Unknown 04/24/2023 12:24 PM EDT 04/24/2023 12:49 PM EDT Francesco ESQUIVEL) - 04/27/2023 4:24 PM EDT [facility] Received Date:[id number] Shy Selby MD LAB BLOOD ORDERABLES Final Result Performing Organization Address [facility] Co de Phone Number DANE ESQUIVEL) [phone] [place], [place] , [place] * Vitamin E (Tocopherol) (04/24/2023 12:24 PM EDT) Vitamin E, Alpha Tocopherol 16.1 5.7 - 19.9 mg/L 04/29/2023 3:55 AM EDT DANE JACKSON (STUART) Comment: Levels of alpha-tocopherol <5 mg/L are consistent with Vitamin E deficiency in adults. Vitamin E, Beta Gamma Tocopherol <1.0 <=4.3 mg/L 04/29/2023 3:55 AM EDT DANE JACKSON (STUART) Comment: Vitamin supplementation within 24 hours prior to blood draw may affect the accuracy of the results. This test was developed and its analytical performance characteristics have been determined by [employer] [place]. It has not been cleared or approved by the U.S. Food and Drug Administration. This assay has been validated pursuant to the CLIA regulations and is used for clinical purposes. Blood Structure of peripheral vein / Unknown Venipuncture / Unknown 04/24/2023 12:24 PM EDT 04/24/2023 12:51 PM EDT Francesco JACKSON (DAIANA) - 04/29/2023 3:55 AM EDT [facility] Received Date:[id number] Shy Selby MD LAB BLOOD ORDERABLES Final Result Performing Organization Address City/[facility]/ZIP Co de Phone Number DANE ESQUIVEL) [phone] [place], [place] , [place] * Vitamin B12 (04/24/2023 12:24 PM EDT) Vitamin B12 487 182 - 803 pg/mL MARTIN DXI 04/24/2023 1:48 PM EDT [facility] Comment: Normal: ? 182-803 pg/mL Indeterminate: ??145-182 pg/mL Deficient: ? <145 pg/mL Blood Structure of peripheral vein / Unknown Venipuncture / Unknown 04/24/2023 12:24 PM EDT 04/24/2023 12:50 PM EDT us Shy Selby MD LAB BLOOD ORDERABLES Final Result [facility] [address] [place] [address], [place] * MRI lumbar spine with and without contrast (04/22/2023 2:30 PM EDT) Anatomical Region Laterality Modality Spine, L-spine Magnetic Resonan ce 04/22/2023 2:30 PM EDT Impressions 04/24/2023 8:28 AM EDT 1. ??Multilevel multifactorial degenerative disease of the lumbar spine, most pronounced at L3-L4 with severe right, moderate to severe left neural foramen narrowing and mild spinal canal stenosis and L2-L3 with moderate to severe bilateral neural foramen narrowing and mild spinal canal stenosis. 2. ??Mild bilateral neural foramen narrowing at L1-L2 and mild to moderate bilateral neural foramen narrowing at L4-L5. 3. ??Modic type I changes with associated enhancement at L2-L3 and L3-L4, likely degenerative in etiology. No additional areas of abnormal enhancement seen. If this radiology report contains a blank impression section, it is an incomplete radiology report. ??Please contact the interpreting radiologist or applicable radiology division as soon as possible to obtain the completed interpretation. ? Workstation ID: [id number] Narrative 04/24/2023 8:28 AM EDT EXAMINATION: MRI of lumbar spine without and with contrast PHARMACEUTICAL: 0.1 mmol/kg of Gadolinium administered intravenously. TECHNIQUE: Multiplanar and multisequence MR imaging of lumbar spine performed prior to and following intravenous administration of Gadolinium. Sequences obtained include, Sagittal plane:T1, T2 and STIR Axial plane: T1 and T2 at selected levels. Post gadolinium sequences: T1 in sagittal and axial plane. CLINICAL INFORMATION: Back pain, cauda equina syndrome COMPARISON: None. FINDINGS: For the purposes of numbering, the last well-formed intervertebral disc space is numbered as L5-S1. There is 4 mm anterolisthesis of L5 on S1, 4 mm retrolisthesis of L2 on L3. Alignment of lumbar spine is otherwise preserved. Vertebral body heights are preserved. Modic type I changes at L2-L3, L3-L4 with associated enhancement on postcontrast images, likely degenerative in etiology. Combination of Modic type I and type II changes along the inferior aspect of L1 vertebral body. Prominent Schmorl's nodes at multiple levels. The marrow signal is otherwise unremarkable. No focal suspicious marrow lesion identified. The visualized lower spinal cord appears unremarkable with the conus terminating at T12-L1. Loss of intervertebral disc height and signal at multiple levels in keeping with disc degeneration. Parapelvic cysts are visualized in the left kidney. Bilateral sacroiliac joints, prevertebral, paravertebral and paraspinal soft tissues are otherwise unremarkable. At T12-L1, no neural foramen or spinal canal stenosis. At L1-L2, mild diffuse disc bulge with bilateral facet arthropathy and ligamentum flavum thickening resulting in mild bilateral neural foramen narrowing. No spinal canal stenosis. At L2-L3, endplate osteophytes secondary to retrolisthesis with mild diffuse disc bulge, bilateral facet arthropathy, facet joint effusions and prominent epidural fat resulting in moderate to severe bilateral neural foramen narrowing and mild spinal canal stenosis. At L3-L4, mild diffuse disc bulge with bilateral facet arthropathy, prominent epidural fat resulting in severe right and moderate to severe left neural foramen narrowing and mild spinal canal stenosis. At L4-L5, mild diffuse disc bulge with bilateral facet arthropathy and ligamentum flavum thickening resulting in iobq-lt-qouboant bilateral neural foramen narrowing. No spinal canal stenosis. At L5-S1, uncovering of the disc secondary to anterolisthesis. No neural foramen or spinal canal stenosis. No abnormal enhancement is seen on post contrast images. Resulting Agency Comment [id number] Procedure Note Maggie Barrett MD - 04/24/2023 EXAMINATION: MRI of lumbar spine without and with contrast PHARMACEUTICAL: 0.1 mmol/kg of Gadolinium administered intravenously. TECHNIQUE: Multiplanar and multisequence MR imaging of lumbar spine performed priorto and following intravenous administration of Gadolinium. Sequences obtained include, Sagittal plane:T1, T2 and STIR Axial plane: T1 and T2 at selected levels. Post gadolinium sequences: T1 in sagittal and axial plane. CLINICAL INFORMATION: Back pain, cauda equina syndrome COMPARISON: None. FINDINGS: For the purposes of numbering, the last well-formed intervertebral discspace is numbered as L5-S1. There is 4 mm anterolisthesis of L5 on S1, 4 mm retrolisthesis of L2 onL3. Alignment of lumbar spine is otherwise preserved. Vertebral body heights are preserved. Modic type I changes at L2-L3,L3-L4 with associated enhancement on postcontrast images, likelydegenerative in etiology. Combination of Modic type I and type II changesalong the inferior aspect of L1 vertebral body. Prominent Schmorl's nodesat multiple levels. The marrow signal is otherwise unremarkable. No focalsuspicious marrow lesion identified. The visualized lower spinal cord appears unremarkable with the conusterminating at T12-L1. Loss of intervertebral disc height and signal at multiple levels inkeeping with disc degeneration. Parapelvic cysts are visualized in the left kidney. Bilateral sacroiliacjoints, prevertebral, paravertebral and paraspinal soft tissues areotherwise unremarkable. At T12-L1, no neural foramen or spinal canal stenosis. At L1-L2, mild diffuse disc bulge with bilateral facet arthropathy andligamentum flavum thickening resulting in mild bilateral neural foramennarrowing. No spinal canal stenosis. At L2-L3, endplate osteophytes secondary to retrolisthesis with milddiffuse disc bulge, bilateral facet arthropathy, facet joint effusions andprominent epidural fat resulting in moderate to severe bilateral neuralforamen narrowing and mild spinal canal stenosis. At L3-L4, mild diffuse disc bulge with bilateral facet arthropathy,prominent epidural fat resulting in severe right and moderate to severeleft neural foramen narrowing and mild spinal canal stenosis. At L4-L5, mild diffuse disc bulge with bilateral facet arthropathy andligamentum flavum thickening resulting in avjn-bj-zsgswzyr bilateralneural foramen narrowing. No spinal canal stenosis. At L5-S1, uncovering of the disc secondary to anterolisthesis. No neuralforamen or spinal canal stenosis. No abnormal enhancement is seen on post contrast images. IMPRESSION: 1. 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 2. Mild bilateral neural foramen narrowing at L1-L2 and mild to moderatebilateral neural foramen narrowing at L4-L5. 3. Modic type I changes with associated enhancement at L2-L3 and L3-L4,likely degenerative in etiology. No additional areas of abnormalenhancement seen. If this radiology report contains a blank impression section, it is anincomplete radiology report. Please contact the interpreting radiologistor applicable radiology division as soon as possible to obtain thecompleted interpretation. Workstation ID: [id number] us Cody Galloway MD IMG MRI PROCEDURES Final Result * (ABNORMAL) BUN (04/17/2023 3:28 PM EDT) BUN 27(H) 7 - 23 mg/dL 04/17/2023 4:28 PM EDT [facility] Blood Structure of peripheral vein / Unknown Venipuncture / Unknown 04/17/2023 3:28 PM EDT 04/17/2023 3:46 PM EDT us Cody Galloway MD LAB BLOOD ORDERABLES Final Resul t [facility] [address] [place] [address], * (ABNORMAL) Creatinine, serum (04/17/2023 3:28 PM EDT) Creatinine 1.54(H) 0.60 - 1.30 mg/dL 04/17/2023 4:28 PM EDT [facility] eGFR 49(L) >=90 mL/min/1. 73m2 04/17/2023 4:28 PM EDT [facility] Comment: Estimated Glomerular Filtration Rate (GFR) calculated using the CKD-EPI refit equation. The different stages of CKD form a continuum. The stages of CKD are classified as follows : Stage 1: Normal or increased GFR (>90 mL/min/1.73 m2) Stage 2: Mild reduction in GFR (60-89 mL/min/1.73 m2) Stage 3a: Moderate reduction in GFR (45-59 mL/min/1.73 m2) Stage 3b: Moderate reduction in GFR (30-44 mL/min/1.73 m2) Stage 4: Severe reduction in GFR (15-29 mL/min/1.73 m2) Stage 5: Kidney failure (GFR < 15 mL/min/1.73 m2 or dialysis) Blood Structure of peripheral vein / Unknown Venipuncture / Unknown 04/17/2023 3:28 PM EDT 04/17/2023 3:46 PM EDT Cody Galloway MD LAB BLOOD ORDERABLES Final Resul t [facility] [address] [place] [id number], [place] * EMG AUTO ADVANCE (03/04/2023 12:48 PM EDT) Impressions [facility] - 03/04/2023 4:46 PM EDT There are neurogenic changes seen most prominently in the bilateral L4 and bilateral L5 myotomes and to a milder extent the right S1 myotomes with normal sensory nerve conduction studies; these findings may be due to abnormalities of the motor nerve roots (radiculopathies) or anterior horn cells at those levels. ??There does not appear to be a generalized disorder of motor neurons and/or their axons on today's study as thoracic paraspinal muscles and a limited needle examination of the right upper extremity are normal. ??If the ??patient's symptoms progress, consider EMG study of his bilateral upper extremities. Shy Selby MD Nerve Conduction Studies Stim Site NR Peak (ms) O-P Amp (??V) Dist (cm) Mario (m/s) Left Sural Anti Sensory (Lat Mall) ??32.5??C CalfB ?4.3 5.8 14.0 ?? CalfA ?3.5 9.1 11.0 55 CalfC ?5.7 4.0 ?? Left Sup Peroneal Anti Sensory (Ankle) ??31.6??C Lat Leg B ?4.4 6.6 14.0 ?? Right Sural Anti Sensory (Lat Mall) ??31.7??C CalfB ?4.4 7.8 14.0 ?? Right Sup Peroneal Anti Sensory (Ankle) ??30.8??C Lat Leg B ?4.3 6.0 14.0 ?? Stim Site NR Onset (ms) O-P Amp (mV) Dist (cm) Mario (m/s) Left Peroneal Motor (Ext Dig Brev) ??31.2??C Ankle ?3.8 3.1 7.0 ?? Knee ?15.0 2.0 47.0 42 Left Tibial Motor (Abd Nieto Brev) ??31.2??C Ankle ?4.1 8.3 6.5 ?? Knee ?15.7 6.8 47.5 41 Right Peroneal Motor (Ext Dig Brev) ??30.6??C Ankle ?4.2 4.1 7.0 ?? Knee ?15.4 3.4 48.0 43 Right Tibial Motor (Abd Nieto Brev) ??30.6??C Ankle ?3.3 4.5 0.0 ?? Right H-Reflex Motor (Soleus) ??30.5??C Knee H ?36.2 3.8 ?? Left H-Reflex Motor (Soleus) ??28.6??C Knee H ?37.7 2.7 ?? Electromyography Side Muscle Ins Act Fibs/Psw Fasc Misc Amp Dur Poly # MUs Rate Effort Comment Left AntTibialis Incr 3+ None None high Long Nml Sev Red Rapid Full ?? Left Med Gastroc Nml None None None Nml Nml Nml Nml Nml Full ?? Left VastusMed Nml None None None high Long Nml Sev Red Rapid Full ?? Left AdductorLong Nml None None None high Long Nml Mod Red Rapid Full ?? Left Iliopsoas Nml None None None Nml Nml Nml Nml Nml Full ?? Left BicepsFemL Nml None None None high Long Inc % Mild Red Rapid Full ?? Left GluteusMed Nml None None None Nml Nml Nml Nml Nml Full ?? Left Lumbo Parasp Low Nml None None None ? Left Thoracic Parasp Mid Nml None None None ? Left PostTibialis Incr 2+ None None high Nml Nml Mod Red Rapid Full getting cramp; brief look Right AntTibialis Incr 3+ None None high Long Inc % Sev Red Rapid Full ?? Right Med Gastroc irritability None 2+ None high Long Nml Mild Red Rapid Full ?? Right VastusMed Nml None None None high Long Nml Mod Red Rapid Full ?? Right AdductorLong Nml None None None high Long Nml Mild Red Rapid Full ?? Right Iliopsoas Nml None None None Nml Nml Nml Nml Nml Full ?? Right GluteusMed Nml None None None high Long Nml Mild Red Rapid Full ?? Right BicepsFemL Nml None None None Nml Nml Nml Nml Nml Full ?? Right Lumbo Parasp Low Nml None None None ? Right 1stDorInt Nml None None None Nml Nml Nml Nml Nml Full ?? Right FlexCarRad Nml None None None Nml Nml Nml Nml Nml Full ?? Right Biceps Nml None None None Nml Nml Nml Nml Nml Full ?? Waveforms: ? Narrative [facility] - 03/04/2023 4:46 PM EDT Table formatting from the original result was not included. Images from the original result were not included. Patient: FRANCO WELLS ID#: [id number] Sex: Male Height: 6' 3 : 1955 Age: 68 years Physician: Shy Selby MD Airport Operations Coordinator: Quin AngEEG/EPT/R.NCST Ref Phys: LAN, CODY ?? Test Date: ??03/04/2023 EMG CLINICAL HISTORY: 68-year-old man with progressive pain and numbness of his bilateral lower extremities involving his feet up to his thighs. ??He complains of unsteadiness of gait. 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 SUMMARY: The left sural sensory amplitude, peak latency and conduction velocity are normal. ??The right sural sensory and bilateral superficial peroneal sensory amplitudes and peak latencies are normal. The bilateral peroneal-EDB motor and left tibial-AH motor amplitudes, distal latencies and conduction velocities are normal. ??The right tibial-AH motor amplitude is 54% of that on the left side with a normal distal latency. ??H reflex responses are symmetric bilaterally. Needle examination discloses marked fibrillation potential activity/positive sharp wave activity in the bilateral tibialis anterior and left posterior tibialis. ??Mild to moderate fasciculation potential activity is seen in the right medial gastrocnemius. ??Reduced recruitment of increased amplitude, increased duration, and/or increased polyphasic motor unit potentials are seen most prominently in the bilateral L4 and bilateral L5 myotomes and to a milder extent the right S1 myotomes; these changes are seen in the bilateral tibialis anterior, right medial gastrocnemius, bilateral vastus medialis, bilateral abductor longus, left long head of the biceps femoris, right gluteus medius, and left posterior tibialis. ??Needle examination of the left medial gastrocnemius, left gluteus medius, bilateral iliopsoas right long head of the biceps femoris is normal. ??Needle examination of the bilateral lower lumbar paraspinal muscle and left mid thoracic paraspinal muscle discloses no active denervation. Needle examination of the right first dorsal interossei, right flexor carpi radialis and right biceps is normal. us Cody Galloway MD NEUROLOGY ORDERABLES Final Resul t [facility] * RPR (Monitor) w/Reflex to Titer (02/27/2023 2:44 PM EDT) RPR W/Refl Titer NON-REACT DANA NON-REACT DAAN 02/28/2023 5:46 PM EDT [facility] Blood Structure of peripheral vein / Unknown Venipuncture / Unknown 02/27/2023 2:44 PM EDT 02/27/2023 3:03 PM EDT Narrative DANE RM - 02/28/2023 5:46 PM EDT [facility] Received Date: us Cody Galloway MD LAB BLOOD ORDERABLES Final Resul t DANE RM [address] [facility] [address], [place] [address], [facility] [address] [facility] [address], [place] [address], * Lyme Antibody Screen w/Reflex to Blot (02/27/2023 2:44 PM EDT) Lyme Ab Screen <0.90 index 02/28/2023 5:02 AM EDT [facility] Comment: ? Index ?Interpretation ? ----- ? < 0.90 ? Negative ? 0.90-1.09 ?Equivocal ? > 1.09 ? Positive ?? As recommended by the Food and Drug Administration (FDA), all samples with positive or equivocal results in a Borrelia burgdorferi antibody screen will be tested using a blot method. Positive or equivocal screening test results should not be interpreted as truly positive until verified as such using a supplemental assay (e.g., B. burgdorferi blot). The screening test and/or blot for B. burgdorferi antibodies may be falsely negative in early stages of Lyme disease, including the period when erythema migrans is apparent. Blood Structure of peripheral vein / Unknown Venipuncture / Unknown 02/27/2023 2:44 PM EDT 02/27/2023 3:03 PM EDT Narrative [facility] - 02/28/2023 5:02 AM EDT [facility] Received Date: us Cody Galloway MD LAB BLOOD ORDERABLES Final Resul t [facility] [address] [facility] [address], [place] [address], [place] [phone] [employer] [address], [place] [address], [place] [phone] * (ABNORMAL) Sedimentation Rate (02/27/2023 2:44 PM EDT) Pathologist [facility] Sed Rate 20(H) <20 mm/Hr mm/Hr 02/27/2023 3:26 PM EDT [facility] Blood Structure of peripheral vein / Unknown Venipuncture / Unknown 02/27/2023 2:44 PM EDT 02/27/2023 3:03 PM EDT us Cody Galloway MD LAB BLOOD ORDERABLES Final Resul t [facility] [address] [place] [address], [place] * X-Ray Tibia Fibula Left 2 Views (02/23/2019 1:35 PM EDT) Anatomical Region Laterality Modality Lower Extremities, Lower Leg Left Com puted Radiography 02/24/2019 10:3 5 AM EDT Impressions 02/24/2019 10:36 AM EDT Left tib-fib. No acute fractures dislocations or stress related changes Visualized joints are normal. Minimal vascular calcification [id number] Narrative 02/24/2019 10:36 AM EDT COMPARISON: ??There are no prior studies available for comparison at this time. ?? FINDINGS AND Procedure Note Reva Clemente MD - 02/24/2019 COMPARISON: There are no prior studies available for comparison at thistime. FINDINGS AND IMPRESSION: Left tib-fib. No acute fractures dislocations or stress related changes Visualized joints are normal. Minimal vascular calcification [id number] Franco Zuñiga DPM IMG XR PROCEDURES Final Result * XR Shoulders (02/10/2015 9:03 AM EDT) Anatomical Region Laterality Modality Computed Radiogr aphy 02/10/2015 3:55 PM EDT Narrative 02/10/2015 3:59 PM EDT ? DEPARTMENT OF RADIOLOGY Patient: FRANCO WELLS JR ? Unit #: [id number] Ordering MD: BERNARDO MARINELLI PLANT ATTENDANT OR ASSISTANT OPERATOR ?: 1955 Procedure: Shoulder 2 Or More Films ? Age: 60 Location: XRAY ?Exam Date: 02/10/15 Status: REG CLI ? Room/Bed: Primary MD: JENNIFER GALAN DO ? Patient ?Order: [id number] Additional Copy: ??JENNIFER GALAN JOAN M NP - History: Right shoulder trauma Comparison: None Cortices are intact. Mineralization is normal. There is no evidence of dislocation. The position of the humeral head appears slightly high relative to the glenoid fossa. The glenohumeral joint is surrounded by small marginal osteophytes. There is calcification in the region of the rotator cuff. Soft tissues are otherwise unremarkable. Impression: Mild degenerative arthritic change. Soft tissue calcification suggestive of calcific tendinitis or bursitis. Slight cephalad displacement of the humeral head may indicate rotator cuff injury. Krystian ELECTRONICALLY SIGNED BY: ??JASON KEYES 02/10/2015 3:56 PM Procedure Note Provider, Historical Conversion - 08/22/2023 DEPARTMENTOF RADIOLOGY Lorne t: FRANCO WELLS JR Unit #:[id number] Ordering MD: BERNARDO MARINELLI NP :1955 Procedure: Shoulder 2 Or More Films Age:60 Location: XRAY ExamDate: 02/10/15 Status: REG CLIRoom/Bed: Primary MD: JENNIFER GALAN DO PatientAcct #: [id number] Order:[id number] Additional Copy: JENNIFER GALAN JOAN M NP - History: Right shoulder trauma Comparison: None Cortices are intact. Mineralization is normal. There is no evidence ofdislocation. The position of the humeral head appears slightly high relative to the glenoid fossa. The glenohumeral joint issurrounded by small marginal osteophytes. There is calcification in the region of the rotator cuff. Soft tissues areotherwise unremarkable. Impression: Mild degenerative arthritic change. Soft tissue calcificationsuggestive of calcific tendinitis or bursitis. Slight cephalad displacement of the humeral head may indicate rotator cuffinjury. Hazel ELECTRONICALLY SIGNED BY: JASON KEYES 02/10/2015 3:56 PM Bernardo Marinelli IMG XR PROCEDURES Final Result * Lower Limb Venous Duplex: Unilateral, Left (10/26/2013 7:55 AM EST) Anatomical Region Laterality Modality Ultrasound 10/26/2013 7:55 AM EST Narrative 10/26/2013 1:31 PM EST ?? Department: [facility] Patient: [id number] (FRANCO WELLS) CPT Code: 62768 ICD-9: 454.8; V67.00+ Referring Physician: Patt Robertson MD A venous duplex scan, consisting of color Doppler imaging, B-mode imaging with compression, and spectral Doppler recordings was performed in the Vascular Laboratory to rule out thrombosis of the left lower extremity veins. Indications Left Follow-up Exam Following Surgery Unspec [V67.00+]. Varicose Veins w/other complications [454.8]. Clinical Information: s/p evlt Findings ?? Right ??Phasicity Common Femoral Vein ??Phasic Left ??Impression ??Phasicity ??Compression ??Thrombus Common Femoral Vein ??Normal (Patent) ??Phasic ??Complete ?? Proximal Deep Femoral Vein ??Normal (Patent) ? Proximal Femoral Vein ??Normal (Patent) ?Complete ?? Mid Femoral Vein ??Normal (Patent) ?Complete ?? Distal Femoral Vein ??Normal (Patent) ?Complete ?? Popliteal Vein ??Normal (Patent) ?Complete ?? Posterior Tibial Veins ??Normal (Patent) ?Complete ?? Peroneal Veins ??Normal (Patent) ?Complete ?? Great Saphenous at Femoral Junction ??Normal (Patent) ?Complete ?? Great Saphenous Proximal Thigh ??Thrombus ?None ??Acute Great Saphenous Mid Thigh ??Thrombus ?None ??Acute Great Saphenous Distal Thigh ??Thrombus ?None ??Acute Great Saphenous Knee ??Thrombus ?None ??Acute Great Saphenous Proximal Calf ??Patent ?complete ?? Small Saphenous Proximal ??Normal (Patent) ?Complete ? Conclusion: The left common femoral vein, femoral vein, popliteal vein, posterior tibial veins, peroneal veins and proximal great saphenous vein were patent and without thrombosis. ?? Technologist-Signed by Vaibhav Lee RVT on 2013-10-26 08:14:07 AM Electronically Signed by: OSIRIS ALBERTS MD on 2013-10-26 01:31:21 PM Procedure Note 07/14/2017 Department: [facility] Patient: [id number] (FRANCO WELLS) CPT Code: 37000 ICD-9: 454.8; V67.00+ Referring Physician: Patt Robertson MD A venous duplex scan, consisting of color Doppler imaging, B-mode imagingwith compression, and spectral Doppler recordings was performed in the[facility]ascular [facility] to rule out thrombosis of the left lower extremityveins. Indications Left Follow-up Exam Following Surgery Unspec [V67.00+]. Varicose Veinsw/other complications [454.8]. Clinical Information: s/p evlt Findings Right Phasicity Common Femoral Vein Phasic Left Impression Phasicity Compression Thrombus Common Femoral Vein Normal (Patent) Phasic Complete Proximal Deep Femoral Vein Normal (Patent) Proximal Femoral Vein Normal (Patent) Complete Mid Femoral Vein Normal (Patent) Complete Distal Femoral Vein Normal (Patent) Complete Popliteal Vein Normal (Patent) Complete Posterior Tibial Veins Normal (Patent) Complete Peroneal Veins Normal (Patent) Complete Great Saphenous at Femoral Junction Normal (Patent) Complete Great Saphenous Proximal Thigh Thrombus None Acute Great Saphenous Mid Thigh Thrombus None Acute Great Saphenous Distal Thigh Thrombus None Acute Great Saphenous Knee Thrombus None Acute Great Saphenous Proximal Calf Patent complete Small Saphenous Proximal Normal (Patent) Complete Conclusion: The left common femoral vein, femoral vein, popliteal vein, posteriortibial veins, peroneal veins and proximal great saphenous vein were patentand without thrombosis. Technologist-Signed by Vaibhav Lee RVT on 2013-10-26 08:14:07 AM Electronically Signed by: OSIRIS ALBERTS MD on 2013-10-26 01:31:21 PM Patt Robertson KRAFT MILL OPERATOR CV VASCULAR PROCEDURES Nieves l Result * US DUPLEX SCAN (08/27/2013 1:23 PM EDT) Only the most recent of2 resultswithin the time period is included. Anatomical Region Laterality Modality Ultrasound 08/27/2013 11:3 1 AM EDT Narrative 08/27/2013 2:09 PM EDT ? DEPARTMENT OF RADIOLOGY Patient: FRANCO WELLS ? Unit #: [id number] Ordering MD: PATT ROBERTSON MD ? : 1955 Procedure: Duplex Scan Venous Limited ? Age: 58 Location: C.[facility] ? Exam Date: 08/27/13 Status: REG CLI ? Room/Bed: Primary MD: JENNIFER GALAN DO ? Patient ?Order: [id number] Additional Copy: ??JENNIFER GALAN WILLIAM MD - ?[facility] ?PERIPHERAL VASCULAR LABORATORY NAME: FRANCO WELLS ?STATUS: F ?LOCATION: C.[facility] Acct: [id number] : 1955 SEX : Male ?DATE OF EXAM: 08/27/2013 ATTENDING: REFERRING: Patt Robertson Venous duplex ultrasound of the left leg to assess for reflux was performed in the Vascular Laboratory. 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 Clinical Information: painful varicosities in the left thigh and proximal calf Findings: Segment Common Femoral Vein ? Reflux: Reflux ? Ref Time (sec): 1.50 ? Compression: complete Proximal Femoral Vein ? Compression: complete Mid Femoral Vein ? Reflux: Reflux ? Ref Time (sec): 3.50 ? Compression: complete Distal Femoral Vein ? Compression: complete Popliteal Vein ? Reflux: Competent ? Ref Time (sec): 0.30 ? Compression: complete Great Saphenous at Femoral Junction ? Reflux: Reflux ? Ref Time (sec): 8.10 ? Diam AP(cm): 0.79 ? Depth(cm): 1.15 ? Compression: complete Great Saphenous Proximal Thigh ? Reflux: Reflux ? Ref Time (sec): 6.50 ? Diam AP(cm): 0.66 ? Depth(cm): 0.85 ? Compression: complete Great Saphenous Mid Thigh ? Reflux: Reflux ? Ref Time (sec): 6.80 ? Diam AP(cm): 0.57 ? Depth(cm): 0.58 ? Compression: complete Great Saphenous Distal Thigh ? Reflux: Reflux ? Ref Time (sec): 3.90 ? Diam AP(cm): 0.50 ? Depth(cm): 0.60 ? Compression: complete Great Saphenous Knee ? Reflux: Reflux ? Ref Time (sec): 5.90 ? Diam AP(cm): 0.49 ? Depth(cm): 0.51 ? Compression: complete Great Saphenous Proximal Calf ? Reflux: Competent ? Ref Time (sec): 0.40 ? Diam AP(cm): 0.38 ? Compression: complete Great Saphenous Mid Calf ? Reflux: Competent ? Ref Time (sec): 0.20 ? Diam AP(cm): 0.27 ? Compression: complete Great Saphenous Distal Calf ? Reflux: Competent ? Ref Time (sec): 0.10 ? Diam AP(cm): 0.39 ? Compression: complete Small Saphenous Proximal ? Reflux: Competent ? Ref Time (sec): 0.20 ? Diam AP(cm): 0.56 ? Compression: complete Small Saphenous Mid ? Reflux: Reflux ? Ref Time (sec): 1.60 ? Diam AP(cm): 0.54 ? Compression: complete Small Saphenous Distal ? Reflux: Competent ? Ref Time (sec): 0.20 ? Diam AP(cm): 0.27 ? Compression: complete Conclusion: Color Doppler and spectral waveforms demonstrated reflux in the left common femoral and femoral veins. Reflux was seen in the left great saphenous vein. Varicosities are visualized draining into the left great saphenous vein at the distal thigh and proximal calf. Reflux was seen in the left small saphenous vein. A varicosity is visualized draining into the left small saphenous vein at the mid calf. Signed by Patt Robertson MD on 2013-08-27 02:05:32 PM Procedure Note Patt Robertson RRT - 08/23/2023 DEPARTMENTOF RADIOLOGY Lorne t: FRANCO WELLS Unit #:[id number] Ordering MD: PATT ROBERTSON MD :1955 Procedure: Duplex Scan Venous Limited Age:58 Location: [facility] ExamDate: 08/27/13 Status: [facility]/Bed: Primary MD: JENNIFER GALAN DO PatientAcct #: [id number] Order:[facility] Additional Copy: JENNIFER GALAN WILLIAM MD - [facility] PERIPHERAL VASCULAR LABORATORY NAME: FRANCO WELLS STATUS: F LOCATION: [facility] Acct: [id number] : 1955 SEX : Male DATE OF EXAM: 08/27/2013 ATTENDING: REFERRING: Patt Robertson Venous duplex ultrasound of the left leg to assess for reflux wasperformed in the Vascular Laboratory. 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 Clinical Information: painful varicosities in the left thigh and proximal calf Findings: Segment Common Femoral Vein Reflux: Reflux Ref Time (sec): 1.50 Compression: complete Proximal Femoral Vein Compression: complete Mid Femoral Vein Reflux: Reflux Ref Time (sec): 3.50 Compression: complete Distal Femoral Vein Compression: complete Popliteal Vein Reflux: Competent Ref Time (sec): 0.30 Compression: complete Great Saphenous at Femoral Junction Reflux: Reflux Ref Time (sec): 8.10 Diam AP(cm): 0.79 Depth(cm): 1.15 Compression: complete Great Saphenous Proximal Thigh Reflux: Reflux Ref Time (sec): 6.50 Diam AP(cm): 0.66 Depth(cm): 0.85 Compression: complete Great Saphenous Mid Thigh Reflux: Reflux Ref Time (sec): 6.80 Diam AP(cm): 0.57 Depth(cm): 0.58 Compression: complete Great Saphenous Distal Thigh Reflux: Reflux Ref Time (sec): 3.90 Diam AP(cm): 0.50 Depth(cm): 0.60 Compression: complete Great Saphenous Knee Reflux: Reflux Ref Time (sec): 5.90 Diam AP(cm): 0.49 Depth(cm): 0.51 Compression: complete Great Saphenous Proximal Calf Reflux: Competent Ref Time (sec): 0.40 Diam AP(cm): 0.38 Compression: complete Great Saphenous Mid Calf Reflux: Competent Ref Time (sec): 0.20 Diam AP(cm): 0.27 Compression: complete Great Saphenous Distal Calf Reflux: Competent Ref Time (sec): 0.10 Diam AP(cm): 0.39 Compression: complete Small Saphenous Proximal Reflux: Competent Ref Time (sec): 0.20 Diam AP(cm): 0.56 Compression: complete Small Saphenous Mid Reflux: Reflux Ref Time (sec): 1.60 Diam AP(cm): 0.54 Compression: complete Small Saphenous Distal Reflux: Competent Ref Time (sec): 0.20 Diam AP(cm): 0.27 Compression: complete Conclusion: Color Doppler and spectral waveforms demonstrated reflux in the leftcommon femoral and femoral veins. Reflux was seen in the left great saphenousvein. Varicosities are visualized draining into the left great saphenous veinat the distal thigh and proximal calf. Reflux was seen in the left smallsaphenous vein. A varicosity is visualized draining into the left small saphenousvein at the mid calf. Signed by Patt Robertson MD on 2013-08-27 02:05:32 PM us Patt Robertson KRAFT MILL OPERATOR IMG US PROCEDURES Final Res ult * MRI UPPER EXTREMITY JOINT WO CONTRAST (10/10/2011 8:56 AM EST) Anatomical Region Laterality Modality Magnetic Resonan ce 10/10/2011 9:41 AM EST Narrative 10/10/2011 11:42 AM EST ? DEPARTMENT OF RADIOLOGY Patient: FRANCO WELLS ?Unit #: [id number] Ordering MD: JENNIFER GALAN DO ?: 1955 Procedure: MRI Upper Extremity Joint W/O ?Age: 56 Location: MRI ? Exam Date: 10/10/11 Status: REG CLI ? Room/Bed: Primary MD: JENNIFER GALAN DO ? Patient ?Order: [id number] Additional Copy: ??JENNIFER GALAN DO - MRI OF THE RIGHT SHOULDER WITHOUT GADOLINIUM HISTORY: ??Pain in the right shoulder. TECHNIQUE: ??MRI of the right shoulder performed on a 1.5 Nory system without gadolinium, per departmental protocol. COMPARISON FILMS: ??There is no prior study for comparison. FINDINGS: ??There is abnormal bone marrow signal in the humeral head. ??There is T2 signal abnormality in the vicinity of the physeal scar with low signal intensity foci within. ??This finding could represent an enchondroma. ??The structure measures 2.5 cm craniocaudad x 1.8 cm transverse x 2.4 cm AP. ??Correlation with radiograph would be helpful. ??In addition, there is degenerative resorptive cystic change at the greater tuberosity. Evaluation of the rotator cuff demonstrates moderately abnormal signal in the supraspinatus, consistent with tendinosis. ??In addition, there is a partial undersurface tear, best seen on series 5, image 5, at the posterior margin of the supraspinatus, at the junction of the infraspinatus. ??This is also well seen on series 7, image 12. There is mild tendinosis of the infraspinatus with an interstitial tear seen on series 7, image 14. ??The teres minor is normal. ??The subscapularis is normal. Long head bicipital tendon is seated within the bicipital groove. ??It demonstrates normal signal and morphology within the rotator interval. There is a small amount of fluid in the subacromial/subdeltoid bursa. Evaluation of the superior labrum demonstrates abnormal signal and morphology, consistent with a tear of the superior labrum [id number] to the biceps-labral complex. ??Inferior labrum appears intact. ??The anterior labrum is also torn, extending to below the equator. ??Posterior labrum is intact. There is marked fraying and signal abnormality within the glenoid cartilage. ??There is osteoarthritis of the glenohumeral joint. ??Small osteophytes arise from the humeral aspect of the joint, as well as the inferior margin of the glenoid. ??There is marked thinning of the humeral aspect of the cartilage, as well. There is moderate acromioclavicular osteoarthritis. Muscle signal and muscle bulk are maintained. CONCLUSION: 1. ?? MODERATE TENDINOSIS SUPRASPINATUS WITH PARTIAL ARTICULAR SURFACE TEAR, ?ABOVE. 2. ?? MILD INFRASPINATUS TENDINOSIS WITH SMALL INTERSTITIAL TEAR. 3. ?? SUBACROMIAL/SUBDELTOID BURSAL FLUID. 4. ?? PROBABLE ENCHONDROMA OF HUMERAL HEAD. ??CORRELATE WITH RADIOGRAPH. 5. ?? SUPERIOR LABRAL TEAR [id number] TO THE BICEPS-LABRAL COMPLEX. ??TEAR ?EXTENDS INTO THE ANTERIOR LABRUM, ABOVE. 6. ?? MODERATE ACROMIOCLAVICULAR AND GLENOHUMERAL OSTEOARTHRITIS. POI: ??[place], [place]. ELECTRONICALLY SIGNED BY Elaine Hernandez M.D. ON 10/10/2011 11:41 DD: ??10/10/2011 at 09:41 / DT: ??[id number]//10/10/2011 at 10:43 Job: [id number] Procedure Note Elaine Hernandez - 08/23/2023 DEPARTMENTOF RADIOLOGY Lorne t: FRANCO WELLS Unit #:[id number] Ordering MD: JENNIFER GALAN DO :1955 Procedure: MRI Upper Extremity Joint W/O Age:56 Location: MRI ExamDate: 10/10/11 Status: REG CLIRoom/Bed: Primary MD: JENNIFER GALAN DO PatientAcct #: [id number] Order:[id number] Additional Copy: JENNIFER GALAN DO - MRI OF THE RIGHT SHOULDER WITHOUT GADOLINIUM HISTORY: Pain in the right shoulder. TECHNIQUE: MRI of the right shoulder performed on a 1.5 Nory systemwithout gadolinium, per departmental protocol. COMPARISON FILMS: There is no prior study for comparison. FINDINGS: There is abnormal bone marrow signal in the humeral head.There is T2 signal abnormality in the vicinity of the physeal scar with low signalintensity foci within. This finding could represent an enchondroma. The structuremeasures 2.5 cm craniocaudad x 1.8 cm transverse x 2.4 cm AP. Correlation withradiograph would be helpful. In addition, there is degenerative resorptive cysticchange at the greater tuberosity. Evaluation of the rotator cuff demonstrates moderately abnormal signal inthe supraspinatus, consistent with tendinosis. In addition, there is apartial undersurface tear, best seen on series 5, image 5, at the posteriormargin of the supraspinatus, at the junction of the infraspinatus. This is also wellseen on series 7, image 12. There is mild tendinosis of the infraspinatus with an interstitial tearseen on series 7, image 14. The teres minor is normal. The subscapularis isnormal. Long head bicipital tendon is seated within the bicipital groove. Itdemonstrates normal signal and morphology within the rotator interval. There is a small amount of fluid in the subacromial/subdeltoid bursa. Evaluation of the superior labrum demonstrates abnormal signal andmorphology, consistent with a tear of the superior labrum [id number] tothe biceps-labral complex. Inferior labrum appears intact. The anteriorlabrum is also torn, extending to below the equator. Posterior labrum is intact. There is marked fraying and signal abnormality within the glenoidcartilage. There is osteoarthritis of the glenohumeral joint. Small osteophytes arisefrom the humeral aspect of the joint, as well as the inferior margin of theglenoid. There is marked thinning of the humeral aspect of the cartilage, as well. There is moderate acromioclavicular osteoarthritis. Muscle signal and muscle bulk are maintained. CONCLUSION: 1. MODERATE TENDINOSIS SUPRASPINATUS WITH PARTIAL ARTICULAR SURFACETEAR, ABOVE. 2. MILD INFRASPINATUS TENDINOSIS WITH SMALL INTERSTITIAL TEAR. 3. SUBACROMIAL/SUBDELTOID BURSAL FLUID. 4. PROBABLE ENCHONDROMA OF HUMERAL HEAD. CORRELATE WITH RADIOGRAPH. 5. SUPERIOR LABRAL TEAR [id number] TO THE BICEPS-LABRALCOMPLEX. TEAR EXTENDS INTO THE ANTERIOR LABRUM, ABOVE. 6. MODERATE ACROMIOCLAVICULAR AND GLENOHUMERAL OSTEOARTHRITIS. POI: [place], [place]. ELECTRONICALLY SIGNED BY Elaine Hernandez M.D. ON 10/10/2011 11:41 at 09:41 / DT: [id number]//10/10/2011 at 10:43 Job:[id number] Jennifer Galan [facility] MRI PROCEDURES Final Result * MRI Cervical Spine WO Contrast (10/10/2011 8:56 AM EST) Anatomical Region Laterality Modality Spine, C-spine Magnetic Resonan ce 10/10/2011 9:32 AM EST Narrative 10/10/2011 9:41 AM EST ? DEPARTMENT OF RADIOLOGY Patient: WELLSFRANCO NOYOLA Marci ?Unit #: [id number] [facility] MD: JENNIFER GALAN DO ?: 1955 Procedure: MRI Cervical W/O Contrast ?Age: 56 Location: MRI ? Exam Date: 10/10/11 Status: REG CLI ? Room/Bed: Primary MD: JENNIFER GALAN DO ? Patient ?Order: [id number] Additional Copy: ??JENNIFER GALAN DO - History: Intractable pain in the right shoulder. ??Question of right sided cervical disk at C7. Technique: Sagittal T1 and T2 weighted cervical spine images were obtained, as well as axial T2 and gradient echo scans of the C2-3 through T2-3 interspaces. Comparison studies on PACS archive: None. Findings: Unfortunately, nearly all of the images are moderately to severely degraded by patient motion. ??Perhaps with premedication, the study could be repeated, with superior diagnostic results. ??Within the interpretive limitations, noted above, the following abnormalities are seen: At C3-4, there is a probable moderate left paracentral posterior spondylitic ridge, causing mild deformity of the left ventrolateral aspect of the spinal cord, and likely mild, left-sided foraminal stenosis. At C4-5, there is probable moderately prominent bilateral foraminal stenosis due to uncovertebral spurring and mild left-sided facet joint degeneration. At C5-6, there is a mild posterior spondylitic ridge contacting the ventral cord margin, as well as probable moderate bilateral foraminal stenosis due to uncovertebral spurring. At T3-4, there is a suggestion of a moderate posterior disk protrusion causing mild cord compression. Limited imaging of the cervical spinal cord signal pattern, foramen magnum and its contents and paraspinal soft tissues do not reveal additional, overt abnormalities. Conclusion: Technically limited study. ??Please see above report for discussion. ??A repeat examination is recommended. POI: [place], [place]. ELECTRONICALLY SIGNED BY: ??BRADEN WAKEFIELD MD 10/10/2011 9:37 AM Procedure Note Provider, Historical Conversion - 08/23/2023 DEPARTMENTOF RADIOLOGY Lorne t: FRANCO WELLS Unit #:[id number] Jaqueline MD: JENNIFER GALAN DO :1955 Procedure: MRI Cervical W/O Contrast Age:56 Location: MRI ExamDate: 10/10/11 Status: REG CLIRoom/Bed: Primary MD: JENNIFER GALAN DO PatientAcct #: [id number] Order:[id number] Additional Copy: JENNIFER GALAN DO - History: Intractable pain in the right shoulder. Question of right sidedcervical disk at C7. Technique: Sagittal T1 and T2 weighted cervical spine images wereobtained, as well as axial T2 and gradient echo scans of the C2-3 through T2-3 interspaces. Comparison studies on PACS archive: None. Findings: Unfortunately, nearly all of the images are moderately toseverely degraded by patient motion. Perhaps with premedication, the study could be repeated, with superior diagnosticresults. Within the interpretive limitations, noted above, the following abnormalities are seen: At C3-4, there is a probable moderate left paracentral posteriorspondylitic ridge, causing mild deformity of the left ventrolateral aspect of the spinal cord, and likely mild, left-sidedforaminal stenosis. At C4-5, there is probable moderately prominent bilateral foraminalstenosis due to uncovertebral spurring and mild left-sided facet joint degeneration. At C5-6, there is a mild posterior spondylitic ridge contacting theventral cord margin, as well as probable moderate bilateral foraminal stenosis due to uncovertebral spurring. At T3-4, there is a suggestion of a moderate posterior disk protrusioncausing mild cord compression. Limited imaging of the cervical spinal cord signal pattern, foramenmagnum and its contents and paraspinal soft tissues do not reveal additional, overt abnormalities. Conclusion: Technically limited study. Please see above report fordiscussion. A repeat examination is recommended. POI: [place], [place]. ELECTRONICALLY SIGNED BY: BRADEN WAKEFIELD MD 10/10/2011 9:37 AM Jennifer Galan [facility] MRI PROCEDURES Final Result Visit Diagnoses Diagnosis Start Date Other synovitis and tenosynovitis, left ankle and foot 02/23/2019 Diabetic polyneuropathy associated with type 2 diabetes mellitus (HCC) 01/16/2023 Numbness Disturbance of skin sensation 02/27/2023 Gait disorder Abnormality of gait 02/27/2023 Numbness Disturbance of skin sensation 03/04/2023 Pre-procedure lab exam Pre-procedural laboratory examination 03/11/2023 Lumbar polyradiculopathy 03/11/2023 Pre-diabetes Other abnormal glucose 03/11/2023 Gait disorder Abnormality of gait 03/11/2023 Transverse myelopathy syndrome (HCC) Other causes of myelitis 03/11/2023 Pre-procedure lab exam Pre-procedural laboratory examination 03/17/2023 Claustrophobia Other isolated or specific phobias 03/17/2023 Neuroforaminal stenosis of spine 04/24/2023 Cervical stenosis of spinal canal Spinal stenosis in cervical region 04/24/2023 Neuroforaminal stenosis of lumbar spine 04/24/2023 Lesion of bone of thoracic spine 04/24/2023 Neuropathic pain 04/24/2023 Cervical myelopathy (HCC) Cervical spondylosis with myelopathy 04/24/2023 Lumbosacral radiculopathy Thoracic or lumbosacral neuritis or radiculitis, unspecified 04/24/2023 Numbness Disturbance of skin sensation 04/24/2023 Cervical myelopathy (HCC) Cervical spondylosis with myelopathy 05/01/2023 Lesion of bone of thoracic spine 05/26/2023 Cervical myelopathy (HCC) Cervical spondylosis with myelopathy 07/31/2023 Lumbosacral radiculopathy Thoracic or lumbosacral neuritis or radiculitis, unspecified 07/31/2023 Neuropathy Mononeuritis of unspecified site 12/04/2023 Cervical myelopathy (HCC) Cervical spondylosis with myelopathy 12/04/2023 Thoracic myelopathy 12/04/2023 Lumbar radiculopathy Thoracic or lumbosacral neuritis or radiculitis, unspecified 12/04/2023 Neuropathy Mononeuritis of unspecified site 12/16/2023 Other spondylosis with myelopathy, thoracic region 02/21/2024 Myelopathy (HCC) Unspecified disease of spinal cord 02/26/2024 Balance problem Abnormality of gait 03/30/2024 Gait difficulty Abnormality of gait 03/30/2024 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 Gait difficulty Abnormality of gait 04/01/2024 Gait difficulty Abnormality of gait 04/05/2024 Gait difficulty Abnormality of gait 04/07/2024 Gait difficulty Abnormality of gait 04/14/2024 Balance problem Abnormality of gait 04/14/2024 Thoracic myelopathy 04/14/2024 Gait difficulty Abnormality of gait 04/16/2024 Gait difficulty Abnormality of gait 04/20/2024 Gait difficulty Abnormality of gait 04/22/2024 Balance problem Abnormality of gait 04/22/2024 Gait difficulty Abnormality of gait 04/27/2024 Balance problem Abnormality of gait 04/27/2024 Thoracic myelopathy 04/27/2024 Gait difficulty Abnormality of gait 04/29/2024 Balance problem Abnormality of gait 05/03/2024 Gait difficulty Abnormality of gait 05/06/2024 Gait difficulty Abnormality of gait 05/10/2024 Gait difficulty Abnormality of gait 05/13/2024 Gait difficulty Abnormality of gait 05/20/2024 Gait difficulty Abnormality of gait 05/25/2024 Balance problem Abnormality of gait 05/25/2024 Thoracic myelopathy 05/25/2024 Balance problem Abnormality of gait 05/28/2024 Gait difficulty Abnormality of gait 06/01/2024 Gait difficulty Abnormality of gait 06/03/2024 Gait difficulty Abnormality of gait 06/10/2024 Balance problem Abnormality of gait 06/10/2024 Thoracic myelopathy 06/10/2024 Gait difficulty Abnormality of gait 06/15/2024 Gait difficulty Abnormality of gait 06/17/2024 Gait difficulty Abnormality of gait 06/22/2024 Balance problem Abnormality of gait 06/22/2024 Myelopathy (HCC) Unspecified disease of spinal cord 06/24/2024 Gait difficulty Abnormality of gait 06/30/2024 Gait difficulty Abnormality of gait 07/02/2024 Gait difficulty Abnormality of gait 07/07/2024 Gait difficulty Abnormality of gait 07/14/2024 Gait difficulty Abnormality of gait 07/16/2024 Gait difficulty Abnormality of gait 07/20/2024 Balance problem Abnormality of gait 07/20/2024 Thoracic myelopathy 07/20/2024 Gait difficulty Abnormality of gait 07/22/2024 Balance problem Abnormality of gait 07/22/2024 Dizziness and giddiness 09/12/2024 Benign paroxysmal positional vertigo of left ear 09/30/2024 Benign paroxysmal positional vertigo of left ear 10/07/2024 Benign paroxysmal positional vertigo of left ear 10/14/2024 Benign paroxysmal positional vertigo of left ear 11/03/2024 Benign paroxysmal positional vertigo of left ear 11/10/2024 Benign paroxysmal positional vertigo of left ear 12/14/2024 Balance problem Abnormality of gait 12/14/2024 Myelopathy (HCC) Unspecified disease of spinal cord 01/06/2025 Disease of spinal cord, unspecified (HCC) 02/20/2025 Care Teams Slitter And Rewinder Machine Operator Relationship Specialty Start Date End Date Ludwig Tidwell MD PCP - General Internal Medicine 01/28/23
--- OUTSIDE RECORDS SUMMARY | 2025-03-11 13:42 | XMS_ITS | Clinical Summary ---
Author Organization [facility] Address [address] [place] [address] Phone Care Team Providers Care Stretching Press Operator Name Role Phone Lupe SAHU, Mateo Unavailable Conditions or Problems Problem Name Problem Code Onset Date Status Entry Date Provider Comment Standard Description Annotate DIABETIC NEUROPATHY 636765209 (SNOMED CT) 01/16 Active 01/16 Mateo Andrade MD Neuropathy due to diabetes mellitus VARICOSE VEINS OF LEFT LOWER EXTREMITY WITH PAIN 55816993 (SNOMED CT) 01/16 Active 01/16 Mateo Andrade MD Varicose veins of lower extremity PAD (PERIPHERAL ARTERY DISEASE) 463413031 (SNOMED CT) 01/16 Active 01/16 Mateo Andrade MD Peripheral arterial disease STATUS POST APPENDECTOM Y Z90.89 (ICD-10-CM) 01/15 Active 01/15 Aphrodite Papoutsides Acquired absence of other organs PAIN IN LEFT LEG 90428381 (SNOMED CT) 01/15 Active 01/15 Aphrodite Papoutsides Pain in lower limb PAIN IN RIGHT LEG 54088316 (SNOMED CT) 01/15 Active 01/15 Aphrodite Papoutsides Pain in lower limb PREDIABETES 335535458 (SNOMED CT) 01/15 Active 01/15 Aphrodite Papoutsides Prediabetes STAGE 3 CHRONIC KIDNEY DISEASE 355167654 (SNOMED CT) 01/15 Active 01/15 Aphrodite Papoutsides Chronic kidney disease stage 3 MIXED HYPERLIPIDE QUINTON 345131345 (SNOMED CT) 01/15 Active 01/15 Aphrodite Papoutsides Mixed hyperlipidemia JAMAL (OBSTRUCTIV E SLEEP APNEA) 81240423 (SNOMED CT) 01/15 Active 01/15 Aphrodite Papoutsides Obstructive sleep apnea syndrome NOCTURNAL LEG CRAMPS 609809444 (SNOMED CT) 01/15 Active 01/15 Aphrodite Papoutsides Cramp in lower limb DAYTIME SOMNOLENCE 51652735877 0 (SNOMED CT) 01/15 Active 01/15 Aphrodite Papoutsides Daytime somnolence COLON POLYP 75461844 (SNOMED CT) 01/15 Active 01/15 Aphrodite Papoutsides Polyp of colon RIGHT INGUINAL HERNIA 340512980 (SNOMED CT) 01/15 Active 01/15 Aphrodite Papoutsides Right inguinal hernia RENAL INSUFFICIEN CY 425527249 (SNOMED CT) 01/15 Active 01/15 Aphrodite Papoutsides Renal impairment MODERATE ASTHMA 248033962 (SNOMED CT) 01/15 Active 01/15 Aphrodite Papoutsides Moderate asthma Medications Medication Instructions Start Date Stop Date Generic Name NDC Provider BREO ELLIPTA 100-25 MCG/ACT AEPB 1 puff as directed once a day fluticasone furoate-vilante rol [id number] Yazmin Ramos HYDROCODONE-ACET AMINOPHEN 5-325 MG TABS 1 tablet by mouth as needed hydrocodone-valeria taminophen 33837645724 Yazmin Ramos TRIAMCINOLONE ACETONIDE 0.1 % CREA as needed triamcinolone acetonide 12372153535 Yazmin Ramos FLUOROURACIL 0.5 % CREA as needed fluorouracil 66640348713 Yazmin Torr es METAXALONE 800 MG TABS TAKE ONE TABLET (800 MG TOTAL) BY MOUTH 2 (TWO) TIMES A DAY IF NEEDED FOR MUSCLE SPASMS metaxalone [id number] Aphrodite Papoutsides BREO ELLIPTA 100-25 MCG/ACT AEPB fluticasone furoate-vilante rol 14360081487 Aphrodite Papoutsides HYDROCODONE-ACET AMINOPHEN 5-325 MG TABS hydrocodone-valeria taminophen 57321804422 Aphrodite Papoutsides ONDANSETRON 4 MG TBDP Take 1 tablet by mouth every twelve hours ondansetron 51221388451 Aphrodite Papoutsides IBUPROFEN 600 MG TABS Take 1 tablet by mouth every twelve hours ibuprofen 24304912857 Aphrodite Papoutsides Medications Administered No information available. Allergies, Adverse Reactions, Alerts No information available. Results Date Name Value Unit Range Flag Description Office Visit: Vascular Surge ry LAB RESULTS 04/01/23 left lowe r extremity venous duplex today demonstrates main trunk of the AASV is patent, the cluster of varicosities in the distal anterior thigh are closed, consistent with the recent procedure.The great saphenous vein at the proximal calf and knee are occluded, consistent with distant procedure. lab results, general Plan of Care Type Date Detail Pending order Patient encounte r procedure Pending order Patient encounte r procedure Pending order Patient encounte r procedure Procedures Code Procedure Name Date Entry Date [id number] Varithena Vital Signs Date Name Value Unit Description BMI (Body Mass Index) 28.22 kg/m2 Bod y Mass Index (Ratio) BP Diastolic 92 mm[Hg] blood pressu re, diastolic, sitting, left arm BP Systolic 120 mm[Hg] blood pressur e, systolic, sitting, left arm Heart Rate 63 /min pulse rate Respiratory Rate 16 /min respirat ory rate E&M Weight Measured 225 [lb_av] weight E& M BP Diastolic 94 mm[Hg] blood pressu re, diastolic, right arm BP Systolic 160 mm[Hg] blood pressur e, systolic, right arm Body Temperature 98.7 [degF] temperat ure E&M Height 75 [in_us] height E&M Immunizations No information available. Advance Directives No information available.
--- OUTSIDE RECORDS SUMMARY | 2025-03-11 13:42 | XMS_ITS | Continuity of Care Document ---
Author Organization [facility] Address [address] [place] [address] Care Team Providers Care Esol Teacher Assistant Name Role Phone Ludwig Tidwell MD Primary Care Provider Encounters Date Type Department Care Team Description 03/08/2025 Refill [facility] [address] [place] [address] Ludwig Tidwell MD Refill Request 02/21/2025 Orders Only [facility] [address] [place] [address] [facility], Unknown Provider 02/17/2025 Refill [facility] [address] [facility] [address] [place] [address] Filiberto Leos MD Refill Request 02/08/2025 9:15 AM EDT Office Visit [facility] [address] [facility] [address] [place] [address] Filiberto Leos MD Low testosterone in male (Primary Dx) 02/07/2025 Refill [facility] [address] [place] [address] Ludwig Tidwell MD Refill Request 01/31/2025 Orders Only [facility] [address] [place] [address] Ludwig Tidwell MD 01/31/2025 Orders Only [facility] [address] [facility] [address] [place] [address] Filiberto Leos MD 01/28/[address] [address] Ludwig Tidwell MD E-prescribing Refill Request 01/27/[address] [address] Ludwig Tidwell MD Letter/form Request 01/26/2025 Refill [facility] [address] [place] [address] [address] [place] [address] Filiberto Leos MD E-prescribing Refill Request 01/21/2025 2:30 PM EST Office Visit [address] [address] Ludwig Tidwell MD Dizziness (Primary Dx); Anxiety; CKD stage 3a, GFR 45-59 ml/min [address], Unknown Provider 01/10/[address] [address] Ludwig Tidwell MD Refill Request 01/06/2025 Consult (Initial) [place] [address], Unknown Provider 01/06/2025 Minor Procedure/Test [address], Unknown Provider 01/03/2025 Letter/Form RADIOLOGY UNSPECIFIED Provider, Unknown 01/03/2025 10:20 AM EST Radiology [facility] [address] [place] [address] Dizziness; History of stroke 12/31/[address] [address] Ludwig Tidwell MD Prescription Assistance 12/28/[address] [address] Ludwig Tidwell MD Refill Request 12/24/2024 Orders Only [address] [address] Ludwig Tidwell MD 12/24/2024 10:30 AM EST Office Visit [address] [address] Ludwig Tidwell MD 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) (Primary Dx); Uncomplicated opioid dependence; Dizziness; History of stroke; Encounter for laboratory test; Stage 3 chronic kidney disease 12/21/[address] [address] Ludwig Tidwell MD Dizziness 12/14/2024 Consult (Initial) [address], Unknown Provider 12/07/[address] [address] Ludwig Tidwell MD Refill Request 12/03/[address] [address] Ludwig Tidwell MD Refill Request 11/30/2024 Orders Only [address] [address] Ludwig Tidwell MD 11/11/2024 Consult (Initial) [address], Unknown Provider 11/11/[address] [address] Ludwig Tidwell MD Other (PT progress report) 11/11/[address] [address] Ludwig Tidwell MD Drug Management Agreement (Due for Random Drug Screen) 11/10/2024 Minor Procedure/Test [address], Unknown Provider 11/08/[address] [address] Ludwig Tidwell MD Refill Request 11/05/[address] [address] Ludwig Tidwell MD Refill Request 11/03/2024 Consult (Initial) [facility] [address], Unknown Provider 11/03/2024 Minor Procedure/Test [facility] [address], Unknown Provider 10/14/2024 Consult (Initial) [facility] [address], Unknown Provider 10/14/2024 Minor Procedure/Test [facility] [address], Unknown Provider 10/08/[address] [address] Ludwig Tidwell MD Refill Request 10/07/2024 Consult (Initial) [facility] [address], Unknown Provider 10/07/2024 Minor Procedure/Test [facility] [address], Unknown Provider 09/30/2024 Consult (Initial) [facility] [address], Unknown Provider 09/30/2024 Minor Procedure/Test [facility] [address], Unknown Provider 09/28/[address] [address] Ludwig Tidwell MD Referral Request 09/22/2024 11:30 AM EDT Office Visit [address] [address] Ludwig Tidwell MD Dizziness (Primary Dx); History of stroke 09/17/[address] [address] Ludwig Tidwell MD Results 09/17/2024 Orders Only [facility] [address] [place] [address] [facility], Unknown Provider 09/12/2024 Minor Procedure/Test [address] [address] Ludwig Tidwell MD 09/07/[address] [address] Ludwig Tidwell MD Refill Request 08/30/2024 Telephone [facility] [address] [place] [phone] Tony Harris MD Endoscopy Request (lower And/or Upper) 08/26/2024 12:45 PM EDT CPE - Comprehensive Physical Exam [address] [address] Ludwig Tidwell MD Routine history and physical examination of adult (Primary Dx); Mild intermittent asthma, uncomplicated (HHS); Dizziness; Stage 3a chronic kidney disease; 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); Screening for endocrine disorder; Screen for colon cancer; Need for vaccination; Secondary hyperaldosteronism (HHS); Neuropathy; Moderate persistent asthma without complication (HHS); Mixed hyperlipidemia; Pain management contract agreement; Hypogonadism in male 08/24/2024 Orders Only [facility] [address] [facility] [address] [place] [address] Filiberto Leos MD 08/24/2024 Orders Only [address] [address] Ludwig Tidwell MD 08/12/2024 Telephone [facility] [address] [facility] [address] [place] [address] Filiberto Leos MD Prescription Assistance; Prior Authorization Request 08/10/2024 Erroneous Encounter [facility] [address] [facility] [address] [place] [address] Filiberto Leos MD 08/10/2024 11:00 AM EDT Office Visit [facility] [address] [facility] [address] [place] [address] Filiberto Leos MD Low testosterone in male (Primary Dx) 08/09/2024 Refill [facility] [address] [place] [address] Ludwig Tidwell MD Refill Request 08/02/2024 Refill [facility] [address] [place] [address] Ludwig Tidwell MD Refill Request 08/02/2024 Orders Only [facility] [address] [facility] [address] [place] [address] Filiberto Leos MD 07/28/2024 Refill [facility] [address] [place] [address] Ludwig Tidwell MD Patient Questions (Breo inhaler status) 07/22/2024 Telephone [facility] [address] [facility] [address] [place] [address] Filiberto Leos MD Medication Check; Prescription Assistance 07/22/2024 Consult (Initial) [facility] [address], Unknown Provider 07/22/2024 Minor Procedure/Test [facility] [address], Unknown Provider 07/20/2024 Consult (Initial) [facility] [address], Unknown Provider 07/20/2024 Minor Procedure/Test [facility] [address] [place], [place] [address] [place] [address], Unknown Provider 07/19/2024 Refill [facility] [address] [facility] [address] [place] [address] Filiberto Leos MD Refill Request 07/16/2024 Consult (Initial) [facility] [address], Unknown Provider 07/16/2024 Minor Procedure/Test [facility] [address], Unknown Provider 07/14/2024 Consult (Initial) [facility] [address], Unknown Provider 07/14/2024 Minor Procedure/Test [facility] [address], Unknown Provider 07/08/2024 Refill [facility] [address] [place] [address] Ludwig Tidwell MD Refill Request 07/07/2024 Consult (Initial) [facility] [address], Unknown Provider 07/07/2024 Minor Procedure/Test [facility] [address], Unknown Provider 07/02/2024 Consult (Initial) [facility] [address], Unknown Provider 07/02/2024 Minor Procedure/Test [facility] [address], Unknown Provider 06/30/2024 Consult (Initial) [facility] [address], Unknown Provider 06/30/2024 Minor Procedure/Test [facility] [address], Unknown Provider 06/24/2024 Consult (Initial) [facility] [address], Unknown Provider 06/24/2024 Minor Procedure/Test [facility] [address], Unknown Provider 06/22/2024 Consult (Initial) [facility] [address], Unknown Provider 06/22/2024 Minor Procedure/Test [facility] [address], Unknown Provider 06/17/2024 Consult (Initial) [facility] [address], Unknown Provider 06/17/2024 Minor Procedure/Test [facility] [address], Unknown Provider 06/15/2024 Consult (Initial) [facility] [address], Unknown Provider 06/15/2024 Minor Procedure/Test [facility] [address], Unknown Provider 06/10/2024 Consult (Initial) [facility] [address], Unknown Provider 06/10/2024 Minor Procedure/Test [facility] [address], Unknown Provider 06/07/2024 Refill [facility] [address] [place] [address] Ludwig Tidwell MD Refill Request 06/03/2024 Consult (Initial) [facility] [address], Unknown Provider 06/03/2024 Minor Procedure/Test [facility] [address], Unknown Provider 06/03/2024 Orders Only [facility] [address] [facility] [address] [place] [address] Filiberto Leos MD 06/03/2024 Orders Only [address] [address] Ludwig Tidwell MD 06/01/2024 Consult (Initial) [facility] [address], Unknown Provider 06/01/2024 Minor Procedure/Test [facility] [address], Unknown Provider 05/28/2024 Consult (Initial) [facility] [address], Unknown Provider 05/28/2024 Minor Procedure/Test [facility] [address], Unknown Provider 05/28/2024 3:00 PM EDT Office Visit [address] [address] Ludwig Tidwell MD Stage 3a chronic kidney disease (Primary Dx); Screening for endocrine disorder; Screening, lipid; Neuropathy; Secondary hyperaldosteronism; Mixed hyperlipidemia; Spinal stenosis; JAMAL (obstructive sleep apnea); Rotator cuff tear arthropathy of both shoulders; Moderate persistent asthma without complication; Stage 3 chronic kidney disease; 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 05/27/[address] [address] Ludwig Tidwell MD Drug Management Agreement (Due for Random Drug Screen) 05/26/[address] [address] Ludwig Tidwell MD Edema 05/25/2024 Consult (Initial) [facility] [address], Unknown Provider 05/25/2024 Minor Procedure/Test [address], Unknown Provider 05/24/2024 Patient Outreach [address] [address] Ludwig Tidwell MD Nodule/Incidental Finding Registry 05/21/2024 Telephone [facility] [address] [place] [address] [address] [place] [address] Filiberto Leos MD Prior Authorization Issue 05/20/2024 Consult (Initial) [facility] [address], Unknown Provider 05/20/2024 Minor Procedure/Test [facility] [address], Unknown Provider 05/18/[address] [address] Ludwig Tidwell MD Letter/form Request 05/13/2024 Consult (Initial) [facility] [address], Unknown Provider 05/13/2024 Minor Procedure/Test [address], Unknown Provider 05/10/2024 Consult (Initial) [facility] [address], Unknown Provider 05/10/2024 Minor Procedure/Test [facility] [address], Unknown Provider 05/10/2024 Refill [facility] [address] [place] [phone] Ludwig Tidwell MD Refill Request 05/06/2024 Consult (Initial) [facility] [address], Unknown Provider 05/06/2024 Minor Procedure/Test [facility] [address] [place], [place] [address] [place] [address], Unknown Provider 05/04/2024 8:15 AM EDT Consult (Initial) [facility] [address] [place] [address] [address] [place] [address] Filiberto Leos MD Low testosterone in male (Primary Dx) 05/03/2024 Consult (Initial) [facility] [address], Unknown Provider 05/03/2024 Minor Procedure/Test [facility] [address], Unknown Provider 04/29/2024 Consult (Initial) [facility] [address], Unknown Provider 04/29/2024 Minor Procedure/Test [facility] [address], Unknown Provider 04/28/2024 Refill [facility] [address] [place] [phone] Ludwig Tidwell MD Refill Request 04/27/2024 Consult (Initial) [facility] [address], Unknown Provider 04/27/2024 Minor Procedure/Test [facility] [address], Unknown Provider 04/22/2024 Consult (Initial) [facility] [address], Unknown Provider 04/22/2024 Minor Procedure/Test [facility] [address], Unknown Provider 04/21/2024 Telephone [facility] [address], Unknown Provider 04/20/2024 Consult (Initial) [facility] [address], Unknown Provider 04/20/2024 Minor Procedure/Test [facility] [address], Unknown Provider 04/16/2024 Consult (Initial) [facility] [address], Unknown Provider 04/16/2024 Minor Procedure/Test [facility] [address], Unknown Provider 04/14/2024 Consult (Initial) [facility] [address], Unknown Provider 04/14/2024 Minor Procedure/Test [facility] [address], Unknown Provider 04/07/2024 Refill [facility] [address] [place] [address] Ludwig Tidwell MD Refill Request 04/07/2024 Consult (Initial) [facility] [address], Unknown Provider 04/07/2024 Minor Procedure/Test [facility] [address], Unknown Provider 04/05/2024 Consult (Initial) [facility] [address], Unknown Provider 04/05/2024 Minor Procedure/Test [facility] [address], Unknown Provider 04/01/2024 Consult (Initial) [facility] [address], Unknown Provider 04/01/2024 Minor Procedure/Test [facility] [address], Unknown Provider 03/30/2024 Consult (Initial) [facility] [address], Unknown Provider 03/30/2024 Minor Procedure/Test [facility] [address], Unknown Provider 03/08/[address] [address] Ludwig Tidwell MD Refill Request 02/26/2024 Consult (Initial) [address], Unknown Provider 02/26/2024 Minor Procedure/Test [address], Unknown Provider 02/23/[address] [address] Ludwig Tidwell MD Med Change Request 02/23/2024 Orders Only [address], Unknown Provider 02/19/[address] [address] Ludwig Tidwell MD Med Change Request 01/29/[address] [address] Ludwig Tidwell MD Prior Authorization Request (Metaxalone) 01/28/[address] [address] Ludwig Tidwell MD Refill Request 01/05/[address] [address] Ludwig Tidwell MD Refill Request 01/01/[address] [address] Ludwig Tidwell MD Results (urine) 12/30/2023 Minor Procedure/Test [address], Unknown Provider 12/30/2023 Orders Only [address] [address] Ludwig Tidwell MD 12/28/[address] [address] Ludwig Tidwell MD Drug Management Agreement (Due for Random Drug Screen) 12/22/[address] [address] Ludwig Tidwell MD Covid 12/11/2023 Minor Procedure/Test [facility] [address], Unknown Provider 12/04/2023 Consult (Initial) [facility] [address], Unknown Provider 12/04/2023 Minor Procedure/Test [facility] [address], Unknown Provider 12/01/[address] [address] Ludwig Tidwell MD Refill Request 10/28/[address] [address] Ludwig Tidwell MD Vertigo 10/28/[address] [address] Ludwig Tidwell MD Refill Request 09/26/[address] [address] Ludwig Tidwell MD Refill Request 09/08/2023 7:20 AM EDT Office Visit [facility] [address] [place] [phone] Vaibhav Huerta, OD Encounter for ophthalmic examination and evaluation (Primary Dx); Dermatochalasis of both upper eyelids; Pinguecula of both eyes; Arcus senilis of both corneas; Nuclear sclerotic cataract of both eyes; Hyperopia with regular astigmatism and presbyopia, bilateral 08/25/2023 9:15 AM EDT CPE - Comprehensive Physical Exam [address] [address] Ludwig Tidwell MD Routine history and physical examination of adult (Primary Dx); Chronic right shoulder pain; Nausea; Spinal stenosis, unspecified spinal region; Moderate persistent asthma without complication; Pain management contract agreement; Rising PSA level; Stage 3a chronic kidney disease; Neuropathy; Need for vaccination 08/21/2023 Orders Only [address] [address] Ludwig Tidwell MD 08/18/2023 1:30 PM EDT Office Visit [address] [address] Ludwig Tidwell MD Mild intermittent asthma, uncomplicated (Primary Dx); Screening, lipid; Screening for endocrine disorder; Rising PSA level; Neuropathy 08/14/2023 Orders Only [address] [address] Arlene Hernandez, Pharmacy Navigator 08/14/[address] [address] Ludwig Tidwell MD Covid ; Prior Authorization Request (Paxlovid) 07/31/2023 Consult (Initial) [address], Unknown Provider 07/31/2023 Minor Procedure/Test [address], Unknown Provider 07/31/[address] [address] Ludwig Tidwell MD Letter/form Request 07/23/[address] [address] Ludwig Tidwell MD Records 07/08/2023 2:00 PM EDT Office Visit [address] [address] Ludwig Tidwell MD Spinal stenosis, unspecified spinal region (Primary Dx); Dizziness; Neuropathy 07/08/[address] [address] Ludwig Tidwell MD Dizziness 07/07/2023 Refill [facility] [address] [place] [address] Ludwig Tidwell MD Refill Request 07/01/[address], Unknown Provider 06/24/2023 Orders Only [facility] [address] [place] [address] Ludwig Tidwell MD 06/23/[address], Unknown Provider 06/21/[address] [address] Ludwig Tidwell MD Drug Management Agreement (Due for Random Drug Screen) 06/20/[address], Unknown Provider 06/10/2023 7:00 AM EDT Minor Procedure/Test [address] [address] Malcolm Jeffrey, PT Spinal stenosis, unspecified spinal region (Primary Dx); Neuropathy 06/03/[address], Unknown Provider 06/03/2023 7:00 AM EDT Minor Procedure/Test [facility] [address] [place] [address] Archie Edwards, MARILOU Spinal stenosis, unspecified spinal region (Primary Dx) 05/30/2023 8:00 AM EDT Minor Procedure/Test [facility] [address] [place] [address] Rajendra Caruso, COBOL DEVELOPER Spinal stenosis, unspecified spinal region (Primary Dx) 05/26/2023 Minor Procedure/Test [address], Unknown Provider 05/26/[address] [address] Ludwig Tidwell MD Letter/form Request 05/23/[address] [address] Ludwig Tidwell MD Patient Questions 05/20/2023 1:30 PM EDT Minor Procedure/Test [address] [address] Archie Edwards, COBOL DEVELOPER Spinal stenosis, unspecified spinal region (Primary Dx) 05/19/2023 Refill [facility] [address] [place] [address] Ludwig Tidwell MD Refill Request 05/15/2023 7:00 AM EDT Minor Procedure/Test [address] [address] Archie Edwards, COBOL DEVELOPER Spinal stenosis, unspecified spinal region (Primary Dx) 05/13/2023 7:00 AM EDT Minor Procedure/Test [address] [address] Malcolm Jeffrey, PT Spinal stenosis, unspecified spinal region (Primary Dx); Neuropathy 05/08/2023 7:00 AM EDT Minor Procedure/Test [address] [address] Archie Edwards, COBOL DEVELOPER Spinal stenosis, unspecified spinal region (Primary Dx) 05/07/[address] [address] Ludwig Tidwell MD Letter/form Request 05/06/2023 Orders Only [address] [address] Malcolm Jeffrey, PT 05/01/2023 Telephone [facility] [place] [address], Unknown Provider 05/01/2023 2:30 PM EDT Consult (Initial) [address] [address] Malcolm Jeffrey, PT Spinal stenosis, unspecified spinal region (Primary Dx); Neuropathy 04/28/2023 Telephone [facility] [address], Unknown Provider 04/25/2023 10:00 AM EDT Office Visit [address] [address] Ludwig Tidwell MD Anxiety (Primary Dx); Spinal stenosis, unspecified spinal region; Neuropathy 04/24/2023 Consult (Initial) [facility] [address], Unknown Provider 04/24/2023 Minor Procedure/Test [facility] [address], Unknown Provider 04/17/2023 Orders Only [facility] [address] [place] [address] Cody Galloway MD 04/17/2023 Minor Procedure/Test [place] [address], Unknown Provider 04/07/[address] [facility] [address] [place] [address] Ludwig Tidwell MD Refill Request 03/20/2023 Erroneous Encounter [address] [address] Ludwig Tidwell MD 03/17/2023 Telephone [facility] [address], Unknown Provider 03/14/[address] [address] Ludwig Tidwell MD Patient Questions (Billing issue) 03/13/2023 Telephone [facility] [facility] [address], Unknown Provider 03/12/2023 Telephone [facility] [address], Unknown Provider 03/12/2023 8:40 AM EDT Office Visit [address] [phone] Veronica Humphries PA Chronic right shoulder pain (Primary Dx); Neuropathy; Claustrophobia 03/11/2023 Consult (Initial) [facility] [address] [place] [address] Cody Galloway MD 03/11/2023 Telephone [facility] [address], Unknown Provider 03/10/2023 Telephone [facility] [address], Unknown Provider 03/10/[address] [phone] Ludwig Tidwell MD Dizziness 03/07/[address] [phone] Ludwig Tidwell MD Patient Questions ; Letter/form Request 03/07/2023 Telephone [facility] [address], Unknown Provider 03/05/2023 Telephone [facility] [address], Unknown Provider 03/04/2023 Minor Procedure/Test [facility] [address] [place] [address] Cody Galloway MD [facility], Unknown Provider 03/03/2023 Telephone [facility] [address], Unknown Provider 02/27/2023 Consult (Initial) [facility] [address] [place] [address] Cody Galloway MD 02/27/2023 Consult (Initial) [facility] [address], Unknown Provider 02/27/2023 Minor Procedure/Test [facility] [address], Unknown Provider 02/20/2023 Consult (Initial) GEN VAS UNSPECIFIED Mateo Andrade MD 02/11/2023 Orders Only [address] [phone] Ludwig Tidwell MD 02/01/[address] [phone] Ludwig Tidwell MD Drug Management Agreement (Due for Random Drug Screen- LMOM 02/10/23) 01/16/2023 Consult (Initial) GEN VAS UNSPECIFIED Mateo Andrade MD 01/16/2023 1:30 PM EST Office Visit [address] [phone] Ludwig Tidwell MD Rotator cuff tear arthropathy of both shoulders (Primary Dx); Neuropathy; Nausea; Pain management contract agreement; Polyp of colon, unspecified part of colon, unspecified type; Overweight (BMI 25.0-29.9); JAMAL (obstructive sleep apnea); Moderate persistent asthma without complication; Stage 3a chronic kidney disease; Stage 3 chronic kidney disease 01/08/[address] [phone] Amber Arrieta MD Med Change Request 01/08/[address] [phone] Amber Arrieta MD Med Change Request 01/08/[address] [phone] Ludwig Tidwell MD Med Change Request 01/07/[address] [address] Amber Arrieta MD Med Change Request 12/27/2022 Telephone [facility] [address] [place] [phone] Franco Zuñiga DPM Labs/orders 12/25/[address] [phone] Ludwig Tidwell MD Refill Request 12/23/[address] [address] Ludwig Tidwell MD Refill Request 12/05/2022 12:15 PM EST Radiology [facility] [address] [place] [phone] Left foot pain 12/05/2022 2:10 PM EST Office Visit [facility] [address] [place] [phone] Franco Zuñiga, DPM Pain in both lower extremities (Primary Dx) 11/22/2022 Orders Only [facility] [address] [place] [address] Franco Zuñiga, DPM 09/23/[address] [phone] Fran Johnson, DO Refill Request 09/19/2022 Refill [facility] [address] [place] [phone] Megan Elkins NP E-prescribing Refill Request 09/02/2022 8:00 AM EDT Office Visit [facility] [address] [place] [phone] Vaibhav Huerta, OD Encounter for ophthalmic examination and evaluation (Primary Dx); Dermatochalasis of both upper eyelids; Pinguecula of both eyes; Arcus senilis of both corneas; Nuclear sclerotic cataract of both eyes; Hyperopia with regular astigmatism and presbyopia, bilateral 08/28/2022 Refill [facility] [address] [place] [phone] Fran Johnson DO Med Change Request 08/27/2022 Orders Only [facility] [address] [place] [phone] Fran Johnson DO 08/27/2022 9:45 AM EDT CPE - Comprehensive Physical Exam [facility] [address] [place] [phone] Fran Johnson DO Routine history and physical examination of adult (Primary Dx); Need for vaccination; Screening for prostate cancer; Moderate persistent asthma without complication; Seasonal allergic rhinitis, unspecified trigger; Mixed hyperlipidemia; Nausea; Pre-diabetes; Overweight (BMI 25.0-29.9); Stage 3a chronic kidney disease; Rotator cuff tear arthropathy of both shoulders; Posterior tibial tendon dysfunction (PTTD) of both lower extremities; Non-recurrent unilateral inguinal hernia without obstruction or gangrene; Stage 3 chronic kidney disease 06/24/2022 Refill [facility] [address] [place] [phone] Fran Johnson, DO Refill Request 05/22/2022 8:30 AM EDT Office Visit [facility] [address] [place] [phone] Franco Zuñiga DPM Posterior tibialis tendinitis of both lower extremities (Primary Dx) 05/15/2022 9:45 AM EDT Radiology [facility] [address] [place] [phone] 05/14/2022 Telephone [facility] [address] [place] [phone] Fran Johnson, DO Back Pain 04/10/2022 Orders Only [facility] [address] [place] [phone] Franco Zuñiga DPM 04/10/2022 Orders Only [facility] [address] [place] [phone] Fran Johnson, DO 03/25/2022 Refill [facility] [address] [place] [phone] Fran Johnson, DO Refill Request 03/22/2022 Telephone [facility] [address] [place] [phone] Fran Johnson, DO Letter/form Request 12/26/2021 Refill [facility] [address] [place] [phone] Fran Johnson, DO Refill Request 12/26/2021 Refill [facility] [address] [place] [phone] Fran Johnson, DO E-prescribing Refill Request 12/25/2021 Refill [facility] [address] [place] [phone] Fran Johnson, DO Refill Request 11/08/2021 Refill [facility] [address] [phone] Fran Johnson, DO Refill Request 10/31/2021 8:30 AM EST Minor Procedure/Test [facility] [address] [place] [phone] Tony Harris MD Polyp of sigmoid colon, unspecified type (Primary Dx); History of colonic polyps 10/29/2021 Telephone [facility] [address] [place] [phone] Roney Pike MD Labs/orders 10/25/2021 Orders Only [facility] [address] [place] [phone] Roney Pike MD 10/25/2021 4:15 PM EST Consult (Initial) [facility] [address] [phone] Roney Pike MD MARLON (acute kidney injury) (Primary Dx) 10/22/2021 Telephone [facility] [address] [place] [phone] Fran Johnson, DO Results 10/15/2021 Orders Only [facility] [address] [place] [phone] Fran Johnson, DO 10/08/2021 Erroneous Encounter [facility] [address] [phone] Fran Johnson, DO 10/08/2021 Telephone [facility] [address] [place] [phone] Fran Johnson, Results 10/05/2021 Orders Only [facility] [address] [place] [phone] Fran Johnson, 10/02/2021 Telephone [facility] [address] [phone] Fran Johnson, DME (Need compression stockings; see note) 10/02/2021 Orders Only [facility] [address] [phone] Fran Johnson, 10/02/2021 3:00 PM EST Office Visit [facility] [address] [phone] Fran Johnson, Bilateral leg edema (Primary Dx); Need for vaccination 09/28/2021 Telephone [facility] [address] [phone] Fran Johnson, Rash 09/24/2021 Refill [facility] [address] [phone] Fran Johnson DO Refill Request 08/29/2021 7:50 AM EDT Office Visit [facility] [address] [place] [phone] Vaibhav Huerta, OD Encounter for ophthalmic examination and evaluation (Primary Dx); Dermatochalasis of both upper eyelids; Pinguecula of both eyes; Arcus senilis of both corneas; Hyperopia of both eyes with astigmatism and presbyopia 08/23/2021 Consult (Initial) DERMATOLOGY UNSPEC Flip Layne PA-C 08/09/2021 Telephone [facility] [address] [phone] Fran Johnson DO Letter/form Request 07/23/2021 Refill [facility] [address] [phone] Fran Johnson, DO Refill Request 07/10/2021 Orders Only [facility] [address] [phone] Fran Johnson, DO 07/05/2021 Telephone [facility] [address] [phone] Fran Johnson, DO Drug Management Agreement (Due for Random Drug Screen) 07/03/2021 Telephone [facility] [address] [phone] Fran Johnson, DO Colonoscopy/EGD 07/03/2021 8:15 AM EDT CPE - Comprehensive Physical Exam [facility] [address] [phone] Fran Johnson, DO Routine history and physical examination of adult (Primary Dx); Screening for prostate cancer; Abnormality of colon; Mixed hyperlipidemia; Polyp of colon, unspecified part of colon, unspecified type; JAMAL (obstructive sleep apnea); Chronic right shoulder pain; Rotator cuff tear arthropathy of both shoulders; Nocturnal leg cramps; Need for vaccination; Vision changes; Renal insufficiency; Nausea 06/26/[address] [phone] Fran Johnson, DO Refill Request 06/07/[address] [phone] Fran Johnson, DO Refill Request 06/04/2021 Telephone [facility] [address] [place] [phone] Tony Harris MD Endoscopy Request (lower And/or Upper) 05/30/2021 Telephone [facility] [address] [place] [phone] Tony Harris MD Endoscopy Request (lower And/or Upper) 05/20/[address] [phone] Fran Johnson, DO Drug Management Agreement (Due for Random Drug Screen) 05/09/2021 9:10 AM EDT Consult (Initial) [facility] [address] [place] [phone] Franco Zuñiga, DPM Pain of left foot (Primary Dx) 04/27/2021 Travel 04/25/2021 Telephone [facility] [address] [phone] Fran Johnson, DO Cancellation (04/16/21 ov) 04/25/2021 Erroneous Encounter [facility] [address] [phone] Fran Johnson, DO 04/04/2021 Telephone [facility] [address] [phone] Fran Johnson, DO Drug Management Agreement (Due for Random Drug Screen) 03/28/2021 Telephone [facility] [address] [place] [phone] Douglas Randle MD Cancellation 03/27/[address] [phone] Fran Johnson, DO E-prescribing Refill Request 03/26/[address] [phone] Fran Johnson, DO Medication Problem 03/26/2021 Refill [facility] [address] [phone] Fran Johnson, DO Refill Request 03/20/2021 Telephone [facility] [address] [phone] Fran Johnson, DO Letter/form Request 03/13/2021 Telephone [facility] [address] [phone] Fran Johnson DO Cancellation (Notice to Reschedule) 03/08/[address] [phone] Fran Johnson, Letter/form Request 03/02/2021 Orders Only [facility] [address] [phone] Fran Johnson, 03/02/2021 Travel 03/02/2021 11:30 AM EDT Office Visit [address] [phone] Fran Johnson, JAMAL (obstructive sleep apnea) (Primary Dx); Fatigue, unspecified type; Nausea; Moderate intermittent asthma without complication 03/01/2021 Travel 03/01/[address] [phone] Fran Johnson, Weight Loss ; Fatigue 02/17/[address] [phone] Fran Johnson, Drug Management Agreement (Due for Random Drug Screen) 02/15/2021 Travel 02/15/2021 8:30 AM EDT [facility]. [address] [phone] LDN CDE Pre-diabetes (Primary Dx); Mixed hyperlipidemia 02/07/2021 Travel 02/07/2021 8:00 AM EDT Office Visit [address] [phone] Fran Johnson, Pre-diabetes (Primary Dx); Mixed hyperlipidemia; Stage 3a chronic kidney disease; JAMAL (obstructive sleep apnea); Nocturnal leg cramps 02/05/2021 Telephone [facility] [address] [phone] Joel Gonzalez [facility] 01/25/2021 Minor Procedure/Test DERMATOLOGY UNSPEC Flip Layne PA-C 01/03/2021 Orders Only [facility] [address] [phone] Fran Johnson, DO 01/03/2021 Telephone [facility] [address] [phone] Fran Johnson, DO Drug Management Agreement (Patient did not provide a Drug Screen specimen) 01/01/2021 Refill [facility] [address] [phone] Fran Johnson, DO Refill Request 12/08/[address] [phone] Fran Johnson, DO Drug Management Agreement (Patient did not provide a Drug Screen specimen) 12/06/[address] [phone] Fran Johnson, DO Drug Management Agreement (Due for Random Drug Screen) 11/21/[address] [phone] Lazara Abreu, ANP BC E-prescribing Refill Request 10/21/[address] [phone] Fran Johnson, DO Drug Management Agreement (Due for Random Drug Screen) 10/09/2020 Travel 10/09/2020 8:00 AM EST Office Visit [facility] [address] [phone] Fran Johnson, DO Pre-diabetes (Primary Dx); JAMAL (obstructive sleep apnea); Mixed hyperlipidemia; Moderate intermittent asthma without complication; Nocturnal leg cramps 10/02/2020 Refill [facility] [address] [phone] Fran Johnson, DO E-prescribing Refill Request 10/02/2020 Telephone [facility] [address] [phone] Fran Johnson, DO CPAP Follow Up 09/28/2020 Telephone [facility] [address] [phone] Fran Johnson, DO Information ; FYI 09/28/2020 Refill [facility] [address] [phone] Fran Johnson, DO Refill Request 09/21/2020 Travel 09/04/2020 Telephone [facility] [address] [phone] Fran Johnson, DO Drug Management Agreement (Due for Random Drug Screen) 08/24/[address] [phone] Fran Johnson, DO Labs/orders 08/14/2020 Letter/Form [address] [phone] Fran Johnson, DO 08/11/[address] [phone] Fran Johnson, DO Letter/form Request 07/24/[address] [phone] Fran Johnson, DO Sleep Apnea 07/24/2020 Travel 07/24/2020 10:30 AM EDT Office Visit [address] [phone] Fran Johnson, DO JAMAL (obstructive sleep apnea) (Primary Dx); Daytime somnolence 07/20/2020 Travel 07/20/2020 Telephone [facility] [address] [phone] Fran Johnson, DO Drug Management Agreement (Due for Random Drug Screen) 07/13/[address] [phone] Fran Johnson, DO CPAP Follow Up 06/27/2020 Refill [facility] [address] [phone] Fran Johnson, DO Refill Request 06/27/2020 Telephone [facility] [address] [phone] Fran Johnson, DO Results 06/26/2020 Telephone [facility] [address] [phone] Fran Johnson, DO Other 06/26/2020 Telephone [facility] [address] [phone] Fran Johnson, DO Appointment 06/26/2020 Travel 06/24/2020 Telephone [facility] [address] [phone] Fran Johnson, DO Appointment 06/24/[address] [phone] Fran Johnson, DO Sleep Apnea 06/23/2020 Orders Only [facility] [address] [phone] Fran Johnson, DO 06/23/2020 Travel 06/23/2020 3:15 PM EDT CPE - Comprehensive Physical Exam [address] [phone] Fran Johnson, DO Routine history and physical examination of adult (Primary Dx); Screening for prostate cancer; Fatigue, unspecified type; Moderate intermittent asthma without complication; Seasonal allergic rhinitis, unspecified trigger; Nocturnal leg cramps; JAMAL (obstructive sleep apnea); Mixed hyperlipidemia; Gastroesophageal reflux disease, esophagitis presence not specified; Stage 3 chronic kidney disease 06/04/2020 Telephone [facility] [address] [phone] Fran Johnson, DO Drug Management Agreement (Due for Random Drug Screen) 05/05/2020 Telephone [facility] [address] [phone] Akshat Tilley [employer] [facility] 04/24/2020 Telephone [facility] [address] [place] [phone] Fran Johnson M, DO Results 04/20/2020 Orders Only [facility] [address] [phone] Fran Johnson M, DO 04/20/2020 Refill [facility] [address] [phone] Fran Johnson M, DO Refill Request 04/10/2020 Telephone [facility] [address] [phone] Fran Johnson, DO Drug Management Agreement (Due for Random Drug Screen) 03/23/2020 Letter/Form [facility] [address] [phone] Pilar Jacobson PA 03/22/2020 Refill [facility] [address] [phone] Fran Johnson M, DO Refill Request 03/21/2020 Telephone [facility] [address] [phone] Fran Johnson M, DO Letter/form Request 03/09/2020 Orders Only [facility] [address] [phone] Brooks Johnsonic M, DO 01/27/2020 Telephone [facility] [address] [place] [phone] Fran Johnson M, DO Results 01/25/2020 Refill [facility] [address] [phone] Fran Johnson M, DO Refill Request 12/27/2019 Refill [facility] [address] [phone] Fran Johnson M, DO Refill Request 12/15/2019 Refill [facility] [address] [place] [phone] Fran Johnson M, DO Refill Request 10/28/2019 8:00 AM EST Consult (Initial) [facility] [address] [place] [address] [place] [address] Lawrence Ordonez MD Muscle cramps (Primary Dx) 10/01/2019 Orders Only [facility] [address] [place] [phone] Fran Johnson M, DO 09/30/2019 Refill [facility] [address] [phone] Fran Johnson, DO Refill Request ; Refill Request 09/14/2019 Refill [facility] [address] [phone] Fran Johnson, DO Refill Request 08/18/2019 Telephone [facility] [address] [phone] Fran Johnson, DO Letter/form Request 08/12/2019 Refill [facility] [address] [phone] Fran Johnson M, DO Refill Request 07/20/2019 Orders Only [facility] [address] [phone] Lazara Abreu, ANP BC 07/20/2019 Orders Only [facility] [address] [place] [phone] Fran Johnson, DO 07/07/2019 Refill [facility] [address] [phone] Fran Johnson M, DO Refill Request 06/30/2019 Consult (Initial) DERMATOLOGY UNSPEC Terra Bob NP 06/29/2019 Letter/Form [facility] [address] [phone] Lazara Abreu, ANP BC 05/10/2019 11:00 AM EDT Office Visit [facility] [address] [place] [phone] Lazara Abreu, ANP Myalgia (Primary Dx); Skin lesion 05/10/2019 Telephone [facility] [address] [place] [phone] Fran Johnson, DO Cramps 04/16/2019 Telephone [facility] [address] [phone] Jose Antonio Handley, [facility] Program 03/30/2019 Refill [facility] [address] [phone] Fran Johnson, DO Refill Request 03/25/2019 Telephone [facility] [address] [place] [phone] Fran Johnson, DO Letter/form Request 03/16/2019 Letter/Form [facility] [address] [phone] Fran Johnson, DO 03/16/2019 Refill [facility] [address] [place] [phone] Fran Johnson, DO E-prescribing Refill Request 03/15/2019 Refill [facility] [address] [place] [phone] Fran Johnson, DO E-prescribing Refill Request 03/03/2019 Minor Procedure/Test NON FC [facility] [address] [place] [address] Malcolm Swann MD 02/27/2019 Minor Procedure/Test INTERNAL MED UNSPEC Fran Johnson, DO 02/23/2019 Minor Procedure/Test [facility] [address] [place] [address] [facility], Unknown Provider 01/22/2019 Telephone [facility] [address] [place] [phone] Fran Johnson, DO Polysomnogram 01/22/2019 8:00 AM EST Office Visit [facility] [address] [place] [phone] Fran Johnson, DO Chronic fatigue (Primary Dx); Gastroesophageal reflux disease with esophagitis; Daytime somnolence; Pain in both lower extremities; Renal insufficiency 01/18/2019 Orders Only [facility] [address] [place] [phone] Fran Johnson, DO 01/14/2019 Telephone [facility] [address] [place] [address] Fran Johnson, DO Fatigue 01/07/2019 Letter/Form [facility] [address] [place] [phone] Fran Johnson, DO 01/06/2019 Refill [facility] [address] [place] [phone] Fran Johnson, DO Refill Request 11/06/2018 Telephone [facility] [address] [place] [address] Fran Johnson, DO Letter/form Request 11/05/2018 Letter/Form INTERNAL MED UNSPEC Fran Johnson, DO 10/27/2018 Telephone [facility] [address] [place] [address] Fran Johnson, DO Hospital F/U 10/26/2018 9:15 AM EST Office Visit [facility] [address] [place] [phone] Fran Johnson, Moderate intermittent asthma without complication (Primary Dx); Chronic right shoulder pain; Gastroesophageal reflux disease, esophagitis presence not specified; Overweight (BMI 25.0-29.9); Fatigue, unspecified type 10/13/2018 Telephone [facility] [address] [place] [phone] Fran Johnson, DO Fatigue 10/12/2018 Refill [facility] [address] [place] [phone] Arlene Pagan MA Refill Request 09/18/2018 Refill [facility] [address] [place] [phone] Fran Johnson, E-prescribing Refill Request 09/16/2018 Office Visit URG CARE UNSPECIFIED Franco Davison MD 08/24/2018 4:00 PM EDT Office Visit [facility] [address] [place] [phone] Megan Elkins NP Nausea (Primary Dx); Leg cramps 08/18/2018 Telephone [facility] [address] [place] [phone] Fran Johnson, DO Nausea ; Leg Pain 07/10/2018 Refill [facility] [address] [place] [phone] rFan Johnson, Refill Request 05/19/2018 Letter/Form INTERNAL MED UNSPEC Denis Okeefe MD 05/15/2018 Telephone [facility] [address] [place] [phone] Fran Johnson, Letter/form Request (fmla) 05/07/2018 Telephone [facility] [address] [place] [phone] Fran Johnson, Results 05/01/2018 Consult (Initial) ORTHO SURG UNSPECIFIED Konrad Ulloa 04/23/2018 Telephone [facility] [address] [place] [phone] Fran Johnson, Viral Syndrome 04/23/2018 Telephone [facility] [address] [place] [phone] Fran Johnson, Imm/Inj (follow up) 04/22/2018 Orders Only [facility] [address] [place] [phone] Fran Johnson, 04/22/2018 8:30 AM EDT CPE - Comprehensive Physical Exam [facility] [address] [place] [phone] Fran Johnson, DO Routine history and physical examination of adult (Primary Dx); Screening for prostate cancer; Need for vaccination; Chronic right shoulder pain; Moderate intermittent asthma without complication; Polyp of colon, unspecified part of colon, unspecified type; Fatigue, unspecified type; Decreased libido 04/08/2018 7:30 AM EDT Minor Procedure/Test [facility] [address] [place] [address] [id number] Tony Harris MD Polyp of ascending colon, unspecified type (Primary Dx); Screen for colon cancer; Nausea 03/25/2018 Orders Only [facility] [address] [place] [phone] Fran Johnson, DO 03/20/2018 Refill [facility] [address] [place] [phone] Fran Johnson, DO Refill Request 03/20/2018 Refill [facility] [address] [place] [phone] Fran Johnson, DO Refill Request 02/20/2018 Telephone [facility] [address] [place] [phone] Fran Johnson, DO Letter/form Request (fmla) 02/18/2018 Orders Only [facility] [address] [place] [address] Daisy Woods NP 02/18/2018 8:00 AM EDT Consult (Initial) [facility] [address] [place] [phone] Daisy Woods NP Nausea (Primary Dx); Abdominal discomfort; Hx of colonic polyp; Family history of colon cancer 02/11/2018 Letter/Form INTERNAL MED UNSPEC Fran Johnson, DO 02/06/2018 Telephone [facility] [address] [place] [phone] Fran Johnson, DO Letter/form Request (fmla) 2018 Minor Procedure/Test INTERNAL MED UNSPEC Fran Johnson, DO 12/17/2017 3:30 PM EST Office Visit [facility] [address] [place] [phone] Fran Johnson, DO Chronic right shoulder pain (Primary Dx); Moderate intermittent asthma without complication; Chronic nausea 12/15/2017 Telephone [facility] [address] [place] [phone] Fran Johnson, DO Prior Authorization Request (hydrocodone optum ) 12/14/2017 Letter/Form [facility] [address] [place] [phone] Fran Johnson, DO 11/04/2017 Telephone [facility] [address] [place] [phone] Fran Johnson, Letter/form Request (fmla) 11/03/2017 Letter/Form INTERNAL MED UNSPEC Fran Johnson, DO 10/31/2017 Orders Only [facility] [address] [place] [phone] Fran Johnson, 10/31/2017 9:15 AM EST Office Visit [facility] [address] [place] [phone] Fran Johnson, DO Chronic nausea (Primary Dx); Moderate intermittent asthma without complication; Chronic right shoulder pain 10/13/2017 Telephone [facility] [address] [place] [phone] Fran Johnson, DO Nausea (Stomach Issues) 08/15/2017 8:00 AM EDT Office Visit [facility] [address] [place] [phone] Fran Johnson, DO Chronic right shoulder pain (Primary Dx); Chronic seasonal allergic rhinitis, unspecified trigger; Moderate intermittent asthma without complication 04/22/2017 Telephone [facility] [address] [place] [phone] Fran Johnson, Letter/form Request (PSA Test) 04/18/2017 Orders Only [facility] [address] [place] [address] Fran Johnson, 04/18/2017 9:45 AM EDT CPE - Comprehensive Physical Exam [facility] [address] [place] [phone] Fran Johnson, Routine physical examination (Primary Dx); Chronic right shoulder pain; Moderate intermittent asthma without complication; Seasonal allergic rhinitis, unspecified allergic rhinitis trigger; Fatigue, unspecified type; Right inguinal hernia 04/14/2017 Orders Only [facility] [address] [place] [address] Fran Johnson, 04/09/2017 Telephone [facility] [address] [phone] Fran Johnson, DO Labs/orders 04/03/2017 Telephone [facility] [address] [place] [phone] Fran Johnson, Letter/form Request (Opioid Risk Tool) 03/27/2017 Orders Only [facility] [address] [place] [phone] Fran Johnson, 03/27/2017 11:00 AM EDT Office Visit [facility] [address] [place] [phone] Fran Johnson, Chronic right shoulder pain (Primary Dx); Moderate intermittent asthma without complication; Renal insufficiency; Health care maintenance; Seasonal allergic rhinitis, unspecified allergic rhinitis trigger 03/25/2017 Office Visit INTERNAL MED UNSPEC Fran Johnson, 03/25/2017 Abstract [facility] [address] [place] [phone] Unknown 03/18/2017 Refill [facility] [address] [place] [phone] Fran Johnson, Refill Request 03/17/2017 Refill [facility] [address] [place] [phone] Fran Johnson, Refill Request 03/17/2017 Telephone [facility] [address] [place] [phone] Fran Johnson, DO Erroneous encounter-disregard 01/03/2017 Office Visit [facility] UNSPECIFIED Jessika Foster, BABS 04/19/2016 Office Visit [facility] UNSPECIFIED Nina Amador, DO 04/11/2016 Orders Only [facility] UNSPECNina Field, DO 11/10/2015 Minor Procedure/Test [facility] UNSPECIFIED Nina Amador, DO 10/30/2015 Minor Procedure/Test GONZALEZ SAHU UNSPEC Provider, Unknown 02/14/2015 Consult (Initial) ORTHO SURG UNSPECIFIED Jayson Norman 02/10/2015 Minor Procedure/Test INTERNAL MED UNSPEC Alize Marinelli NP 07/29/2014 Minor Procedure/Test GASTRO UNSPECIFIED Jeovany Ford 06/30/2014 Consult (Initial) GASTRO UNSPECIFIED Maxi Galan 10/10/2011 Minor Procedure/Test GONZALEZ SAHU UNSPEC Provider, Unknown 10/10/2011 Minor Procedure/Test [facility] PRAC UNSPECIFIED Maxi Galan Allergies Active Allergy Reactions Criticality Noted Date Comments Triprolidine-Pseudoephe drine Pulmonary Complications High 04/24/2023 Environmental Other High 05/25/2021 Any fruit with the skin . Can eat without the skin Medications Triamcinolone Acetonide (KENALOG) 0.1 % cream APPLY TWICE DAILY TO RASH ON LEGS AND BODY. AVOID CHRONIC DAILY USE (STEROID). 08/23/20 21 Active Fluorouracil (EFUDEX) 5 % cream PLEASE SEE ATTACHED FOR DETAILED DIRECTIONS 08/23/20 21 Active Acetaminophen Extra Strength (TYLENOL) 500 MG tablet Take 500 mg by mouth. 08/13/20 23 Active Naloxone HCl 4 MG/0.1ML LiquidIndications: Spinal stenosis, unspecified spinal region One spray (4mg) into a nostril, every 3 minutes, until the patient regains consciousness, or Emergency Medical Services arrive. 1 each 5 08/25/20 23 Active Hydrocortisone 2.5 % ointment APPLY TO FACE TOPICALLY ONCE DAILY FOR 7 DAYS, THEN NEEDED. 05/19/20 24 Active Mupirocin (BACTROBAN) 2 % ointment APPLY THIN LAYER TO FACE ONCE DAILY X 7 DAYS THEN NEEDED 05/19/20 24 Active Fluticasone-Salmet jojo (ADVAIR DISKUS) 100-50 MCG/ACT diskus inhalerIndications :Mild intermittent asthma, uncomplicated (HHS) Inhale one puff 2 (two) times a day. 60 each 11 08/26/20 24 026 Active Rosuvastatin Calcium (Crestor) 20 MG tabletIndications: History of stroke Take one tablet (20 mg total) by mouth every night. 90 tablet 3 09/22/20 24 Active Aspirin (ST JAYSON) 81 MG EC tablet Take one tablet (81 mg total) by mouth 1 (one) time each day. 09/22/20 24 026 Active Ondansetron (Zofran ODT) 4 MG disintegrating tabletIndications: Nausea Take one tablet (4 mg total) by mouth every 12 (twelve) hours if needed for nausea or vomiting. 60 tablet 3 12/03/19 25 Active Meclizine HCl (ANTIVERT) 25 MG tablet Take one tablet (25 mg total) by mouth 3 (three) times a day if needed for dizziness or nausea. 90 tablet 2 12/28/19 25 025 Active B-D 3CC LUER-MARIVEL SYR 23GX1 23G X 1 3 ML Syringe INJECT ONCE A WEEK 12/29/19 25 Active Testosterone Cypionate (DEPO-TESTOTERONE) 200 MG/ML injectionIndicatio ns:Low testosterone in male Inject 0.75 mL (150 mg total) into a muscle 1 (one) time per week. 4 mL 5 02/18/20 25 Active HYDROcodone-Acetam inophen (NORCO) 5-325 MG per tabletIndications: Chronic right shoulder pain Take one tablet by mouth 2 (two) times a day if needed for moderate pain or severe pain. 60 tablet 03/08/20 25 Active LORazepam (ATIVAN) 1 MG tabletIndications: Anxiety Take one tablet (1 mg total) by mouth 3 (three) times a day if needed for anxiety for up to 10 days. 8 tablet 01/21/20 25 025 Testosterone Cypionate (DEPO-TESTOTERONE) 200 MG/ML injectionIndicatio ns:Low testosterone in male ADMINISTER 0.75 ML(150 MG) IN THE MUSCLE 1 TIME EVERY WEEK 4 mL 5 01/27/20 25 025 Discontinu ed(Reorder (No Cancel Rx)) HYDROcodone-Acetam inophen (NORCO) 5-325 MG per tabletIndications: Chronic right shoulder pain Take one tablet by mouth 2 (two) times a day if needed for moderate pain or severe pain. 60 tablet 02/08/20 25 025 Discontinu ed(Reorder (No Cancel Rx)) Active Problems Problem Noted Date Diagnosed Date Stage 3a chronic kidney disease 01/27/2025 Overview (01/27/2025): Lab Results Component Value Date GFR 52 (L) 01/06/2025 GFR 54 (L) 12/24/2024 GFR 59 (L) 06/03/2024 Baseline 1.1. He has some elevations after working out. He is building up extra fluid which likely is in setting of his high salt intake, combined with summer/vasodilation. Patient agreeable to trial a course of lasix 20 mg PO qAM to treat the swelling. No signs of CHF on exam, no significant JVD or crackles on breath examination. Check BMP in one week. Low salt diet advised. 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 EMG did suggest upper motor neuron cause. Also c/b chronic dizziness which may be related to spinal stenosis. He has had decompression surgery of both C and T spine in the past. Has seen numerous neurologists, most recently Dr. Selby at [facility]. Will also follow with [facility] to see if they have any options. B12 wnl. TSH wnl. A1c stable. Gabapentin PRN 300 mg QHS was offered and will trial that vs lyrica. He also has an opiate contract in place. [facility] paperwork for April 12 weeks was completed and will be faxed to his employer, especially given he is in an active flare up of back pain. This time on intermittent leave will allow him to focus on a dedicated PT plan and meet with neurosurgery for consideration and optimization of operative vs medical management with neurology. He is also having a bony spinal lesion which will be followed up with by CT which his [facility] neuro team is coordinating. 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 Also has some pedal edema which we are treating. 01/08/2025 Dr. Selby thinks that the most likely Uncomplicated opioid dependence 12/24/2024 History of stroke 09/22/2024 Overview (09/22/2024): MRI brain done for dizziness did reveal evidence of an small, old lacunar infarct at the anterior aspect of the left cerebral peduncle. Unlikely cause of dizziness. There are also some small vessel ischemic changes. Based on these findings, I did advise the patient start a daily aspirin 81 mg p.o. and also start Crestor 20 mg p.o. nightly for risk factor modification for cerebral vascular disease. Patient was agreeable to the medications and consented to therapy. Will also continue to monitor blood pressures, patient did have a big coffee before his visit today and has been checking his blood pressures and they have been under good control for the most part. Hypogonadism in male 08/26/2024 Overview (08/26/2024): Patient has testosterone HCT and PSA monitoring through urology. Secondary hyperaldosteronism (HHS) 05/28/2024 Overview (08/26/2024): Requires used of lasix 20 daily. Continue. Dizziness 07/08/2023 Overview (01/21/2025): Unclear etiology at this time but differential is broad. 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 There are no concerns ROS or exam findings to support a serious cardiac or neurologic etiology at this time. May also be BPPV, bertha hallpike negative today but can be episodic. Not orthostatic. He does not have any new meds aside from those he takes chronically that would likely explain the dizziness. Finally the C spine stenosis may be compressing some sympathetic autonomic fibers leading to mild autonomic instability. This would hopefully improve after his C spine surgery in Jul 2023. Patient will let me know how is he doing with hydration measures, and he will also let me know if it is not resolved after his surgery or if the problem gets significantly worse. He will also let me know if there are any new cardiac or neurologic symptoms which at this time have not newly emerged. 08/26/2024 CC: persistent dizziness Patient complains of persistent dizziness without worsening weakness or other concerning findings. He does have chronic neuropathy that is stable. No vision changes. Still given the persistence of sx, I will obtain an MRI of the brain to investigate further. Lasix unrelated, this was going on before he started on it. No new cardiac symptoms are reported which is reassuring and cardiac examination is wnl. Next steps based on MRI to rule out PIPE BOWL PAINT TRIMMER lesion or other central cause of dizziness. If negative, BPPV would be suggested as most likely dx. 09/22/2024 MRI brain without clear cause of dizziness. I advised a trial of meclizine to treat inner ear source such as BPPV and also advised he see vestibular PT. he does not report any new neurological deficits which is reassuring. I do not think that the lacunar infarct would explain this based on his location. 12/24/2024 patient with persisting tinnitus despite no clear findings to support this on MRI and without improvement to vestibular physical therapy. I will obtain a CT angiogram of the head and neck to rule out vertebral artery stenosis/vertebrobasilar insufficiency, additionally he will continue following up with his neurologist for other potential causes to be investigated. He is not taking his meclizine as regularly as is prescribed so I did advise him to take it more often certainly if he is symptomatic. Additionally I also have advised that we stop the Lasix given his orthostasis as this may have a contribution to his symptoms especially if they got a bit worse since he started taking it. Neck steps based on response to meclizine increase as well as neurology follow-up. Certainly if he has any acute neurological symptoms that are new or worsening he should seek more immediate medical attention and he is aware of this. 01/21/2025 CTA without clear cause. EMG still suggested upper motor neuron cause, and certainly plausible given he needed both C spine and T spine decompression surgery. Possible some residual scarring and stenosis are compressing sympathetyic nerve roots or other pathways in the spine which may be leading to the dizziness. Metabolic and vascular work up negative. I wrote him today for FMLA intermittent as he can have significant flareups that can lead to pain and dizziness. He will also be going for additional MRIs to further evaluate the progress of his spinal recovery, and have written for some Ativan to help him through those, per pt request. Re ativan The risks, benefits, and side effects of this medication are known to the patient. He is aware not to drive, operate heavy machinery, or consume alcohol while taking this medication. Spinal stenosis 04/25/2023 Overview (08/25/2023): MRI of lumber and cervical spine showing severe stenosis. Dedicated PT and [facility] consult ordered. Has seen neuro before. See neuropathy Had surgery 08/12/2023 on his C spine for severe stenosis. He is recovering well. He has orthopedics follow-up booked. Post hospitalization/CPE labs also ordered. His lower neuropathy may also be due to lumbar stenosis. Follows with ortho spine and neuro. Does not want any neuromodulators at this time. Continues on PRN opiate therapy. Posterior tibial tendon dysf unction (PTTD) of both lower extremities 08/27/2022 Overview (08/27/2022): 08/27/2022 He saw his legal secretary receptionist and got a cortisone injection last year which helped. The focus now is on strengthening and stretching, getting new sneakers for more support. Give it a month or two to see if it improves. If no improvement I recc seeing his legal secretary receptionist again. Rotator cuff tear arthropathy of both shoulders 07/03/2021 Overview (01/16/2023): 08/27/2022 Continuing to do well with the right shoulder and strengthening exercise. He plans to continue with the strengthening exercises for his left shoulder. No plan on considering surgery for the left one until he retires. 07/03/2021: Received a right rotator cuff repair on . Starting PT in July. 01/16/2023 He will have further evaluation and surgery of left shoulder as well. Nausea 03/02/2021 Overview (08/25/2023): Chronic nausea. EGD and colo 2018 wnl, no clear etiology. Has responded to PRN zofran. H pylori negative. Does not drink or smoke but does take ibuprofen for shoulder pain - he will try to cut down on this and see if it helps his chronic nausea. 08/25/2023 stable on zofran PRN which works very well. Mixed hyperlipidemia 06/24/2020 Overview (08/26/2024): The 10-year ASCVD risk score (Warner TYLER, et al., 2019) is: 12.8% Patient defers statin and prefers to change/modify diet and exercise. Overweight (BMI 25.0-29.9) 10/27/2018 Overview (01/16/2023): Discussed diet and exercise. JAMAL (obstructive sleep apnea) 04/22/2018 Overview (01/16/2023): Moderate sleep apnea after fatigue work up. Patient did not tolerate full face mask, did better with nasal pillars. In past, suggestion was given in the sleep study results to try APAP settings 5-20. 01/16/2023 patient states he is not using the machine anymore and feels better now Decreased libido 04/22/2018 Overview (01/16/2023): TSH wnl, testosterone in 300s. Colon polyp 04/08/2018 Overview (01/16/2023): 07/03/2021: Based on last colo report, 3 year f/u was recommended; will verify with GI. Put the order in GI verified that he is due Will be scheduled Colon 10/2021 recommend 5yr f/u Pain management contract agreement 12/30/2017 Overview (08/26/2024): For chronic shoulder pain, left. He also has severe spinal stenosis (C and L spine). I agreed to prescribe 60 tablets of norco per 30 days, which is a dose of [place] 5-325 mg PO BID as he had recent C spinal surgery two weeks ago. He has a recent drug screen and pain management agreement. 08/26/2024 pain under much better control - he is back to work after C spine surgery. Non-recurrent unilateral ing uinal hernia without obstruction or gangrene 04/21/2017 Overview (08/27/2022): 08/27/2022 I re-examined it today. Mild and No change in past couple years Continued monitoring recommended at this point. Only detectable on exam, no visible bulge Moderate persistent asthma without complication ([facility]) 03/27/2017 Overview (08/26/2024): He gets frequent flareups in the spring and summer, uses OTC antihistamine. He is on Breo ellipta inhaler but due to coverage issues, I changed him to wixela. Resolved Problems Problem Noted Date Diagnosed Date Resolved Date COVID-19 12/22/2023 08/26/2024 Overview (12/22/2023): 12/22/23: Pt had covid in July 2023 and was treated with paxlovid. Tested positive home test today and treated with paxlovid. Spinal stenosis - Rehab PT 05/01/2023 0 06/10/2023 Neuropathy 01/16/2023 01/08/2025 Need for vaccination 08/27/2022 023 Overview (08/27/2022): 08/27/2022 PCV20 and flu vaccine today. He's not sure if he'll get the Bivalent. He states he'll get it if his work requires it. Bilateral leg edema 10/02/2021 01/16/20 23 Overview (10/02/2021): 10/02/2021: I recommended he increase exercise and use rx compression socks. Prescribing lasix 20 mg once daily in the morning for up to 5 days to start then prn use. Swelling and edema has likely been brought on from his recent inactivity since he has been out of work and activity limited due to his shoulder surgery. I recommended he elevate legs when sitting in his chair that he uses to sleep in. Call in a few weeks if no significant improvement. Checking a basic metabolic panel today as well. Stage 3 chronic kidney disease 06/24/2020 01/27/2025 Overview (08/26/2024): Baseline 1.1. He has some elevations after working out. He is building up extra fluid which likely is in setting of his high salt intake, combined with summer/vasodilation. Patient agreeable to trial a course of lasix 20 mg PO qAM to treat the swelling. No signs of CHF on exam, no significant JVD or crackles on breath examination. Check BMP in one week. Low salt diet advised. 08/26/2024 swelling is improved on lasix, continue Nocturnal leg cramps 06/23/2020 023 Overview (07/03/2021): 07/03/2021: He noticed he isn't having leg cramps after sleeping upright. Fairly certain to be positional and musculoskeletal. Focus on stretches and massages for calf muscles. 02/07/2021: Continues with Mg, tumeric, zince; he noticed that eating last makes cramps worse so he knocked this off and doing better now; still with cramps in His feet Walking and increased exercise on the daily basis should help with this. Also advised routine stretching at night and massage of the areas that cramp up. 10/09/2020: He is taking magnesium every day, advised him to increase to twice daily, continue his other supplements including B12 and zinc and recommend he do nightly stretches and massage and heat as needed. I feel that with regular use of his CPAP this will also help. 06/23/2020: Started magnesium ; and B12 complex recc massage, heat, states no time at night for this. I feel that his untreated sleep apnea may also be contributing to this and we will see how things go once he is on the APAP. JAMAL (obstructive sleep apnea) 06/23/2020 01/16/2023 Overview (03/02/2021): 03/02/2021: He is not sleeping enough hours, not getting enough restful sleep and has been trying to wear the nasal pillars on most nights but this is not impacting his fatigue. I have referred him to ENT, Dr. Douglas Randle for further evaluation as he specializes in alternative methods of sleep apnea treatment such as Inspire. 02/07/2021: He is doing better with nasal pillars now; more comfortable for him Does not notice a big change however Continue with this, however he is not using for recommended time and still is uncomfortable to him. Continue to monitor. 10/09/2020: He did get the nasal pillars and states that it is much more comfortable he can wear it and tolerate it as opposed to the full facemask. He is getting over sinus congestion and a cold, tested negative for Covid. Advised him to let me know how he is doing over the next several weeks with the CPAP. Advised him this will likely help with his energy during the day and help with some other symptoms such as muscle tightness and achiness. 07/24/2020: Results/summary of sleep study: IMPRESSION: This comprehensive polysomnogram demonstrates moderate obstructive sleep apnea with AHI of 12.4 and RDI of 56.6. Snoring was considered moderate. There were multiple awakenings during the night. Sleep efficiency was reduced at 60.7%. For treatment, a trial of positive airway pressure therapy is recommended. This may be initiated through CPAP titration in the Sleep Lab, or a trial of autoPAP at home may be acceptable if there are no significant comorbidities. If autoPAP is selected, starting pressures of 5-20 CWP recommended. Patient was not able to tolerate the full facemask, felt claustrophobic and he was continually waking him up. I feel that he will do much better with the nasal pillars and discussed gradually increasing the number of hours per day that he wears them. I have sent a message to DME and also asked patient to call DME today to get the equipment changed. We also discussed the importance of treating his sleep apnea and benefits he will have by eliminating his daytime somnolence and increasing alertness. He is in agreement with above plan. Daytime somnolence 01/22/2019 3 Overview (07/24/2020): 07/24/2020: He has established sleep apnea and was not able to tolerate the full facemask. Message sent to DME for change of equipment to nasal pillars. Also I encouraged him to begin a routine cardiovascular exercise program and shoot for a slow gradual weight loss. He has a follow-up visit in about 2 months. 01/22/2019: Scored a 7 on the [place] sleep scale score but he complains of increased fatigue during the day and I suspect he has an element of sleep apnea. Sleep study has been ordered. Reviewed labs today and essentially all are normal except for an elevated creatinine. Pain in both lower extremities 01/22/2019 01/16/2023 Overview (01/22/2019): 01/22/2019: Fatigue in both thighs while working/end of day and discomfort below right knee and left ankle Advised routine light cardiovascular exercise and walking. Seems to be fatigability. Recheck metabolic with renal function panel in 2 weeks. GERD (gastroesophageal reflux disease) 08/25/2018 02/07/2021 Overview (06/24/2020): 06/23/2020: Has not needed PPI; doing well with dietary hygiene Prn TUMS or pepcid recommended 01/22/2019: Taking omeprazole but about 5/7 days Recc. Take daily due to presence of reflux esophagitis Chronic right shoulder pain 03/27/2017 01/16/2023 Overview (07/03/2021): 07/03/2021: Recent surgery for extensive rotator cuff tear, will follow up with Dr. Ulloa. Starting PT after . He has chronic left shoulder pain and rotator cuff strains, this will be addressed once right shoulder is healed. He will continue with hydrocodone, sparing use. Only going through 50 tablets in 90 days. Plan to get him off of this after he recovers from shoulder surgery 10/26/2018: Has seen Dr. Ulloa a couple times and plan is for surgery for repair of his rotator cuff on right side but has to initiate PT first and this is to be scheduled; Anticipate surgery by January to March of 2019 and may need 3-6 month recovery time; anticipate about 4 months.; continue to be cautious; limit activities with right arm/shoulder/any repetitive motion; but advised to focus on general aerobic activity. 04/22/2018: He will be seeing an lubricating specialist at [facility], Dr. Ulloa next week, for further evaluation. Ongoing for many years now, initial injury in 2002; Has seen ortho and recommendation was for arthroscopic surgery, repair. He has stated that he is unable to miss weeks of work at a time and still is in this situation; Advised to continue daily exercises/stretching for right shoulder and avoid any heavy lifting, lifting overhead, or repetitive motions. Once he is able to take time out of work, able to retire, will refer to ortho for re-evaluation; however the window for surgery may pass if there is any worsening of shoulder pathology Rising PSA level 03/27/2017 08/26/2024 Overview (08/25/2023): 08/18/2023 recheck PSA stable at 1.7 Immunizations Name Administration Dates Next Due COVID-19, mRNA (Pfizer Pre F all 2022) Monovalent, 30 mcg/0.3 ml 10/17/2021,12/20/2020,11/28/2020 Influenza, Quad, Inactivated , Adjuvanted, Preser Fr 08/25/2023,08/27/2022 Influenza,adjuvanted,trivalent,PF (Fluad) 2023 Influenza,injectable,MDCK, Prsrv Fr,Quad 021 Influenza,injectable,quad,Prsrv Fr 10/07/2018 Influenza,injectable,quad,preservative 0 Influenza,seasonal,trivalent ,preservative (FLUZONE MDV) 09/24/2005 PCV (Pneumococcal conjugate unspecified) - 09/24 PCV-20 08/27/2022 Td - 04/03/2009 Tdap 11/29/2021,04/22/2018 Zoster (Shingrix) 07/03/2021,04/22/2018 Family History Medical History Relation Name Comments Allergies (med/food/envrnmt) Daughter Cancer - Lung Father Other Father h/o of asbestos is Dementia Mother Hypertension Mother Cancer - Colon Paternal uncle Relation Name Status Comments Daughter Father Mother Paternal uncle Social History Smoking Status as of 03/11/2025 Tobacco Use Types Packs/Day Years Used Date Smoking Tobacco: Never Assessed PHQ-2 Answer Date Recorded Patient Health Questionnaire-2 Score 0 08/25/2024 PHQ-9 Answer Date [facility]ed [facility] SEVERITY SCORE (Range 0-27) 0 [...] on file Sexual Orientation Not on file Last Filed Vital Signs Vital Sign Reading Time Taken Comments Blood Pressure 130/70 01/21/2025 2:20 PM EST Pulse 84 01/21/2025 2:20 PM EST Temperature 36.4 ??C (97.5 ??F) 08/26/2024 12:41 PM E DT Respiratory Rate - - Oxygen Saturation 97% 01/21/2025 2:20 PM EST Inhaled Oxygen Concentration - - Weight 104 kg (229 lb) 01/21/2025 2:20 PM EST Height 189.4 cm (6' 2.57 ) 08/26/2024 12:41 PM E DT Body Mass Index 28.96 08/26/2024 12:41 PM EDT Plan of Treatment Upcoming Encounters Date Type Department Care Team (Latest Contact Info) Description 08/12/2025 8:30 AM EDT Office Visit [facility] [address] [facility] [address] [place] [phone] Filiberto Leos MD [address] [place] [address] Return in about 6 months (around 08/11/2025) for labs prior. 09/22/2025 12:45 PM EDT CPE - Comprehensive Physical Exam [facility] [address] [place] [phone] Ludwig Tidwell MD [address] [place] [address] Procedures * Due to [place] state law, this organization might not be sharing negative HIV tests. Procedure Name Priority Date/Time Associated Diagnosis Comments MRI THORACIC SPINE W WO CONTRAST 02/21/2025 1:42 PM EDT MRI CERVICAL SPINE W WO CONTRAST 02/21/2025 1:15 PM EDT PROSTATE SPECIFIC ANTIGEN (PSA) TOTAL, SERUM Routine 01/31/2025 6:47 AM EDT Low testosterone in male TESTOSTERONE, TOTAL,(ADULT MALE) IMMUNOASSAY Routine 01/31/2025 6:47 AM EDT Low testosterone in male COMPREHENSIVE METABOLIC PANEL Routine 01/06/2025 11:34 AM EST CTA NECK/HEAD W CONTRAST Routine 01/03/2025 10:04 AM EST Dizziness History of stroke CREATININE WITH GLOMERULAR FILTRATION RATE, ESTIMATED (EGFR) Same Day Results 12/24/2024 1:24 PM EST Encounter for laboratory test PARATHYROID HORMONE (PTH), INTACT WITH CALCIUM, SERUM Routine 11/30/2024 9:44 AM EST Screening for endocrine disorder PAIN MANAGEMENT PROFILE WITH FENTANYL, URINE (PAINM2+) Routine 11/30/2024 9:44 AM EST Medication management MRI BRAIN WO CONTRAST 09/17/2024 9:58 AM EDT MRI OF BRAIN W/WO CONTRAST 09/12/2024 HEMATOCRIT, BLOOD Routine 08/24/2024 6:4 9 AM EDT Low testosterone in male LIPID PANEL WITH REFLEX TO DIRECT LDL Routine 08/24/2024 6:49 AM EDT Screening, lipid HEMOGLOBIN A1C Routine 08/24/2024 6:49 AM EDT Screening for endocrine disorder TESTOSTERONE, TOTAL,(ADULT MALE) IMMUNOASSAY Routine 08/02/2024 6:48 AM EDT Low testosterone in male ESTRADIOL, RAPID Routine 06/03/2024 6:47 AM EDT Low testosterone in male BASIC METABOLIC PANEL WITH (GFR) Routine 06/03/2024 6:47 AM EDT Stage 3a chronic kidney disease PAIN MANAGEMENT PROFILE WITH FENTANYL, URINE (PAINM2+) Routine 06/03/2024 6:47 AM EDT Encounter for drug therapy Chronic right shoulder pain MRI THORACIC SPINE WO CONTRAST 02/23/2024 11:15 AM EDT IMMUNOFIXATION, URINE Routine 12/30/2023 1:20 PM EST IMMUNOFIXATION, SERUM Routine 12/30/2023 1:13 PM EST KAPPA & LAMBDA, FREE W/RATIO Routine 12/30/2023 1:13 PM EST PAIN MANAGEMENT PROFILE WITH FENTANYL, URINE (PAINM2+) Routine 12/30/2023 6:48 AM EST Encounter for drug therapy COVID-19 ANTIGEN HOME TEST Routine 12/22/2023 PROTEIN ELECTROPHORESIS W/REFLEX TO IMMUNOFIXATION, RANDOM URINE Routine 12/11/2023 7:43 AM EST PROTEIN ELECTROPHORESIS W/REFLEX TO IMMUNOFIXATION, SERUM Routine 12/11/2023 7:43 AM EST PROSTATE SPECIFIC ANTIGEN (PSA) TOTAL, SERUM Routine 08/21/2023 11:30 AM EDT Rising PSA level COMPREHENSIVE METABOLIC PANEL WITH GFR Routine 08/21/2023 11:30 AM EDT Mild intermittent asthma, uncomplicated HEMOGLOBIN A1C Routine 08/21/2023 11:30 AM EDT Screening for endocrine disorder LIPID PANEL WITH REFLEX TO DIRECT LDL Routine 08/21/2023 11:30 AM EDT Screening, lipid COVID-19 ANTIGEN HOME TEST Routine 08/13/2023 PAIN MANAGEMENT PROFILE WITH FENTANYL, URINE (PAINM2+) Routine 06/24/2023 7:35 AM EDT Chronic right shoulder pain Spinal stenosis, unspecified spinal region CT T-SPINE WITHOUT CONTRAST 05/28/2023 9:09 AM EDT VITAMIN E (TOCOPHEROL) Routine 12:24 PM EDT METHYLMALONIC ACID, SERUM Routine 04/24/2023 12:24 PM EDT HTLV I/II ANTIBODIES W/REFLEX CONFIRMATION Routine 04/24/2023 12:24 PM EDT COPPER, SERUM Routine 04/24/2023 12:24 PM EDT ZINC Routine 04/24/2023 12:24 PM EDT VITAMIN B12 Routine 04/24/2023 12:24 PM EDT TSH REFLEX FREE T4 Routine 04/24/2023 12:24 PM EDT MRI THORACIC SPINE W WO CONTRAST 04/24/2023 8:30 AM EDT MRI CERVICAL SPINE W WO CONTRAST 04/24/2023 8:30 AM EDT MRI LUMBAR SPINE W WO CONTRAST 04/24/2023 8:28 AM EDT CREATININE Routine 04/17/2023 3:28 PM EDT BUN Routine 04/17/2023 3:28 PM EDT RPR (MONITOR) W/REFLEX TO TITER Routine 02/27/2023 2:44 PM EDT LYME ANTIBODY SCREEN W/REFLEX TO BLOT Routine 02/27/2023 2:44 PM EDT SEDIMENTATION RATE Routine 02/27/2023 2: 44 PM EDT PAIN MANAGEMENT PROFILE WITH FENTANYL, URINE (PAINM2+) Routine 02/11/2023 7:11 AM EDT Pain management contract agreement XRAY FEET COMPLETE MIN 3 VWS - BILAT Routine 12/05/2022 12:34 PM EST Left foot pain PROSTATE SPECIFIC ANTIGEN (PSA) TOTAL, SERUM Routine 08/27/2022 11:16 AM EDT Screening for prostate cancer HEMOGLOBIN A1C Routine 08/27/2022 11:16 AM EDT Pre-diabetes LIPID PANEL WITH REFLEX TO DIRECT LDL Routine 08/27/2022 11:16 AM EDT Mixed hyperlipidemia ALANINE AMINOTRANSFERASE (ALT), SERUM Routine 08/27/2022 11:16 AM EDT Mixed hyperlipidemia VENIPUNCTURE Routine 08/27/2022 11:16 AM EDT Stage 3a chronic kidney disease XRAY FEET COMPLETE MIN 3 VWS - BILAT (DX: FOOT PAIN *NO INJURY*) Routine 05/15/2022 9:50 AM EDT PAIN MANAGEMENT PROFILE WITH FENTANYL, URINE (PAINM2+) Routine 04/10/2022 9:50 AM EDT Encounter for observation for other suspected diseases and conditions ruled out TISSUE PATHOLOGY Routine 10/31/2021 8:30 AM EST COLONOSCOPY, FLEXIBLE; WITH REMOVAL OF TUMOR(S), POLYP(S), OR OTHER LESION(S) BY SNARE TECHNIQUE Routine 10/31/2021 8:17 AM EST Polyp of sigmoid colon, unspecified type History of colonic polyps GASTROENTEROLOGY TEST/PROCEDURE, UNSPECIFIED 10/31/2021 VENIPUNCTURE Routine 10/25/2021 4:43 PM EST MARLON (acute kidney injury) CYSTATIN C Routine 10/25/2021 4:43 PM EST MARLON (acute kidney injury) CBC INCLUDES DIFFERENTIAL AND PLATELET COUNT Routine 10/15/2021 7:29 AM EST Acute kidney injury (nontraumatic) VENIPUNCTURE Routine 10/15/2021 7:29 AM EST Acute kidney injury (nontraumatic) URINALYSIS, COMPLETE INCLUDES DIPSTICK AND MICROSCOPIC Routine 10/15/2021 7:29 AM EST Acute kidney injury (nontraumatic) VENIPUNCTURE Routine 10/02/2021 3:49 PM EST Bilateral leg edema CYTOLOGY/PATHOLOGY/GEN ETICS UNSPECIFIED 08/23/2021 BASIC METABOLIC PANEL WITH (GFR) Routine 07/10/2021 7:45 AM EDT Stage 3a chronic kidney disease LIPID PANEL WITH REFLEX TO DIRECT LDL Routine 07/10/2021 7:45 AM EDT Mixed hyperlipidemia PAIN MANAGEMENT PROFILE WITH FENTANYL, URINE (PAINM2+) Routine 07/10/2021 7:45 AM EDT Chronic right shoulder pain Rotator cuff tear arthropathy of both shoulders VENIPUNCTURE Routine 07/10/2021 7:45 AM EDT Screening for prostate cancer COMPREHENSIVE METABOLIC PANEL WITH GFR Routine 03/02/2021 12:06 PM EDT Nausea THYROID STIMULATING HORMONE (TSH) WITH FREE T4 REFLEX, SERUM Routine 03/02/2021 12:06 PM EDT Fatigue, unspecified type IRON PROFILE (IRON/TIBC), SERUM Routine 03/02/2021 12:06 PM EDT Fatigue, unspecified type VENIPUNCTURE Routine 03/02/2021 12:06 PM EDT Fatigue, unspecified type CYTOLOGY/PATHOLOGY/GEN ETICS UNSPECIFIED 01/25/2021 CBC INCLUDES DIFFERENTIAL AND PLATELET COUNT Routine 01/03/2021 7:28 AM EST Fatigue, unspecified type THYROID STIMULATING HORMONE (TSH) WITH FREE T4 REFLEX, SERUM Routine 01/03/2021 7:28 AM EST Fatigue, unspecified type LIPID PANEL WITH REFLEX TO DIRECT LDL Routine 01/03/2021 7:28 AM EST Mixed hyperlipidemia ALANINE AMINOTRANSFERASE (ALT), SERUM Routine 01/03/2021 7:28 AM EST Mixed hyperlipidemia VENIPUNCTURE Routine 01/03/2021 7:28 AM EST Pre-diabetes PAIN MANAGEMENT PROFILE WITH FENTANYL, URINE (PAINM2+) Routine 01/03/2021 7:28 AM EST Encounter for observation for other suspected diseases and conditions ruled out TSH, 3RD GENERATION Routine 06/23/2020 2 :31 PM EDT Lipid screening ALANINE AMINOTRANSFERASE (ALT), SERUM Routine 06/23/2020 2:31 PM EDT Lipid screening PHOSPHATE, SERUM Routine 06/23/2020 2:31 PM EDT Screening for endocrine disorder Chronic kidney disease, unspecified CKD stage PARATHYROID HORMONE (PTH), INTACT WITH CALCIUM, SERUM Routine 06/23/2020 2:31 PM EDT Encounter for screening for other suspected endocrine disorder Chronic kidney disease, unspecified CKD stage PROSTATE SPECIFIC ANTIGEN (PSA) TOTAL, SERUM Routine 06/23/2020 2:31 PM EDT Screening for prostate cancer HEMOGLOBIN A1C Routine 06/23/2020 2:31 PM EDT Screening for diabetes mellitus LIPID PANEL WITH REFLEX TO DIRECT LDL Routine 06/23/2020 2:31 PM EDT Lipid screening Screening for cardiovascular condition VENIPUNCTURE Routine 06/23/2020 2:31 PM EDT Lipid screening PAIN MANAGEMENT PROFILE WITH FENTANYL, URINE (PAINM2+) Routine 04/20/2020 1:37 PM EDT Chronic, continuous use of opioids PAIN MANAGEMENT PROFILE WITH FENTANYL, URINE (PAINM2+) Routine 10/01/2019 12:21 PM EST Encounter for observation for other suspected diseases and conditions ruled out BASIC METABOLIC PANEL WITH (GFR) Routine 07/20/2019 8:03 AM EDT Myalgia C-REACTIVE PROTEIN (CRP) - INFLAMMATION Routine 07/20/2019 8:03 AM EDT Myalgia ERYTHROCYTE SEDIMENTATION RATE (ESR) Routine 07/20/2019 8:03 AM EDT Myalgia BORRELIA BURGDORFERI AB (LYME), EIA WITH REFLEX IGG, IGM WB Routine 07/20/2019 8:03 AM EDT Myalgia CREATINE KINASE (CK), SERUM Routine 07/20/2019 8:03 AM EDT Chronic fatigue Renal insufficiency URINALYSIS, MICROSCOPIC Routine 07/20/2019 8:03 AM EDT Renal insufficiency SLEEP STUDY 03/03/2019 SLEEP STUDY (POLYSOMNOGRAM) ATTENDED 02/27/2019 XR TIBIA/FIBULA, LEFT 02/24/2019 10:36 AM EDT TESTOSTERONE, FREE(DIALYSIS) AND TOTAL, MS Routine 01/18/2019 6:48 AM EST Fatigue, unspecified type HEPATIC FUNCTION PANEL (ALT,AST,ALK PH,BILI'S,TP,ALB) Routine 01/18/2019 6:48 AM EST Fatigue, unspecified type BASIC METABOLIC PANEL WITH (GFR) Routine 01/18/2019 6:48 AM EST Fatigue, unspecified type THYROID STIMULATING HORMONE (TSH) WITH FREE T4 REFLEX, SERUM Routine 01/18/2019 6:48 AM EST Fatigue, unspecified type FOLATE, SERUM Routine 01/18/2019 6:48 AM EST Fatigue, unspecified type VITAMIN B12 (CYANOCOBALAMIN), SERUM Routine 01/18/2019 6:48 AM EST Fatigue, unspecified type IRON PROFILE (IRON/TIBC), SERUM Routine 01/18/2019 6:48 AM EST Fatigue, unspecified type HEMOGLOBIN AND HEMATOCRIT, BLOOD Routine 01/18/2019 6:48 AM EST Fatigue, unspecified type LIPID PANEL WITH REFLEX TO DIRECT LDL Routine 01/18/2019 6:48 AM EST Other hyperlipidemia THYROID STIMULATING HORMONE (TSH) WITH FREE T4 REFLEX, SERUM Routine 04/22/2018 9:45 AM EDT Fatigue, unspecified type COMPREHENSIVE METABOLIC PANEL WITH GFR Routine 04/22/2018 9:45 AM EDT Routine history and physical examination of adult LIPID PANEL WITH REFLEX TO DIRECT LDL Routine 04/22/2018 9:45 AM EDT Routine history and physical examination of adult TESTOSTERONE, FREE(DIALYSIS) AND TOTAL, MS Routine 04/22/2018 9:45 AM EDT Fatigue, unspecified type CBC INCLUDES DIFFERENTIAL AND PLATELET COUNT Routine 04/22/2018 9:45 AM EDT Fatigue, unspecified type COLONOSCOPY, FLEXIBLE; WITH BIOPSY, SINGLE OR MULTIPLE Routine 04/08/2018 7:37 AM EDT Polyp of ascending colon, unspecified type Screen for colon cancer Nausea TISSUE PATHOLOGY Routine 04/08/2018 7:15 AM EDT ESOPHAGOGASTRODUODENOS COPY, FLEXIBLE, TRANSORAL; WITH BIOPSY, SINGLE OR MULTIPLE Routine 04/08/2018 Polyp of ascending colon, unspecified type Screen for colon cancer Nausea PAIN MANAGEMENT PROFILE WITH FENTANYL, URINE (PAINM2+) Routine 03/25/2018 11:25 AM EDT Long-term current use of opiate analgesic HELICOBACTER PYLORI UREA BREATH TEST (UBIT-(R)) Routine 02/18/2018 8:36 AM EDT Nausea Abdominal discomfort XRAY ESOPHAGUS 2018 LIPASE, SERUM Routine 10/31/2017 10:32 AM EST Chronic nausea AMYLASE, SERUM Routine 10/31/2017 10:32 AM EST Chronic nausea COMPREHENSIVE METABOLIC PANEL WITH GFR Routine 10/31/2017 10:32 AM EST Chronic nausea CBC INCLUDES DIFFERENTIAL AND PLATELET COUNT Routine 10/31/2017 10:32 AM EST Chronic nausea CBC INCLUDES DIFFERENTIAL AND PLATELET COUNT Routine 04/18/2017 11:06 AM EDT Fatigue, unspecified type HEPATITIS C AB WITH REFLEX TO RNA PCR, SERUM Routine 04/18/2017 11:06 AM EDT Routine physical examination PROSTATE SPECIFIC ANTIGEN (PSA) TOTAL, SERUM Routine 04/14/2017 10:46 AM EDT Health care maintenance LIPID PANEL WITH REFLEX TO DIRECT LDL Routine 04/14/2017 10:46 AM EDT Health care maintenance COMPREHENSIVE METABOLIC PANEL WITH GFR Routine 04/14/2017 10:46 AM EDT Health care maintenance PAIN MANAGEMENT PROFILE, URINE (PAINM2) Routine 03/27/2017 12:13 PM EDT Chronic right shoulder pain UNSPECIFIED DIAGNOSTIC PROCE 04/11/2016 CARDIOVASCULAR STRESS TEST W/TREADMILL, BICYCLE, AND/OR PHARMACOLOGICAL STRESS; W/ SUPERV/INTERP 11/10/2015 EKG 10/30/2015 XRAY SHOULDER COMPLETE MIN 2 VWS 02/10/2015 CYTOLOGY/PATHOLOGY/GEN ETICS UNSPECIFIED 07/29/2014 UNSPECIFIED MAJOR PROCEDURE 07/29/2014 MRI UPPER EXTREMITY OTHER THAN JOINT W/ CONTRAST MATERIAL(S) 10/10/2011 MRI UPPER EXTREMITY OTHER THAN JOINT W/ CONTRAST MATERIAL(S) 10/10/2011 Results * Due to [place] state law, this organization might not be sharing negative HIV tests. * (ABNORMAL) MRI THORACIC SPINE W WO CONTRAST (02/21/2025 1:42 PM EDT) Only the most recent of2 resultswithin the time period is included. Incidental Findings Yes(A) [facility] Anatomical Region Laterality Modality Other 02/21/2025 1:42 PM EDT Narrative 02/21/2025 1:42 PM EDT EXAMINATION: THORACIC [...] is no large paraspinal/epidural drainable collection. ?? IMPRESSION: Spondylosis/degenerative listhesis with severe T11-T12 thoracic canal/foraminal stenosis with cord compression/edema and likely faint cord enhancement, recommend neurosurgical evaluation ([place] alert). Dorsal column T2 hyperintensities extending from [...] imaging correlation and follow-up advised. COMMUNICATION: A(n) [place] actionable finding has been communicated to the ordering or responsible provider via the [employer] system on 02/21/2025 1:42 PM. ??Receipt of this communication by the responsible provider will be documented in [employer] upon receiving acknowledgement if applicable, Message ID [id number]. A(n) [place] actionable finding has been communicated to the ordering or responsible provider via the [employer] system on 02/21/2025 1:42 PM. ??Receipt of this communication by the responsible provider will be documented in [employer] upon receiving acknowledgement if applicable, Message ID [id number]. If this radiology report contains a blank impression section, it is an incomplete radiology report. ??Please contact the interpreting radiologist or applicable radiology division as soon as possible to obtain the completed interpretation. ? Workstation ID: [id number] 6' [id number] Procedure Note [facility], Unknown Provider - 02/21/2025 EXAMINATION: THORACIC SPINE MRI WITHOUT AND WITH IV CONTRAST PHARMACEUTICAL: 0.1 mmol/kg Doteram administered intravenously after obtaining precontrastimages. TECHNIQUE: Multiplanar and multisequence MR imaging of thoracic spine performedwithout and with intravenous contrast administration. COMPARISON: Prior comparable studies most recent of which is a thoracic spine MRIdated 02/21/2024. CLINICAL INFORMATION: Chronic myelopathy, FINDINGS: Multilevel degenerative listhesis is again visualized, most conspicuouslyinvolving T11-T12 level. There is no compression deformity, obvious prevertebral edema or swelling.Subtle bony/laminectomy defects are again suggested at T11-T12 level. 17mm T6 vertebral body hemangioma is again noted. Multilevel degenerativevertebral endplate changes and developing Schmorl's nodes are noted. Multilevel degenerative disc disease and accompanying asymmetric discbulges are present. Flaval thickening and facet arthrosis are present.Dorsal epidural lipomatosis is noted at T9-10 and T10-11 levels. [id number] and diffuse uncovering of T11-T12 disc with superimposed left paracentral disc herniation areagain noted. There is mild T1-2, mild to moderate T2-3, T3-4, moderateT7-8, T9, T10-11 and severe T11-T12 central canal/foraminal stenosis.There is persistent cord compression at T11-T12 level. T2-T3 central disc herniation is gently remodeling the ventral cordmargin. Left paracentral T3-4 disc protrusion is noted in the lateralrecess. The thoracic cord again has intramedullary T2 hyperintensity at [id number] which can be related to chronic cord compression with developingmyelomalacia and/or residual edema. Faint enhancement is suggested inthis area. Neurosurgical evaluation is recommended. Linear, intramedullary T2 hyperintensities are extendingfrom this region cranially to T6 level as in the last study. These can berelated to chronic cord compression/myelopathic changes at T11-T12 levelwith associated Wallerian degeneration although posttraumatic changes, vitamin B12 deficiency,sequela of prior inflammation/infection, exposure to unusual chemicals mayalso contribute to this finding. Appropriate clinical and laboratorycorrelation can therefore be helpful. Heterogeneous posterior paraspinal signal is again visualized at thethoracolumbar junction, please correlate with prior posttreatment changes.There is no large paraspinal/epidural drainable collection. IMPRESSION: Spondylosis/degenerative listhesis with severe T11-T12 thoraciccanal/foraminal stenosis with cord compression/edema and likely faint cordenhancement, recommend neurosurgical evaluation ([place] alert). Dorsal column T2 hyperintensities extending from T11 T12 cranially towardsT6 level; chronic cord compression/myelopathy changes at T11-T12 levelwith developing Wallerian degeneration, posttraumatic changes, vitamin [id number], sequela of prior inflammation/infection, exposure to unusual chemicals to be considered,advise appropriate clinical/laboratory correlation and attention to thesefindings in the follow-up imaging ([place] alert). Additional areas of thoracic canal and foraminal stenosis detailedabove. Likely prior laminectomy changes at T11-T12 level, please correlateclinically. Known, 17 mm in T6 vertebral body hemangioma. Appropriate clinical, laboratory, imaging correlation and follow-upadvised. COMMUNICATION: A(n) [place] actionable finding has been communicated to the ordering orresponsible provider via the [employer] system on02/21/2025 1:42 PM. Receipt of this communication by the responsibleprovider will be documented in [facility] Findings upon receiving acknowledgement [employer]able, Message ID [id number]. A(n) [place] actionable finding has been communicated to the ordering orresponsible provider via the [employer] system on02/21/2025 1:42 PM. Receipt of this communication by the responsibleprovider will be documented in [facility] Findings upon receiving acknowledgement ifatheAudienceable, Message ID [id number]. If this radiology report contains a blank impression section, it is anincomplete radiology report. Please contact the interpreting radiologistor applicable radiology division as soon as possible to obtain thecompleted interpretation. Workstation ID: [id number] 6' 3 223 us Unknown Provider [facility] Final Resu lt * MRI CERVICAL SPINE W WO CONTRAST (02/21/2025 1:15 PM EDT) Only the most recent of2 resultswithin the time period is included. Anatomical Region Laterality Modality Other 02/21/2025 1:15 PM EDT Narrative 02/21/2025 1:15 PM EDT EXAMINATION: CERVICAL [...] ?? The craniocervical junction is normal. ?? IMPRESSION: No compression deformity, abnormal enhancement or large [...] obtain the completed interpretation. ? Workstation ID: [id number] 6' 3 223 Procedure Note [facility], Unknown Provider - 02/21/2025 EXAMINATION: CERVICAL SPINE MRI WITHOUT [...] possible to obtain thecompleted interpretation. Workstation ID: [id number] 6' 3 223 us Unknown Provider [facility] Final Resu lt * TESTOSTERONE, TOTAL,(ADULT MALE) IMMUNOASSAY (01/31/2025 6:47 AM EDT) Only the most recent of2 resultswithin the time period is included. Pathologist [facility] [facility] Testosterone 612 250 - 827 ng/dL [facility] 01/31/2025 6:47 AM EDT 02/01/2025 4:27 AM EDT Narrative Resulting Agency Comment [id number] Filiberto Leos MD LABORATORY Final Result Performing Organization Address [facility] de Phone Number [facility] [address] [place] [address] * PROSTATE SPECIFIC ANTIGEN (PSA) TOTAL, SERUM (01/31/2025 6:47 AM EDT) Only the most recent of6 resultswithin the time period is included. Pathologist [facility] PSA 1.63 < OR = 4.00 ng/mL [facility] Comment: The total PSA value from this assay system is standardized against the WHO standard. The test result will be approximately 20% lower when compared to the equimolar-standardized total PSA (Gene Lorna). Comparison of serial PSA results should be interpreted with this fact in mind. This test was performed using the Siemens chemiluminescent method. Values obtained from different assay methods cannot be used interchangeably. PSA levels, regardless of value, should not be interpreted as absolute evidence of the presence or absence of disease. 01/31/2025 6:47 AM EDT 02/01/2025 4:27 AM EDT Narrative Resulting Agency Comment [id number] Filiberto Leos MD LABORATORY Final Result Performing Organization Address City/[facility] Co de Phone Number [facility] [address] [place] [address] * (ABNORMAL) COMPREHENSIVE METABOLIC PANEL (01/06/2025 11:34 AM EST) Pathologist [facility] Sodium 142 135 - 145 mmol/L [facility] Potassium 4.4 3.5 - 5.3 mmol/L [facility] Chloride 104 98 - 107 mmol/L [facility] Carbon dioxide 27 22 - 32 mmol/L [facility] Anion gap 11 5 - 15 [facility] Glucose 87 65 - 99 mg/dL [facility] Creatinine 1.48(H) 0.60 - 1.30 mg/dL [facility] Calcium 10.1 8.6 - 10.5 mg/dL [facility] Protein Total (Serum) 7.0 6.0 - 8.0 g/dL [facility] Albumin 4.3 3.5 - 5.2 g/dL [facility] Bilirubin Total 0.5 0.2 - 1.2 mg/dL [facility] Alkaline phosphatase 62 35 - 129 U/L [facility] AST (SGOT) 42(H) 10 - 40 U/L [facility] ALT (SGPT) 39 10 - 40 U/L [facility] Urea Nitrogen Blood (BUN) 21 7 - 23 mg/dL [facility] EGFR 52(L) >=60 mL/min/1.7 3m2 [facility] Comment: The estimated glomerular filtration rate (eGFR) is calculated using a new formula developed by the NKF-ASN task force to eliminate race-based correction factors. The new formula uses serum/plasma creatinine, age, and gender to determine eGFR. A value below 60mls/min might indicate kidney disease and will be flagged. For additional information, see Sharif et al, Am J Kidney Dis. 2021;79(2):268-288, A Unifying Approach for GFR estimation: Recommendations of the NKF-ASN Task Force on Reassessing the Inclusion of Race in Diagnosing Kidney Disease . GLOBULIN, TOTAL 2.7 2.1 - 4.2 g/dL [facility] A/G RATIO 1.6 1.5 - 3.0 [facility] 01/06/2025 11:3 4 AM EST us Unknown Provider [facility] LABORATORY Final Resu lt [facility] [employer] [address] [facility] [place] [address] * CTA NECK/HEAD W CONTRAST (01/03/2025 10:04 AM EST) Narrative [facility] - 01/04/2025 11:04 AM EST Patient History: dizziness with history of stroke, rule out vertebral artery stenosis or other vascular stenosis/ pathology in the neck. CONTRAST: [address] angiography head and neck with contrast. 3D Postprocessing. Comparison: ??MR - HEAD ASS [id number]^[facility] HEAD - 09/12/24 19:19 EDT ?? Findings: Aortic arch appears unremarkable. Great vessel origins are patent. The subclavian arteries are patent. ?? The vertebral arteries are uniform in caliber within the neck and both contribute to the basilar artery. Basilar artery is patent. Bilateral posterior cerebral arteries are patent. The common carotid arteries are uniform in caliber to the carotid bifurcations. There is no stenosis at either carotid bifurcation. Minimal peripheral calcification of the right proximal internal carotid artery. The internal carotid arteries are patent to the carotid termini. Anterior cerebral arteries are patent. Bilateral middle cerebral arteries are patent. No enhancing intracranial lesion. No mass or lymphadenopathy in the neck. Lung apices are clear. Postsurgical changes of anterior cervical discectomy and fusion from C3 through C6. IMPRESSION: 1. No acute vascular findings in the head and neck. No evidence of vessel occlusion, stenosis, or dissection. Procedure Note Mikey Pérez MD - 01/04/2025 Patient History: dizziness with history of stroke, rule out vertebralartery stenosis or other vascular stenosis/ pathology in the neck. CONTRAST: [address] angiography head and neck with contrast. 3D Postprocessing. Comparison: MR - HEAD ASS [id number]^[facility] HEAD - 09/12/24 19:19 EDT Findings: Aortic arch appears unremarkable. Great vessel origins are patent. Thesubclavian arteries are patent. The vertebral arteries are uniform in caliber within the neck and bothcontribute to the basilar artery. Basilar artery is patent. Bilateralposterior cerebral arteries are patent. The common carotid arteries are uniform in caliber to the carotidbifurcations. There is no stenosis at either carotid bifurcation. Minimalperipheral calcification of the right proximal internal carotid artery.The internal carotid arteries are patent to the carotid termini. Anterior cerebral arteries are patent. Bilateralmiddle cerebral arteries are patent. No enhancing intracranial lesion. No mass or lymphadenopathy in the neck.Lung apices are clear. Postsurgical changes of anterior cervicaldiscectomy and fusion from C3 through C6. IMPRESSION: 1. No acute vascular findings in the head and neck. No evidence of vesselocclusion, stenosis, or dissection. us Ludwig Tidwell MD IMG CT WITH CONTRAST ORDERABLES Final Result Performing Organization Address City/[facility]/ZIP Co de Phone Number [facility] * (ABNORMAL) CREATININE WITH GLOMERULAR FILTRATION RATE, ESTIMATED (EGFR) (12/24/2024 1:24 PM EST) Creatinine 1.42(H) 0.70 - 1.35 mg/dL [facility] EGFR 54(L) > OR = 60 mL/min/1.7 3m2 [facility] 12/24/2024 1:24 PM EST 12/24/2024 3:07 PM EST Narrative [facility] - 12/24/2024 3:30 PM EST Please note that this estimated GFR does [...] needs for GFR calculation. Resulting Agency Comment [id number] us Ludwig Tidwell MD LAB SAME DAY RESULT Final Resul t Performing Organization Address [facility] Co de Phone Number [facility] [address] [place] [address] * (ABNORMAL) PAIN MANAGEMENT PROFILE WITH FENTANYL, URINE (PAINM2+) (11/30/2024 9:44 AM EST) Only the most recent of11 resultswithin the time period is included. Fentanyl Screen (Urine) NEGATIVE <0.5 ng/mL [facility] Comment:See Note 1 COMMENT SEE NOTE [facility] Comment:See Note 2 Creatinine (Urine) 88.3 > or = 20.0 mg/dL [facility] pH (Urine) 5.0 4.5 - 9.0 [facility] OXIDANT NEGATIVE [...] [facility] Comment:See Note 1 Hydrocodone (Urine) 961(H) <50 ng/mL [facility] Comment:See Note 1 Hydromorphone (Urine) 132(H) <50 ng/mL [facility] Comment:See Note 1 Morphine (Urine) NEGATIVE <50 ng/mL [facility] Comment:See Note 1 Norhydrocodone (Urine) 590(H) <50 ng/mL [facility] Comment:See Note 1 Oxycodone (Urine) NEGATIVE <100 ng/mL [facility] Phencyclidine (Urine) NEGATIVE <25 ng/mL [facility] COMMENT SEE NOTE [facility] Comment: See Note 2 Note 1 This test was developed and its analytical performance characteristics have been determined by [facility]. It has not been cleared or approved [...] interpreting these drug results, please contact a [facility] Toxicology Specialist: [phone] ( ), M-F, 8am-6pm EST. 11/30/2024 9:44 AM EST 12/01/2024 1:32 AM EST Narrative Resulting Agency Comment [id number] Ludwig Tidwell MD LABORATORY Final Result [facility] [address] [place] [address] * PARATHYROID HORMONE (PTH), INTACT WITH CALCIUM, SERUM (11/30/2024 9:44 AM EST) Only the most recent of2 resultswithin the time period is included. Parathyroid Hormone (PTH), Intact 36 16 - 77 pg/mL [facility] Comment: Interpretive Guide ?Intact PTH ? Calcium ? ------- Normal Parathyroid ?Normal ? Normal Hypoparathyroidism ?Low or Low Normal ?Low Hyperparathyroidism ?? Primary ?Normal or High ? High ?? Secondary ?High ? Normal or Low ?? Tertiary ? High ? High Non-Parathyroid ?? Hypercalcemia ?Low or Low Normal ?High Calcium 9.9 8.6 - 10.3 mg/dL [facility] 11/30/2024 9:44 AM EST 12/01/2024 1:32 AM EST Narrative Resulting Agency Comment [id number] Ludwig Tidwell MD LABORATORY Final Result Performing Organization Address City/State/[facility] Co de Phone Number [facility] [address] [place] [address] * MRI BRAIN WO CONTRAST (09/17/2024 9:58 AM EDT) Anatomical Region Laterality Modality Other 09/17/2024 9:58 AM EDT Narrative 09/17/2024 9:58 AM EDT EXAMINATION: MRI [...] sellar/parasellar structures, and craniocervical junction are maintained. IMPRESSION: Normal bilateral internal auditory canals. Subtle [...] the completed interpretation. ? Workstation ID: [id number] Procedure Note [facility], Unknown Provider - 09/17/2024 EXAMINATION: MRI brain without contrast [...] both cerebral hemispheres and within the kika. Theseare in a nonspecific distribution. Given the patient's age, this may becompatible with mild chronic small vessel ischemic change. There is no intracranial mass lesion. No intracranial hemorrhage. No shiftof midline structures. The ventricles and extra-axial CSF spaces arenormal for age. No hydrocephalus. The cerebellar tonsils are normal inposition. The major intracranial vascular flow voids are maintained. The orbits, sellar/parasellarstructures, and craniocervical junction are maintained. IMPRESSION: Normal bilateral internal auditory canals. Subtle [...] to obtain thecompleted interpretation. Workstation ID: [id number] us Unknown Provider [facility] Final Resu lt * MRI OF BRAIN W/WO CONTRAST (09/12/2024) 09/12/2024 Narrative 09/12/2024 Ordered by an unspecified provider. us Unknown Provider CONTRAST STUDY- OTHER Final Res ult * (ABNORMAL) HEMATOCRIT, BLOOD (08/24/2024 6:49 AM EDT) Hematocrit 52.7(H) 38.5 - 50.0 % [facility] 08/24/2024 6:49 AM EDT 08/25/2024 1:17 AM EDT Narrative Resulting Agency Comment [id number] us Filiberto Leos MD LAB SAME DAY RESULT Final Resul t [facility] [address] [place] [address] * (ABNORMAL) HEMOGLOBIN A1C (08/24/2024 6:49 AM EDT) Only the most recent of5 resultswithin the time period is included. Hemoglobin A1C 5.7(H) <5.7 % of total [...] 1:17 AM EDT Narrative Resulting Agency Comment [id number] Ludwig Tidwell MD LABORATORY Final Result Performing Organization Address City/State/[facility] Co de Phone Number [facility] [address] [place] [address] * (ABNORMAL) LIPID PANEL WITH REFLEX TO DIRECT LDL (08/24/2024 6:49 AM EDT) Only the most recent of9 resultswithin the time period is included. Cholesterol 203(H) <200 mg/dL [facility] HDL Cholesterol 56 > OR = 40 mg/dL [facility] Triglyceride 90 <150 mg/dL [facility] LDL Cholesterol 128(H) mg/dL (calc) [facility] Comment: Reference range: <100 Desirable range <100 mg/dL for primary prevention; ?? <70 mg/dL for patients with CHD or diabetic patients with > or = 2 CHD risk factors. LDL-C is now calculated using the Naveen-Alek calculation, which is a validated novel method providing better accuracy than the Friedewald equation in the estimation of LDL-C. Naveen SS et al. JOHN. 2013;310(19): 9135-1003 (http://education.[employer].Sangart/faq/UHN467) CHOL/HDL Ratio 3.6 <5.0 (calc) [facility] Cholesterol Non-HDL 147(H) <130 mg/dL (calc) [facility] Comment: For patients with diabetes plus 1 major ASCVD risk factor, treating to a non-HDL-C goal of <100 mg/dL (LDL-C of <70 mg/dL) is considered a therapeutic option. 08/24/2024 6:49 AM EDT 08/25/2024 1:17 AM EDT Narrative Resulting Agency Comment [id number] Ludwig Tidwell MD LABORATORY Final Result Performing Organization Address [facility] de Phone Number [facility] [address] [place] [address] * (ABNORMAL) ESTRADIOL, RAPID (06/03/2024 6:47 AM EDT) Estradiol 49(H) < OR = 39 pg/mL [facility] Comment: Reference range established on post-pubertal patient population. No pre-pubertal reference range established using this assay. For any patients for whom low Estradiol levels are anticipated (e.g. males, pre-pubertal children and hypogonadal/post-menopausal females), the [facility] Estradiol, Ultrasensitive, LCMSMS assay is recommended (order code 68366). Please note: patients being treated with the drug fulvestrant (Faslodex(R)) have demonstrated significant interference in immunoassay methods for estradiol measurement. The cross reactivity could lead to falsely elevated estradiol test results leading to an inappropriate clinical assessment of estrogen status. [facility] order code [id number], Ultrasensitive LC/MS/MS demonstrates negligible cross reactivity with fulvestrant. 06/03/2024 6:4 7 AM EDT 06/04/2024 12:43 AM EDT Narrative Resulting Agency Comment [id number] us Filiberto Leos MD LAB SAME DAY RESULT Final Resul t Performing Organization Address [facility] Co de Phone Number [facility] [address] [place] [address] * (ABNORMAL) BASIC METABOLIC PANEL WITH (GFR) (06/03/2024 6:47 AM EDT) Only the most recent of7 resultswithin the time period is included. Glucose 93 65 - 99 mg/dL [facility] Comment:Fasting reference in terval Urea Nitrogen [...] needs for GFR calculation. Resulting Agency Comment [id number] Ludwig Tidwell MD LABORATORY Final Result Performing Organization Address City/State/[facility] Co de Phone Number [facility] [address] [place] [address] * (ABNORMAL) MRI THORACIC SPINE WO CONTRAST (02/23/2024 11:15 AM EDT) Incidental Findings Yes(A) [facility] Anatomical Region Laterality Modality Other 02/23/2024 11:1 5 AM EDT Narrative 02/23/2024 11:15 AM EDT EXAMINATION: THORACIC [...] Remote C3-6 ACDF is noted in the sliver lapper images. ??Metallic artifact is obscuring lower cervical [...] and moderate T10-11 central canal/bilateral foraminal stenosis. ?? Severe degenerative disc space narrowing, anterolisthesis, diffuse disc [...] ??There is no large epidural/paraspinal drainable collection. ??Short- term follow-up MRI with contrast can be helpful to assess interval changes if there are no known contraindications. ??CT can be helpful to better delineate fine bone detail. IMPRESSION: Spondylosis and degenerative listhesis with; Severe to T11-T12 central canal/bilateral foraminal stenosis with cord compression and possible cord edema ([place] alert), advise neurosurgical evaluation. Overlying lower thoracic [...] imaging correlation and follow-up advised. COMMUNICATION: A(n) [place] actionable finding has been communicated to the ordering or responsible provider via the [employer] system on 02/23/2024 11:15 AM. ??Receipt of this communication by the responsible provider will be documented in [facility] Findings upon receiving acknowledgement if applicable, Message ID [id number]. A(n) Yellow actionable finding has been communicated to the ordering or responsible provider via the [employer] system on 02/23/2024 11:15 AM. ??Receipt of this communication by the responsible provider will be documented in [employer] upon receiving acknowledgement if applicable, Message ID [id number]. If this radiology report contains a blank impression section, it is an incomplete radiology report. ??Please contact the interpreting radiologist or applicable radiology division as soon as possible to obtain the completed interpretation. ? Workstation ID: [id number]' [id number] Procedure Note [facility], Unknown Provider - 02/23/2024 EXAMINATION: THORACIC SPINE MRI WITHOUT [...] Remote C3-6 ACDF is noted in the sliver lapper images. Metallic artifact isobscuring lower cervical spine. [...] Central disc protrusion of T2-3 level is gently indenting the thoracic cord. Flavalthickening and facet arthrosis are more conspicuous in the lower thoracicspine. There is mild to moderate T9-T10 and moderate T10-11 centralcanal/bilateral foraminal stenosis. Severe degenerative disc space narrowing, anterolisthesis, diffuse discuncovering, superimposed left paracentral disc herniation, flavalthickening and facet arthrosis are contributing to severe central [place] bilateral foraminal stenosis. There is effacement of thecal sac and CSF signal. Associated cord compression isnoted at this level. There is intramedullary T2 hyperintensitiesconcerning for cord edema. Neurosurgical evaluation is thereforerecommended. Overlying, lower thoracic heterogeneous posterior paraspinal signal isextending towards the skin margin. There may be subtle bony defect [id number] level on the left side. Please correlate with recent trauma,surgical manipulation. Superimposed inflammation/infection is possible in the appropriate clinical andlaboratory setting. There is no large epidural/paraspinal drainablecollection. Short-term follow-up MRI with contrast can be helpful toassess interval changes if there are no known contraindications. CT can be helpful to better delineate fine bonedetail. IMPRESSION: Spondylosis and degenerative listhesis with; Severe to T11-T12 central canal/bilateral foraminal stenosis with cordcompression and possible cord edema ([place] alert), advise neurosurgicalevaluation. Overlying lower thoracic heterogeneous posterior paraspinal signal withpossible left-sided T11-T12 bony defect, please correlate for recenttrauma, prior surgical manipulation, superimposed inflammation/infection,advise appropriate clinical/laboratory correlation and additional/follow-up imaging (yellow alert). Mild to moderate, additional multilevel central canal/foraminal stenosisas detailed above. 2.1 cm T6 vertebral body hemangioma, as before. Partially visualized, remote, C3-6 ACDF. Appropriate clinical, laboratory, imaging correlation and follow-upadvised. COMMUNICATION: A(n) [place] actionable finding has been communicated to the ordering orresponsible provider via the [employer] system on02/23/2024 11:15 AM. Receipt of this communication by the responsibleprovider will be documented in [employer] upon receiving acknowledgement ifapplicable, Message ID [id number]. A(n) [place] actionable finding has been communicated to the ordering orresponsible provider via the [employer] system on02/23/2024 11:15 AM. Receipt of this communication by the responsibleprovider will be documented in [employer] upon receiving acknowledgement ifapplicable, Message ID [id number]. If this radiology report contains a blank impression section, it is anincomplete radiology report. Please contact the interpreting radiologistor applicable radiology division as soon as possible to obtain thecompleted interpretation. Workstation ID: [id number]' [id number] us Unknown Provider [facility] Final Resu lt * IMMUNOFIXATION, URINE (12/30/2023 1:20 PM EST) Interpretation (Urine) See Comments [facility] Comment: Normal pattern. No monoclonal proteins detected. 12/30/2023 1:20 PM EST Narrative [facility] - 01/01/2024 2:22 PM EST [facility] Received Date:[id number] us Unknown Provider [facility] LABORATORY Final Resu lt Performing Organization Address [facility]/ZIP Co de Phone Number [facility] [address] [place] [address] * IMMUNOFIXATION, SERUM (12/30/2023 1:13 PM EST) Interpretation See Comments [facility] Comment: Normal pattern. No monoclonal proteins detected. 12/30/2023 1:13 PM EST Narrative [facility] - 01/02/2024 8:42 AM EST [facility] Received Date:[id number] us Unknown Provider [facility] LABORATORY Final Resu lt Performing Organization Address City/[facility]/ZIP Co de Phone Number [facility] [employer] [address] [place] [address] * KAPPA & LAMBDA, FREE W/RATIO (12/30/2023 1:13 PM EST) [place] Light Chain, Free 11.1 3.3 - 19.4 mg/L [facility] Lambda Light Chain, Free 9.4 5.7 - 26.3 mg/L [facility] [place]/Lambda Ratio, Free 1.18 0.26 - 1.65 [facility] Comment: Free kappa/lambda ratio in serum of [...] following response to therapy of these disorders. 12/30/2023 1:13 PM EST Narrative [facility] - 01/01/2024 5:29 PM EST [facility] Received Date:[id number] us Unknown Provider [facility] LABORATORY Final Resu lt [facility] [employer] [address] [place] [id number] * COVID-19 ANTIGEN HOME TEST (12/22/2023) Only the most recent of2 resultswithin the time period is included. Pathologist [facility] COVID-19 Antigen Home Test POSITIVE 12/22/2023 us Unknown Provider LABORATORY Final Result * (ABNORMAL) PROTEIN ELECTROPHORESIS W/REFLEX TO IMMUNOFIXATION, SERUM (12/11/2023 7:43 AM EST) Protein Total (Serum) 6.6 6.1 - 8.1 g/dL [facility] Albumin 4.2 3.8 - 4.8 g/dL [facility] Alpha 1 globulin 0.3 0.2 - 0.3 g/dL [facility] Alpha 2 globulin 0.7 0.5 - 0.9 g/dL [facility] Beta 1 globulin 0.4 0.4 - 0.6 g/dL [facility] Beta 2 globulin 0.4 0.2 - 0.5 g/dL [facility] Gamma globulin 0.7(L) 0.8 - 1.7 g/dL [facility] Protein pattern See Comments [facility] Comment: Consistent with hypogammaglobulinemia. Serum free light chains or urine immunofixation should be considered if plasma cell dyscrasias are a possible clinical diagnosis. 12/11/2023 7:43 AM EST Narrative [facility] - 12/12/2023 11:12 AM EST [facility] Received Date: us Unknown Provider [facility] LABORATORY Final Resu lt Performing Organization Address [facility]/ZIP Co de Phone Number [facility] [employer] [address] [place] [address] * PROTEIN ELECTROPHORESIS W/REFLEX TO IMMUNOFIXATION, RANDOM URINE (12/11/2023 7:43 AM EST) Creatinine (Urine) 196 20 - 320 mg/dL [facility] Protein/Creati nine (Urine) 92 25 - 148 mg/g creat [facility] Protein/Creati nine (Urine) 0.092 0.025 - 0.148 mg/mg creat [facility] Protein (Urine) 18 5 - 25 mg/dL [facility] Albumin/Protei n.total (Urine) 100 % [facility] Alpha 1 globulin/Prote in.total (Urine) 0 % [facility] Alpha 2 globulin/Prote in.total (Urine) 0 % [facility] Beta globulin/Prote in.total (Urine) 0 % [facility] Gamma globulin/Prote in.total (Urine) 0 % [facility] Protein pattern (Urine) See Comments [facility] Comment: Normal Pattern 12/11/2023 7:43 AM EST Narrative [facility] - 12/16/2023 9:40 AM EST [facility] Received Date:[id number] us Unknown Provider [facility] LABORATORY Final Resu lt Performing Organization Address [facility] Center/ZIP Co de Phone Number [facility] [employer] [address] [place] [address] * COMPREHENSIVE METABOLIC PANEL WITH GFR (08/21/2023 11:30 AM EDT) Only the most recent of5 resultswithin the time period is included. Glucose 89 65 - 99 mg/dL [facility] Comment:Fasting reference in terval Urea Nitrogen Blood (BUN) 19 7 - 25 mg/dL [facility] Creatinine 1.17 0.70 - 1.35 mg/dL [facility] EGFR 69 > OR = 60 mL/min/1. 73m2 [facility] BUN/Creatinine Ratio SEE NOTE: 6 - 22 (calc) [facility] Comment: ?? Not Reported: BUN and Creatinine are within ?? reference range. Sodium 140 135 - 146 mmol/L [facility] Potassium 4.5 3.5 - 5.3 mmol/L [facility] Chloride 102 98 - 110 mmol/L [facility] Carbon dioxide 23 20 - 32 mmol/L [facility] Calcium 9.7 8.6 - 10.3 mg/dL [facility] Protein Total (Serum) 6.9 6.1 - 8.1 g/dL [facility] Albumin 4.4 3.6 - 5.1 g/dL [facility] Globulin 2.5 1.9 - 3.7 g/dL (calc) [facility] Albumin/Globuli n 1.8 1.0 - 2.5 (calc) [facility] Bilirubin Total 0.4 0.2 - 1.2 mg/dL [facility] Alkaline phosphatase 54 35 - 144 U/L [facility] AST (SGOT) 26 10 - 35 U/L [facility] ALT (SGPT) 28 9 - 46 U/L [facility] 08/21/2023 11:3 0 AM EDT 08/21/2023 6:16 PM EDT Narrative [facility] - 08/22/2023 4:26 AM EDT Please note that this estimated [...] needs for GFR calculation. Resulting Agency Comment [id number] us Ludwig Tidwell MD LABORATORY Final Result [facility] [address] [place] [address] * CT T-SPINE WITHOUT CONTRAST (05/28/2023 9:09 AM EDT) Anatomical Region Laterality Modality Other 05/28/2023 9:09 AM EDT Narrative 05/28/2023 9:09 AM EDT INDICATION: Bone [...] ??No osseous destruction or soft tissue mass. IMPRESSION: T6 vertebral body hemangioma corresponding to lesion described on recent MRI thoracic spine 04/22/2023. ??No suspicious lesion by CT. If this radiology report contains a blank impression section, it is an incomplete radiology report. ??Please contact the interpreting radiologist or applicable radiology division as soon as possible to obtain the completed interpretation. ? Workstation ID: [id number] Up-to-date CT equipment and radiation dose reduction techniques were employed. CTDIvol: 25.8 mGy. DLP: 939 mGy-cm. Procedure Note [facility], Unknown Provider - 05/28/2023 INDICATION: Bone mass or bone pain, thoracic spine, aggressive features onxray M89.9 - I10 - Disorder of bone, unspecified - Abnormal MRI T spine [id number] body - metastasis vs hemangioma TECHNIQUE: Volumetrically acquired CT images of the thoracic spine wereobtained on 05/26/2023 4:42 PM without contrast.. Axial reformatted imagesutilizing bone and soft tissue reconstruction algorithm were obtained.Coronal and sagittal reformatted images utilizing bone reconstruction algorithm were obtained. COMPARISON: 04/22/2023 MRI thoracic spine FINDINGS: Diffuse osteopenia. Mild dextroscoliosis of the thoracic spine apex atT7. No evidence of acute fracture. There is mild anterior wedging T7 andT8 vertebral bodies. T6- T12 Schmorl's nodes. Multilevel vertebralosteophytosis throughout the lumbar spine consistent with underlying degenerative disc disease as detailed onprevious recent MRI. Mild osseous narrowing of the lower thoracicneuroforamina right greater than left. Lower lumbar facet degenerativearthropathy. 1.8 cm T6 vertebral body lesion with [...] possible to obtain thecompleted interpretation. Workstation ID: [id number] Up-to-date CT equipment and radiation dose reduction techniques wereemployed. CTDIvol: 25.8 mGy. DLP: 939 mGy-cm. us Unknown Provider [facility] Final Resu lt * HTLV I/II ANTIBODIES W/REFLEX CONFIRMATION (04/24/2023 12:24 PM EDT) HTLV 1+2 Ab Nonreactive Nonreactive [facility] 04/24/2023 12:2 4 PM EDT Narrative [facility] - 04/27/2023 5:56 PM EDT [facility] Received Date:[id number] us Unknown Provider [facility] LABORATORY Final Resu lt [facility] [employer] [address] [place] [id number] * ZINC (04/24/2023 12:24 PM EDT) Pathologist [facility] Zinc 60 60 - 130 mcg/dL [facility] Comment: This test was developed and its analytical performance characteristics have been determined by [employer]. It has not been cleared or approved by the U.S. Food and Drug Administration. This assay has been validated pursuant to the CLIA regulations and is used for clinical purposes. 04/24/2023 12:2 4 PM EDT Narrative [facility] - 04/27/2023 4:24 PM EDT [facility] Received Date:[id number] us Unknown Provider [facility] LABORATORY Final Resu lt Performing Organization Address [facility] Co de Phone Number [facility] [employer] [address] [place] [address] * VITAMIN E (TOCOPHEROL) (04/24/2023 12:24 PM EDT) [facility] Alpha tocopherol 16.1 5.7 - 19.9 mg/L [facility] Comment: Levels of alpha-tocopherol <5 mg/L are consistent with Vitamin E deficiency in adults. Beta gamma tocopherol <1.0 <=4.3 mg/L [facility] Comment: Vitamin supplementation within 24 hours prior to blood draw may affect the accuracy of the results. This test was developed and its analytical performance characteristics have been determined by [employer] [place]. It has not been cleared or approved by the U.S. Food and Drug Administration. This assay has been validated pursuant to the CLIA regulations and is used for clinical purposes. 04/24/2023 12:[address] [facility] - 04/29/2023 3:55 AM EDT [facility] Received Date:[id number] us Unknown Provider [facility] LABORATORY Final Resu lt Performing Organization Address [facility]/ZIP Co de Phone Number [facility] [employer] [address] [place] [address] * TSH REFLEX FREE T4 (04/24/2023 12:24 PM EDT) TSH 1.776 0.280 - 3.890 uIU/mL [facility] 04/24/2023 12:2 4 PM EDT us Unknown Provider [facility] LABORATORY Final Resu lt Performing Organization Address City/[facility]/ZIP Co de Phone Number [facility] [employer] [address] [place] [phone] * METHYLMALONIC ACID, SERUM (04/24/2023 12:24 PM EDT) Methylmalonate 120 87 - 318 nmol/L [facility] Comment: This test was developed and its analytical performance characteristics have been determined by [employer] [place]. It has not been cleared or approved by the U.S. Food and Drug Administration. This assay has been validated pursuant to the CLIA regulations and is used for clinical purposes. 04/24/2023 12:2 4 PM EDT Narrative [facility] - 04/27/2023 11:33 PM EDT [facility] Received Date:[id number] us Unknown Provider [facility] LABORATORY Final Resu lt Performing Organization Address [facility] Co de Phone Number [facility] [employer] [address] [place] [phone] * VITAMIN B12 (04/24/2023 12:24 PM EDT) Pathologist [facility] Vitamin B12 (Cobalamins) 487 182 - 803 pg/mL [facility] Comment: Normal: ? 182-803 pg/mL Indeterminate: ??145-182 pg/mL Deficient: ? <145 pg/mL 04/24/2023 12:2 4 PM EDT us Unknown Provider [facility] LABORATORY Final Resu lt Performing Organization Address City/[facility]/ZIP Co de Phone Number [facility] [employer] [address] [place] [address] * COPPER, SERUM (04/24/2023 12:24 PM EDT) Copper 101 70 - 175 mcg/dL [facility] Comment: This test was developed and its analytical performance characteristics have been determined by [employer] [place]. It has not been cleared or approved by the U.S. Food and Drug Administration. This assay has been validated pursuant to the CLIA regulations and is used for clinical purposes. 04/24/2023 12:2 4 PM EDT Narrative [facility] - 04/27/2023 4:24 PM EDT [facility] Received Date: us Unknown Provider [facility] LABORATORY Final Resu lt [facility] [employer] [address] [place] [address] * MRI LUMBAR SPINE W WO CONTRAST (04/24/2023 8:28 AM EDT) Anatomical Region Laterality Modality Other 04/24/2023 8:28 AM EDT Narrative 04/24/2023 8:28 AM EDT EXAMINATION: MRI [...] arthropathy and ligamentum flavum thickening resulting in [id number] bilateral neural foramen narrowing. No spinal canal stenosis. At L5-S1, uncovering of the disc secondary to anterolisthesis. No neural foramen or spinal canal stenosis. No abnormal enhancement is seen on post contrast images. IMPRESSION: 1. ??Multilevel multifactorial degenerative disease of the [...] obtain the completed interpretation. ? Workstation ID: [id number] Procedure Note [facility], Unknown Provider - 04/24/2023 EXAMINATION: MRI of lumbar spine [...] nodes at multiple levels. The marrow signal isotherwise unremarkable. No focal suspicious marrow lesion identified. [...] facet arthropathy andligamentum flavum thickening resulting in [id number] bilateralneural foramen narrowing. No spinal canal stenosis. [...] narrowing and mild spinal canal stenosis. 2. Mild bilateral neural foramen narrowing at [...] possible to obtain thecompleted interpretation. Workstation ID: [id number] us Unknown Provider [facility] Final Resu lt * (ABNORMAL) BUN (04/17/2023 3:28 PM EDT) Urea Nitrogen Blood (BUN) 27(H) 7 - 23 mg/dL [facility] 04/17/2023 3:28 PM EDT Cody Galloway MD LABORATORY Final Result [facility] [employer] [address] [place] [phone] * (ABNORMAL) CREATININE (04/17/2023 3:28 PM EDT) Creatinine 1.54(H) 0.60 - 1.30 mg/dL [facility] EGFR 49(L) >=90 mL/min/1.7 3m2 [facility] Comment: Estimated Glomerular Filtration Rate (GFR) calculated [...] (GFR < 15 mL/min/1.73 m2 or dialysis) 04/17/2023 3:28 PM EDT us Cody Galloway MD LABORATORY Final Result Performing Organization Address City/State/[facility] Co de Phone Number [facility] [employer] [address] [place] [address] * LYME ANTIBODY SCREEN W/REFLEX TO BLOT (02/27/2023 2:44 PM EDT) Borrelia burgdorferi Ab <0.90 index [facility] Comment: ? Index ?Interpretation ? ----- ? [...] the period when erythema migrans is apparent. 02/27/2023 2:44 PM EDT Narrative [facility] - 02/28/2023 5:02 AM EDT [facility] Received Date: Cody Galloway MD LABORATORY Final Result Performing Organization Address City/[facility]/ZIP Co de Phone Number [employer] [address] [place] [phone] * RPR (MONITOR) W/REFLEX TO TITER (02/27/2023 2:44 PM EDT) Reagin Ab NON-REACTIV E NON-REACTI VE [facility] 02/27/2023 2:44 PM EDT Narrative [facility] - 02/28/2023 5:46 PM EDT [facility] Received Date: Cody Galloway MD LABORATORY Final Result Performing Organization Address [facility] de Phone Number [employer] [address] [place] [address] * (ABNORMAL) SEDIMENTATION RATE (02/27/2023 2:44 PM EDT) ESR 20(H) <20 mm/Hr mm/Hr [facility] 02/27/2023 2:44 PM EDT Cody Galloway MD LABORATORY Final Result Performing Organization Address [facility] Co de Phone Number [facility] [employer] [address] [place] [address] * XRAY FEET COMPLETE MIN 3 VWS - BILAT FC (12/05/2022 12:34 PM EST) Anatomical Region Laterality Modality LOWER EXTREMITY Radiographic Stefanie ging 12/05/2022 8:24 PM EST Narrative 12/05/2022 8:24 PM EST CONTRAST: Three views of both feet. ?? Comparison 05/15/2022. ?? Findings: No suspicious bony lesions are seen. ??Mild hindfoot valgus and pes planus bilaterally. ??There are vascular calcifications bilaterally. ??The soft tissues are otherwise unremarkable. ?? Impression: Chronic findings as described. Procedure Note Dylan Keyes MD - 12/05/2022 CONTRAST: Three views of both feet. Comparison 05/15/2022. Findings: No suspicious bony lesions are seen. Mild hindfoot valgus and pes planus bilaterally. There are vascular calcifications bilaterally. The softtissues are otherwise unremarkable. Impression: Chronic findings as described. us Franco Zuñiga DPM IMG XRAY NO CONTRAST ORDERAB LES Final Result * ALANINE AMINOTRANSFERASE (ALT), SERUM (08/27/2022 11:16 AM EDT) Only the most recent of3 resultswithin the time period is included. ALT (SGPT) 35 9 - 46 U/L [facility] 08/27/2022 11:1 6 AM EDT 08/27/2022 9:05 PM EDT Narrative Resulting Agency Comment [id number] us Fran Johnson DO LAB SAME DAY RESULT Final Resul t [facility] [address] [place] [address] * XRAY FEET COMPLETE MIN 3 VWS - BILAT (DX: FOOT PAIN *NO INJURY*M25.579/ 719.47) FC (05/15/2022 9:50AM EDT) Anatomical Region Laterality Modality LOWER EXTREMITY Radiographic Stefanie ging 05/18/2022 4:28 PM EDT Narrative 05/18/2022 4:28 PM EDT CONTRAST: Three-view bilateral feet (6 views total). Comparison: None. Findings: Mild bilateral first MTP degenerative change. Bilateral slightly shortened first metatarsal in relation to second, which can cause second metatarsalgia. No acute displaced fracture or dislocation of either foot. Bilateral pes planus. Bilateral vascular calcifications. Impression: 1. ??Bilateral degenerative and alignment changes as described. ??No acute osseous abnormality. ??See discussion. Procedure Note Jenny Oneil MD - 05/18/2022 CONTRAST: Three-view bilateral feet (6 views total). Comparison: None. Findings: Mild bilateral first MTP degenerative change. Bilateral slightly shortened first metatarsal in relation to second, whichcan cause second metatarsalgia. No acute displaced fracture or dislocation of either foot. Bilateral pes planus. Bilateral vascular calcifications. Impression: 1. Bilateral degenerative and alignment changes as described. No acute osseous abnormality. See discussion. us Franco Zuñiga DPM IMG XRAY NO CONTRAST ORDERAB LES Final Result * TISSUE PATHOLOGY (10/31/2021 8:30 AM EST) Only the most recent of2 resultswithin the time period is included. COLLECTION DATE 10/31/2021 8:30 AM [facility] SPECIMEN SOURCE . A . 30CM POLYP [facility] DIAGNOSIS . A . TUBULAR ADENOMA. [facility] Clinical Information None given [facility] Pathologist Mary Wilkinson M.D. Board Certified in Anatomic Pathology and Dermatopathology (electronic signature) [facility] GROSS DESCRIPTION . A . SEE NOTE [facility] Comment: The container is labeled with patient's name and source 30 cm polyp . ??Specimen is received in formalin and contains an aggregate of mcgowan tissue measuring 1.0 x 0.4 x 0.1 cm. ??The specimen is submitted entirely in cassette A1. PT/KP 11/02/2021 ??Gross exam(s) performed at: [facility] ??[address] [place] [phone] ??Studio Assistant: LORRAINE MITCHELL MD 10/31/2021 8:30 AM EST 11/01/2021 3:33 AM EST Tony Harris MD PATHOLOGY-INTERFACED Final R esult [facility] [address] [place] [address] * GASTROENTEROLOGY TEST/PROCEDURE, UNSPECIFIED (10/31/2021) Tony Harris MD PROCEDURES Final Result * CYSTATIN C (10/25/2021 4:43 PM EST) Cystatin C 1.01 0.52 - 1.20 mg/L [facility] eGFR Cystatin 76 >=60 mL/min/1.7 3m2 [facility] Comment:REFERENCE RANGE:>=60 mL/min/1.73mE2 10/25/2021 4:43 PM EST 10/25/2021 11:47 PM EST Narrative Resulting Agency Comment [id number] Roney Ribera MD LABORATORY Final Result [facility] [address] [place] [address] * (ABNORMAL) RENAL FUNCTION PANEL (W/ EGFR) (10/25/2021 4:43 PM EST) Only the most recent of2 resultswithin the time period is included. Pathologist [facility] Glucose 78 65 - 99 mg/dL [facility] Comment:Fasting reference in terval Urea Nitrogen Blood (BUN) 27(H) 7 - 25 mg/dL [facility] Creatinine 1.47(H) 0.70 - 1.25 mg/dL [facility] Comment: For patients >49 years of age, the reference limit for Creatinine is approximately 13% higher for people identified as -Sudanese. EGFR 50(L) > OR = 60 mL/min/1. 73m2 [facility] GFR () 58(L) > OR = 60 mL/min/1. 73m2 [facility] BUN/Creatinine Ratio 18 6 - 22 (calc) [facility] Sodium 140 135 - 146 mmol/L [facility] Potassium 4.2 3.5 - 5.3 mmol/L [facility] Chloride 102 98 - 110 mmol/L [facility] Carbon dioxide 27 20 - 32 mmol/L [facility] Calcium 9.6 8.6 - 10.3 mg/dL [facility] Phosphate 4.4 2.5 - 4.5 mg/dL [facility] Albumin 4.4 3.6 - 5.1 g/dL [facility] 10/25/2021 4:43 PM EST 10/25/2021 11:47 PM EST Narrative Resulting Agency Comment [id number] us Roney Ribera MD LABORATORY Final Result Performing Organization Address [facility] Co de Phone Number [facility] [address] [place] [address] * CBC INCLUDES DIFFERENTIAL AND PLATELET COUNT (10/15/2021 7:29 AM EST) Only the most recent of6 resultswithin the time period is included. WBC 5.5 3.8 - 10.8 Thousand/u L [facility] RBC 5.12 4.20 - 5.80 Million/uL [facility] Hemoglobin 15.1 13.2 - 17.1 g/dL [facility] Hematocrit 44.4 38.5 - 50.0 % [facility] MCV 86.7 80.0 - 100.0 fL [facility] MCH 29.5 27.0 - 33.0 pg [facility] MCHC 34.0 32.0 - 36.0 g/dL [facility] RDW 13.6 11.0 - 15.0 % [facility] PLT 200 140 - 400 Thousand/u L [facility] MPV 10.2 7.5 - 12.5 fL [facility] Neutrophils # 2943 1500 - 7800 cells/uL [facility] Lymphocytes # 1650 850 - 3900 cells/uL [facility] Monocytes # 589 200 - 950 cells/uL [facility] Eosinophils # 259 15 - 500 cells/uL [facility] Basophils # 61 0 - 200 cells/uL [facility] Neutrophils % 53.5 % [facility] Lymphocytes % 30.0 % [facility] Monocytes % 10.7 % [facility] Eosinophils % 4.7 % [facility] Basophils % 1.1 % [facility] 10/15/2021 7:29 AM EST 10/15/2021 10:21 AM EST Narrative Resulting Agency Comment [id number] us Fran Johnson DO LAB SAME DAY RESULT Final Resul t Performing Organization Address City/[facility] Co de Phone Number [facility] [address] [place] [address] * URINALYSIS, COMPLETE INCLUDES DIPSTICK AND MICROSCOPIC (10/15/2021 7:29 AM EST) Color (Urine) YELLOW YELLOW [facility] Appearance (Urine) CLEAR CLEAR [facility] Specific gravity (Urine) 1.016 1.001 - 1.035 [facility] pH (Urine) 6.0 5.0 - 8.0 [facility] Glucose (Urine) NEGATIVE NEGATIVE [facility] Bilirubin (Urine) NEGATIVE NEGATIVE [facility] Ketones (Urine) NEGATIVE NEGATIVE [facility] Hemoglobin (Urine) NEGATIVE NEGATIVE [facility] Protein (Urine) NEGATIVE NEGATIVE [facility] Nitrite (Urine) NEGATIVE NEGATIVE [facility] Leukocyte esterase (Urine) NEGATIVE NEGATIVE [facility] WBC (Urine) NONE SEEN < OR = 5 /HPF [facility] RBC (Urine Sed) NONE SEEN < OR = 2 /HPF [facility] Epithelial cells.squamous (Urine sed) NONE SEEN < OR = 5 /HPF [facility] Bacteria (Urine) NONE SEEN NONE SEEN /HPF [facility] Hyaline casts (Urine sed) NONE SEEN NONE SEEN /LPF [facility] 10/15/2021 7:29 AM EST 10/15/2021 10:21 AM EST Narrative Resulting Agency Comment [id number] Fran Johnson DO LAB SAME DAY RESULT Final Resul t Performing Organization Address City/[facility]/ZIP Co de Phone Number [employer] [address] [place] [address] * CYTOLOGY/PATHOLOGY/GENETICS UNSPECIFIED (08/23/2021) Only the most recent of3 resultswithin the time period is included. Result [facility] Flip Layne PA-C PATHOLOGY Final Result * THYROID STIMULATING HORMONE (TSH) WITH FREE T4 REFLEX, SERUM (03/02/2021 12:06 PM EDT) Only the most recent of4 resultswithin the time period is included. TSH 1.25 0.40 - 4.50 mIU/L [facility] 03/02/2021 12:0 6 PM EDT 03/02/2021 2:38 PM EDT Narrative Resulting Agency Comment [id number] Fran Johnson DO LABORATORY Final Result Performing Organization Address [facility] Co de Phone Number [facility] [address] [place] [address] * IRON PROFILE (IRON/TIBC), SERUM (03/02/2021 12:06 PM EDT) Only the most recent of2 resultswithin the time period is included. Iron 94 50 - 180 mcg/dL [facility] Iron binding capacity 391 250 - 425 mcg/dL (calc) [facility] Iron saturation 24 20 - 48 % (calc) [facility] 03/02/2021 12:0 6 PM EDT 03/02/2021 2:38 PM EDT Narrative Resulting Agency Comment [id number] Fran Johnson DO LABORATORY Final Result Performing Organization Address [facility] Co de Phone Number [facility] [address] [place] [address] * TSH, 3RD GENERATION (06/23/2020 2:31 PM EDT) Pathologist [facility] TSH 0.98 0.40 - 4.50 mIU/L [facility] 06/23/2020 2:31 PM EDT 06/23/2020 11:34 PM EDT Fran Johnson DO LABORATORY Final Result Performing Organization Address [facility] de Phone Number [facility] [address] [place] [address] * PHOSPHATE, SERUM (06/23/2020 2:31 PM EDT) Pathologist [facility] Phosphate 3.6 2.5 - 4.5 mg/dL [facility] 06/23/2020 2:31 PM EDT 06/23/2020 11:34 PM EDT Narrative Resulting Agency Comment [id number] Fran Johnson DO LABORATORY Final Result Performing Organization Address [facility] de Phone Number [facility] [address] [place] [address] * BORRELIA BURGDORFERI AB (LYME), EIA WITH REFLEX IGG, IGM WB (07/20/2019 8:03 AM EDT) Borrelia burgdorferi Ab <0.90 index [facility] Comment: ? Index ?Interpretation ? ----- ? < 0.90 ? Negative ? 0.90-1.09 ?Equivocal ? > 1.09 ? Positive As recommended by the Food and Drug [...] the period when erythema migrans is apparent. 07/20/2019 8:03 AM EDT 07/20/2019 9:59 AM EDT Narrative Resulting Agency Comment [id number] Lazara LEVINE LABORATORY Final Re sult Performing Organization Address [facility] de Phone Number [facility] [address] [place] [address] * C-REACTIVE PROTEIN (CRP) - INFLAMMATION (07/20/2019 8:03 AM EDT) C reactive protein 6.0 <8.0 mg/L [facility] 07/20/2019 8:03 AM EDT 07/20/2019 9:59 AM EDT Narrative Resulting Agency Comment [id number] Lazara Abreu [facility] Final Re sult Performing Organization Address [facility] Co de Phone Number [facility] [address] [place] [address] * ERYTHROCYTE SEDIMENTATION RATE (ESR), WESTERGREN (07/20/2019 8:03 AM EDT) Sedimentation Rate [place] (ESR) 6 < OR = 20 mm/h [facility] 07/20/2019 8:03 AM EDT 07/20/2019 9:59 AM EDT Narrative Resulting Agency Comment [id number] Lazara Abreu [facility] SAME DAY RESULT Nieves l Result Performing Organization Address [facility] Co de Phone Number [facility] [address] [place] [address] * (ABNORMAL) CREATINE KINASE (CK), SERUM (07/20/2019 8:03 AM EDT) CPK 257(H) 44 - 196 U/L [facility] 07/20/2019 8:03 AM EDT 07/20/2019 9:59 AM EDT Narrative Resulting Agency Comment [id number] Fran Johnson LAB SAME DAY RESULT Final Resul t Performing Organization Address [facility] de Phone Number [facility] [address] [place] [address] * URINALYSIS, MICROSCOPIC (07/20/2019 8:03 AM EDT) WBC (Urine) NONE SEEN < OR = 5 /HPF [facility] RBC (Urine Sed) NONE SEEN < OR = 2 /HPF [facility] DIAGNOSTICS Epithelial cells.squamous (Urine sed) NONE SEEN < OR = 5 /HPF [facility] Bacteria (Urine) NONE SEEN NONE SEEN /HPF [facility] Hyaline casts (Urine sed) NONE SEEN NONE SEEN /LPF [facility] 07/20/2019 8:03 AM EDT 07/20/2019 9:59 AM EDT Narrative Resulting Agency Comment [id number] Fran Johnson DO LAB SAME DAY RESULT Final Resul t Performing Organization Address [facility] de Phone Number [facility] [address] [place] [address] * SLEEP STUDY (03/03/2019) Narrative Procedure Note Malcolm Swann MD - 03/03/2019 2:25 PM EDT [address] [address] PATIENT: FRANCO WELLS REG REF/ WSLEEP : 59 DATE OF ADMISSION: 02/27/2019 COMPREHENSIVE POLYSOMNOGRAM DATE OF INTERPRETATION: 03/03/2019 RECORDING TECHNIQUE: After the scalp was prepared, gold plated electrodes were applied to the scalp according to the [id number] System. Four channels of EEG were monitored. EOG was monitored by electrodes placed at the outer canthi. Chin EMG was monitored. A snore sensor was used to monitor tracheal vibration and snoring. Nasal and oral airflow were monitored both by thermistor and pressure transducer cannula. Respiratory effort was monitored by respiratory inductance plethysmography belts placed at the chest and abdomen. Blood oxygen saturation was monitored by pulse oximetry. EKG, heart rate and rhythm were monitored by surface electrocardiogram. Leg movements were monitored by surface EMG electrodes placed 2 centimeters apart on topof the anterior tibialis muscle. Continuous audio and video recording was utilized. HISTORY: Mr. Franco Wells underwent comprehensive polysomnogram att [facility] [place] [facility] on 02/27/2019 for possible obstructive sleep apnea. He is 6 feet 3 inches tall, weighs 233 pounds, with a body mass index of 29.0. He is64 years old. He reported taking hydrocodone, omeprazole, and Breo on the night of the study. The study was started at 09:05:29 p.m. and concluded at 06:11:40 a.m. Total sleep time was 328.5 minutes with a sleep efficiency that was reduced at 60.7%. Sleep latency was normal at 11.8 minutes. REMlatency was prolonged at 250.5 minutes. Over the course of the entire study, total of 68 apnea and hypopnea events were scored, yielding an AHI of 12.4. Respiratory event-related arousals were 242, with an index of 44.2. Respiratory disturbanceindex was 56.6. Average oxygen saturation during sleep was 92.3% with a minimum oxygen saturation of 82%. The patient spent 10% of the study with an oxygen saturation between 80% and 90% and 1.9% with an oxygen saturation less than 89%. Average heart rate was 64 beats per minute. Minimum heart rate recorded was 39 beats per minute and maximum heart rate recordedwas 88 beats per minute. No significant periodic limb movements werenoted. IMPRESSION: This comprehensive polysomnogram demonstrates moderate obstructive sleep apnea with AHI of 12.4 and RDI of 56.6. Snoring was considered moderate. There were multiple awakenings during the night. Sleep efficiency was reduced at 60.7%. For treatment, a trial of positive airway pressure therapy is recommended. This may be initiated through CPAP titration in the Sleep Lab, or a trial of autoPAP at home may be acceptable if there are no significant comorbidities. IfautoPAP is selected, starting pressures of 5-20 CWP recommended. The patient should be cautioned not to drive when sleepy. Electronically AuthenticatedBy: Malcolm Swann MD 03/04/201904:33 P Malcolm Swann MD es TD: 08:39 A TT: 02:25 P Doc #: [id number] cc: MD Malcolm Fallon MD us Malcolm Swann MD PROCEDURES Final Res ult * SLEEP STUDY (POLYSOMNOGRAM) ATTENDED (02/27/2019) us Fran Johnson DO PROCEDURES Final Result * XR TIBIA/FIBULA, LEFT (02/24/2019 10:36 AM EDT) Anatomical Region Laterality Modality Other 02/24/2019 10:3 6 AM EDT Narrative 02/24/2019 10:36 AM EDT COMPARISON: ??There are no prior studies available for comparison at this time. ?? FINDINGS AND IMPRESSION: Left tib-fib. No acute fractures dislocations or stress related changes Visualized joints are normal. Minimal vascular calcification [id number] Procedure Note [facility], Unknown Provider - 02/24/2019 COMPARISON: There are no prior studies available for comparison at thistime. FINDINGS AND IMPRESSION: Left tib-fib. No acute fractures dislocations or stress related changes Visualized joints are normal. Minimal vascular calcification [id number] us Unknown Provider [facility] IMAGING-ASS Final Resu lt * HEMOGLOBIN AND HEMATOCRIT, BLOOD (01/18/2019 6:48 AM EST) Hemoglobin 14.7 13.2 - 17.1 g/dL [facility] Hematocrit 43.6 38.5 - 50.0 % [facility] 01/18/2019 6:48 AM EST 01/18/2019 3:02 PM EST Narrative Resulting Agency Comment [id number] us Fran Johnson DO LAB SAME DAY RESULT Final Resul t [facility] [address] [place] [address] * TESTOSTERONE, FREE AND TOTAL, LC/MS/MS (01/18/2019 6:48 AM EST) Only the most recent of2 resultswithin the time period is included. Testosterone 353 250 - 1100 ng/dL [facility] Comment: Men with clinically significant hypogonadal symptoms and testosterone values repeatedly in the range of the 200-300 ng/dL or less, may benefit from testosterone treatment after adequate risk and benefits counseling. For additional information, please refer to http://education.SpumeNews/faq/ [email or web address] (This link is being provided for informational/ educational purposes only.) This test was developed and its analytical performance characteristics have been determined by [employer] [place], [place]. It has not been cleared or approved by the U.S. Food and Drug Administration. This assay has been validated pursuant to the CLIA regulations and is used for clinical purposes. Testosterone, Free 50.8 35.0 - 155.0 pg/mL [facility] Comment: This test was developed and its analytical performance characteristics have been determined by [employer] [place], [place]. It has not been cleared or approved by the U.S. Food and Drug Administration. This assay has been validated pursuant to the CLIA regulations and is used for clinical purposes. 01/18/2019 6:48 AM EST 01/18/2019 3:02 PM EST Narrative Resulting Agency Comment [id number] Fran Johnson DO LABORATORY Final Result Performing Organization Address [facility] Co de Phone Number [facility] [address] [place] [address] * FOLATE, SERUM (01/18/2019 6:48 AM EST) Folate 14.4 ng/mL [facility] Comment: ? Reference Range ? Low: ? <3.4 ? Borderline: ?3.4-5.4 ? Normal: ?>5.4 01/18/2019 6:48 AM EST 01/18/2019 3:02 PM EST Narrative Resulting Agency Comment [id number] Fran Johnson DO LABORATORY Final Result Performing Organization Address [facility] de Phone Number [facility] [address] [place] [address] * VITAMIN B12 (CYANOCOBALAMIN), SERUM (01/18/2019 6:48 AM EST) Vitamin B12 (Cobalamins) 931 200 - 1100 pg/mL [facility] 01/18/2019 6:48 AM EST 01/18/2019 3:02 PM EST Narrative Resulting Agency Comment [id number] Fran Johnson DO LABORATORY Final Result Performing Organization Address City/[facility] Co de Phone Number [facility] [address] [place] [address] * HEPATIC FUNCTION PANEL (ALT,AST,ALK PH,BILI'S,TP,ALB) (01/18/2019 6:48 AM EST) Protein Total (Serum) 6.6 6.1 - 8.1 g/dL [facility] Albumin 4.5 3.6 - 5.1 g/dL [facility] Globulin 2.1 1.9 - 3.7 g/dL (calc) [facility] Albumin/Globulin 2.1 1.0 - 2.5 (calc) [facility] Bilirubin Total 0.4 0.2 - 1.2 mg/dL [facility] Bilirubin Direct 0.0 < OR = 0.2 mg/dL [facility] Bilirubin Indirect 0.4 0.2 - 1.2 mg/dL (calc) [facility] Alkaline phosphatase 62 40 - 115 U/L [facility] AST (SGOT) 21 10 - 35 U/L [facility] ALT (SGPT) 24 9 - 46 U/L [facility] 01/18/2019 6:48 AM EST 01/18/2019 3:02 PM EST Narrative Resulting Agency Comment [id number] Fran Johnson DO LABORATORY Final Result [facility] [address] [place] [address] * ESOPHAGOGASTRODUODENOSCOPY, FLEXIBLE, TRANSORAL; WITH BIOPSY, SINGLE OR MULTIPLE (04/08/2018) Tony Harris MD PROCEDURES Final Result * HELICOBACTER PYLORI UREA BREATH TEST (UBIT-(R)) (02/18/2018 8:36 AM EDT) Pathologist [facility] Urea Breath Test, Infra-Red (Ubit) NOT DETECTED NOT DETECTED [facility] Comment: Antimicrobials, proton pump inhibitors, and bismuth preparations are known to suppress H. pylori, and ingestion of these prior to H. pylori diagnostic testing may lead to false negative results. If clinically indicated, the test may be repeated on a new specimen obtained two weeks after discontinuing treatment. However, a positive result is still clinically valid. 02/18/2018 8:36 AM EDT 02/18/2018 3:33 PM EDT Narrative Resulting Agency Comment [id number] us Daisy Woods INDUSTRIAL LOCOMOTIVE OPERATOR LABORATORY Final Result Performing Organization Address City/[facility]/ZIP Co de Phone Number [facility] [address] [place] [address] * XRAY ESOPHAGUS (2018) 2018 Fran Johnson DO GENERAL IMAGING- OTHER Final Re sult * LIPASE, SERUM (10/31/2017 10:32 AM EST) Lipase 52 7 - 60 U/L [facility] 10/31/2017 10:3 2 AM EST 10/31/2017 5:36 PM EST Narrative Resulting Agency Comment [id number] Fran Johnson DO LABORATORY Final Result Performing Organization Address [facility] Co de Phone Number [facility] [address] [place] [address] * AMYLASE, SERUM (10/31/2017 10:32 AM EST) Amylase 67 21 - 101 U/L [facility] 10/31/2017 10:3 2 AM EST 10/31/2017 5:36 PM EST Narrative Resulting Agency Comment [id number] Fran Johnson DO LAB SAME DAY RESULT Final Resul t Performing Organization Address [facility] Co de Phone Number [facility] [address] [place] [address] * HEPATITIS C AB WITH REFLEX TO RNA PCR, SERUM (04/18/2017 11:06 AM EDT) Hepatitis C virus Ab NON-REACTI VE NON-REACT DANA [facility] Hepatitis C virus Ab Signal/Cutoff 0.01 <1.00 [facility] 04/18/2017 11:0 6 AM EDT 04/18/2017 5:28 PM EDT Narrative Resulting Agency Comment [id number] Fran Johnson DO LABORATORY Final Result Performing Organization Address City/[facility]/ZIP Co de Phone Number [facility] [address] [place] [address] * PAIN MANAGEMENT PROFILE, URINE (PAINM2) (03/27/2017 12:13 PM EDT) Creatinine (Urine) 177.6 > or = 20.0 mg/dL [facility] pH (Urine) 6.6 4.5 - 9.0 [facility] OXIDANT NEGATIVE [...] NEGATIVE <100 ng/mL [facility] Opiates (Urine) NEGATIVE <100 ng/mL [facility] Oxycodone (Urine) NEGATIVE <100 ng/mL [facility] Phencyclidine (Urine) NEGATIVE <25 ng/mL [facility] COMMENT SEE NOTE [facility] Comment: This drug testing is for medical treatment only. ?? Analysis was performed as non-forensic testing and these results should be used only by healthcare providers to render diagnosis or treatment, or to monitor progress of medical conditions. For assistance with interpreting these drug results, please contact a [facility] Specialist: [phone] ( ), M-F, 8am-6pm EST. 03/27/2017 12:1 3 PM EDT 03/27/2017 4:47 PM EDT Narrative Resulting Agency Comment [id number] Fran Johnson DO LABORATORY Final Result [facility] [address] [place] [address] * UNSPECIFIED DIAGNOSTIC PROCE (04/11/2016) Nina Amador DO LABORATORY Nieves l Result * CARDIOVASCULAR STRESS TEST W/TREADMILL, BICYCLE, AND/OR PHARMACOLOGICAL STRESS; W/ SUPERV/INTERP (11/10/2015) us Nina Amador DO CARDIOVASCULAR-WITH INBSKT RTG Final Result * EKG (10/30/2015) us Unknown Provider CARDIOVASCULAR-NO INBASKET RTG Final Result * XRAY SHOULDER COMPLETE MIN 2 VWS (02/10/2015) 02/10/2015 us Alize Marinelli NP GENERAL IMAGING- OTHER Final Res ult * UNSPECIFIED MAJOR PROCEDURE (07/29/2014) us Jeovany Ford PROCEDURES Final Result * MRI UPPER EXTREMITY OTHER THAN JOINT W/ CONTRAST MATERIAL(S) (10/10/2011) Only the most recent of2 resultswithin the time period is included. 10/10/2011 us Unknown Provider CONTRAST STUDY- OTHER Final Res ult Visit Diagnoses Diagnosis Start Date Chronic right shoulder pain Pain in joint, shoulder region 03/27/2017 Chronic right shoulder pain Pain in joint, shoulder region 03/27/2017 Moderate intermittent asthma without complication 03/27/2017 Renal insufficiency Unspecified disorder of kidney and ureter 03/27/2017 Health care maintenance Unspecified general medical examination 03/27/2017 Seasonal allergic rhinitis, unspecified allergic rhinitis trigger 03/27/2017 Health care maintenance Unspecified general medical examination 04/14/2017 Routine physical examination Routine general medical examination at a health care facility 04/18/2017 Fatigue, unspecified type 04/18/2017 Routine physical examination Routine general medical examination at a health care facility 04/18/2017 Chronic right shoulder pain Pain in joint, shoulder region 04/18/2017 Moderate intermittent asthma without complication 04/18/2017 Seasonal allergic rhinitis, unspecified allergic rhinitis trigger 04/18/2017 Fatigue, unspecified type 04/18/2017 Right inguinal hernia Inguinal hernia without mention of obstruction or gangrene, unilateral or unspecified, (not specified as recurrent) 04/18/2017 Chronic right shoulder pain Pain in joint, shoulder region 08/15/2017 Chronic seasonal allergic rhinitis, unspecified trigger 08/15/2017 Moderate intermittent asthma without complication 08/15/2017 Chronic nausea Nausea alone 10/31/2017 Chronic nausea Nausea alone 10/31/2017 Moderate intermittent asthma without complication 10/31/2017 Chronic right shoulder pain Pain in joint, shoulder region 10/31/2017 Chronic right shoulder pain Pain in joint, shoulder region 12/17/2017 Moderate intermittent asthma without complication 12/17/2017 Chronic nausea Nausea alone 12/17/2017 Nausea Nausea alone 02/18/2018 Abdominal discomfort Abdominal pain, unspecified site 02/18/2018 Nausea Nausea alone 02/18/2018 Abdominal discomfort Abdominal pain, unspecified site 02/18/2018 Hx of colonic polyp Personal history of colonic polyps 02/18/2018 Family history of colon cancer Family history of malignant neoplasm of gastrointestinal tract 02/18/2018 Chronic right shoulder pain Pain in joint, shoulder region 03/20/2018 Long-term current use of opiate analgesic Encounter for long-term (current) use of other medications 03/20/2018 Chronic right shoulder pain Pain in joint, shoulder region 03/20/2018 Long-term current use of opiate analgesic Encounter for long-term (current) use of other medications 03/25/2018 Polyp of ascending colon, unspecified type 04/08/2018 Screen for colon cancer Special screening for malignant neoplasms, colon 04/08/2018 Nausea Nausea alone 04/08/2018 Fatigue, unspecified type 04/22/2018 Routine history and physical examination of adult Routine general medical examination at a health care facility 04/22/2018 Routine history and physical examination of adult Routine general medical examination at a health care facility 04/22/2018 Screening for prostate cancer Special screening for malignant neoplasm of prostate 04/22/2018 Need for vaccination Need for prophylactic vaccination and inoculation against unspecified single disease 04/22/2018 Chronic right shoulder pain Pain in joint, shoulder region 04/22/2018 Moderate intermittent asthma without complication 04/22/2018 Polyp of colon, unspecified part of colon, unspecified type 04/22/2018 Fatigue, unspecified type 04/22/2018 Decreased libido 04/22/2018 Other hyperlipidemia 05/07/2018 Chronic right shoulder pain Pain in joint, shoulder region 07/10/2018 Nausea Nausea alone 08/24/2018 Leg cramps Cramp of limb 08/24/2018 Chronic right shoulder pain Pain in joint, shoulder region 09/18/2018 Moderate intermittent asthma without complication 09/18/2018 Chronic right shoulder pain Pain in joint, shoulder region 10/12/2018 Moderate intermittent asthma without complication 10/26/2018 Chronic right shoulder pain Pain in joint, shoulder region 10/26/2018 Gastroesophageal reflux disease, esophagitis presence not specified 10/26/2018 Overweight (BMI 25.0-29.9) Overweight 10/26/2018 Fatigue, unspecified type 10/26/2018 Chronic right shoulder pain Pain in joint, shoulder region 01/06/2019 Fatigue, unspecified type 01/14/2019 Other hyperlipidemia 01/18/2019 Fatigue, unspecified type 01/18/2019 Other fatigue 01/22/2019 Daytime somnolence Hypersomnia, unspecified 01/22/2019 Chronic fatigue Other malaise and fatigue 01/22/2019 Gastroesophageal reflux disease with esophagitis 01/22/2019 Daytime somnolence Hypersomnia, unspecified 01/22/2019 Pain in both lower extremities 01/22/2019 Renal insufficiency Unspecified disorder of kidney and ureter 01/22/2019 Moderate intermittent asthma without complication 03/15/2019 Chronic right shoulder pain Pain in joint, shoulder region 03/16/2019 Chronic right shoulder pain Pain in joint, shoulder region 03/30/2019 Myalgia Mylagia and myositis, unspecified 05/10/2019 Skin lesion Unspecified disorder of skin and subcutaneous tissue 05/10/2019 Chronic right shoulder pain Pain in joint, shoulder region 07/07/2019 Myalgia Mylagia and myositis, unspecified 07/20/2019 Renal insufficiency Unspecified disorder of kidney and ureter 07/20/2019 Chronic fatigue Other malaise and fatigue 07/20/2019 Moderate intermittent asthma without complication 08/12/2019 Chronic right shoulder pain Pain in joint, shoulder region 08/12/2019 Moderate intermittent asthma without complication 09/14/2019 Chronic right shoulder pain Pain in joint, shoulder region 09/30/2019 Encounter for observation for other suspected diseases and conditions ruled out 09/30/2019 Encounter for observation for other suspected diseases and conditions ruled out 10/01/2019 Muscle cramps Cramp of limb 10/28/2019 Chronic right shoulder pain Pain in joint, shoulder region 12/15/2019 Chronic right shoulder pain Pain in joint, shoulder region 12/27/2019 Moderate intermittent asthma without complication 01/25/2020 Lipid screening Screening for lipoid disorders 03/09/2020 Screening for cardiovascular condition Screening for other and unspecified cardiovascular conditions 03/09/2020 Screening for diabetes mellitus 03/09/2020 Screening for prostate cancer Special screening for malignant neoplasm of prostate 03/09/2020 Encounter for screening for other suspected endocrine disorder 03/09/2020 Chronic kidney disease, unspecified CKD stage 03/09/2020 Screening for endocrine disorder 03/09/2020 Chronic right shoulder pain Pain in joint, shoulder region 03/22/2020 Chronic, continuous use of opioids Opioid type dependence, continuous 04/10/2020 Chronic, continuous use of opioids Opioid type dependence, continuous 04/20/2020 Chronic right shoulder pain Pain in joint, shoulder region 04/20/2020 Lipid screening Screening for lipoid disorders 06/23/2020 Screening for cardiovascular condition Screening for other and unspecified cardiovascular conditions 06/23/2020 Screening for diabetes mellitus 06/23/2020 Screening for prostate cancer Special screening for malignant neoplasm of prostate 06/23/2020 Encounter for screening for other suspected endocrine disorder 06/23/2020 Chronic kidney disease, unspecified CKD stage 06/23/2020 Screening for endocrine disorder 06/23/2020 Routine history and physical examination of adult Routine general medical examination at a health care facility 06/23/2020 Screening for prostate cancer Special screening for malignant neoplasm of prostate 06/23/2020 Fatigue, unspecified type 06/23/2020 Moderate intermittent asthma without complication 06/23/2020 Seasonal allergic rhinitis, unspecified trigger 06/23/2020 Nocturnal leg cramps Sleep related leg cramps 06/23/2020 JAMAL (obstructive sleep apnea) Obstructive sleep apnea (adult) (pediatric) 06/23/2020 Mixed hyperlipidemia 06/23/2020 Gastroesophageal reflux disease, esophagitis presence not specified 06/23/2020 Stage 3 chronic kidney disease (HCC) 06/23/2020 Chronic right shoulder pain Pain in joint, shoulder region 06/27/2020 Moderate intermittent asthma without complication 06/27/2020 Mixed hyperlipidemia 06/27/2020 JAMAL (obstructive sleep apnea) Obstructive sleep apnea (adult) (pediatric) 07/24/2020 Daytime somnolence Hypersomnia, unspecified 07/24/2020 Chronic right shoulder pain Pain in joint, shoulder region 09/28/2020 Chronic right shoulder pain Pain in joint, shoulder region 10/02/2020 Pre-diabetes Other abnormal glucose 10/09/2020 JAMAL (obstructive sleep apnea) Obstructive sleep apnea (adult) (pediatric) 10/09/2020 Mixed hyperlipidemia 10/09/2020 Moderate intermittent asthma without complication 10/09/2020 Nocturnal leg cramps Sleep related leg cramps 10/09/2020 Chronic right shoulder pain Pain in joint, shoulder region 11/21/2020 Moderate intermittent asthma without complication 11/21/2020 Encounter for observation for other suspected diseases and conditions ruled out 12/06/2020 Chronic right shoulder pain Pain in joint, shoulder region 01/01/2021 Encounter for observation for other suspected diseases and conditions ruled out 01/01/2021 Encounter for observation for other suspected diseases and conditions ruled out 01/03/2021 Pre-diabetes Other abnormal glucose 01/03/2021 Mixed hyperlipidemia 01/03/2021 Fatigue, unspecified type 01/03/2021 Pre-diabetes Other abnormal glucose 02/07/2021 Mixed hyperlipidemia 02/07/2021 Stage 3a chronic kidney disease (HCC) 02/07/2021 JAMAL (obstructive sleep apnea) Obstructive sleep apnea (adult) (pediatric) 02/07/2021 Nocturnal leg cramps Sleep related leg cramps 02/07/2021 Pre-diabetes Other abnormal glucose 02/15/2021 Mixed hyperlipidemia 02/15/2021 Fatigue, unspecified type 03/02/2021 Nausea Nausea alone 03/02/2021 JAMAL (obstructive sleep apnea) Obstructive sleep apnea (adult) (pediatric) 03/02/2021 Fatigue, unspecified type 03/02/2021 Nausea Nausea alone 03/02/2021 Moderate intermittent asthma without complication 03/02/2021 Chronic right shoulder pain Pain in joint, shoulder region 03/26/2021 Mild intermittent asthma, uncomplicated (HHS) Unspecified asthma 03/27/2021 Chronic right shoulder pain Pain in joint, shoulder region 03/27/2021 Pain of left foot Pain in limb 05/09/2021 Chronic right shoulder pain Pain in joint, shoulder region 06/26/2021 Routine history and physical examination of adult Routine general medical examination at a health care facility 07/03/2021 Screening for prostate cancer Special screening for malignant neoplasm of prostate 07/03/2021 Abnormality of colon Unspecified disorder of intestine 07/03/2021 Mixed hyperlipidemia 07/03/2021 Polyp of colon, unspecified part of colon, unspecified type 07/03/2021 JAMAL (obstructive sleep apnea) Obstructive sleep apnea (adult) (pediatric) 07/03/2021 Chronic right shoulder pain Pain in joint, shoulder region 07/03/2021 Rotator cuff tear arthropathy of both shoulders Traumatic arthropathy, shoulder region 07/03/2021 Nocturnal leg cramps Sleep related leg cramps 07/03/2021 Need for vaccination Need for prophylactic vaccination and inoculation against unspecified single disease 07/03/2021 Vision changes Unspecified visual disturbance 07/03/2021 Renal insufficiency Unspecified disorder of kidney and ureter 07/03/2021 Nausea Nausea alone 07/03/2021 Screening for prostate cancer Special screening for malignant neoplasm of prostate 07/10/2021 Chronic right shoulder pain Pain in joint, shoulder region 07/10/2021 Rotator cuff tear arthropathy of both shoulders Traumatic arthropathy, shoulder region 07/10/2021 Mixed hyperlipidemia 07/10/2021 Stage 3a chronic kidney disease (HCC) 07/10/2021 Mild intermittent asthma, uncomplicated (HHS) Unspecified asthma 07/23/2021 Encounter for ophthalmic examination and evaluation Examination of eyes and vision 08/29/2021 Dermatochalasis of both upper eyelids 08/29/2021 Pinguecula of both eyes Pinguecula 08/29/2021 Arcus senilis of both corneas 08/29/2021 Hyperopia of both eyes with astigmatism and presbyopia 08/29/2021 Chronic right shoulder pain Pain in joint, shoulder region 09/24/2021 Pain in both lower extremities 10/02/2021 Bilateral leg edema Edema 10/02/2021 Bilateral leg edema Edema 10/02/2021 Bilateral leg edema Edema 10/02/2021 Need for vaccination Need for prophylactic vaccination and inoculation against unspecified single disease 10/02/2021 Acute kidney injury (nontraumatic) Acute kidney failure, unspecified 10/05/2021 Acute kidney injury (nontraumatic) Acute kidney failure, unspecified 10/15/2021 MARLON (acute kidney injury) Acute kidney failure, unspecified 10/25/2021 MARLON (acute kidney injury) Acute kidney failure, unspecified 10/25/2021 Polyp of sigmoid colon, unspecified type 10/31/2021 History of colonic polyps Personal history of colonic polyps 10/31/2021 Chronic right shoulder pain Pain in joint, shoulder region 12/25/2021 Encounter for observation for other suspected diseases and conditions ruled out 12/25/2021 Chronic right shoulder pain Pain in joint, shoulder region 12/26/2021 Nausea Nausea alone 03/25/2022 Chronic right shoulder pain Pain in joint, shoulder region 03/25/2022 Encounter for observation for other suspected diseases and conditions ruled out 04/10/2022 Posterior tibialis tendinitis of both lower extremities 05/22/2022 Chronic right shoulder pain Pain in joint, shoulder region 06/24/2022 Stage 3a chronic kidney disease (HCC) 08/27/2022 Mixed hyperlipidemia 08/27/2022 Pre-diabetes Other abnormal glucose 08/27/2022 Screening for prostate cancer Special screening for malignant neoplasm of prostate 08/27/2022 Need for vaccination Need for prophylactic vaccination and inoculation against unspecified single disease 08/27/2022 Routine history and physical examination of adult Routine general medical examination at a health care facility 08/27/2022 Screening for prostate cancer Special screening for malignant neoplasm of prostate 08/27/2022 Moderate persistent asthma without complication (HHS) Unspecified asthma 08/27/2022 Seasonal allergic rhinitis, unspecified trigger 08/27/2022 Mixed hyperlipidemia 08/27/2022 Nausea Nausea alone 08/27/2022 Pre-diabetes Other abnormal glucose 08/27/2022 Overweight (BMI 25.0-29.9) Overweight 08/27/2022 Stage 3a chronic kidney disease (HCC) 08/27/2022 Rotator cuff tear arthropathy of both shoulders Traumatic arthropathy, shoulder region 08/27/2022 Posterior tibial tendon dysfunction (PTTD) of both lower extremities 08/27/2022 Non-recurrent unilateral inguinal hernia without obstruction or gangrene 08/27/2022 Stage 3 chronic kidney disease (HCC) 08/27/2022 Encounter for ophthalmic examination and evaluation Examination of eyes and vision 09/02/2022 Dermatochalasis of both upper eyelids 09/02/2022 Pinguecula of both eyes Pinguecula 09/02/2022 Arcus senilis of both corneas 09/02/2022 Nuclear sclerotic cataract of both eyes Senile nuclear sclerosis 09/02/2022 Hyperopia with regular astigmatism and presbyopia, bilateral 09/02/2022 Mild intermittent asthma, uncomplicated (HHS) Unspecified asthma 09/19/2022 Chronic right shoulder pain Pain in joint, shoulder region 09/23/2022 Left foot pain Pain in limb 11/22/2022 Left foot pain Pain in limb 12/05/2022 Pain in both lower extremities 12/05/2022 Chronic right shoulder pain Pain in joint, shoulder region 12/23/2022 Muscle spasm Spasm of muscle 12/23/2022 Muscle spasm Spasm of muscle 12/25/2022 Muscle spasm Spasm of muscle 01/07/2023 Muscle spasm Spasm of muscle 01/08/2023 Muscle spasm Spasm of muscle 01/08/2023 Muscle spasm Spasm of muscle 01/08/2023 Rotator cuff tear arthropathy of both shoulders Traumatic arthropathy, shoulder region 01/16/2023 Neuropathy Mononeuritis of unspecified site 01/16/2023 Nausea Nausea alone 01/16/2023 Pain management contract agreement Reserved for inherently not codable concepts WITHOUT codable children 01/16/2023 Polyp of colon, unspecified part of colon, unspecified type 01/16/2023 Overweight (BMI 25.0-29.9) Overweight 01/16/2023 JAMAL (obstructive sleep apnea) Obstructive sleep apnea (adult) (pediatric) 01/16/2023 Moderate persistent asthma without complication (HHS) Unspecified asthma 01/16/2023 Stage 3a chronic kidney disease (HCC) 01/16/2023 Stage 3 chronic kidney disease (HCC) 01/16/2023 Pain management contract agreement Reserved for inherently not codable concepts WITHOUT codable children 02/01/2023 Pain management contract agreement Reserved for inherently not codable concepts WITHOUT codable children 02/11/2023 Neuropathy Mononeuritis of unspecified site 03/10/2023 Dizzinesses Dizziness and giddiness 03/10/2023 Impairment of balance Abnormality of gait 03/10/2023 Chronic right shoulder pain Pain in joint, shoulder region 03/12/2023 Neuropathy Mononeuritis of unspecified site 03/12/2023 Claustrophobia Other isolated or specific phobias 03/12/2023 Chronic right shoulder pain Pain in joint, shoulder region 04/07/2023 Anxiety Anxiety state, unspecified 04/25/2023 Spinal stenosis, unspecified spinal region 04/25/2023 Neuropathy Mononeuritis of unspecified site 04/25/2023 Spinal stenosis, unspecified spinal region 05/01/2023 Neuropathy Mononeuritis of unspecified site 05/01/2023 Spinal stenosis, unspecified spinal region 05/06/2023 Spinal stenosis, unspecified spinal region 05/08/2023 Spinal stenosis, unspecified spinal region 05/13/2023 Neuropathy Mononeuritis of unspecified site 05/13/2023 Spinal stenosis, unspecified spinal region 05/15/2023 Chronic right shoulder pain Pain in joint, shoulder region 05/19/2023 Mild intermittent asthma, uncomplicated (HHS) Unspecified asthma 05/19/2023 Spinal stenosis, unspecified spinal region 05/20/2023 Spinal stenosis, unspecified spinal region 05/30/2023 Spinal stenosis, unspecified spinal region 06/03/2023 Spinal stenosis, unspecified spinal region 06/10/2023 Neuropathy Mononeuritis of unspecified site 06/10/2023 Chronic right shoulder pain Pain in joint, shoulder region 06/21/2023 Spinal stenosis, unspecified spinal region 06/21/2023 Chronic right shoulder pain Pain in joint, shoulder region 06/24/2023 Spinal stenosis, unspecified spinal region 06/24/2023 Chronic right shoulder pain Pain in joint, shoulder region 07/07/2023 Spinal stenosis, unspecified spinal region 07/08/2023 Dizziness Dizziness and giddiness 07/08/2023 Neuropathy Mononeuritis of unspecified site 07/08/2023 COVID 08/14/2023 Mild intermittent asthma, uncomplicated (HHS) Unspecified asthma 08/18/2023 Screening, lipid Screening for lipoid disorders 08/18/2023 Screening for endocrine disorder 08/18/2023 Rising PSA level Elevated prostate specific antigen (PSA) 08/18/2023 Neuropathy Mononeuritis of unspecified site 08/18/2023 Screening, lipid Screening for lipoid disorders 08/21/2023 Screening for endocrine disorder 08/21/2023 Mild intermittent asthma, uncomplicated (HHS) Unspecified asthma 08/21/2023 Rising PSA level Elevated prostate specific antigen (PSA) 08/21/2023 Chronic right shoulder pain Pain in joint, shoulder region 08/25/2023 Nausea Nausea alone 08/25/2023 Spinal stenosis, unspecified spinal region 08/25/2023 Moderate persistent asthma without complication (HHS) Unspecified asthma 08/25/2023 Pain management contract agreement Reserved for inherently not codable concepts WITHOUT codable children 08/25/2023 Rising PSA level Elevated prostate specific antigen (PSA) 08/25/2023 Stage 3a chronic kidney disease (HCC) 08/25/2023 Routine history and physical examination of adult Routine general medical examination at a health care facility 08/25/2023 Neuropathy Mononeuritis of unspecified site 08/25/2023 Need for vaccination Need for prophylactic vaccination and inoculation against unspecified single disease 08/25/2023 Encounter for ophthalmic examination and evaluation Examination of eyes and vision 09/08/2023 Dermatochalasis of both upper eyelids 09/08/2023 Pinguecula of both eyes Pinguecula 09/08/2023 Arcus senilis of both corneas 09/08/2023 Nuclear sclerotic cataract of both eyes Senile nuclear sclerosis 09/08/2023 Hyperopia with regular astigmatism and presbyopia, bilateral 09/08/2023 Chronic right shoulder pain Pain in joint, shoulder region 09/26/2023 Chronic right shoulder pain Pain in joint, shoulder region 10/28/2023 Anxiety Anxiety state, unspecified 10/28/2023 Chronic right shoulder pain Pain in joint, shoulder region 12/01/2023 COVID 12/22/2023 Encounter for drug therapy Encounter for long-term (current) use of other medications 12/28/2023 Encounter for drug therapy Encounter for long-term (current) use of other medications 12/30/2023 Mild intermittent asthma, uncomplicated (HHS) Unspecified asthma 01/05/2024 Chronic right shoulder pain Pain in joint, shoulder region 01/05/2024 Chronic right shoulder pain Pain in joint, shoulder region 01/28/2024 Muscle spasm Spasm of muscle 01/28/2024 Muscle spasm Spasm of muscle 01/29/2024 Muscle spasm Spasm of muscle 02/19/2024 Muscle spasm Spasm of muscle 02/23/2024 Chronic right shoulder pain Pain in joint, shoulder region 03/08/2024 Chronic right shoulder pain Pain in joint, shoulder region 04/07/2024 Mild intermittent asthma, uncomplicated (HHS) Unspecified asthma 04/28/2024 Low testosterone in male 05/04/2024 Chronic right shoulder pain Pain in joint, shoulder region 05/10/2024 Encounter for drug therapy Encounter for long-term (current) use of other medications 05/27/2024 Chronic right shoulder pain Pain in joint, shoulder region 05/27/2024 Stage 3a chronic kidney disease (HCC) 05/28/2024 Screening for endocrine disorder 05/28/2024 Screening, lipid Screening for lipoid disorders 05/28/2024 Neuropathy Mononeuritis of unspecified site 05/28/2024 Secondary hyperaldosteronism (HHS) Other secondary aldosteronism 05/28/2024 Mixed hyperlipidemia 05/28/2024 Spinal stenosis Spinal stenosis, unspecified region other than cervical 05/28/2024 JAMAL (obstructive sleep apnea) Obstructive sleep apnea (adult) (pediatric) 05/28/2024 Rotator cuff tear arthropathy of both shoulders Traumatic arthropathy, shoulder region 05/28/2024 Moderate persistent asthma without complication (HHS) Unspecified asthma 05/28/2024 Stage 3 chronic kidney disease (HCC) 05/28/2024 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) 05/28/2024 Low testosterone in male 06/03/2024 Encounter for drug therapy Encounter for long-term (current) use of other medications 06/03/2024 Chronic right shoulder pain Pain in joint, shoulder region 06/03/2024 Stage 3a chronic kidney disease (HCC) 06/03/2024 Chronic right shoulder pain Pain in joint, shoulder region 06/07/2024 Chronic right shoulder pain Pain in joint, shoulder region 07/08/2024 Low testosterone in male 07/19/2024 Mild intermittent asthma, uncomplicated (HHS) Unspecified asthma 08/02/2024 Low testosterone in male 08/02/2024 Chronic right shoulder pain Pain in joint, shoulder region 08/09/2024 Low testosterone in male 08/10/2024 Low testosterone in male 08/24/2024 Screening for endocrine disorder 08/24/2024 Screening, lipid Screening for lipoid disorders 08/24/2024 Mild intermittent asthma, uncomplicated (HHS) Unspecified asthma 08/26/2024 Dizziness Dizziness and giddiness 08/26/2024 Stage 3a chronic kidney disease (HCC) 08/26/2024 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) Polyneuropathy in other diseases classified elsewhere 08/26/2024 Screening for endocrine disorder 08/26/2024 Screen for colon cancer Special screening for malignant neoplasms, colon 08/26/2024 Need for vaccination Need for prophylactic vaccination and inoculation against unspecified single disease 08/26/2024 Secondary hyperaldosteronism (HHS) Other secondary aldosteronism 08/26/2024 Neuropathy Mononeuritis of unspecified site 08/26/2024 Moderate persistent asthma without complication (HHS) Unspecified asthma 08/26/2024 Mixed hyperlipidemia 08/26/2024 Pain management contract agreement Reserved for inherently not codable concepts WITHOUT codable children 08/26/2024 Hypogonadism in male 08/26/2024 Routine history and physical examination of adult Routine general medical examination at a health care facility 08/26/2024 Chronic right shoulder pain Pain in joint, shoulder region 09/07/2024 Dizziness Dizziness and giddiness 09/22/2024 History of stroke Transient ischemic attack (TIA), and cerebral infarction without residual deficits 09/22/2024 Dizziness Dizziness and giddiness 09/28/2024 Chronic right shoulder pain Pain in joint, shoulder region 10/08/2024 Chronic right shoulder pain Pain in joint, shoulder region 11/05/2024 Chronic right shoulder pain Pain in joint, shoulder region 11/08/2024 Dizziness Dizziness and giddiness 11/11/2024 Medication management Encounter for long-term (current) use of other medications 11/11/2024 Medication management Encounter for long-term (current) use of other medications 11/30/2024 Screening for endocrine disorder 11/30/2024 Nausea Nausea alone 12/03/2024 Chronic right shoulder pain Pain in joint, shoulder region 12/07/2024 Encounter for laboratory test Laboratory examination, unspecified 12/24/2024 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) Polyneuropathy in other diseases classified elsewhere 12/24/2024 Uncomplicated opioid dependence (HCC) Opioid type dependence, unspecified 12/24/2024 Dizziness Dizziness and giddiness 12/24/2024 History of stroke Transient ischemic attack (TIA), and cerebral infarction without residual deficits 12/24/2024 Encounter for laboratory test Laboratory examination, unspecified 12/24/2024 Stage 3 chronic kidney disease (HCC) 12/24/2024 Dizziness Dizziness and giddiness 01/03/2025 History of stroke Transient ischemic attack (TIA), and cerebral infarction without residual deficits 01/03/2025 Chronic right shoulder pain Pain in joint, shoulder region 01/10/2025 Dizziness Dizziness and giddiness 01/21/2025 Anxiety Anxiety state, unspecified 01/21/2025 CKD stage 3a, GFR 45-59 ml/min ([facility]) 01/21/2025 Low testosterone in male 01/26/2025 Mild intermittent asthma, uncomplicated (HHS) Unspecified asthma 01/28/2025 Stage 3a chronic kidney disease (HCC) 01/31/2025 Low testosterone in male 01/31/2025 Chronic right shoulder pain Pain in joint, shoulder region 02/07/2025 Low testosterone in male 02/08/2025 Low testosterone in male 02/17/2025 Chronic right shoulder pain Pain in joint, shoulder region 03/08/2025 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
--- OUTSIDE RECORDS SUMMARY | 2025-03-11 13:42 | XMS_ITS | Encounter Summary ---
Author Organization [facility] Address [address] [place] [address] Care Team Providers Care Log Brander Name Role Phone Fran Johnson DO Primary Care Provider Ludwig Joshi MD Primary Care Provider [phone] Encounter Details Date Type Department Care Team ([facility] st Contact Info) Description 01/18/2019 Orders Only [facility] [address] [place] [address] Fran Johnson, DO Social History Tobacco Use Types Packs/Day Years [...] on file documented as of this encounter Progress Notes * Fran Johnson - 01/22/2019 7:52 PM EST Creatinine slightly elevated and this was discussed with him at 01/22/2019 visit. We will repeat a metabolic panel in a couple weeks and discussed importance of adequate hydration. Testosterone within normal range and no supplementation necessary. Lipids slightly elevated with triglyceride 167 and LDL 155. Discussed importance of dietary modifications and we will repeat this in 6 months. No other concerns. documented in this encounter Plan of Treatment Upcoming Encounters Date Type Department Care Team (Latest Contact Info) Description 08/12/2025 8:30 AM EDT Office Visit [facility] [address] [facility] [address] [place] [address] Filiberto Leos MD [address] [place] [address] Return in about 6 months (around 08/11/2025) for labs prior. 09/22/2025 12:45 PM EDT CPE - Comprehensive Physical Exam [facility] [address] [place] [address] Ludwig Tidwell MD [address] [place] [address] documented as of this encounter Procedures * Due to [place] state law, this organization might not be sharing negative HIV tests. Procedure Name Priority Date/Time Associated Diagnosis Comments HEMOGLOBIN AND HEMATOCRIT, BLOOD Routine 01/18/2019 6:48 AM EST Fatigue, unspecified type THYROID STIMULATING HORMONE (TSH) WITH FREE T4 REFLEX, SERUM Routine 01/18/2019 6:48 AM EST Fatigue, unspecified type TESTOSTERONE, FREE(DIALYSIS) AND TOTAL, MS Routine 01/18/2019 [...] Routine 01/18/2019 6:48 AM EST Other hyperlipidemia BASIC METABOLIC PANEL WITH (GFR) Routine 01/18/2019 6:48 AM EST Fatigue, unspecified type documented in this encounter Results * Due to [place] state law, this organization might not be sharing negative HIV tests. * TESTOSTERONE, FREE AND TOTAL, LC/MS/MS (01/18/2019 6:48 AM EST) Testosterone 353 250 - 1100 ng/dL [facility] Comment: Men with clinically significant hypogonadal symptoms and testosterone values repeatedly in the range of the 200-300 ng/dL or less, may benefit from testosterone treatment after adequate risk and benefits counseling. For additional information, please refer to http://education.Angel [employer]s/faq/ SfklzZygrhccsjbetFBDLFWDDF369 (This link is being provided for informational/ educational purposes only.) This test was developed and its analytical performance characteristics have been determined by [facility] [place], [place]. It has not been cleared or approved by the U.S. Food and Drug Administration. This assay has been validated pursuant to the CLIA regulations and is used for clinical purposes. Testosterone, Free 50.8 35.0 - 155.0 pg/mL [facility] Comment: This test was developed and its analytical performance characteristics have been determined by [facility] [place], [place]. It has not been cleared or approved by the U.S. Food and Drug Administration. This assay has been validated pursuant to the CLIA regulations and is used for clinical purposes. 01/18/2019 6:48 AM EST 01/18/2019 3:02 PM EST Narrative Resulting Agency Comment [id number] Fran Johnson DO LABORATORY Final Result [facility] [address] [place] [address] * HEPATIC FUNCTION PANEL (ALT,AST,ALK PH,BILI'S,TP,ALB) (01/18/2019 [...] 3:02 PM EST Narrative Resulting Agency Comment [id number] Fran Johnson DO LABORATORY Final Result Performing Organization Address City/State/[facility] Co de Phone Number [facility] [address] [place] [address] * (ABNORMAL) BASIC METABOLIC PANEL WITH (GFR) (01/18/2019 6:48 AM EST) Pathologist [facility] Glucose 102(H) 65 - 99 mg/dL [facility] Comment: ? Fasting reference interval For someone without known diabetes, a glucose value between 100 and 125 mg/dL is consistent with prediabetes and should be confirmed with a follow-up test. Urea Nitrogen Blood (BUN) 17 7 - 25 mg/dL [facility] Creatinine 1.29(H) 0.70 - 1.25 mg/dL [facility] Comment: For patients >49 years of age, the reference limit for Creatinine is approximately 13% higher for people identified as -[place]. EGFR 59(L) > OR = 60 mL/min/1. 73m2 [facility] GFR () 68 > OR = 60 mL/min/1. 73m2 [facility] BUN/Creatinine Ratio 13 6 - 22 (calc) [facility] Sodium 141 135 - 146 mmol/L [facility] Potassium 4.4 3.5 - 5.3 mmol/L [facility] Chloride 107 98 - 110 mmol/L [facility] Carbon dioxide 28 20 - 32 mmol/L [facility] Calcium 9.6 8.6 - 10.3 mg/dL [facility] 01/18/2019 6:48 AM EST 01/18/2019 3:02 PM EST Narrative [facility] - 01/18/2019 7:42 PM EST Please note that this estimated [...] needs for GFR calculation. Resulting Agency Comment [id number] Fran Johnson DO LABORATORY Final Result Performing Organization Address [facility] Co de Phone Number [facility] [address] [place] [address] * THYROID STIMULATING HORMONE (TSH) WITH FREE T4 REFLEX, SERUM (01/18/2019 6:48 AM EST) TSH 1.81 0.40 - 4.50 mIU/L [facility] 01/18/2019 6:48 AM EST 01/18/2019 3:02 PM EST Narrative Resulting Agency Comment [id number] Fran Johnson DO LABORATORY Final Result Performing Organization Address [facility] de Phone Number [facility] [address] [place] [address] * FOLATE, SERUM (01/18/2019 6:48 AM EST) Folate 14.4 ng/mL [facility] Comment: ? Reference Range ? Low: ? <3.4 ? Borderline: ?3.4-5.4 ? Normal: ?>5.4 01/18/2019 6:48 AM EST 01/18/2019 3:02 PM EST Narrative Resulting Agency Comment [id number] Fran Antionette Alex DO LABORATORY Final Result Performing Organization Address [facility] de Phone Number [facility] [address] [place] [address] * VITAMIN B12 (CYANOCOBALAMIN), SERUM (01/18/2019 6:48 AM EST) Vitamin B12 (Cobalamins) 931 200 - 1100 pg/mL [facility] 01/18/2019 6:48 AM EST 01/18/2019 3:02 PM EST Narrative Resulting Agency Comment [id number] Fran Antionette Alex DO LABORATORY Final Result Performing Organization Address [facility] Phone Number [facility] [address] [place] [address] * IRON PROFILE (IRON/TIBC), SERUM (01/18/2019 6:48 AM EST) Iron 106 50 - 180 mcg/dL [facility] Iron binding capacity 350 250 - 425 mcg/dL (calc) [facility] Iron saturation 30 15 - 60 % (calc) [facility] 01/18/2019 6:48 AM EST 01/18/2019 3:02 PM EST Narrative Resulting Agency Comment [id number] Fran Johnson DO LABORATORY Final Result Performing Organization Address [facility] de Phone Number [facility] [address] [place] [address] * HEMOGLOBIN AND HEMATOCRIT, BLOOD (01/18/2019 6:48 AM EST) Hemoglobin 14.7 13.2 - 17.1 g/dL [facility] Hematocrit 43.6 38.5 - 50.0 % [facility] 01/18/2019 6:48 AM EST 01/18/2019 3:02 PM EST Narrative Resulting Agency Comment [id number] Fran Johnson DO LAB SAME DAY RESULT Final Resul t Performing Organization Address [facility] Co de Phone Number [facility] [address] [place] [address] * (ABNORMAL) LIPID PANEL WITH REFLEX TO DIRECT LDL (01/18/2019 6:48 AM EST) Cholesterol 235(H) <200 mg/dL [facility] HDL Cholesterol 50 >40 mg/dL [facility] Triglyceride 167(H) <150 mg/dL [facility] LDL Cholesterol 155(H) mg/dL (calc) [facility] Comment: Reference range: [...] LDL-C. Naveen SS et al. JOHN. 2013;310(19): 6846-6986 (http://education.[employer]/faq/YXY340) CHOL/HDL Ratio 4.7 <5.0 (calc) [facility] Cholesterol Non-HDL 185(H) <130 mg/dL (calc) [facility] Comment: For patients with diabetes plus 1 major ASCVD risk factor, treating to a non-HDL-C goal of <100 mg/dL (LDL-C of <70 mg/dL) is considered a therapeutic option. 01/18/2019 6:48 AM EST 01/18/2019 3:02 PM EST Narrative Resulting Agency Comment [id number] Fran Johnson DO LABORATORY Final Result Performing Organization Address [facility] Co de Phone Number [facility] [address] [place] [address] documented in this encounter Visit Diagnoses Diagnosis Other hyperlipidemia Fatigue, unspecified type documented in this encounter Care Teams Log Brander Relationship Specialty Start Date End Date Fran Johnson DO PCP - General Family Medicine 03/17/17 11/11/22 Ludwig Tidwell MD [address] [place] [id number] PCP - General Internal Medicine 11/12/22 documented as of this encounter
--- OUTSIDE RECORDS SUMMARY | 2025-03-11 13:43 | XMS_ITS | Encounter Summary ---
Author Organization [facility] Address [address] [place] [address] Care Team Providers Care Marine Pipe Welder Name Role Phone Fran Johnson DO Primary Care Provider Ludwig Joshi MD Primary Care Provider [phone] Encounter Details Date Type Department Care Team (Late st Contact Info) Description 10/15/2021 Orders Only [facility] [address] [place] [phone] Fran Johnson, DO Social History Tobacco Use Types Packs/Day Years Used Date Smoking Tobacco: Never Smokeless Tobacco: Never Alcohol Use Standard Drinks/Week Comments No 0 (1 standard drink = 0.6 oz pur e alcohol) PHQ-2 Answer Date Recorded PHQ-2 Score 0 07/03/2021 Sex and Gender Information Value Date Recorded [...] Miscellaneous Notes * Result Encounter Note - Fran Johnson. - 10/15/2021 7:29 AM EST Please call patient re: following results: Let him know that his kidney function has improved from 2 weeks ago but it is still not normal. He should keep his upcoming visit later this week with nephrology, Dr. Matthews His CBC and urine tests were normal which is a good sign I had him stop his lasix a couple weeks ago when his Cr was elevated See how his LE edema is. documented in this encounter Plan of Treatment Upcoming Encounters Date Type Department Care Team (Latest Contact Info) Description 08/12/2025 8:30 AM EDT Office Visit [facility] Urology [address] [facility] [address] [place] [address] Filiberto Leos MD [address] [place] [address] Return in about 6 months (around 08/11/2025) for labs prior. 09/22/2025 12:45 PM EDT CPE - Comprehensive Physical Exam [facility] [address] [place] [address] Ludwig Tidwell MD [address] [place] [address] documented as of this encounter Procedures * Due to [place] [employer] law, this organization might not be sharing negative HIV tests. Procedure Name Priority Date/Time Associated Diagnosis Comments CBC INCLUDES DIFFERENTIAL AND PLATELET COUNT Routine 10/15/2021 7:29 AM EST Acute kidney injury (nontraumatic) URINALYSIS, COMPLETE INCLUDES DIPSTICK AND MICROSCOPIC Routine 10/15/2021 7:29 AM EST Acute kidney injury (nontraumatic) VENIPUNCTURE Routine 10/15/2021 7:29 AM EST Acute kidney injury (nontraumatic) documented in this encounter Results * Due to [place] [employer] law, this organization might not be sharing negative HIV tests. * CBC INCLUDES DIFFERENTIAL AND PLATELET COUNT (10/15/2021 7:29 AM EST) WBC 5.5 3.8 - 10.8 Thousand/u L [...] 10:21 AM EST Narrative Resulting Agency Comment [id number] us Farn Johnson DO LAB SAME DAY RESULT Final Resul t [facility] [address] [place] [address] * (ABNORMAL) RENAL FUNCTION PANEL (W/ EGFR) (10/15/2021 7:29 AM EST) Glucose 100(H) 65 - 99 mg/dL [facility] Comment: ? Fasting reference interval For someone without known diabetes, a glucose value between 100 and 125 mg/dL is consistent with prediabetes and should be confirmed with a follow-up test. Urea Nitrogen Blood (BUN) 18 7 - 25 mg/dL [facility] Creatinine 1.43(H) 0.70 - 1.25 mg/dL [facility] Comment: For patients >49 years of age, the reference limit for Creatinine is approximately 13% higher for people identified as -[place]. EGFR 51(L) > OR = 60 mL/min/1. 73m2 [facility] GFR () 60 > OR = 60 mL/min/1. 73m2 [facility] BUN/Creatinine Ratio 13 6 - 22 (calc) [facility] Sodium 139 135 - 146 mmol/L [facility] Potassium 4.2 3.5 - 5.3 mmol/L [facility] Chloride 102 98 - 110 mmol/L [facility] Carbon dioxide 30 20 - 32 mmol/L [facility] Calcium 9.7 8.6 - 10.3 mg/dL [facility] Phosphate 2.9 2.5 - 4.5 mg/dL [facility] Albumin 4.2 3.6 - 5.1 g/dL [facility] 10/15/2021 7:29 AM EST 10/15/2021 10:21 AM EST Narrative Resulting Agency Comment [id number] Fran Johnson DO LABORATORY Final Result Performing Organization Address [facility] de Phone Number [facility] [address] [place] [address] * URINALYSIS, COMPLETE INCLUDES DIPSTICK AND MICROSCOPIC [...] 10:21 AM EST Narrative Resulting Agency Comment [id number] us Fran Johnson DO LAB SAME DAY RESULT Final Resul t Performing Organization Address [facility] Co de Phone Number [facility] [address] [place] [address] documented in this encounter Visit Diagnoses Diagnosis Acute kidney injury (nontraumatic) Acute kidney failure, unspecified documented in this encounter Care Teams Marine Pipe Welder Relationship Specialty Start Date End Date Fran Johnson DO PCP - General Family Medicine 03/17/17 11/11/22 Ludwig Tidwell MD [address] [place] [address] PCP - General Internal Medicine 11/12/22 documented as of this encounter
--- OUTSIDE RECORDS SUMMARY | 2025-03-11 13:43 | XMS_ITS | Encounter Summary ---
Author Organization [facility] Address [address] [place] [address] Care Team Providers Care Operations Intelligence Name Role Phone Ludwig Tidwell MD Primary Care Provider Encounter Details Date Type Department Care Team (Late st Contact Info) Description 03/17/2023 Orders Only [facility] [address] [place], [place] [phone] Cody Galloway MD [address] [place], [place] [phone] Claustrophobia (Primary Dx); Pre-procedure lab exam Social History Tobacco Use Types Packs/Day Years Used Date Smoking Tobacco: Never Smokeless Tobacco: Never Comments:: Alcohol Use Standard Drinks/Week Comments Not Currently 0 (1 standard drink = 0.6 oz pur e alcohol) Sex and Gender Information Value Date Recorded Sex Assigned at Male 02/27/2023 9:17 AM EDT Legal Sex Male 7:03 AM EDT Gender Identity Male 02/27/2023 9:17 AM EDT Sexual Orientation Straight 02/27/2023 9: 17 AM EDT documented as of this encounter Plan of Treatment Not on file documented as of this encounter Visit Diagnoses Diagnosis Claustrophobia- Primary Other isolated or specific phobias Pre-procedure lab exam Pre-procedural laboratory examination documented in this encounter Care Teams Operations Intelligence Relationship Specialty Start Date End Date Ludwig Tidwell MD PCP - General Internal Medicine 01/28/23 documented as of this encounter
--- OUTSIDE RECORDS SUMMARY | 2025-03-11 13:43 | XMS_ITS | Encounter Summary ---
Author Organization [facility] Address [address] [place] [address] Care Team Providers Care Gang Sawyer Name Role Phone Ludwig Tidwell MD Primary Care Provider [phone] Encounter Details Date Type Department Care Team (Late st Contact Info) Description 12/30/2023 Orders Only [facility] [address] [place] [phone] Ludwig Tidwell MD [address] [place] [address] Social History Tobacco Use Types Packs/Day Years Used Date Smoking Tobacco: Never Smokeless Tobacco: Never Alcohol Use Standard Drinks/Week Comments No 0 (1 standard drink = 0.6 oz pur e alcohol) PHQ-2 Answer Date Recorded PHQ-2 Score 0 08/25/2023 PHQ-9 Answer Date [facility]ed [facility] SEVERITY SCORE (Range 0-27) 0 [...] Encounter Note - Ludwig Tidwell MD - 12/30/2023 6:48 AM EST Dear nursing team, Please call patient and inqure when last dose of opiate was, as his urine screen was negative and typically wash out period is 2-3 days. Thank you, Dr. Tidwell documented in this encounter Plan of Treatment Upcoming Encounters Date Type Department Care Team (Latest Contact Info) Description 08/12/2025 8:30 AM EDT Office Visit [facility] Urology [address] [facility] [address] [place] [address] Filiberto Leos MD [address] [place] [address] Return in about 6 months (around 08/11/2025) for labs prior. 09/22/2025 12:45 PM EDT CPE - Comprehensive Physical Exam [facility] [address] [place] [phone] Ludwig Tidwell MD [address] [place] [address] documented as of this encounter Procedures * Due to [facility] law, this organization might not be sharing negative HIV tests. Procedure Name Priority Date/Time Associated Diagnosis Comments PAIN MANAGEMENT PROFILE WITH FENTANYL, URINE (PAINM2+) Routine 12/30/2023 6:48 AM EST Encounter for drug therapy documented in this encounter Results * Due to [place] [employer] law, this organization might not be sharing negative HIV tests. * PAIN MANAGEMENT PROFILE WITH FENTANYL, URINE (PAINM2+) (12/30/2023 6:48 AM EST) Fentanyl Screen (Urine) NEGATIVE <0.5 ng/mL [facility] Comment:See Note 1 COMMENT SEE NOTE [facility] Comment:See Note 2 Creatinine (Urine) 140.6 > or = 20.0 mg/dL [facility] [...] <25 ng/mL [facility] COMMENT SEE NOTE [employer] Comment: See Note 2 Note 1 This test was developed and its analytical performance characteristics have been determined by [employer]. It has not been cleared or approved [...] interpreting these drug results, please contact a [employer] Toxicology Specialist: [phone] ( ), M-F, 8am-6pm EST. 12/30/2023 6:48 AM EST 12/30/2023 10:55 PM EST Narrative Resulting Agency Comment [id number] us Ludwig Tidwell MD LABORATORY Final Result [facility] [address] [place] [address] documented in this encounter Visit Diagnoses Diagnosis Encounter for drug therapy Encounter for long-term (current) use of other medications documented in this encounter Care Teams Gang Sawyer Relationship Specialty Start Date End Date Ludwig Tidwell MD [address] [place] [address] PCP - General Internal Medicine 11/12/22 documented as of this encounter
--- OUTSIDE RECORDS SUMMARY | 2025-03-11 13:43 | XMS_ITS | Encounter Summary ---
Author Organization [facility] Address [address] [place] [address] Care Team Providers Care Entry Level Civil Engineer Name Role Phone Ludwig Tidwell MD Primary Care Provider [phone] Encounter Details Date Type Department Care Team (Late st Contact Info) Description 02/11/2023 Orders Only [facility] [address] [place] [phone] Ludwig Tidwell MD [address] [place] [address] Social History Tobacco Use Types Packs/Day Years Used Date Smoking Tobacco: Never Smokeless Tobacco: Never Alcohol Use Standard Drinks/Week Comments No 0 (1 standard drink = 0.6 oz pur e alcohol) PHQ-2 Answer Date Recorded PHQ-2 Score 0 08/27/2022 Sex and Gender Information Value Date Recorded [...] Description 08/12/2025 8:30 AM EDT Office Visit [facility] Urology [address] [facility] [address] [place] [address] Filiberto Leos MD [address] [place] [address] Return in about 6 months (around 08/11/2025) for labs prior. 09/22/2025 12:45 PM EDT CPE - Comprehensive Physical Exam [facility] [address] [place] [address] Ludwig Tidwell MD [address] [place] [address] documented as of this encounter Procedures * Due to [facility] law, this organization might not be sharing negative HIV tests. Procedure Name Priority Date/Time Associated Diagnosis Comments PAIN MANAGEMENT PROFILE WITH FENTANYL, URINE (PAINM2+) Routine 02/11/2023 7:11 AM EDT Pain management contract agreement documented in this encounter Results * Due to [facility] law, this organization might not be sharing negative HIV tests. * (ABNORMAL) PAIN MANAGEMENT PROFILE WITH FENTANYL, URINE (PAINM2+) (02/11/2023 7:11 AM EDT) Fentanyl Screen (Urine) NEGATIVE <0.5 ng/mL [facility] Comment:See Note 1 COMMENT SEE NOTE [facility] Comment:See Note 2 Creatinine (Urine) 108.3 > or = 20.0 mg/dL [facility] pH (Urine) 5.8 4.5 - 9.0 [facility] OXIDANT NEGATIVE [...] [facility] Comment:See Note 1 Hydrocodone (Urine) 101(H) <50 ng/mL [facility] Comment:See Note 1 Hydromorphone (Urine) NEGATIVE <50 ng/mL [facility] Comment:See Note 1 Morphine (Urine) NEGATIVE <50 ng/mL [facility] Comment:See Note 1 Norhydrocodone (Urine) 78(H) <50 ng/mL [facility] Comment:See Note 1 Oxycodone (Urine) NEGATIVE <100 ng/mL [facility] Phencyclidine (Urine) NEGATIVE <25 ng/mL [facility] COMMENT SEE NOTE [facility] Comment: See Note 2 Note 1 This test was developed and its analytical performance characteristics have been determined by [employer]. It has not been cleared or approved [...] interpreting these drug results, please contact a [employer] Toxicology Specialist: [phone] ( ), M-F, 8am-6pm EST. 02/11/2023 7:11 AM EDT 02/12/2023 6:18 AM EDT Narrative Resulting Agency Comment [id number] us Ludwig Tidwell MD LABORATORY Final Result Performing Organization Address City/State/[facility] Co de Phone Number [facility] [address] [place] [address] documented in this encounter Visit Diagnoses Diagnosis Pain management contract agreement Reserved for inherently not codable concepts WITHOUT codable children documented in this encounter Care Teams Entry Level Civil Engineer Relationship Specialty Start Date End Date Ludwig Tidwell MD [address] [place] [address] PCP - General Internal Medicine 11/12/22 documented as of this encounter
--- OUTSIDE RECORDS SUMMARY | 2025-03-11 13:43 | XMS_ITS | Clinical Summary ---
Author Organization [facility] Address [address] [place] [address] Care Team Providers Care Author'S Agent Name Role Phone Unavailable Primary Care Provider Unavailabl e Social History Tobacco Use Types Packs/Day Years Used Date Smoking Tobacco: Never Assessed Sex and Gender Information Value Date Recorded Sex Assigned at Not on file Legal Sex Male 8:06 AM EDT Gender Identity Not on file Sexual Orientation Not on file Plan of Treatment Health Maintenance Due Date Last Done Comments Colorectal Cancer: COLONOSCO PY Screening every 10 yrs (or Modifier) 1957 Depression: Screening Annual ly using PHQ-2/9 in Adults 18 yrs or above (or HM Modifier)([facility]) 1975 Hepatitis C Virus Infection in Adolescents and Adults: Screening (or Modifier) ([facility]) 1975 SDVT Screening Reminder: Jami russell for all adults ([facility]) 1975 Tobacco Smoking Cessation: i n Adults excluding Women: Behavioral and Pharmacotherapy Interventions ([facility]) 1975 DTaP/Tdap/Td Vaccines ([facility]) (1 - Tdap) 1976 Lipid Screening: Every 5 yrs for Men aged 35+ (or HM Modifier) ([facility]) 1993 Colorectal Cancer Screening 45 -75 Yrs (or HM Modifier ) 2002 Colorectal Cancer: FLEXIBLE SIGMOIDOSCOPY Screening every 5 yrs 2002 Colorectal Cancer: Fecal Imm unochemical Test (FIT) Annually [facility] 2002 Colorectal Cancer: High-sens itivity gFOBT Screening Annually [facility] 2002 Colorectal Cancer: Stool Col oguard Screening every 3 yrs 2002 Colorectal Cancer:CT Colonography Screening every 5 yr s 2002 Pneumococcal Vaccination Scr eening: Patients 50+ yrs of age ([facility]) (1 of 1 - PCV) 2007 Zoster/Shingles Vaccine Seri es Screening: Adults aged 18+ yrs (or HM Modifiers)([facility]) (1 of 2) 2007 Flu Vaccination: Ages 65+: Y early High Dose Recommended (or Modifier)([facility]) 06/24/2024 COVID-19 Vaccine Screening: Initial Series and Booster Status ([facility]) ( - 2023-25 season) 2024 RSV Vaccines (1 - 1-dose 75+ series) 2032 [employer] Not on file Insurance [facility]
--- OUTSIDE RECORDS SUMMARY | 2025-03-11 13:43 | XMS_ITS | Encounter Summary ---
Author Organization [facility] Address [address] [place] [address] Care Team Providers Care Inspector Repairer Name Role Phone Fran Johnson DO Primary Care Provider UnavailLudwig Dove MD Primary Care Provider [phone] Encounter Details Date Type Department Care Team ( Contact Info) Description 03/25/2018 Orders Only [facility] [address] [place] [phone] Fran Johnson, DO Social History Tobacco Use [...] encounter Progress Notes * Fran Johnson - 03/26/2018 7:50 PM EDT All labs normal or as expected. Does not take hydrocodone every day, explaining neg. results documented in this encounter Plan of Treatment Upcoming Encounters Date Type Department Care Team (Latest Contact Info) Description 08/12/2025 8:30 AM EDT Office Visit [facility] Urology [address] [phone] Filiberto Leos MD [address] [place] [address] Return in about 6 months (around 08/11/2025) for labs prior. 09/22/2025 12:45 PM EDT CPE - Comprehensive Physical Exam [facility] Medicine [address] [place] [address] Ludwig Tidwell MD [address] [place] [address] documented as of this encounter Procedures * Due to [facility] law, this organization might not be sharing negative HIV tests. Procedure Name Priority Date/Time Associated Diagnosis Comments PAIN MANAGEMENT PROFILE WITH FENTANYL, URINE (PAINM2+) Routine 03/25/2018 11:25 AM EDT Long-term current use of opiate analgesic documented in this encounter Results * Due to [place] [employer] law, this organization might not be sharing negative HIV tests. * PAIN MANAGEMENT PROFILE WITH FENTANYL, URINE (PAINM2+) (03/25/2018 11:25 AM EDT) Fentanyl Screen (Urine) NEGATIVE <0.5 ng/mL [facility] COMMENT SEE NOTE [facility] Comment: This drug testing is for medical treatment only. ?? Analysis was performed as non-forensic testing and these results should be used only by healthcare providers to render diagnosis or treatment, or to monitor progress of medical conditions. For assistance with interpreting these drug results, please contact a [employer] Toxicology Specialist: [phone] ( ), M-F, 8am-6pm EST. Creatinine (Urine) 292.1 > or = 20.0 mg/dL [facility] pH (Urine) 5.2 4.5 - 9.0 [facility] OXIDANT NEGATIVE [...] interpreting these drug results, please contact a [employer] Toxicology Specialist: [phone] ( ), M-F, 8am-6pm EST. 03/25/2018 11:2 5 AM EDT 03/25/2018 2:59 PM EDT Narrative Resulting Agency Comment [id number] Fran Johnson DO LABORATORY Final Result Performing Organization Address City/State/[facility] Co de Phone Number [facility] [address] [place] [address] documented in this encounter Visit Diagnoses Diagnosis Long-term current use of opiate analgesic Encounter for long-term (current) use of other medications documented in this encounter Care Teams Inspector Repairer Relationship Specialty Start Date End Date Fran Johnson DO PCP - General Family Medicine 03/17/17 11/11/22 Ludwig Tidwell MD [address] [place] [address] PCP - General Internal Medicine 11/12/22 documented as of this encounter
--- OUTSIDE RECORDS SUMMARY | 2025-03-11 13:43 | XMS_ITS | Encounter Summary ---
Author Organization [facility] Address [address] [place] [address] Care Team Providers Care Furniture Associate Name Role Phone Ludwig Tidwell MD Primary Care Provider [phone] Reason for Visit * Reason Comments Med Change Request Encounter Details Date Type Department Care Team (Late st Contact Info) Description 02/23/2024 [facility] Adult Medicine [address] [place] [phone] Ludwig Tidwell MD [address] [place] [address] Med Change Request Social History Tobacco Use Types Packs/Day Years Used Date Smoking Tobacco: Never Smokeless Tobacco: Never Alcohol Use Standard Drinks/Week Comments No 0 (1 standard drink = 0.6 oz pur e alcohol) PHQ-2 Answer Date Recorded PHQ-2 Score 0 08/25/2023 PHQ-9 Answer Date Recorded [facility] PHQ-9 SEVERITY SCORE (Range 0-27) 0 08/25/2023 [...] encounter Miscellaneous Notes * Telephone Encounter - Catina Ramos Pharmacy Navigator - 02/24/2024 2:10 PM EDT Images from the original note were not included. Metax[employer] not covered. Would you like to initiate a PA or send in alternative? documented in this encounter Plan of Treatment Upcoming Encounters Date Type Department Care Team (Latest Contact Info) Description 08/12/2025 8:30 AM EDT Office Visit [facility] Urology [address] [facility] [address] [place] [address] Filiberto Leos MD [address] [place] [address] Return in about 6 months (around 08/11/2025) for labs prior. 09/22/2025 12:45 PM EDT CPE - Comprehensive Physical Exam [address] [address] Ludwig Tidwell MD [address] [place] [address] documented as of this encounter Visit Diagnoses Diagnosis Muscle spasm Spasm of muscle documented in this encounter Care Teams Furniture Associate Relationship Specialty Start Date End Date Ludwig Tidwell MD [address] [place] [address] PCP - General Internal Medicine 11/12/22 documented as of this encounter
--- OUTSIDE RECORDS SUMMARY | 2025-03-11 13:43 | XMS_ITS | Encounter Summary ---
Author Organization [facility] Address [address] [place] [address] Care Team Providers Care Apartment Leasing Specialist Name Role Phone Ludwig Tidwell MD Primary Care Provider [phone] Encounter Details Date Type Department Care Team (Late st Contact Info) Description 08/14/2023 Orders Only [facility] Adult Medicine [address] [place] [phone] Arlene Hernandez Pharmacy Navigator [address] [place] [address] Social History Tobacco Use Types Packs/Day Years Used Date Smoking Tobacco: Never Smokeless Tobacco: Never Alcohol Use Standard Drinks/Week Comments No 0 (1 standard drink = 0.6 oz pur e alcohol) PHQ-2 Answer Date Recorded PHQ-2 Score 0 08/27/2022 Intimate Partner Violence Answer Date R ecorded [...] Description 08/12/2025 8:30 AM EDT Office Visit [facility] Urology [address] [facility] [address] [place] [address] Filiberto Leos MD [address] [place] [address] Return in about 6 months (around 08/11/2025) for labs prior. 09/22/2025 12:45 PM EDT CPE - Comprehensive Physical Exam [facility] [address] [place] [address] Ludwig Tidwell MD [address] [place] [address] documented as of this encounter Visit Diagnoses Not on filedocumented in this encounter Care Teams Apartment Leasing Specialist Relationship Specialty Start Date End Date Ludwig Tidwell MD [address] [place] [address] PCP - General Internal Medicine 11/12/22 documented as of this encounter
--- OUTSIDE RECORDS SUMMARY | 2025-03-11 13:43 | XMS_ITS | Encounter Summary ---
Author Organization [facility] Address [address] [place] [address] Care Team Providers Care High [employer] English Teacher Name Role Phone Ludwig Tidwell MD Primary Care Provider [phone] Encounter Details Date Type Department Care Team ([facility] st Contact Info) Description 01/31/2025 Orders Only [facility] Urology [address] [facility] [address] [place] [address] Filiberto Leos MD [address] [place] [address] Social History Tobacco Use Types Packs/Day Years Used Date Smoking Tobacco: Never Smokeless Tobacco: Never Alcohol Use Standard Drinks/Week Comments No 0 (1 standard drink = 0.6 oz pur e alcohol) PHQ-2 Answer Date Recorded Patient Health Questionnaire-2 Score 0 08/25/2024 PHQ-9 Answer Date Recorded [facility] PHQ-9 SEVERITY SCORE (Range 0-27) 0 08/25/2023 [...] 8:30 AM EDT Office Visit [facility] Urology [address] [facility] [address] [place] [address] Filiberto Leos MD [address] [place] [address] Return in about 6 months (around 08/11/2025) for labs prior. 09/22/2025 12:45 PM EDT CPE - Comprehensive Physical Exam [facility] [address] [place] [address] Ludwig Tidwell MD [address] [place] [address] documented as of this encounter Procedures * Due to [facility] law, this organization might not be sharing negative HIV tests. Procedure Name Priority Date/Time Associated Diagnosis Comments TESTOSTERONE, TOTAL,(ADULT MALE) IMMUNOASSAY Routine 01/31/2025 6:47 AM EDT Low testosterone in male PROSTATE SPECIFIC ANTIGEN (PSA) TOTAL, SERUM Routine 01/31/2025 6:47 AM EDT Low testosterone in male documented in this encounter Results * Due to [facility] law, this organization might not be sharing negative HIV tests. * PROSTATE SPECIFIC ANTIGEN (PSA) TOTAL, SERUM (01/31/2025 6:47 AM EDT) PSA 1.63 < OR = 4.00 ng/mL [...] 4:27 AM EDT Narrative Resulting Agency Comment [id number] Filiberto Leos MD LABORATORY Final Result Performing Organization Address City/[facility] Co de Phone Number [facility] [address] [place] [address] * TESTOSTERONE, TOTAL,(ADULT MALE) IMMUNOASSAY (01/31/2025 6:47 AM EDT) Testosterone 612 250 - 827 ng/dL [facility] 01/31/2025 6:47 AM EDT 02/01/2025 4:27 AM EDT Narrative Resulting Agency Comment [id number] Filiberto Leos MD LABORATORY Final Result Performing Organization Address [facility] de Phone Number [facility] [address] [place] [address] documented in this encounter Visit Diagnoses Diagnosis Low testosterone in male documented in this encounter Care Teams High [employer] English Teacher Relationship Specialty Start Date End Date Ludwig Tidwell MD [address] [place] [address] PCP - General Internal Medicine 11/12/22 documented as of this encounter
--- OUTSIDE RECORDS SUMMARY | 2025-03-11 13:43 | XMS_ITS | Encounter Summary ---
Author Organization [facility] Address [address] [place] [address] Care Team Providers Care Pit Slagman Name Role Phone Ludwig Tidwell MD Primary Care Provider [phone] Encounter Details Date Type Department Care Team (Late st Contact Info) Description 06/24/2023 Orders Only [facility] [address] [place] [phone] Ludwig Tidwell MD [address] [place] [address] Social History Tobacco Use Types Packs/Day Years [...] Miscellaneous Notes * Result Encounter Note - Dianna Hou PA - 06/24/2023 7:17 AM EDT My Chart message sent. documented in this encounter Plan of Treatment Upcoming Encounters Date Type Department Care Team (Latest Contact Info) Description 08/12/2025 8:30 AM EDT Office Visit [facility] Urology [address] [facility] [address] [place] [address] Filiberto Leos MD [address] [place] [address] Return in about 6 months (around 08/11/2025) for labs prior. 09/22/2025 12:45 PM EDT CPE - Comprehensive Physical Exam [facility] [address] [place] [address] Ludwig Tidwell MD [address] [place] [address] documented as of this encounter Procedures * Due to [facility] law, this organization might not be sharing negative HIV tests. Procedure Name Priority Date/Time Associated Diagnosis Comments PAIN MANAGEMENT PROFILE WITH FENTANYL, URINE (PAINM2+) Routine 06/24/2023 7:35 AM EDT Chronic right shoulder pain Spinal stenosis, unspecified spinal region documented in this encounter Results * Due to [facility] law, this organization might not be sharing negative HIV tests. * (ABNORMAL) PAIN MANAGEMENT PROFILE WITH FENTANYL, URINE (PAINM2+) (06/24/2023 7:35 AM EDT) Fentanyl Screen (Urine) NEGATIVE <0.5 ng/mL [facility] Comment:See Note 1 COMMENT SEE NOTE [facility] Comment:See Note 2 Creatinine (Urine) 113.1 > or = 20.0 mg/dL [facility] pH (Urine) 6.8 4.5 - 9.0 [facility] OXIDANT NEGATIVE [...] [facility] Comment:See Note 1 Hydrocodone (Urine) 118(H) <50 ng/mL [facility] Comment:See Note 1 Hydromorphone (Urine) 55(H) <50 ng/mL [facility] Comment:See Note 1 Morphine (Urine) NEGATIVE <50 ng/mL [facility] Comment:See Note 1 Norhydrocodone (Urine) 142(H) <50 ng/mL [facility] Comment:See Note 1 Oxycodone (Urine) NEGATIVE <100 ng/mL [facility] Phencyclidine (Urine) NEGATIVE <25 ng/mL [facility] COMMENT SEE NOTE [facility] Comment: See Note 2 Note 1 This test was developed and its analytical performance characteristics have been determined by [facility]. It has not been cleared or approved [...] interpreting these drug results, please contact a [facility] Toxicology Specialist: [phone] ( ), M-F, 8am-6pm EST. 06/24/2023 7:35 AM EDT 06/24/2023 5:40 PM EDT Narrative Resulting Agency Comment [id number] us Ludwig Tidwell MD LABORATORY Final Result Performing Organization Address City/State/[facility] Co de Phone Number [facility] [address] [place] [address] documented in this encounter Visit Diagnoses Diagnosis Chronic right shoulder pain Pain in joint, shoulder region Spinal stenosis, unspecified spinal region documented in this encounter Care Teams Pit Slagman Relationship Specialty Start Date End Date Ludwig Tidwell MD [address] [place] [address] PCP - General Internal Medicine 11/12/22 documented as of this encounter
--- OUTSIDE RECORDS SUMMARY | 2025-03-11 13:43 | XMS_ITS | Encounter Summary ---
Author Organization [facility] Address [address] [place] [address] Care Team Providers Care Supervisor Title Name Role Phone Fran Johnson DO Primary Care Provider UnavailLudwig Dove MD Primary Care Provider [phone] Encounter Details Date Type Department Care Team ( Contact Info) Description 08/27/2022 Orders Only [facility] [address] [place] [phone] Fran Johnson, DO Social History Tobacco Use [...] Description 08/12/2025 8:30 AM EDT Office Visit [facility] Urology [address] [facility] [address] [place] [address] Filiberto Leos MD [address] [place] [address] Return in about 6 months (around 08/11/2025) for labs prior. 09/22/2025 12:45 PM EDT CPE - Comprehensive Physical Exam [facility] [address] [place] [address] Ludwig Tidwell MD [address] [place] [address] documented as of this encounter Procedures * Due to [facility] law, this organization might not be sharing negative HIV tests. Procedure Name Priority Date/Time Associated Diagnosis Comments ALANINE AMINOTRANSFERASE (ALT), SERUM Routine 08/27/2022 11:16 AM EDT Mixed hyperlipidemia PROSTATE SPECIFIC ANTIGEN (PSA) TOTAL, SERUM Routine 08/27/2022 11:16 AM EDT Screening for prostate cancer HEMOGLOBIN A1C Routine 08/27/2022 11:16 AM EDT Pre-diabetes LIPID PANEL WITH REFLEX TO DIRECT LDL Routine 08/27/2022 11:16 AM EDT Mixed hyperlipidemia VENIPUNCTURE Routine 08/27/2022 11:16 AM EDT Stage 3a chronic kidney disease documented in this encounter Results * Due to [place] [facility] law, this organization might not be sharing negative HIV tests. * PROSTATE SPECIFIC ANTIGEN (PSA) TOTAL, SERUM (08/27/2022 11:16 AM EDT) PSA 1.77 < OR = 4.00 ng/mL [facility] Comment: The total PSA value from this assay system is standardized against the WHO standard. The test result will be approximately 20% lower when compared to the equimolar-standardized total PSA (Gene Hewitt). Comparison of serial PSA results should be interpreted with this fact in mind. This test was performed using the Siemens chemiluminescent method. Values obtained from different assay methods cannot be used interchangeably. PSA levels, regardless of value, should not be interpreted as absolute evidence of the presence or absence of disease. 08/27/2022 11:1 6 AM EDT 08/27/2022 9:05 PM EDT Narrative Resulting Agency Comment [id number] Fran Johnson DO LABORATORY Final Result Performing Organization Address [facility] de Phone Number [facility] [address] [place] [address] * HEMOGLOBIN A1C (08/27/2022 11:16 AM EDT) Hemoglobin A1C 5.6 <5.7 % of total Hgb [facility] Comment: For the purpose of screening for the presence of diabetes: <5.7% ? Consistent with the absence of diabetes 5.7-6.4% ?Consistent with increased risk for diabetes ?(prediabetes) > or =6.5% ??Consistent with diabetes This assay result is consistent with a decreased risk of diabetes. Currently, no consensus exists regarding use of hemoglobin A1c for diagnosis of diabetes in children. According to [place] Diabetes Association (ADA) guidelines, hemoglobin A1c <7.0% represents optimal control in non- diabetic patients. Different metrics may apply to specific patient populations. Standards of Medical Care in Diabetes(ADA). Estimated Average Glucose 122 mg/dL (calc) [facility] 08/27/2022 11:1 6 AM EDT 08/27/2022 9:05 PM EDT Narrative Resulting Agency Comment [id number] Fran Johnson DO LABORATORY Final Result Performing Organization Address [facility] de Phone Number [facility] [address] [place] [address] * (ABNORMAL) LIPID PANEL WITH REFLEX TO DIRECT LDL (08/27/2022 11:16 AM EDT) Cholesterol 190 <200 mg/dL [facility] HDL Cholesterol 56 > OR = 40 mg/dL [facility] Triglyceride 125 <150 mg/dL [facility] LDL Cholesterol 110(H) mg/dL (calc) [facility] Comment: Reference range: <100 Desirable range <100 mg/dL for primary prevention; ?? <70 mg/dL for patients with CHD or diabetic patients with > or = 2 CHD risk factors. LDL-C is now calculated using the Naveen-Gaston calculation, which is a validated novel method providing better accuracy than the Friedewald equation in the estimation of LDL-C. Naveen SS et al. JOHN. 2013;310(28): 8145-1304 (http://education.[employer]/faq/CZR363) CHOL/HDL Ratio 3.4 <5.0 (calc) [facility] Cholesterol Non-HDL 134(H) <130 mg/dL (calc) [facility] Comment: For patients with diabetes plus 1 major ASCVD risk factor, treating to a non-HDL-C goal of <100 mg/dL (LDL-C of <70 mg/dL) is considered a therapeutic option. 08/27/2022 11:1 6 AM EDT 08/27/2022 9:05 PM EDT Narrative Resulting Agency Comment [id number] Fran Johnson DO LABORATORY Final Result Performing Organization Address [facility] Co de Phone Number [facility] [address] [place] [address] * ALANINE AMINOTRANSFERASE (ALT), SERUM (08/27/2022 11:16 AM EDT) ALT (SGPT) 35 9 - 46 U/L [facility] 08/27/2022 11:1 6 AM EDT 08/27/2022 9:05 PM EDT Narrative Resulting Agency Comment [id number] Fran Johnson DO LAB SAME DAY RESULT Final Resul t Performing Organization Address [facility] de Phone Number [facility] [address] [place] [address] * BASIC METABOLIC PANEL WITH (GFR) (08/27/2022 11:16 AM EDT) Glucose 87 65 - 99 mg/dL [facility] Comment:Fasting reference in terval Urea Nitrogen Blood (BUN) 16 7 - 25 mg/dL [facility] Creatinine 1.19 0.70 - 1.35 mg/dL [facility] EGFR 68 > OR = 60 mL/min/1. 73m2 [facility] Comment: The eGFR is based on the CKD-EPI 2020 equation. To calculate the new eGFR from a previous Creatinine or Cystatin C result, go to https://www.kidney.org/professionals/ kdoqi/gfr%5Fcalculator BUN/Creatinine Ratio NOT APPLICABLE (calc) [facility] Sodium 138 135 - 146 mmol/L [facility] Potassium 4.4 3.5 - 5.3 mmol/L [facility] Chloride 102 98 - 110 mmol/L [facility] Carbon dioxide 31 20 - 32 mmol/L [facility] Calcium 9.8 8.6 - 10.3 mg/dL [facility] 08/27/2022 11:1 6 AM EDT 08/27/2022 9:05 PM EDT Narrative [facility] - 08/27/2022 11:00 PM EDT Please note that this estimated GFR [...] needs for GFR calculation. Resulting Agency Comment [id number] Fran Johnson DO LABORATORY Final Result [facility] [address] [place] [address] documented in this encounter Visit Diagnoses Diagnosis Stage 3a chronic kidney disease (HCC) Mixed hyperlipidemia Pre-diabetes Other abnormal glucose Screening for prostate cancer Special screening for malignant neoplasm of prostate documented in this encounter Care Teams Supervisor Title Relationship Specialty Start Date End Date Fran Johnson DO PCP - General Family Medicine 03/17/17 11/11/22 Ludwig Tidwell MD [address] [place] [address] PCP - General Internal Medicine 11/12/22 documented as of this encounter
--- OUTSIDE RECORDS SUMMARY | 2025-03-11 13:43 | XMS_ITS | Encounter Summary ---
Author Organization [facility] Address [address] [place] [address] Care Team Providers Care Directory Clerk Name Role Phone Fran Johnson DO Primary Care Provider UnavailLudwig Dove MD Primary Care Provider [phone] Encounter Details Date Type Department Care Team (Late Contact Info) Description 07/20/2019 Orders Only [facility] [address] [place] [phone] Fran Johnson, DO Social History Tobacco Use [...] encounter Progress Notes * Fran Johnson - 07/20/2019 8:03 AM EDT All labs normal or as expected. documented in this encounter Plan of Treatment Upcoming Encounters Date Type Department Care Team (Latest Contact Info) Description 08/12/2025 8:30 AM EDT Office Visit [facility] Urology [address] [place] [address] [address] [place] [address] Filiberto Leos MD [address] [place] [address] Return in about 6 months (around 08/11/2025) for labs prior. 09/22/2025 12:45 PM EDT CPE - Comprehensive Physical Exam [facility] [address] [place] [phone] Ludwig Tidwell MD [address] [place] [address] documented as of this encounter Procedures * Due to [facility] law, this organization might not be sharing negative HIV tests. Procedure Name Priority Date/Time Associated Diagnosis Comments CREATINE KINASE (CK), SERUM Routine 07/20/2019 8:03 AM EDT Chronic fatigue Renal insufficiency URINALYSIS, MICROSCOPIC Routine 07/20/2019 8:03 AM EDT Renal insufficiency documented in this encounter Results * Due to [place] [facility] law, this organization might not be sharing negative HIV tests. * (ABNORMAL) CREATINE KINASE (CK), SERUM (07/20/2019 8:03 AM EDT) CPK 257(H) 44 - 196 U/L [facility] 07/20/2019 8:03 AM EDT 07/20/2019 9:59 AM EDT Narrative Resulting Agency Comment [id number] Fran Johnson DO LAB SAME DAY RESULT Final Resul t [facility] [address] [place] [address] * URINALYSIS, MICROSCOPIC (07/20/2019 8:03 AM EDT) [...] 9:59 AM EDT Narrative Resulting Agency Comment [id number] Fran Johnson DO LAB SAME DAY RESULT Final Resul t Performing Organization Address City/State/[facility] Co de Phone Number [facility] [address] [place] [address] documented in this encounter Visit Diagnoses Diagnosis Renal insufficiency Unspecified disorder of kidney and ureter Chronic fatigue Other malaise and fatigue documented in this encounter Care Teams Directory Clerk Relationship Specialty Start Date End Date Fran Johnson DO PCP - General Family Medicine 03/17/17 11/11/22 Ludwig Tidwell MD [address] [place] [address] PCP - General Internal Medicine 11/12/22 documented as of this encounter
--- OUTSIDE RECORDS SUMMARY | 2025-03-11 13:43 | XMS_ITS | Encounter Summary ---
Author Organization [facility] Address [address] [place] [address] Care Team Providers Care Fire Extinguisher Tester Name Role Phone Ludwig Tidwell MD Primary Care Provider [phone] Encounter Details Date Type Department Care Team (Late st Contact Info) Description 08/21/2023 Orders Only [facility] [address] [place] [phone] Ludwig Tidwell MD [address] [place] [address] Social History Tobacco Use Types Packs/Day Years Used Date Smoking Tobacco: Never Smokeless Tobacco: Never Alcohol Use Standard Drinks/Week Comments No 0 (1 standard drink = 0.6 oz pur e alcohol) PHQ-2 Answer Date Recorded PHQ-2 Score 0 08/25/2023 PHQ-9 Answer Date [facility] SEVER[facility] SCORE (Range 0-27) 0 [...] Description 08/12/2025 8:30 AM EDT Office Visit [facility] Urology [address] [facility] [address] [place] [address] Filiberto Leos MD [address] [place] [address] Return in about 6 months (around 08/11/2025) for labs prior. 09/22/2025 12:45 PM EDT CPE - Comprehensive Physical Exam [facility] [address] [place] [address] Ludwig Tidwell MD [address] [place] [address] documented as of this encounter Procedures * Due to [place] [facility] law, this organization might not be sharing negative HIV tests. Procedure Name Priority Date/Time Associated Diagnosis Comments PROSTATE SPECIFIC ANTIGEN (PSA) TOTAL, SERUM Routine 08/21/2023 11:30 AM EDT Rising PSA level HEMOGLOBIN A1C Routine 08/21/2023 11:30 AM EDT Screening for endocrine disorder LIPID PANEL WITH REFLEX TO DIRECT LDL Routine 08/21/2023 11:30 AM EDT Screening, lipid COMPREHENSIVE METABOLIC PANEL WITH GFR Routine 08/21/2023 11:30 AM EDT Mild intermittent asthma, uncomplicated documented in this encounter Results * Due to [place] [employer] law, this organization might not be sharing negative HIV tests. * PROSTATE SPECIFIC ANTIGEN (PSA) TOTAL, SERUM (08/21/2023 11:30 AM EDT) PSA 1.76 < OR = 4.00 ng/mL [facility] [...] of the presence or absence of disease. 08/21/2023 11:3 0 AM EDT 08/21/2023 6:16 PM EDT Narrative Resulting Agency Comment [id number] Ludwig Tidwell MD LABORATORY Final Result [facility] [address] [place] [address] * COMPREHENSIVE METABOLIC PANEL WITH GFR (08/21/2023 11:30 AM EDT) Glucose 89 65 - 99 mg/dL [facility] [...] needs for GFR calculation. Resulting Agency Comment [id number] Ludwig Tidwell MD LABORATORY Final Result Performing Organization Address [facility] Co de Phone Number [facility] [address] [place] [address] * HEMOGLOBIN A1C (08/21/2023 11:30 AM EDT) Hemoglobin A1C 5.5 <5.7 % of total Hgb [facility] [...] diagnosis of diabetes in children. According to [place] Diabetes Association (ADA) guidelines, hemoglobin A1c <7.0% represents optimal control in non- diabetic patients. Different metrics may apply to specific patient populations. Standards of Medical Care in Diabetes(ADA). Estimated Average Glucose 119 mg/dL (calc) [facility] 08/21/2023 11:3 0 AM EDT 08/21/2023 6:16 PM EDT Narrative Resulting Agency Comment [id number] Ludwig Tidwell MD LABORATORY Final Result Performing Organization Address [facility] Co de Phone Number [facility] [address] [place] [address] * (ABNORMAL) LIPID PANEL WITH REFLEX TO DIRECT LDL (08/21/2023 11:30 AM EDT) Cholesterol 223(H) <200 mg/dL [facility] HDL Cholesterol 62 > OR = 40 mg/dL [facility] Triglyceride 157(H) <150 mg/dL [facility] LDL Cholesterol 132(H) mg/dL (calc) [facility] Comment: Reference range: [...] LDL-C. Naveen SS et al. JOHN. 2013;310(19): 9101-2020 (http://education.[employer]/faq/WMZ794) CHOL/HDL Ratio 3.6 <5.0 (calc) [facility] Cholesterol Non-HDL 161(H) <130 mg/dL (calc) [facility] Comment: For patients with diabetes plus 1 major ASCVD risk factor, treating to a non-HDL-C goal of <100 mg/dL (LDL-C of <70 mg/dL) is considered a therapeutic option. 08/21/2023 11:3 0 AM EDT 08/21/2023 6:16 PM EDT Narrative Resulting Agency Comment [id number] Ludwig Tidwell MD LABORATORY Final Result Performing Organization Address City/State/[facility] Co de Phone Number [facility] [address] [place] [address] documented in this encounter Visit Diagnoses Diagnosis Screening, lipid Screening for lipoid disorders Screening for endocrine disorder Mild intermittent asthma, uncomplicated ([facility]) Unspecified asthma Rising PSA level Elevated prostate specific antigen (PSA) documented in this encounter Care Teams Fire Extinguisher Tester Relationship Specialty Start Date End Date Ludwig Tidwell MD [address] [place] [address] PCP - General Internal Medicine 11/12/22 documented as of this encounter
--- OUTSIDE RECORDS SUMMARY | 2025-03-11 13:43 | XMS_ITS | Encounter Summary ---
Author Organization [facility] Address [address] [place] [address] Care Team Providers Care Engineering Aide Name Role Phone Ludwig Tidwell MD Primary Care Provider Reason for Visit * Reason Comments Med Change Request Encounter Details Date Type Department Care Team (Late st Contact Info) Description 01/07/2023 [facility] [address] [place] [place] [phone] Amber Arrieta MD [address] [place] [address] Med Change Request Social History Tobacco Use [...] encounter Miscellaneous Notes * Telephone Encounter - Yaakov Loco - 01/08/2023 11:02 AM EST Images from the original note were not included. Pharmacy requesting an alternative to Metaxalone 800 mg not covered by insurance as noted below Please review and advise documented in this encounter Plan of Treatment Upcoming Encounters Date Type Department Care Team (Latest Contact Info) Description 08/12/2025 8:30 AM EDT Office Visit [facility] Urology [address] [facility] [address] [place] [address] Filiberto Leos MD [address] [place] [address] Return in about 6 months (around 08/11/2025) for labs prior. 09/22/2025 12:45 PM EDT CPE - Comprehensive Physical Exam [address] [phone] Ludwig Tidwell MD [address] [place] [address] documented as of this encounter Visit Diagnoses Diagnosis Muscle spasm Spasm of muscle documented in this encounter Care Teams Engineering Aide Relationship Specialty Start Date End Date Ludwig Tidwell MD [address] [place] [address] PCP - General Internal Medicine 11/12/22 documented as of this encounter
--- OUTSIDE RECORDS SUMMARY | 2025-03-11 13:43 | XMS_ITS | Encounter Summary ---
Author Organization [facility] Address [address] [place] [address] Care Team Providers Care Elementary Librarian Name Role Phone Fran Johnson DO Primary Care Provider UnavailLudwig Dove MD Primary Care Provider Encounter Details Date Type Department Care Team (Late st Contact Info) Description 04/22/2018 Orders Only [facility] [address] [place] [phone] Fran Johnson, DO Social History Tobacco Use [...] encounter Progress Notes * Fran Johnson - 04/30/2018 3:54 PM EDT Letter sent. Testosterone levels normal Lipid panel higher than goal. Recommend diet and exercise and recheck in 6 months. Thyroid normal and all other testing normal. documented in this encounter Plan of Treatment Upcoming Encounters Date Type Department Care Team (Latest Contact Info) Description 08/12/2025 8:30 AM EDT Office Visit [facility] Urology [address] [facility] [address] [place] [address] Filiberto Leos MD [address] [place] [address] Return in about 6 months (around 08/11/2025) for labs prior. 09/22/2025 12:45 PM EDT CPE - Comprehensive Physical Exam [facility] [address] [place] [address] Ludwig Tidwell MD [address] [place] [address] documented as of this encounter Procedures * Due to [place] dooub law, this organization might not be sharing negative HIV tests. Procedure Name Priority Date/Time Associated Diagnosis Comments CBC INCLUDES DIFFERENTIAL AND PLATELET COUNT Routine 04/22/2018 9:45 AM EDT Fatigue, unspecified type THYROID STIMULATING HORMONE (TSH) WITH FREE T4 REFLEX, SERUM Routine 04/22/2018 9:45 AM EDT Fatigue, unspecified type TESTOSTERONE, FREE(DIALYSIS) AND TOTAL, MS Routine 04/22/2018 9:45 AM EDT Fatigue, unspecified type LIPID PANEL WITH REFLEX TO DIRECT LDL Routine 04/22/2018 9:45 AM EDT Routine history and physical examination of adult COMPREHENSIVE METABOLIC PANEL WITH GFR Routine 04/22/2018 9:45 AM EDT Routine history and physical examination of adult documented in this encounter Results * Due to [place] doou[place] law, this organization might not be sharing negative HIV tests. * THYROID STIMULATING HORMONE (TSH) WITH FREE T4 REFLEX, SERUM (04/22/2018 9:45 AM EDT) TSH 2.30 0.40 - 4.50 mIU/L [facility] 04/22/2018 9:45 AM EDT 04/22/2018 7:01 PM EDT Narrative Resulting Agency Comment [id number] Fran Johnson DO LABORATORY Final Result [facility] [address] [place] [address] * COMPREHENSIVE METABOLIC PANEL WITH GFR (04/22/2018 9:45 AM EDT) Glucose 87 65 - 99 mg/dL [facility] Comment:Fasting reference in terval Urea Nitrogen Blood (BUN) 17 7 - 25 mg/dL [facility] Creatinine 1.16 0.70 - 1.25 mg/dL [facility] Comment: For patients >49 years of age, the reference limit for Creatinine is approximately 13% higher for people identified as -Burkinan. GFR 68 > OR = 60 mL/min/1 .73m2 [facility] GFR () 78 > OR = 60 mL/min/1 .73m2 [facility] BUN/Creatinine Ratio NOT APPLICABLE 6 - 22 (calc) [facility] Sodium 142 135 - 146 mmol/L [facility] Potassium 4.3 3.5 - 5.3 mmol/L [facility] Chloride 104 98 - 110 mmol/L [facility] Carbon dioxide 25 20 - 31 mmol/L [facility] Calcium 9.5 8.6 - 10.3 mg/dL [facility] Protein Total (Serum) 6.6 6.1 - 8.1 g/dL [facility] Albumin 4.4 3.6 - 5.1 g/dL [facility] Globulin 2.2 1.9 - 3.7 g/dL (calc) [facility] Albumin/Globulin 2.0 1.0 - 2.5 (calc) [facility] Bilirubin Total 0.4 0.2 - 1.2 mg/dL [facility] Alkaline phosphatase 61 40 - 115 U/L [facility] AST (SGOT) 24 10 - 35 U/L [facility] ALT (SGPT) 38 9 - 46 U/L [facility] 04/22/2018 9:45 AM EDT 04/22/2018 7:01 PM EDT Narrative [facility] - 04/22/2018 10:49 PM EDT Please note that this estimated [...] needs for GFR calculation. Resulting Agency Comment [id number] Fran Johnson DO LABORATORY Final Result Performing Organization Address [facility] de Phone Number [facility] [address] [place] [address] * (ABNORMAL) LIPID PANEL WITH REFLEX TO DIRECT LDL (04/22/2018 9:45 AM EDT) Cholesterol 229(H) <200 mg/dL [facility] HDL Cholesterol 53 >40 mg/dL [facility] Triglyceride 194(H) <150 mg/dL [facility] LDL Cholesterol 143(H) mg/dL (calc) [facility] Comment: Reference range: <100 Desirable range <100 mg/dL for primary prevention; ?? <70 mg/dL for patients with CHD or diabetic patients with > or = 2 CHD risk factors. LDL-C is now calculated using the Naveen-Alek calculation, which is a validated novel method providing better accuracy than the Friedewald equation in the estimation of LDL-C. Naveen LUCAS et al. OJHN. 2013;310(19): 5136-4112 (http://education.We[employer]/faq/BPC164) CHOL/HDL Ratio 4.3 <5.0 (calc) [facility] Cholesterol Non-HDL 176(H) <130 mg/dL (calc) [facility] Comment: For patients with diabetes plus 1 major ASCVD risk factor, treating to a non-HDL-C goal of <100 mg/dL (LDL-C of <70 mg/dL) is considered a therapeutic option. 04/22/2018 9:45 AM EDT 04/22/2018 7:01 PM EDT Narrative Resulting Agency Comment [id number] Fran Johnson DO LABORATORY Final Result Performing Organization Address [facility] Co de Phone Number [facility] [address] [place] [address] * TESTOSTERONE, FREE AND TOTAL, LC/MS/MS (04/22/2018 9:45 AM EDT) Testosterone 395 250 - 1100 ng/dL [facility] Comment: Men with clinically significant hypogonadal symptoms and testosterone values repeatedly in the range of the 200-300 ng/dL or less, may benefit from testosterone treatment after adequate risk and benefits counseling. For more information on this test, go to http://education.[employer]/faq/ TotalTestosteroneLCMSMS This test was developed and its analytical performance characteristics have been determined by [employer] [place], [place]. It has not been cleared or approved by the U.S. Food and Drug Administration. This assay has been validated pursuant to the CLIA regulations and is used for clinical purposes. Testosterone, Free 49.8 35.0 - 155.0 pg/mL [facility] Comment: This test was developed and its analytical performance characteristics have been determined by [employer], [place]. It has not been cleared or approved by the U.S. Food and Drug Administration. This assay has been validated pursuant to the CLIA regulations and is used for clinical purposes. 04/22/2018 9:45 AM EDT 04/22/2018 7:01 PM EDT Narrative Resulting Agency Comment [id number] Fran Johnson DO LABORATORY Final Result [facility] [address] [place] [address] * CBC INCLUDES DIFFERENTIAL AND PLATELET COUNT (04/22/2018 9:45 AM EDT) WBC 6.1 3.8 - 10.8 Thousand/u L [facility] RBC 4.96 4.20 - 5.80 Million/uL [facility] Hemoglobin 15.1 13.2 - 17.1 g/dL [facility] Hematocrit 44.8 38.5 - 50.0 % [facility] MCV 90.3 80.0 - 100.0 fL [facility] MCH 30.5 27.0 - 33.0 pg [facility] MCHC 33.8 32.0 - 36.0 g/dL [facility] RDW 14.0 11.0 - 15.0 % [facility] PLT 181 140 - 400 Thousand/u L [facility] MPV 8.7 7.5 - 12.5 fL [facility] Neutrophils # 3129 1500 - 7800 cells/uL [facility] Lymphocytes # 1958 850 - 3900 cells/uL [facility] Monocytes # 561 200 - 950 cells/uL [facility] Eosinophils # 372 15 - 500 cells/uL [facility] Basophils # 79 0 - 200 cells/uL [facility] Neutrophils % 51.3 % [facility] Lymphocytes % 32.1 % [facility] Monocytes % 9.2 % [facility] Eosinophils % 6.1 % [facility] Basophils % 1.3 % [facility] 04/22/2018 9:45 AM EDT 04/22/2018 7:01 PM EDT Narrative Resulting Agency Comment [id number] Fran Johnson DO LAB SAME DAY RESULT Final Resul t [facility] [address] [place] [address] documented in this encounter Visit Diagnoses Diagnosis Fatigue, unspecified type Routine history and physical examination of adult Routine general medical examination at a health care facility documented in this encounter Care Teams Elementary Librarian Relationship Specialty Start Date End Date Fran Johnson DO PCP - General Family Medicine 03/17/17 11/11/22 Ludwig Tidwell MD [address] [place] [address] PCP - General Internal Medicine 11/12/22 documented as of this encounter
--- OUTSIDE RECORDS SUMMARY | 2025-03-11 13:43 | XMS_ITS | Encounter Summary ---
Author Organization [facility] Address [address] [place] [address] Care Team Providers Care Webfocus Developer Name Role Phone Ludwig Tidwell MD Primary Care Provider [phone] Encounter Details Date Type Department Care Team (Late st Contact Info) Description 03/06/2023 Orders Only [facility] [address] [place] [phone] Laura Dumont MD [address] [place] [phone] Social History Tobacco Use Types Packs/Day Years [...] on filedocumented in this encounter Care Teams Webfocus Developer Relationship Specialty Start Date End Date Ludwig Tidwell MD PCP - General Internal Medicine 01/28/23 documented as of this encounter
--- OUTSIDE RECORDS SUMMARY | 2025-03-11 13:43 | XMS_ITS | Encounter Summary ---
Author Organization [facility] Address [address] [place] [address] Care Team Providers Care Chief Ophthalmic Technician Name Role Phone Ludwig Tidwell MD Primary Care Provider Encounter Details Date Type Department Care Team (Late st Contact Info) Description 02/06/2017 Orders Only [facility] [address] [place] [address] Alyssia Layne [address] [facility] [address] [place] [address] Social History Tobacco Use Types Packs/Day Years [...] on filedocumented in this encounter Care Teams Chief Ophthalmic Technician Relationship Specialty Start Date End Date Ludwig Tidwell MD PCP - General Internal Medicine 01/28/23 documented as of this encounter
--- OUTSIDE RECORDS SUMMARY | 2025-03-11 13:43 | XMS_ITS | Encounter Summary ---
Author Organization [facility] Address [address] [place] [address] Care Team Providers Care Bladder Changer Name Role Phone Fran Johnson DO Primary Care Provider Unavaila Ludwig Leyva MD Primary Care Provider [phone] Encounter Details Date Type Department Care Team ( Contact Info) Description 04/10/2022 Orders Only [facility] [address] [place] [phone] Fran Johnson, DO Social History Tobacco Use [...] 8:30 AM EDT Office Visit [facility] Urology [address] [facility] [address] [place] [address] Filiberto Leos MD [address] [place] [address] Return in about 6 months (around 08/11/2025) for labs prior. 09/22/2025 12:45 PM EDT CPE - Comprehensive Physical Exam [facility] Medicine [address] [place] [address] Ludwig Tidwell MD [address] [place] [address] documented as of this encounter Procedures * Due to [place] [employer] law, this organization might not be sharing negative HIV tests. Procedure Name Priority Date/Time Associated Diagnosis Comments PAIN MANAGEMENT PROFILE WITH FENTANYL, URINE (PAINM2+) Routine 04/10/2022 9:50 AM EDT Encounter for observation for other suspected diseases and conditions ruled out documented in this encounter Results * Due to [place] [employer] law, this organization might not be sharing negative HIV tests. * (ABNORMAL) PAIN MANAGEMENT PROFILE WITH FENTANYL, URINE (PAINM2+) (04/10/2022 9:50 AM EDT) Fentanyl Screen (Urine) NEGATIVE <0.5 ng/mL [facility] Comment:See Note 1 COMMENT SEE NOTE [facility] Comment:See Note 2 Creatinine (Urine) 90.1 > or = 20.0 mg/dL [facility] pH (Urine) 6.2 4.5 - 9.0 [facility] OXIDANT NEGATIVE [...] [facility] Comment:See Note 1 Hydrocodone (Urine) NEGATIVE <50 ng/mL [facility] Comment:See Note 1 Hydromorphone (Urine) NEGATIVE <50 ng/mL [facility] Comment:See Note 1 Morphine (Urine) NEGATIVE <50 ng/mL [facility] Comment:See Note 1 Norhydrocodone (Urine) 51(H) <50 ng/mL [facility] Comment:See Note 1 Oxycodone (Urine) NEGATIVE <100 ng/mL [facility] Phencyclidine (Urine) NEGATIVE <25 ng/mL [facility] COMMENT SEE NOTE [facility] Comment: See Note 2 Note 1 This test was developed and its analytical performance characteristics have been determined by [employer]. It has not been cleared or approved [...] interpreting these drug results, please contact a [employer] Toxicology Specialist: [phone] ( ), M-F, 8am-6pm EST. 04/10/2022 9:50 AM EDT 04/11/2022 1:10 AM EDT Narrative Resulting Agency Comment [id number] Fran Johnson DO LABORATORY Final Result Performing Organization Address City/State/[facility] Co de Phone Number [facility] [address] [place] [address] documented in this encounter Visit Diagnoses Diagnosis Encounter for observation for other suspected diseases and conditions ruled out documented in this encounter Care Teams Bladder Changer Relationship Specialty Start Date End Date Fran Johnson DO PCP - General Family Medicine 03/17/17 11/11/22 Ludwig Tidwell MD [address] [place] [address] PCP - General Internal Medicine 11/12/22 documented as of this encounter
--- OUTSIDE RECORDS SUMMARY | 2025-03-11 13:43 | XMS_ITS | Encounter Summary ---
Author Organization [facility] Address [address] [place] [address] Care Team Providers Care Manager Nursing Name Role Phone Fran Johnson DO Primary Care Provider UnavailLudwig Dove MD Primary Care Provider [phone] Encounter Details Date Type Department Care Team (Late st Contact Info) Description 03/27/2017 Orders Only [facility] [address] [place] [phone] Fran Johnson, DO Social History Tobacco Use Types Packs/Day Years Used Date Smoking Tobacco: Never Sex and Gender Information Value Date Recorded Sex Assigned at Not on file Legal Sex Male 2:13 PM EDT Gender Identity Not on file Sexual Orientation Not on file documented as of this encounter Progress Notes * Patricio Palacio - 04/09/2017 8:45 AM EDT Toxicology screen is negative but it appears he is using 30 or less tablets of Vicodin per month. With intermittent usage may not be expected to show. Obviously will need to monitor usage in the future. documented in this encounter Plan of Treatment Upcoming Encounters Date Type Department Care Team (Latest Contact Info) Description 08/12/2025 8:30 AM EDT Office Visit [facility] Urology [address] [facility] [address] [place] [address] Filiberto Leos MD [address] [place] [address] Return in about 6 months (around 08/11/2025) for labs prior. 09/22/2025 12:45 PM EDT CPE - Comprehensive Physical Exam [facility] Medicine [address] [place] [address] Ludwig Tidwell MD [address] [place] [address] documented as of this encounter Procedures * Due to [place] [employer] law, this organization might not be sharing negative HIV tests. Procedure Name Priority Date/Time Associated Diagnosis Comments PAIN MANAGEMENT PROFILE, URINE (PAINM2) Routine 03/27/2017 12:13 PM EDT Chronic right shoulder pain documented in this encounter Results * Due to [facility] law, this organization might not be sharing negative HIV tests. * PAIN MANAGEMENT PROFILE, URINE (PAINM2) (03/27/2017 [...] interpreting these drug results, please contact a [employer] Toxicology Specialist: [phone] ( ), M-F, 8am-6pm EST. 03/27/2017 12:1 3 PM EDT 03/27/2017 4:47 PM EDT Narrative Resulting Agency Comment [id number] Fran Johnson DO LABORATORY Final Result [facility] [address] [place] [address] documented in this encounter Visit Diagnoses Diagnosis Chronic right shoulder pain Pain in joint, shoulder region documented in this encounter Care Teams Manager Nursing Relationship Specialty Start Date End Date Fran Johnson DO PCP - General Family Medicine 03/17/17 11/11/22 Ludwig Tidwell MD [address] [place] [address] PCP - General Internal Medicine 11/12/22 documented as of this encounter
--- OUTSIDE RECORDS SUMMARY | 2025-03-11 13:43 | XMS_ITS | Encounter Summary ---
Author Organization [facility] Address [address] [place] [address] Care Team Providers Care Maritime Officer Name Role Phone Fran Johnson DO Primary Care Provider UnavailLudwig Dove MD Primary Care Provider [phone] Encounter Details Date Type Department Care Team (Late st Contact Info) Description 04/14/2017 Orders Only [facility] [address] [place] [phone] Fran Johnson, DO Social History Tobacco Use Types Packs/Day Years Used Date Smoking Tobacco: Never Alcohol Use Standard Drinks/Week Comments No 0 (1 standard drink = 0.6 oz pur e alcohol) Sex and Gender Information Value Date Recorded Sex Assigned at Not on file Legal Sex Male 2:13 PM EDT Gender Identity Not on file Sexual Orientation Not on file documented as of this encounter Progress Notes * Fran Johnson - 04/16/2017 4:50 PM EDT PSA within normal limits glucose very mildly elevated at 104 Rest of metabolic panel within normal range Lipid panel good showing total cholesterol of 202, HDL 57 and LDL 122. Will discuss all at his upcoming visit documented in this encounter Plan of Treatment Upcoming Encounters Date Type Department Care Team (Latest Contact Info) Description 08/12/2025 8:30 AM EDT Office Visit [facility] Urology [address] [place] [address] [address] [place] [address] Filiberto Leos MD [address] [place] [phone] Return in about 6 months (around 08/11/2025) for labs prior. 09/22/2025 12:45 PM EDT CPE - Comprehensive Physical Exam [facility] [address] [place] [phone] Ludwig Tidwell MD [address] [place] [address] documented as of this encounter Procedures * Due to [place] [employer] law, this organization might not be sharing negative HIV tests. Procedure Name Priority Date/Time Associated Diagnosis Comments PROSTATE SPECIFIC ANTIGEN (PSA) TOTAL, SERUM Routine 04/14/2017 10:46 AM EDT Health care maintenance LIPID PANEL WITH REFLEX TO DIRECT LDL Routine 04/14/2017 10:46 AM EDT Health care maintenance COMPREHENSIVE METABOLIC PANEL WITH GFR Routine 04/14/2017 10:46 AM EDT Health care maintenance documented in this encounter Results * Due to [place] [employer] law, this organization might not be sharing negative HIV tests. * PROSTATE SPECIFIC ANTIGEN (PSA) TOTAL, SERUM (04/14/2017 10:46 AM EDT) PSA 1.0 < OR = 4.0 ng/mL [facility] Comment: This test was performed using the Siemens chemiluminescent method. Values obtained from different assay methods cannot be used interchangeably. PSA levels, regardless of value, should not be interpreted as absolute evidence of the presence or absence of disease. 04/14/2017 10:4 6 AM EDT 04/14/2017 8:58 PM EDT Narrative Resulting Agency Comment [id number] Fran Johnson DO LABORATORY Final Result [facility] [address] [place] [address] * (ABNORMAL) LIPID PANEL WITH REFLEX TO DIRECT LDL (04/14/2017 10:46 AM EDT) Cholesterol 202(H) 125 - 200 mg/dL [facility] HDL Cholesterol 57 > OR = 40 mg/dL [facility] Triglyceride 114 <150 mg/dL [facility] LDL Cholesterol 122 <130 mg/dL (calc) [facility] Comment: Desirable range <100 mg/dL for patients with CHD or diabetes and <70 mg/dL for diabetic patients with known heart disease. CHOL/HDL Ratio 3.5 < OR = 5.0 (calc) [facility] Cholesterol Non-HDL 145 mg/dL (calc) [facility] Comment: Target for non-HDL cholesterol is 30 mg/dL higher than LDL cholesterol target. 04/14/2017 10:4 6 AM EDT 04/14/2017 8:58 PM EDT Narrative Resulting Agency Comment [id number] Fran Johnson DO LABORATORY Final Result Performing Organization Address City/State/[facility] Co de Phone Number [facility] [address] [place] [address] * (ABNORMAL) COMPREHENSIVE METABOLIC PANEL WITH GFR (04/14/2017 10:46 AM EDT) Glucose 104(H) 65 - 99 mg/dL [facility] Comment: ? Fasting reference interval For someone without known diabetes, a glucose value between 100 and 125 mg/dL is consistent with prediabetes and should be confirmed with a follow-up test. Urea Nitrogen Blood (BUN) 17 7 - 25 mg/dL [facility] Creatinine 1.18 0.70 - 1.25 mg/dL [facility] Comment: For patients >49 years of age, the reference limit for Creatinine is approximately 13% higher for people identified as -Cypriot. GFR 67 > OR = 60 mL/min/1 .73m2 [facility] GFR () 77 > OR = 60 mL/min/1 .73m2 [facility] BUN/Creatinine Ratio NOT APPLICABLE (calc) [facility] Sodium 141 135 - 146 mmol/L [facility] Potassium 4.2 3.5 - 5.3 mmol/L [facility] Chloride 107 98 - 110 mmol/L [facility] Carbon dioxide 27 20 - 31 mmol/L [facility] Calcium 9.2 8.6 - 10.3 mg/dL [facility] Protein Total (Serum) 6.3 6.1 - 8.1 g/dL [facility] Albumin 4.2 3.6 - 5.1 g/dL [facility] Globulin 2.1 1.9 - 3.7 g/dL (calc) [facility] Albumin/Globulin 2.0 1.0 - 2.5 (calc) [facility] Bilirubin Total 0.4 0.2 - 1.2 mg/dL [facility] Alkaline phosphatase 57 40 - 115 U/L [facility] AST (SGOT) 22 10 - 35 U/L [facility] ALT (SGPT) 25 9 - 46 U/L [facility] 04/14/2017 10:4 6 AM EDT 04/14/2017 8:58 PM EDT Narrative [facility] - 04/15/2017 12:22 AM EDT Please note that this estimated [...] needs for GFR calculation. Resulting Agency Comment [id number] Fran Johnson DO LABORATORY Final Result Performing Organization Address City/State/[facility] Co de Phone Number [facility] [address] [place] [address] documented in this encounter Visit Diagnoses Diagnosis Health care maintenance Unspecified general medical examination documented in this encounter Care Teams Maritime Officer Relationship Specialty Start Date End Date Fran Johnson DO PCP - General Family Medicine 03/17/17 11/11/22 Ludwig Tidwell MD [address] [place] [address] PCP - General Internal Medicine 11/12/22 documented as of this encounter
--- OUTSIDE RECORDS SUMMARY | 2025-03-11 13:43 | XMS_ITS | Encounter Summary ---
Author Organization [facility] Address [address] [place] [address] Care Team Providers Care Racing Secretary Name Role Phone Ludwig Tidwell MD Primary Care Provider Encounter Details Date Type Department Care Team (Late st Contact Info) Description 03/19/2017 Orders Only [facility] [address] [place] [address] Fran Johnson [address] [place] [phone] Social History Tobacco Use Types Packs/Day Years [...] on filedocumented in this encounter Care Teams Racing Secretary Relationship Specialty Start Date End Date Ludwig Tidwell MD PCP - General Internal Medicine 01/28/23 documented as of this encounter
--- OUTSIDE RECORDS SUMMARY | 2025-03-11 13:43 | XMS_ITS | Encounter Summary ---
Author Organization [facility] Address [address] [place] [address] Care Team Providers Care Boat Driver Name Role Phone Fran Johnson DO Primary Care Provider UnavailLudwig Dove MD Primary Care Provider [phone] Encounter Details Date Type Department Care Team (Late Contact Info) Description 10/01/2019 Orders Only [facility] [address] [place] [phone] Fran Johnson, DO Social History Tobacco Use [...] encounter Progress Notes * Fran Johnson - 10/01/2019 12:21 PM EST All labs normal or as expected. No concerns. Hydrocodone/metabolites appropriately positive documented in this encounter Plan of Treatment Upcoming Encounters Date Type Department Care Team (Latest Contact Info) Description 08/12/2025 8:30 AM EDT Office Visit [facility] Urology [address] [place] [address] [address] [place] [address] Filiberto Leos MD [address] [place] [address] Return in about 6 months (around 08/11/2025) for labs prior. 09/22/2025 12:45 PM EDT CPE - Comprehensive Physical Exam [facility] [address] [place] [address] Ludwig Tidwell MD [address] [place] [address] documented as of this encounter Procedures * Due to [facility] law, this organization might not be sharing negative HIV tests. Procedure Name Priority Date/Time Associated Diagnosis Comments PAIN MANAGEMENT PROFILE WITH FENTANYL, URINE (PAINM2+) Routine 10/01/2019 12:21 PM EST Encounter for observation for other suspected diseases and conditions ruled out documented in this encounter Results * Due to [facility] law, this organization might not be sharing negative HIV tests. * (ABNORMAL) PAIN MANAGEMENT PROFILE WITH FENTANYL, URINE (PAINM2+) (10/01/2019 12:21 PM EST) Fentanyl Screen (Urine) NEGATIVE <0.5 ng/mL [facility] Comment:See Note 1 COMMENT SEE NOTE [facility] Comment:See Note 2 Creatinine (Urine) 201.4 > or = 20.0 mg/dL [facility] pH (Urine) 5.1 4.5 - 9.0 [facility] OXIDANT NEGATIVE [...] [facility] Comment:See Note 1 Hydrocodone (Urine) 188(H) <50 ng/mL [facility] Comment:See Note 1 Hydromorphone (Urine) 57(H) <50 ng/mL [facility] Comment:See Note 1 Morphine (Urine) NEGATIVE <50 ng/mL [facility] Comment:See Note 1 Norhydrocodone (Urine) 191(H) <50 ng/mL [facility] Comment:See Note 1 Oxycodone (Urine) NEGATIVE <100 ng/mL [facility] Phencyclidine (Urine) NEGATIVE <25 ng/mL [facility] COMMENT SEE NOTE [facility] Comment: See Note 2 Note 1 This test was developed and its analytical performance characteristics have been determined by [facility] It has not been cleared or approved [...] interpreting these drug results, please contact a [facility] Toxicology Specialist: [phone] ( ), M-F, 8am-6pm EST. 10/01/2019 12:2 1 PM EST 10/02/2019 1:18 AM EST Narrative Resulting Agency Comment [id number] Fran Johnson DO LABORATORY Final Result [facility] [address] [place] [address] documented in this encounter Visit Diagnoses Diagnosis Encounter for observation for other suspected diseases and conditions ruled out documented in this encounter Care Teams Boat Driver Relationship Specialty Start Date End Date Fran Johnson DO PCP - General Family Medicine 03/17/17 11/11/22 Ludwig Tidwell MD [address] [place] [id number] PCP - General Internal Medicine 11/12/22 documented as of this encounter
--- OUTSIDE RECORDS SUMMARY | 2025-03-11 13:43 | XMS_ITS | Encounter Summary ---
Author Organization [facility] Address [address] [place] [address] Care Team Providers Care Tool And Die Maker Level Five Name Role Phone Ludwig Tidwell MD Primary Care Provider [phone] Encounter Details Date Type Department Care Team (Late st Contact Info) Description 12/24/2024 Orders Only [facility] [address] [place] [phone] Ludwig Tidwell MD [address] [place] [address] Social History Tobacco Use Types Packs/Day Years Used Date Smoking Tobacco: Never Smokeless Tobacco: Never Alcohol Use Standard Drinks/Week Comments No 0 (1 standard drink = 0.6 oz pur e alcohol) PHQ-2 Answer Date Recorded Patient Health Questionnaire-2 Score 0 08/25/2024 PHQ-9 Answer Date Recorded [facility] PHQ-9 SEVERITY SCORE (Range 0-27) 0 08/25/2023 [...] Description 08/12/2025 8:30 AM EDT Office Visit [facility] Urology [address] [facility] [address] [place] [address] Filiberto Leos MD [address] [place] [address] Return in about 6 months (around 08/11/2025) for labs prior. 09/22/2025 12:45 PM EDT CPE - Comprehensive Physical Exam [facility] [address] [place] [phone] Ludwig Tidwell MD [address] [place] [address] documented as of this encounter Procedures * Due to [place] [employer] law, this organization might not be sharing negative HIV tests. Procedure Name Priority Date/Time Associated Diagnosis Comments CREATININE WITH GLOMERULAR FILTRATION RATE, ESTIMATED (EGFR) Same Day Results 12/24/2024 1:24 PM EST Encounter for laboratory test documented in this encounter Results * Due to [place] [employer] law, this organization might not be sharing negative HIV tests. * (ABNORMAL) CREATININE WITH GLOMERULAR FILTRATION RATE, [...] needs for GFR calculation. Resulting Agency Comment [id number] us Ludwig Tidwell MD LAB SAME DAY RESULT Final Resul t [facility] [address] [place] [address] documented in this encounter Visit Diagnoses Diagnosis Encounter for laboratory test Laboratory examination, unspecified documented in this encounter Care Teams Tool And Die Maker Level Five Relationship Specialty Start Date End Date Ludwig Tidwell MD [address] [place] [address] PCP - General Internal Medicine 11/12/22 documented as of this encounter
--- OUTSIDE RECORDS SUMMARY | 2025-03-11 13:43 | XMS_ITS | Encounter Summary ---
Author Organization [facility] Address [address] [place] [address] Care Team Providers Care Major Gifts Officer Name Role Phone Fran Johnson DO Primary Care Provider Ludwig Joshi MD Primary Care Provider [phone] Encounter Details Date Type Department Care Team (Late st Contact Info) Description 10/02/2021 Orders Only [facility] [address] [place] [phone] Fran Johnson, DO Social History Tobacco Use [...] Result Encounter Note - Fran Johnson. - 10/02/2021 3:49 PM EST Please call patient re: following results: Let him know that his Cr is elevated, meaning his kidney function has declined. This could be partly responsible for his leg edema. Cr ignacio from 1.26 in February to 1.75 Friday. Recc hydrate as much as possible with water, 8-10 glasses every day Needs to STOP all NSAIDS and just use tylenol. Put the lasix on hold for now and just elevated legs, use compression stockings and avoid salt. I will order a renal panel and UA for next week and I am recommending a renal consult to investigate further. I will place consult documented in this encounter Plan of Treatment Upcoming Encounters Date Type Department Care Team (Latest Contact Info) Description 08/12/2025 8:30 AM EDT Office Visit [facility] Urology [address] [facility] [address] [place] [address] Filiberto Leos MD [address] [place] [address] Return in about 6 months (around 08/11/2025) for labs prior. 09/22/2025 12:45 PM EDT CPE - Comprehensive Physical Exam [facility] [address] [place] [address] Ludwig Tidwell MD [address] [place] [address] documented as of this encounter Procedures * Due to [employer] law, this organization might not be sharing negative HIV tests. Procedure Name Priority Date/Time Associated Diagnosis Comments VENIPUNCTURE Routine 10/02/2021 3:49 PM EST Bilateral leg edema documented in this encounter Results * Due to [facility] law, this organization might not be sharing negative HIV tests. * (ABNORMAL) BASIC METABOLIC PANEL WITH (GFR) (10/02/2021 3:49 PM EST) Glucose 86 65 - 99 mg/dL [facility] Comment:Fasting reference in terval Urea Nitrogen Blood (BUN) 22 7 - 25 mg/dL [facility] Creatinine 1.75(H) 0.70 - 1.25 mg/dL [facility] Comment: For patients >49 years of age, the reference limit for Creatinine is approximately 13% higher for people identified as -[place]. EGFR 40(L) > OR = 60 mL/min/1. 73m2 [facility] GFR () 47(L) > OR = 60 mL/min/1. 73m2 [facility] BUN/Creatinine Ratio 13 6 - 22 (calc) [facility] Sodium 140 135 - 146 mmol/L [facility] Potassium 4.2 3.5 - 5.3 mmol/L [facility] Chloride 106 98 - 110 mmol/L [facility] Carbon dioxide 24 20 - 32 mmol/L [facility] Calcium 9.2 8.6 - 10.3 mg/dL [facility] 10/02/2021 3:49 PM EST 10/03/2021 1:56 AM EST Narrative [facility] - 10/03/2021 7:38 AM EST Please note that this estimated GFR [...] needs for GFR calculation. Resulting Agency Comment [id number] us Fran Johnson DO LABORATORY Final Result Performing Organization Address City/State/[facility] Co de Phone Number [facility] [address] [place] [address] documented in this encounter Visit Diagnoses Diagnosis Bilateral leg edema Edema documented in this encounter Care Teams Major Gifts Officer Relationship Specialty Start Date End Date Fran Johnson DO PCP - General Family Medicine 03/17/17 11/11/22 Ludwig Tidwell MD [address] [place] [address] PCP - General Internal Medicine 11/12/22 documented as of this encounter
--- OUTSIDE RECORDS SUMMARY | 2025-03-11 13:43 | XMS_ITS | Encounter Summary ---
Author Organization [facility] Address [address] [place] [address] Care Team Providers Care Powder Room Attendant Name Role Phone Fran Johnson DO Primary Care Provider Ludwig Joshi MD Primary Care Provider [phone] Encounter Details Date Type Department Care Team (Late st Contact Info) Description 04/18/2017 Orders Only [facility] [address] [place] [address] Fran Johnson, DO Social History Tobacco Use [...] as of this encounter Progress Notes * Se Modi - 04/22/2017 1:55 PM EDT Letter sent * Patricio Palacio - 04/22/2017 1:25 PM EDT Labs and hepatitis C testing are negative. No evidence anemia. documented in this encounter Plan of Treatment Upcoming Encounters Date Type Department Care Team (Latest Contact Info) Description 08/12/2025 8:30 AM EDT Office Visit [facility] Urology [address] [facility] [address] [place] [address] Filiberto Leos MD [address] [place] [address] Return in about 6 months (around 08/11/2025) for labs prior. 09/22/2025 12:45 PM EDT CPE - Comprehensive Physical Exam [facility] [address] [place] [address] Ludwig Tidwell MD [address] [place] [address] documented as of this encounter Procedures * Due to [facility] law, this organization might not be sharing negative HIV tests. Procedure Name Priority Date/Time Associated Diagnosis Comments HEPATITIS C AB WITH REFLEX TO RNA PCR, SERUM Routine 04/18/2017 11:06 AM EDT Routine physical examination CBC INCLUDES DIFFERENTIAL AND PLATELET COUNT Routine 04/18/2017 11:06 AM EDT Fatigue, unspecified type documented in this encounter Results * Due to [place] [employer] law, this organization might not be sharing negative HIV tests. * CBC INCLUDES DIFFERENTIAL AND PLATELET COUNT (04/18/2017 11:06 AM EDT) WBC 7.1 3.8 - 10.8 Thousand/u L [facility] RBC 5.05 4.20 - 5.80 Million/uL [facility] Hemoglobin 15.0 13.2 - 17.1 g/dL [facility] Hematocrit 45.2 38.5 - 50.0 % [facility] MCV 89.5 80.0 - 100.0 fL [facility] MCH 29.7 27.0 - 33.0 pg [facility] MCHC 33.2 32.0 - 36.0 g/dL [facility] RDW 13.6 11.0 - 15.0 % [facility] PLT 170 140 - 400 Thousand/u L [facility] MPV 8.8 7.5 - 12.5 fL [facility] Neutrophils # 3855 1500 - 7800 cells/uL [facility] Lymphocytes # 1953 850 - 3900 cells/uL [facility] Monocytes # 774 200 - 950 cells/uL [facility] Eosinophils # 426 15 - 500 cells/uL [facility] Basophils # 92 0 - 200 cells/uL [facility] Neutrophils % 54.3 % [facility] Lymphocytes % 27.5 % [facility] Monocytes % 10.9 % [facility] Eosinophils % 6.0 % [facility] Basophils % 1.3 % [facility] 04/18/2017 11:0 6 AM EDT 04/18/2017 5:28 PM EDT Narrative Resulting Agency Comment [id number] Fran Johnson DO LAB SAME DAY RESULT Final Resul t [facility] [address] [place] [id number] * HEPATITIS C AB WITH REFLEX TO RNA PCR, SERUM (04/18/2017 11:06 AM EDT) Hepatitis C virus Ab NON-REACTI VE NON-REACT DANA [facility] Hepatitis C virus Ab Signal/Cutoff 0.01 <1.00 [facility] 04/18/2017 11:0 6 AM EDT 04/18/2017 5:28 PM EDT Narrative Resulting Agency Comment [id number] Fran Johnson DO LABORATORY Final Result Performing Organization Address City/[facility] Co de Phone Number [facility] [address] [place] [address] documented in this encounter Visit Diagnoses Diagnosis Routine physical examination Routine general medical examination at a health care facility Fatigue, unspecified type documented in this encounter Care Teams Powder Room Attendant Relationship Specialty Start Date End Date Fran Johnson DO PCP - General Family Medicine 03/17/17 11/11/22 Ludwig Tidwell MD [address] [place] [address] PCP - General Internal Medicine 11/12/22 documented as of this encounter
--- OUTSIDE RECORDS SUMMARY | 2025-03-11 13:43 | XMS_ITS | Encounter Summary ---
Author Organization [facility] Address [address] [place] [address] Care Team Providers Care Physical Design Engineer Name Role Phone Fran Johnson DO Primary Care Provider Unavaila Ludwig Leyva MD Primary Care Provider [phone] Encounter Details Date Type Department Care Team ( Contact Info) Description 02/18/2018 Orders Only [facility] Gastroenterology [address] [place] [address] Daisy Woods NP Social History Tobacco Use Types Packs/Day Years [...] Description 08/12/2025 8:30 AM EDT Office Visit [facility] Urology [address] [facility] [address] [place] [address] Filiberto Leos MD [address] [place] [address] Return in about 6 months (around 08/11/2025) for labs prior. 09/22/2025 12:45 PM EDT CPE - Comprehensive Physical Exam [facility] [address] [place] [address] Ludwig Tidwell MD [address] [place] [address] documented as of this encounter Procedures * Due to [facility] law, this organization might not be sharing negative HIV tests. Procedure Name Priority Date/Time Associated Diagnosis Comments HELICOBACTER PYLORI UREA BREATH TEST (UBIT-(R)) Routine 02/18/2018 8:36 AM EDT Nausea Abdominal discomfort documented in this encounter Results * Due to [facility] law, this organization might not be sharing negative HIV tests. * HELICOBACTER PYLORI UREA BREATH TEST (UBIT-(R)) (02/18/2018 8:36 AM EDT) Urea Breath Test, Infra-Red (Ubit) NOT DETECTED [...] 3:33 PM EDT Narrative Resulting Agency Comment [id number] Daisy Woods NP LABORATORY Final Result Performing Organization Address City/State/[facility] Co de Phone Number [facility] [address] [place] [address] documented in this encounter Visit Diagnoses Diagnosis Nausea Nausea alone Abdominal discomfort Abdominal pain, unspecified site documented in this encounter Care Teams Physical Design Engineer Relationship Specialty Start Date End Date Fran Johnson DO PCP - General Family Medicine 03/17/17 11/11/22 Ludwig Tidwell MD [address] [place] [address] PCP - General Internal Medicine 11/12/22 documented as of this encounter
--- OUTSIDE RECORDS SUMMARY | 2025-03-11 13:43 | XMS_ITS | Encounter Summary ---
Author Organization [facility] Address [address] [place] [address] Care Team Providers Care Racetrack Steward Name Role Phone Fran Johnson DO Primary Care Provider UnavailLudwig Dove MD Primary Care Provider [phone] Encounter Details Date Type Department Care Team (Late st Contact Info) Description 04/20/2020 Orders Only [facility] [address] [place] [phone] Fran Johnson, DO Social History Tobacco Use [...] encounter Progress Notes * Fran Johnson - 04/20/2020 1:37 PM EDT Please call patient re: following results: Opioid/Hydrocodone testing was negative I am aware that he does not use the meds every day; Please see when last dose was, if more than 3 days then negative result expected, possibly 2 days if only took one pill. documented in this encounter Plan of Treatment Upcoming Encounters Date Type Department Care Team (Latest Contact Info) Description 08/12/2025 8:30 AM EDT Office Visit [facility] Urology [address] [facility] [address] [place] [address] Filiberto Leos MD [address] [place] [address] Return in about 6 months (around 08/11/2025) for labs prior. 09/22/2025 12:45 PM EDT CPE - Comprehensive Physical Exam [facility] [address] [place] [address] Ludwig Tidwell MD [address] [place] [address] documented as of this encounter Procedures * Due to [facility] law, this organization might not be sharing negative HIV tests. Procedure Name Priority Date/Time Associated Diagnosis Comments PAIN MANAGEMENT PROFILE WITH FENTANYL, URINE (PAINM2+) Routine 04/20/2020 1:37 PM EDT Chronic, continuous use of opioids documented in this encounter Results * Due to [facility] law, this organization might not be sharing negative HIV tests. * PAIN MANAGEMENT PROFILE WITH FENTANYL, URINE (PAINM2+) (04/20/2020 1:37 PM EDT) Fentanyl Screen (Urine) NEGATIVE <0.5 ng/mL [facility] Comment:See Note 1 COMMENT SEE NOTE [facility] Comment:See Note 2 Creatinine (Urine) 145.0 > or = 20.0 mg/dL [facility] [...] analytical performance characteristics have been determined by [facility]. It has not been cleared or approved [...] interpreting these drug results, please contact a [facility] Toxicology Specialist: [phone] ( ), M-F, 8am-6pm EST. 04/20/2020 1:37 PM EDT 04/20/2020 7:43 PM EDT Narrative Resulting Agency Comment [id number] Fran Johnson DO LABORATORY Final Result Performing Organization Address City/State/[facility] Co de Phone Number [facility] [address] [place] [address] documented in this encounter Visit Diagnoses Diagnosis Chronic, continuous use of opioids Opioid type dependence, continuous documented in this encounter Care Teams Racetrack Steward Relationship Specialty Start Date End Date Fran Johnson DO PCP - General Family Medicine 03/17/17 11/11/22 Ludwig Tidwell MD [address] [place] [address] PCP - General Internal Medicine 11/12/22 documented as of this encounter
--- OUTSIDE RECORDS SUMMARY | 2025-03-11 13:43 | XMS_ITS | Encounter Summary ---
Author Organization [facility] Address [address] [place] [address] Care Team Providers Care Product Introduction Manager Name Role Phone Fran Johnson DO Primary Care Provider Ludwig Joshi MD Primary Care Provider Encounter Details Date Type Department Care Team ([facility] st Contact Info) Description 10/31/2017 Orders Only [facility] [address] [place] [address] Fran Johnson, DO Social History Tobacco Use [...] Industry Job Start Date Job End Date Not on file Not on file Not on file Not on file documented as of this encounter Progress Notes * Se Modi - 11/03/2017 9:39 AM EST Letter sent * Fran Johnson - 11/01/2017 7:49 PM EST Please send normal results letter: all labs normal; next step is upper GI and GI consult documented in this encounter Plan of Treatment Upcoming Encounters Date Type Department Care Team (Latest Contact Info) Description 08/12/2025 8:30 AM EDT Office Visit [facility] Urology [address] [facility] [address] [place] [address] Filiberto Leos MD [address] [place] [address] Return in about 6 months (around 08/11/2025) for labs prior. 09/22/2025 12:45 PM EDT CPE - Comprehensive Physical Exam [facility] Medicine [address] [place] [address] Ludwig Tidwell MD [address] [place] [address] documented as of this encounter Procedures * Due to [place] [employer] law, this organization might not be sharing negative HIV tests. Procedure Name Priority Date/Time Associated Diagnosis Comments CBC INCLUDES DIFFERENTIAL AND PLATELET COUNT Routine 10/31/2017 10:32 AM EST Chronic nausea LIPASE, SERUM Routine 10/31/2017 10:32 AM EST Chronic nausea AMYLASE, SERUM Routine 10/31/2017 10:32 AM EST Chronic nausea COMPREHENSIVE METABOLIC PANEL WITH GFR Routine 10/31/2017 10:32 AM EST Chronic nausea documented in this encounter Results * Due to [place] [employer] law, this organization might not be sharing negative HIV tests. * LIPASE, SERUM (10/31/2017 10:32 AM EST) Lipase 52 7 - 60 U/L [facility] 10/31/2017 10:3 2 AM EST 10/31/2017 5:36 PM EST Narrative Resulting Agency Comment [id number] Fran Johnson DO LABORATORY Final Result [facility] [address] [place] [address] * AMYLASE, SERUM (10/31/2017 10:32 AM EST) Amylase 67 21 - 101 U/L [facility] 10/31/2017 10:3 2 AM EST 10/31/2017 5:36 PM EST Narrative Resulting Agency Comment [id number] Fran Johnson DO LAB SAME DAY RESULT Final Resul t Performing Organization Address City/State/[facility] Co de Phone Number [facility] [address] [place] [address] * COMPREHENSIVE METABOLIC PANEL WITH GFR (10/31/2017 10:32 AM EST) Glucose 97 65 - 99 mg/dL [facility] Comment:Fasting reference in terval Urea Nitrogen Blood (BUN) 24 7 - 25 mg/dL [facility] Creatinine 1.06 0.70 - 1.25 mg/dL [facility] Comment: For patients >49 years of age, the reference limit for Creatinine is approximately 13% higher for people identified as -Hungarian. GFR 76 > OR = 60 mL/min/1 .73m2 [facility] GFR () 88 > OR = 60 mL/min/1 .73m2 [facility] BUN/Creatinine Ratio NOT APPLICABLE 6 - 22 (calc) [facility] Sodium 140 135 - 146 mmol/L [facility] Potassium 4.3 3.5 - 5.3 mmol/L [facility] Chloride 106 98 - 110 mmol/L [facility] Carbon dioxide 24 20 - 31 mmol/L [facility] Calcium 9.6 8.6 - 10.3 mg/dL [facility] Protein Total (Serum) 6.7 6.1 - 8.1 g/dL [facility] Albumin 4.3 3.6 - 5.1 g/dL [facility] Globulin 2.4 1.9 - 3.7 g/dL (calc) [facility] Albumin/Globulin 1.8 1.0 - 2.5 (calc) [facility] Bilirubin Total 0.4 0.2 - 1.2 mg/dL [facility] Alkaline phosphatase 61 40 - 115 U/L [facility] AST (SGOT) 19 10 - 35 U/L [facility] ALT (SGPT) 21 9 - 46 U/L [facility] 10/31/2017 10:3 2 AM EST 10/31/2017 5:36 PM EST Narrative [facility] - 10/31/2017 9:21 PM EST Please note that this estimated [...] needs for GFR calculation. Resulting Agency Comment [id number] Fran Johnson DO LABORATORY Final Result Performing Organization Address [facility] de Phone Number [facility] [address] [place] [address] * CBC INCLUDES DIFFERENTIAL AND PLATELET COUNT (10/31/2017 10:32 AM EST) WBC 6.9 3.8 - 10.8 Thousand/u L [facility] RBC 4.81 4.20 - 5.80 Million/uL [facility] Hemoglobin 14.4 13.2 - 17.1 g/dL [facility] Hematocrit 43.3 38.5 - 50.0 % [facility] MCV 90.1 80.0 - 100.0 fL [facility] MCH 30.0 27.0 - 33.0 pg [facility] MCHC 33.3 32.0 - 36.0 g/dL [facility] RDW 13.7 11.0 - 15.0 % [facility] PLT 184 140 - 400 Thousand/u L [facility] MPV 8.8 7.5 - 12.5 fL [facility] Neutrophils # 3754 1500 - 7800 cells/uL [facility] Lymphocytes # 2008 850 - 3900 cells/uL [facility] Monocytes # 725 200 - 950 cells/uL [facility] Eosinophils # 338 15 - 500 cells/uL [facility] Basophils # 76 0 - 200 cells/uL [facility] Neutrophils % 54.4 % [facility] Lymphocytes % 29.1 % [facility] Monocytes % 10.5 % [facility] Eosinophils % 4.9 % [facility] Basophils % 1.1 % [facility] 10/31/2017 10:3 2 AM EST 10/31/2017 5:36 PM EST Narrative Resulting Agency Comment [id number] Fran Johnson DO LAB SAME DAY RESULT Final Resul t Performing Organization Address City/[facility]/ZIP Co de Phone Number [facility] [address] [place] [address] documented in this encounter Visit Diagnoses Diagnosis Chronic nausea Nausea alone documented in this encounter Care Teams Product Introduction Manager Relationship Specialty Start Date End Date Fran Johnson DO PCP - General Family Medicine 03/17/17 11/11/22 Ludwig Tidwell MD [address] [place] [address] PCP - General Internal Medicine 11/12/22 documented as of this encounter
--- OUTSIDE RECORDS SUMMARY | 2025-03-11 13:43 | XMS_ITS | Encounter Summary ---
Author Organization [facility] Address [address] [place] [address] Care Team Providers Care Frame Polisher Name Role Phone Ludwig Tidwell MD Primary Care Provider [phone] Encounter Details Date Type Department Care Team (Late st Contact Info) Description 11/30/2024 Orders Only [facility] [address] [place] [phone] Ludwig Tidwell MD [address] [place] [address] Social History Tobacco Use Types Packs/Day Years Used Date Smoking Tobacco: Never Smokeless Tobacco: Never Alcohol Use Standard Drinks/Week Comments No 0 (1 standard drink = 0.6 oz pur e alcohol) PHQ-2 Answer Date Recorded Patient Health Questionnaire-2 Score 0 08/25/2024 PHQ-9 Answer Date Recorded [facility] PHQ-9 SEVERITY SCORE (Range 0-27) 0 [...] Encounter Note - Megha Thomas NP - 11/30/2024 9:44 AM EST Consistent with meds documented in this encounter Plan of Treatment Upcoming Encounters Date Type Department Care Team (Latest Contact Info) Description 08/12/2025 8:30 AM EDT Office Visit [facility] Urology [address] [facility] [address] [place] [address] Filiberto Leos MD [address] [place] [address] Return in about 6 months (around 08/11/2025) for labs prior. 09/22/2025 12:45 PM EDT CPE - Comprehensive Physical Exam [facility] Medicine [address] [place] [address] Ludwig Tidwell MD [address] [place] [address] documented as of this encounter Procedures * Due to [place] [employer] law, this organization might not be sharing negative HIV tests. Procedure Name Priority Date/Time Associated Diagnosis Comments PAIN MANAGEMENT PROFILE WITH FENTANYL, URINE (PAINM2+) Routine 11/30/2024 9:44 AM EST Medication management PARATHYROID HORMONE (PTH), INTACT WITH CALCIUM, SERUM Routine 11/30/2024 9:44 AM EST Screening for endocrine disorder documented in this encounter Results * Due to [place] [employer] law, this organization might not be sharing negative HIV tests. * PARATHYROID HORMONE (PTH), INTACT WITH CALCIUM, SERUM (11/30/2024 9:44 AM EST) Parathyroid Hormone (PTH), Intact 36 16 - 77 pg/mL [facility] Comment: Interpretive Guide ?Intact PTH ? Calcium ? ------- Normal Parathyroid ?Normal ? Normal Hypoparathyroidism ?Low or Low Normal ?Low Hyperparathyroidism ?? Primary ?Normal or High ? High ?? Secondary ?High ? Normal or Low ?? Tertiary ? High ? High Non-Parathyroid ?? Hypercalcemia ?Low or Low Normal ?High Calcium 9.9 8.6 - 10.3 mg/dL [facility] 11/30/2024 9:44 AM EST 12/01/2024 1:32 AM EST Narrative Resulting Agency Comment [id number] Ludwig Tidwell MD LABORATORY Final Result Performing Organization Address City/State/[facility] Co de Phone Number [facility] [address] [place] [address] * (ABNORMAL) PAIN MANAGEMENT PROFILE WITH FENTANYL, URINE (PAINM2+) (11/30/2024 9:44 AM EST) Fentanyl Screen (Urine) NEGATIVE <0.5 [...] analytical performance characteristics have been determined by [facility]. It has not been cleared or approved [...] interpreting these drug results, please contact a [facility] Toxicology Specialist: [phone] ( ), M-F, 8am-6pm EST. 11/30/2024 9:44 AM EST 12/01/2024 1:32 AM EST Narrative Resulting Agency Comment [id number] us Ludwig Tidwell MD LABORATORY Final Result [facility] [address] [place] [address] documented in this encounter Visit Diagnoses Diagnosis Medication management Encounter for long-term (current) use of other medications Screening for endocrine disorder documented in this encounter Care Teams Frame Polisher Relationship Specialty Start Date End Date Ludwig Tidwell MD [address] [place] [address] PCP - General Internal Medicine 11/12/22 documented as of this encounter
--- OUTSIDE RECORDS SUMMARY | 2025-03-11 13:43 | XMS_ITS | Encounter Summary ---
Author Organization [facility] Address [address] [place] [address] Care Team Providers Care Cuff Setter Name Role Phone Fran Johnson DO Primary Care Provider Unavaila Ludwig Leyva MD Primary Care Provider [phone] Encounter Details Date Type Department Care Team ( Contact Info) Description 10/25/2021 Orders Only [facility] Nephrology [address] [facility] [address] [place] [address] Roney Pike MD [address] [facility] [address] [place] [address] Social History Tobacco Use Types Packs/Day Years [...] 8:30 AM EDT Office Visit [facility] Urology [address] [facility] [address] [place] [address] Filiberto Leos MD [address] [place] [address] Return in about 6 months (around 08/11/2025) for labs prior. 09/22/2025 12:45 PM EDT CPE - Comprehensive Physical Exam [facility] Medicine [address] [place] [address] Ludwig Tidwell MD [address] [place] [address] documented as of this encounter Procedures * Due to [facility] law, this organization might not be sharing negative HIV tests. Procedure Name Priority Date/Time Associated Diagnosis Comments CYSTATIN C Routine 10/25/2021 4:43 PM EST MARLON (acute kidney injury) VENIPUNCTURE Routine 10/25/2021 4:43 PM EST MARLON (acute kidney injury) documented in this encounter Results * Due to [place] [employer] law, this organization might not be sharing negative HIV tests. * (ABNORMAL) RENAL FUNCTION PANEL (W/ EGFR) (10/25/2021 4:43 PM EST) Glucose 78 65 - 99 mg/dL [facility] Comment:Fasting reference in [facility] Urea Nitrogen Blood (BUN) 27(H) 7 - 25 mg/dL [facility] Creatinine 1.47(H) 0.70 - 1.25 mg/dL [facility] Comment: For patients >49 years of age, the reference limit for Creatinine is approximately 13% higher for people identified as -[place]onegasque. EGFR 50(L) > OR = 60 mL/min/1. [...] 11:47 PM EST Narrative Resulting Agency Comment [id number] Roney Ribera MD LABORATORY Final Result Performing Organization Address City/[facility]/ZIP Co de Phone Number [facility] [address] [place] [address] * CYSTATIN C (10/25/2021 4:43 PM EST) Cystatin C 1.01 0.52 - 1.20 mg/L [facility] eGFR Cystatin 76 >=60 mL/min/1.7 3m2 [facility] Comment:REFERENCE RANGE:>=60 mL/min/1.73mE2 10/25/2021 4:43 PM EST 10/25/2021 11:47 PM EST Narrative Resulting Agency Comment [id number] Roney Ribera MD LABORATORY Final Result Performing Organization Address City/[facility] Co de Phone Number [facility] [address] [place] [address] documented in this encounter Visit Diagnoses Diagnosis MARLON (acute kidney injury) Acute kidney failure, unspecified documented in this encounter Care Teams Cuff Setter Relationship Specialty Start Date End Date Fran Johnson DO PCP - General Family Medicine 03/17/17 11/11/22 Ludwig Tidwell MD [address] [place] [address] PCP - General Internal Medicine 11/12/22 documented as of this encounter
--- OUTSIDE RECORDS SUMMARY | 2025-03-11 13:43 | XMS_ITS | Encounter Summary ---
Author Organization [facility] Address [address] [place] [address] Care Team Providers Care Equal Opportunity Specialist Name Role Phone Fran Johnson DO Primary Care Provider Ludwig Joshi MD Primary Care Provider [phone] Encounter Details Date Type Department Care Team (Late st Contact Info) Description 01/03/2021 Orders Only [facility] [address] [place] [phone] Fran Johnson DO Social History Tobacco Use Types Packs/Day Years Used Date Smoking Tobacco: Never Smokeless Tobacco: Never Alcohol Use Standard Drinks/Week Comments No 0 (1 standard drink = 0.6 oz pur e alcohol) PHQ-2 Answer Date Recorded PHQ-2 Score 0 06/23/2020 Sex and Gender Information Value Date Recorded [...] Notes * Result Encounter Note - Fran Johnson - 01/03/2021 7:28 AM EST Will review all labs at upcoming visit. No immediate or urgent concerns. * Result Encounter Note - Fran Johnson - 01/03/2021 7:28 AM EST All labs normal or as expected. No concerns. Repeat per protocol documented in this encounter Plan of Treatment Upcoming Encounters Date Type Department Care Team (Latest Contact Info) Description 08/12/2025 8:30 AM EDT Office Visit [facility] Urology [address] [facility] [address] [place] [address] Filiberto Leos MD [address] [place] [address] Return in about 6 months (around 08/11/2025) for labs prior. 09/22/2025 12:45 PM EDT CPE - Comprehensive Physical Exam [facility] Medicine [address] [place] [address] Ludwig Tidwell MD [address] [place] [address] documented as of this encounter Procedures * Due to [place] state law, this organization might not be sharing negative HIV tests. Procedure Name Priority Date/Time Associated Diagnosis Comments PAIN MANAGEMENT PROFILE WITH FENTANYL, URINE (PAINM2+) Routine 01/03/2021 7:28 AM EST Encounter for observation for other suspected diseases and conditions ruled out CBC INCLUDES DIFFERENTIAL AND PLATELET COUNT Routine 01/03/2021 7:28 AM EST Fatigue, unspecified type ALANINE AMINOTRANSFERASE (ALT), SERUM Routine 01/03/2021 7:28 AM EST Mixed hyperlipidemia THYROID STIMULATING HORMONE (TSH) WITH FREE T4 REFLEX, SERUM Routine 01/03/2021 7:28 AM EST Fatigue, unspecified type VENIPUNCTURE Routine 01/03/2021 7:28 AM EST Pre-diabetes LIPID PANEL WITH REFLEX TO DIRECT LDL Routine 01/03/2021 7:28 AM EST Mixed hyperlipidemia documented in this encounter Results * Due to [place] state law, this organization might not be sharing negative HIV tests. * CBC INCLUDES DIFFERENTIAL AND PLATELET COUNT (01/03/2021 7:28 AM EST) WBC 6.2 3.8 - 10.8 Thousand/u L [facility] RBC 4.71 4.20 - 5.80 Million/uL [facility] Hemoglobin 14.0 13.2 - 17.1 g/dL [facility] Hematocrit 41.8 38.5 - 50.0 % [facility] MCV 88.7 80.0 - 100.0 fL [facility] MCH 29.7 27.0 - 33.0 pg [facility] MCHC 33.5 32.0 - 36.0 g/dL [facility] RDW 12.5 11.0 - 15.0 % [facility] PLT 180 140 - 400 Thousand/u L [facility] MPV 10.1 7.5 - 12.5 fL [facility] Neutrophils # 3088 1500 - 7800 cells/uL [facility] Lymphocytes # 2027 850 - 3900 cells/uL [facility] Monocytes # 713 200 - 950 cells/uL [facility] Eosinophils # 291 15 - 500 cells/uL [facility] Basophils # 81 0 - 200 cells/uL [facility] Neutrophils % 49.8 % [facility] Lymphocytes % 32.7 % [facility] Monocytes % 11.5 % [facility] Eosinophils % 4.7 % [facility] Basophils % 1.3 % [facility] 01/03/2021 7:28 AM EST 01/03/2021 9:13 AM EST Narrative Resulting Agency Comment [id number] Fran Johnson DO LAB SAME DAY RESULT Final Resul t [facility] [address] [place] [address] * THYROID STIMULATING HORMONE (TSH) WITH FREE T4 REFLEX, SERUM (01/03/2021 7:28 AM EST) TSH 1.97 0.40 - 4.50 mIU/L [facility] 01/03/2021 7:28 AM EST 01/03/2021 9:13 AM EST Narrative Resulting Agency Comment [id number] Fran Johnson DO LABORATORY Final Result Performing Organization Address [facility] Co de Phone Number [facility] [address] [place] [address] * (ABNORMAL) LIPID PANEL WITH REFLEX TO DIRECT LDL (01/03/2021 7:28 AM EST) Cholesterol 218(H) <200 mg/dL [facility] HDL Cholesterol 51 > OR = 40 mg/dL [facility] Triglyceride 169(H) <150 mg/dL [facility] LDL Cholesterol 136(H) mg/dL (calc) [facility] Comment: Reference range: [...] LDL-C. Naveen LUCAS et al. JOHN. 2013;310(19): 9500-1205 (http://education.[employer]/faq/IDF326) CHOL/HDL Ratio 4.3 <5.0 (calc) [facility] Cholesterol Non-HDL 167(H) <130 mg/dL (calc) [facility] Comment: For patients with diabetes plus 1 major ASCVD risk factor, treating to a non-HDL-C goal of <100 mg/dL (LDL-C of <70 mg/dL) is considered a therapeutic option. 01/03/2021 7:28 AM EST 01/03/2021 9:13 AM EST Narrative Resulting Agency Comment [id number] Fran Johnson DO LABORATORY Final Result Performing Organization Address [facility]/ZIP Co de Phone Number [facility] [address] [place] [address] * ALANINE AMINOTRANSFERASE (ALT), SERUM (01/03/2021 7:28 AM EST) ALT (SGPT) 19 9 - 46 U/L [facility] 01/03/2021 7:28 AM EST 01/03/2021 9:13 AM EST Narrative Resulting Agency Comment [id number] Fran Antionette Alex DO LAB SAME DAY RESULT Final Resul t Performing Organization Address [facility] Co de Phone Number [facility] [address] [place] [address] * HEMOGLOBIN A1C (01/03/2021 7:28 AM EST) Hemoglobin A1C 5.6 <5.7 % of total [...] diagnosis of diabetes in children. According to [place] [employer] Association (ADA) guidelines, hemoglobin A1c <7.0% represents optimal control in non- diabetic patients. Different metrics may apply to specific patient populations. Standards of Medical Care in Diabetes(ADA). Estimated Average Glucose 122 mg/dL (calc) [facility] 01/03/2021 7:28 AM EST 01/03/2021 9:13 AM EST Narrative Resulting Agency Comment [id number] Fran Antionette Alex DO LABORATORY Final Result Performing Organization Address [facility] de Phone Number [facility] [address] [place] [address] * (ABNORMAL) PAIN MANAGEMENT PROFILE WITH FENTANYL, URINE (PAINM2+) (01/03/2021 7:28 AM EST) Fentanyl Screen (Urine) NEGATIVE <0.5 ng/mL [facility] Comment:See Note 1 COMMENT SEE NOTE [facility] Comment:See Note 2 Creatinine (Urine) 131.9 > or = 20.0 mg/dL [facility] [...] [facility] Comment:See Note 1 Hydrocodone (Urine) 88(H) <50 ng/mL [facility] Comment:See Note 1 Hydromorphone (Urine) NEGATIVE <50 ng/mL [facility] Comment:See Note 1 Morphine (Urine) NEGATIVE <50 ng/mL [facility] Comment:See Note 1 Norhydrocodone (Urine) 136(H) <50 ng/mL [facility] Comment:See Note 1 Oxycodone (Urine) NEGATIVE <100 ng/mL [facility] Phencyclidine (Urine) NEGATIVE <25 ng/mL [facility] COMMENT SEE NOTE [facility] Comment: See Note 2 Note 1 This test was developed and its analytical performance characteristics have been determined by [facility]. It has not been cleared or approved [...] interpreting these drug results, please contact a [facility] Toxicology Specialist: [phone] ( ), M-F, 8am-6pm EST. 01/03/2021 7:28 AM EST 01/03/2021 9:13 AM EST Narrative Resulting Agency Comment [id number] Fran Johnson DO LABORATORY Final Result [facility] [address] [place] [address] documented in this encounter Visit Diagnoses Diagnosis Encounter for observation for other suspected diseases and conditions ruled out Pre-diabetes Other abnormal glucose Mixed hyperlipidemia Fatigue, unspecified type documented in this encounter Care Teams Equal Opportunity Specialist Relationship Specialty Start Date End Date Fran Johnson DO PCP - General Family Medicine 03/17/17 11/11/22 Ludwig Tidwell MD [address] [place] [address] PCP - General Internal Medicine 11/12/22 documented as of this encounter
--- OUTSIDE RECORDS SUMMARY | 2025-03-11 13:43 | XMS_ITS | Encounter Summary ---
Author Organization [facility] Address [address] [place] [address] Care Team Providers Care Master Barber Name Role Phone Fran Johnson DO Primary Care Provider Unavaila Ludwig Leyva MD Primary Care Provider [phone] Encounter Details Date Type Department Care Team ( Contact Info) Description 07/20/2019 Orders Only [facility] [address] [place] [phone] Lazara Abreu, ANP Social History Tobacco Use Types Packs/Day Years [...] Description 08/12/2025 8:30 AM EDT Office Visit [facility] [address] [facility] [address] [place] [address] Filiberto Leos MD [address] [place] [address] Return in about 6 months (around 08/11/2025) for labs prior. 09/22/2025 12:45 PM EDT CPE - Comprehensive Physical Exam [facility] [address] [place] [phone] Ludwig Tidwell MD [address] [place] [address] documented as of this encounter Procedures * Due to [facility] law, this organization might not be sharing negative HIV tests. Procedure Name Priority Date/Time Associated Diagnosis Comments BORRELIA BURGDORFERI AB (LYME), EIA WITH REFLEX IGG, IGM WB Routine 07/20/2019 8:03 AM EDT Myalgia C-REACTIVE PROTEIN (CRP) - INFLAMMATION Routine 07/20/2019 8:03 AM EDT Myalgia ERYTHROCYTE SEDIMENTATION RATE (ESR) Routine 07/20/2019 8:03 AM EDT Myalgia BASIC METABOLIC PANEL WITH (GFR) Routine 07/20/2019 8:03 AM EDT Myalgia documented in this encounter Results * Due to [place] [employer] law, this organization might not be sharing negative HIV tests. * (ABNORMAL) BASIC METABOLIC PANEL WITH (GFR) (07/20/2019 8:03 AM EDT) Glucose 88 65 - 99 mg/dL [facility] Comment:Fasting reference in terval Urea Nitrogen Blood (BUN) 22 7 - 25 mg/dL [facility] Creatinine 1.36(H) 0.70 - 1.25 mg/dL [facility] Comment: For patients >49 years of age, the reference limit for Creatinine is approximately 13% higher for people identified as -Guyanese. EGFR 55(L) > OR = 60 mL/min/1. 73m2 [facility] GFR () 64 > OR = 60 mL/min/1. 73m2 [facility] BUN/Creatinine Ratio 16 6 - 22 (calc) [facility] Sodium 140 135 - 146 mmol/L [facility] Potassium 4.5 3.5 - 5.3 mmol/L [facility] Chloride 105 98 - 110 mmol/L [facility] Carbon dioxide 28 20 - 32 mmol/L [facility] Calcium 9.5 8.6 - 10.3 mg/dL [facility] 07/20/2019 8:03 AM EDT 07/20/2019 9:59 AM EDT Narrative [facility] - 07/20/2019 6:19 PM EDT Please note that this estimated [...] needs for GFR calculation. Resulting Agency Comment [id number] [facility] Final Re sult Performing Organization Address [facility] Co de Phone Number [facility] [address] [place] [address] * C-REACTIVE PROTEIN (CRP) - INFLAMMATION (07/20/2019 8:03 AM EDT) C reactive protein 6.0 <8.0 mg/L [facility] 07/20/2019 8:03 AM EDT 07/20/2019 9:59 AM EDT Narrative Resulting Agency Comment [id number] [facility] Final Re sult Performing Organization Address [facility] Co de Phone Number [facility] [address] [place] [address] * ERYTHROCYTE SEDIMENTATION RATE (ESR), [place] (07/20/2019 8:03 AM EDT) Sedimentation Rate [place] (ESR) 6 < OR = 20 mm/h [facility] 07/20/2019 8:03 AM EDT 07/20/2019 9:59 AM EDT Narrative Resulting Agency Comment [id number] [facility] SAME DAY RESULT Nieves l Result Performing Organization Address [facility] Co de Phone Number [facility] [address] [place] [address] * BORRELIA BURGDORFERI AB (LYME), EIA WITH [...] 9:59 AM EDT Narrative Resulting Agency Comment [id number] us Lazara Abreu ANP LABORATORY Final Re sult [facility] [address] [place] [address] documented in this encounter Visit Diagnoses Diagnosis Myalgia Mylagia and myositis, unspecified documented in this encounter Care Teams Master Barber Relationship Specialty Start Date End Date Fran Johnson DO PCP - General Family Medicine 03/17/17 11/11/22 Ludwig Tidwell MD [address] [place] [address], [place] [address] PCP - General Internal Medicine 11/12/22 documented as of this encounter
== END 2025-03-11 14:13 | disposition home or self-care (01) ==
LOC: HO.HNS 13:13
PROVIDERS: PCP Radiology Vascular & Interventional Radiology; Visit Provider Neurological Surgery
DX: M47.14 Other spondylosis with myelopathy, thoracic region (principal)
CPT/HCPCS: 99214

== ENCOUNTER → 2025-03-11 13:13 | Outpatient (BNVA) | payer MEDICARE, SELFPAY | PROVIDERS: PCP Radiology Vascular & Interventional Radiology; Visit Provider Neurological Surgery | DX: M47.14 Other spondylosis with myelopathy, thoracic region (principal) | CPT/HCPCS: 99212 ==